=== PATIENT | female | born 1955 | race Caucasian/White ===

== ENCOUNTER → 2016-03-02 | Outpatient (CLI) | payer OTHER ==
[~2016-03-02] MED LIST: 'carisoprodol350 MG PO; ABILIFY10 MG PO; ABILIFY15 MG PO; ABILIFY20 MG PO; ABILIFY5 MG PO; ACCUNEB 0.0.63 MG/3 INH; ACULAR 3 ML3 M1 OP; ADVAIR 500/501 E1 INH; ALBUTEROL0.09 MG/A2 IH; ALPRAZOLAM0.5 M1 PO; AMOXIL500 MG PO; ANAPROX DS550 MG PO; ATIVAN0.5 MG PO; ATIVAN1 MG PO; ATROVENT 2.5 M2.5 ML IH; ATROVENT I0.5 MG/2.1 INH; ATROVENT I0.5 MG/2.5 INH; BACTRIM DS 8001 TA1 PO; BACTROBAN OINT22 GM PO; BIAXIN500 MG PO; BROVANA15 MCG/2 M IH; CEFZIL500 MG PO; CIPRODEX 0.3%-7.5 ML OT; CLARITIN10 MG PO; CLEOCIN150 MG PO; CLINDAMYCIN HC300 MG PO; CLINDAMYCIN150 MG PO; CLONIDINE0.1 MG PO; CORDROL20 MG PO; CYCLOBENZAPRINE10 MG PO; DARVOCET N 1001 TAB PO; DELTASONE20 M1 PO; DICLOFENAC POTA50 MG PO; DIFLUCAN100 MG PO; DIFLUCAN150 MG PO; DIFLUCAN200 MG PO; DOXYCYCLINE HY100 M5 PO; DOXYCYCLINE MO100 MG PO; DOXYCYCLINE100 M3 PO; DULER200 PO; DULERA 200 MCG8.8 GM PO; DUONEB 3 MG/3 ML3 M1 INH; Depakote ER500 MG PO; ELIMITE 5%60 GM T; ENSURE LIQUID237 ML PO; FLAGYL500 MG PO; FLEXERIL10 MG PO; GEODON20 MG PO; GEODON80 MG PO; HYCODAN/HYDROMET5 ML PO; IMITREX100 MG PO; IMITREX25 M1 PO; K-DUR 20MEQ20 MEQ PO; KEFLEX500 MG PO; KENALOG0.1% TP; KLONOPIN1 M1 PO; KLONOPIN1 MG PO; LEVAQUIN 750MG750 MG PO; LEVAQUIN250 MG PO; LEVAQUIN750 M1 PO; LEVOFLOXACIN500 MG PO; LOMOTIL 0.025 M1 TAB PO; MECLIZINE HCL25 M2 PO; MEDROL DOSEPAK4 MG PO; MIDODRINE HCL10 MG PO; MIDODRINE HCL2.5 MG PO; MOTRIN800 MG PO; MULTI VITAMINS1 TAB PO; NAPROSYN500 MG PO; NAPROXEN500 M1 PO; NASONEX0.05 MG/AC NAS; NASONEX0.05 MG/AC NS; NEURONTIN300 MG PO; NEURONTIN800 MG PO; NIZORAL 2%15 GM PO; OSMOLITE CAL PEG; PERCOCET 325 MG1 TA2; PERCOCET 325 MG1 TA3 PO; PERCOCET 325 MG1 TA4 PO; PERCOCET 325 MG1 TA7 PO; PERCOCET 325 MG1 TA8 PO; PERCOCET 325 MG1 TAB PO; PHENERGAN W/ DE30 ML PO; PHENERGAN W/DM120 ML PO; PREDNICOT20 MG PO; PREDNISONE10 MG PO; PREDNISONE20 M1 PO; PRENATAL PLUS1 EAC1 PO; PROMETHAZINE25 M1 PO; PROVENTIL0.09 MG/AC IH; PULMICORT RES0.25 M1 INH; REGLAN10 M1 PO; ROBAXIN-750750 MG PO; ROBAXIN500 MG PO; ROBAXIN750 MG PO; ROBITUSSIN AC 110 ML PO; ROBITUSSIN-AC480 ML PO; SEPTRA DS 800 M1 TAB PO; SINGULAIR10 M1 PO; SOMA350 MG PO; SYNTHROID,LEV112 MCG PO; SYNTHROID,LEVO25 MCG PO; Synthroid,Levo75 MCG PO; TESSALON PERLE200 MG PO; TOBREX OPHTH S2.5 ML OPH; TRAMADOL HCL50 MG PO; TRAZADONE HYDR100 MG PO; TRAZODONE HCL100 MG PO; TRAZODONE HCL300 MG PO; TRAZODONE HYDR100 MG PO; Tobrex Ophth S2.5 ML OPH; ULTRAM50 MG PO; VENTOLIN 02.5 MG/3 M INH; VENTOLIN H0.09 MG/AC INH; VIBRAMYCIN100 MG PO; VICODIN 5/500 505 MG PO; VICODIN 500 MG-1 TAB PO; VICODIN ES 7501 TAB PO; VISTARIL50 MG PO; VITAMIN D-32000 UNIT PO; VOLTAREN50 M1 PO; XANAX0.5 MG PO; ZANTAC150 MG PO; ZIPRASIDONE HCL80 M1 PO; ZYRTEC10 MG PO; [UNRECOGNIZED DRUG - OTHER] NS
[2016-03-02 09:13] LABS: BASO # 0.1 10*3/uL (0.0-0.1); BASO % 0.9 % (0.0-1.0); EOS # 0.2 10*3/uL (0.0-0.4); EOS % 2.7 % (1.0-4.0); HEMOGLOBIN 13.1 g/dl (12.0-16.0); LYMPH # 3.3 10*3/uL (1.3-4.4); LYMPH % 37.9 % (27.0-41.0); MEAN CELL VOLUME 95.7 fl (81.0-99.0); MEAN CORPUSCULAR HGB 31.3 pg (27.0-31.0); MEAN CORPUSCULAR HGB CONC 32.8 g/dl (33.0-37.0); MEAN PLATELET VOLUME 9.6 fl (9.6-12.3); MONO # 0.7 10*3/uL (0.1-1.0); MONO % 7.6 % (3.0-9.0); NEUT # 4.4 10*3/uL (2.3-7.9); NEUT % 50.7 % (47.0-73.0); PLATELET COUNT AUTOMATED 229 10*3/uL (130-400); RED BLOOD COUNT 4.18 10*6/uL (4.10-5.10); RED CELL DISTRI WIDTH 12.7 % (0-14.5); WHITE BLOOD COUNT 8.7 10*3/uL (4.8-10.8)
[2016-03-02 09:47] LABS: BUN 15 mg/dl (7-24); CARBON DIOXIDE 29 mmol/L (21-32); CHLORIDE 105 mmol/L (98-107); EST GLOM FILT AFRICAN AMERICAN > 60 ml/min; FREE T4 0.95 ng/dl (0.76-1.46); GLUCOSE 89 mg/dL (65-99); IRON 66 ug/dL (50-170); IRON SATURATION 23 %; POTASSIUM 4.1 mmol/L (3.5-5.1); SODIUM 142 mmol/L (136-145); UIBC 220 ug/dL (110-365)
[2016-03-03 06:10] LABS: THYROID PEROXIDASE (TPO) AB 10 IU/mL (0-34)
[2016-03-03 14:06] LABS: THYROGLOBULIN ANTIBODY <1.0 IU/mL (0.0-0.9)
== END | disposition home or self-care (01) ==
LOC: LAB 08:53
PROVIDERS: Internal Medicine
DX: D75.1 Secondary polycythemia (principal); D64.9 Anemia, unspecified; E55.9 Vitamin D deficiency, unspecified; R73.02 Impaired glucose tolerance (oral); E06.9 Thyroiditis, unspecified; T45.4X5A Adverse effect of iron and its compounds, initial encounter

== ENCOUNTER 2016-03-14 15:58 | Emergency (ER) | payer OTHER ==
[~2016-03-14] VITALS: Ht 167.6 cm; Wt 50.8 kg
[~2016-03-14 15:58] MED LIST changes: -ALPRAZOLAM0.5 M1 PO; -IMITREX25 M1 PO; -MIDODRINE HCL10 MG PO; -Synthroid,Levo75 MCG PO; -VITAMIN D-32000 UNIT PO
[2016-03-14 16:12] VITALS: BP 140/82
[2016-03-14] MEDS ORDERED: IMITREX25 M1 PO (16:15)
[2016-04-17] MEDS ORDERED: Synthroid,Levo75 MCG PO (02:24)
[2016-04-17] MEDS ORDERED: MIDODRINE HCL10 MG PO (02:25)
[2016-04-17] MEDS ORDERED: ALPRAZOLAM0.5 M1 PO (02:31)
[2016-04-17] MEDS ORDERED: ZYRTEC10 MG PO (03:42)
[2016-04-17] MEDS ORDERED: VITAMIN D-32000 UNIT PO (17:18)
== END 2016-03-14 20:04 | disposition home or self-care (01) ==
LOC: ED 15:58
DX: G43.111 Migraine with aura, intractable, with status migrainosus (principal); F41.9 Anxiety disorder, unspecified; M54.9 Dorsalgia, unspecified; G89.29 Other chronic pain; E03.9 Hypothyroidism, unspecified; F31.9 Bipolar disorder, unspecified; F17.200 Nicotine dependence, unspecified, uncomplicated; Z88.0 Allergy status to penicillin; Z88.1 Allergy status to other antibiotic agents; Z88.6 Allergy status to analgesic agent; Z79.899 Other long term (current) drug therapy

== ENCOUNTER 2016-05-23 20:59 | Emergency (ER) | payer OTHER ==
[~2016-05-23] VITALS: Ht 167.6 cm; Wt 48.5 kg
[~2016-05-23 20:59] MED LIST changes: +ALPRAZOLAM0.5 M1 PO; +IMITREX25 M1 PO; +MIDODRINE HCL10 MG PO; +Synthroid,Levo75 MCG PO; +VITAMIN D-32000 UNIT PO
[2016-05-23] MEDS ORDERED: MELATONIN1 MG PO (21:08)
[2016-05-23] MEDS ORDERED: VITAMIN D5000 I3 PO (21:08)
[2016-05-23 21:10] VITALS: BP 106/82
[2016-05-23 21:56] LABS: BASO # 0.1 10*3/uL (0.0-0.1); BASO % 0.8 % (0.0-1.0); EOS # 0.1 10*3/uL (0.0-0.4); EOS % 1.1 % (1.0-4.0); HEMATOCRIT 39.2 % (37.0-47.0); HEMOGLOBIN 13.4 g/dl (12.0-16.0); LYMPH # 2.8 10*3/uL (1.3-4.4); MEAN CELL VOLUME 93.3 fl (81.0-99.0); MEAN CORPUSCULAR HGB 31.9 pg (27.0-31.0); MEAN CORPUSCULAR HGB CONC 34.2 g/dl (33.0-37.0); MEAN PLATELET VOLUME 9.8 fl (9.6-12.3); MONO # 0.8 10*3/uL (0.1-1.0); MONO % 7.4 % (3.0-9.0); NEUT # 6.7 10*3/uL (2.3-7.9); NEUT % 63.4 % (47.0-73.0); PLATELET COUNT AUTOMATED 298 10*3/uL (130-400); RED CELL DISTRI WIDTH 12.9 % (0-14.5); WHITE BLOOD COUNT 10.5 10*3/uL (4.8-10.8)
[2016-05-23 22:19] LABS: ALBUMIN 3.4 gm/dl (3.1-4.5); ALKALINE PHOSPHATASE 86 U/L (45-117); BUN 11 mg/dl (7-24); CARBON DIOXIDE 26 mmol/L (21-32); CHLORIDE 109 mmol/L (98-107); EST GLOM FILT AFRICAN AMERICAN > 60 ml/min; GLUCOSE 117 mg/dL (65-99); POTASSIUM 3.6 mmol/L (3.5-5.1); SGOT/AST 13 IU/L (3-35); SGPT/ALT 18 U/L (12-78); SODIUM 145 mmol/L (136-145); TOTAL PROTEIN 6.4 gm/dL (6.4-8.2)
[2016-05-23 22:20] LABS: BILIRUBIN, TOTAL 0.1 mg/dl (0.2-1.0)
[2016-05-23] MEDS ORDERED: DOXYCYCLINE100 M3 PO (22:45)
[2016-05-23] MEDS ORDERED: PREDNISONE10 MG PO (22:45)
== END 2016-05-23 22:44 | disposition home or self-care (01) ==
LOC: ED 21:00
PROVIDERS: Registered Nurse
DX: J42 Unspecified chronic bronchitis (principal); J44.1 Chronic obstructive pulmonary disease with (acute) exacerbation; F17.200 Nicotine dependence, unspecified, uncomplicated; Z88.0 Allergy status to penicillin; Z88.1 Allergy status to other antibiotic agents; Z88.6 Allergy status to analgesic agent; Z88.8 Allergy status to other drugs, medicaments and biological substances; Z79.899 Other long term (current) drug therapy

== ENCOUNTER 2016-06-16 18:38 | Emergency (ER) | payer OTHER ==
[~2016-06-16] VITALS: Wt 47.6 kg
[~2016-06-16 18:38] MED LIST changes: +MELATONIN1 MG PO; +VITAMIN D5000 I3 PO
[2016-06-16 19:18] LABS: BASO # 0.1 10*3/uL (0.0-0.1); BASO % 0.8 % (0.0-1.0); EOS # 0.1 10*3/uL (0.0-0.4); EOS % 1.1 % (1.0-4.0); HEMATOCRIT 48.1 % (37.0-47.0); LYMPH # 2.9 10*3/uL (1.3-4.4); LYMPH % 28.7 % (27.0-41.0); MEAN CELL VOLUME 94.9 fl (81.0-99.0); MEAN CORPUSCULAR HGB 31.6 pg (27.0-31.0); MEAN CORPUSCULAR HGB CONC 33.3 g/dl (33.0-37.0); MEAN PLATELET VOLUME 9.7 fl (9.6-12.3); MONO # 0.7 10*3/uL (0.1-1.0); NEUT # 6.4 10*3/uL (2.3-7.9); NEUT % 62.1 % (47.0-73.0); PLATELET COUNT AUTOMATED 368 10*3/uL (130-400); RED BLOOD COUNT 5.07 10*6/uL (4.10-5.10); RED CELL DISTRI WIDTH 13.5 % (0-14.5); WHITE BLOOD COUNT 10.3 10*3/uL (4.8-10.8)
[2016-06-16 19:34] LABS: ALBUMIN 3.8 gm/dl (3.1-4.5); ALKALINE PHOSPHATASE 83 U/L (45-117); BILIRUBIN, TOTAL 0.4 mg/dl (0.2-1.0); BUN 16 mg/dl (7-24); CARBON DIOXIDE 25 mmol/L (21-32); CHLORIDE 106 mmol/L (98-107); CPK 58 U/L (26-192); EST GLOM FILT AFRICAN AMERICAN > 60 ml/min; GLUCOSE 133 mg/dL (65-99); LDH 193 U/L (84-246); MAGNESIUM 2.3 mg/dL (1.5-2.1); POTASSIUM 4.5 mmol/L (3.5-5.1); SGOT/AST 17 IU/L (3-35); SGPT/ALT 13 U/L (12-78); SODIUM 143 mmol/L (136-145); TOTAL PROTEIN 7.5 gm/dL (6.4-8.2)
[2016-06-16 19:43] LABS: TROPONIN I < 0.015 ng/ml (<0.045)
[2016-06-16 19:45] VITALS: BP 127/85
[2016-06-16] MEDS ORDERED: VIBRAMYCIN100 MG PO (20:33)
[2016-06-16] MEDS ORDERED: MEDROL DOSEPAK4 MG PO (20:33)
== END 2016-06-16 20:47 | disposition home or self-care (01) ==
LOC: ED 18:38
PROVIDERS: Physician Assistant
DX: J44.1 Chronic obstructive pulmonary disease with (acute) exacerbation (principal); Z88.0 Allergy status to penicillin; Z88.1 Allergy status to other antibiotic agents; Z88.6 Allergy status to analgesic agent; Z79.899 Other long term (current) drug therapy

== ENCOUNTER 2016-07-05 05:32 | Emergency (ER) | payer OTHER ==
[~2016-07-05] VITALS: Ht 167.6 cm; Wt 49.9 kg
[2016-07-05 06:17] VITALS: BP 142/88
[2016-07-05 06:32] LABS: BASO # 0.1 10*3/uL (0.0-0.1); BASO % 1.2 % (0.0-1.0); EOS # 0.3 10*3/uL (0.0-0.4); EOS % 3.3 % (1.0-4.0); HEMATOCRIT 46.2 % (37.0-47.0); HEMOGLOBIN 15.1 g/dl (12.0-16.0); IG # 0.1 10*3/uL (0.0-0.1); LYMPH # 2.8 10*3/uL (1.3-4.4); MEAN CELL VOLUME 97.1 fl (81.0-99.0); MEAN CORPUSCULAR HGB 31.7 pg (27.0-31.0); MEAN CORPUSCULAR HGB CONC 32.7 g/dl (33.0-37.0); MEAN PLATELET VOLUME 9.6 fl (9.6-12.3); MONO # 1.1 10*3/uL (0.1-1.0); MONO % 10.4 % (3.0-9.0); NEUT # 5.9 10*3/uL (2.3-7.9); NEUT % 57.6 % (47.0-73.0); PLATELET COUNT AUTOMATED 373 10*3/uL (130-400); RED BLOOD COUNT 4.76 10*6/uL (4.10-5.10); RED CELL DISTRI WIDTH 12.3 % (0-14.5); WHITE BLOOD COUNT 10.3 10*3/uL (4.8-10.8)
[2016-07-05 06:45] LABS: BUN 17 mg/dl (7-24); CARBON DIOXIDE 31 mmol/L (21-32); CHLORIDE 105 mmol/L (98-107); EST GLOM FILT AFRICAN AMERICAN > 60 ml/min; GLUCOSE 121 mg/dL (65-99); SODIUM 144 mmol/L (136-145)
[2016-07-05] MEDS ORDERED: CEFDINIR300 MG PO (07:22)
[2016-07-05] MEDS ORDERED: PREDNISONE20 M1 PO (07:22)
[2016-07-05] MEDS ORDERED: PROAIR HFA8.5 GM INH (07:22)
== END 2016-07-05 07:30 | disposition left against medical advice (07) ==
LOC: ED 05:32
PROVIDERS: Emergency Medicine Emergency Medical Services
DX: J44.1 Chronic obstructive pulmonary disease with (acute) exacerbation (principal); F41.9 Anxiety disorder, unspecified; E03.9 Hypothyroidism, unspecified; G43.909 Migraine, unspecified, not intractable, without status migrainosus; I50.9 Heart failure, unspecified; Z88.1 Allergy status to other antibiotic agents; Z88.0 Allergy status to penicillin; Z88.6 Allergy status to analgesic agent; Z79.899 Other long term (current) drug therapy

== ENCOUNTER → 2016-07-17 | Outpatient (CLI) | payer OTHER ==
[~2016-07-17] MED LIST changes: +CEFDINIR300 MG PO; +PROAIR HFA8.5 GM INH
== END | disposition home or self-care (01) ==
LOC: MRI 07-04 10:00
DX: D16.22 Benign neoplasm of long bones of left lower limb (principal); G89.29 Other chronic pain; M25.562 Pain in left knee

== ENCOUNTER 2016-07-24 05:08 | Inpatient (IN) | payer OTHER ==
[~2016-07-24] VITALS: Ht 167.6 cm; Wt 50.1 kg
--- NOTE | ~2016-07-24 | CON ---
[place], [place] REPORT OF CONSULTATION NAME: TRUONG HIRSCH [facility] #: [id number] UNIT #: [id number] ROOM: 402 DOCTOR: MORENITA JIM MD BIRTHDATE: [birth year] DOS: 07/25/2016 PULMONARY CONSULTATION EVALUATION AND MANAGEMENT CONSULTATION REQUESTED BY: Hospitalist services, Dr. Katz. REASON FOR CONSULTATION: To assess the patient for COPD exacerbation. HISTORY OF PRESENT ILLNESS: A 61-year-old white female unknown to me from the past, admitted to the hospital. The patient developing progressive increased shortness of breath ongoing for the past couple of days. Shortness of breath has been noted with significant worsening. The patient also started with symptoms of cough, which has been noted productive sometimes and nonproductive at other times. All the symptoms of the patient noted with gradual worsening. The symptoms started as the upper airway symptoms with nasal congestion and postnasal drainage. She was complaining of tightness in the chest as well. Denies symptoms of chest pain. The wheezing of the patient also occurring with that. The patient was seen in the Emergency Room for further assessment, currently being admitted and treated for acute exacerbation of COPD. REVIEW OF SYSTEMS: CONSTITUTIONAL: Fatigue and tiredness noted for this patient without any symptoms of fever or chills. EYES: Denies any burning, redness, or tenderness. EARS, NOSE, AND THROAT: No sore throat, hoarseness, otalgia, postnasal drainage. CARDIOVASCULAR: Denies anginal pain, edema or pain of the lower extremities. GASTROINTESTINAL: Denies dysphagia, nausea, vomiting, diarrhea, abdominal pain. The patient was noted with weight loss of about 35 pounds in the past several months, which is described to be unintentional. Denies symptoms of dysphagia. GENITOURINARY: Denies dysuria, suprapubic pain, hematuria. MUSCULOSKELETAL: Denies acute joint pain, redness, or tenderness. EARS, NOSE, THROAT SYMPTOMS: No sore throat, hoarseness, otalgia, postnasal drainage or epistaxis. CENTRAL NERVOUS SYSTEM: Denies any symptoms of diplopia, seizure, tingling sensation or any focal neurologic deficit. Remaining systems were reviewed with the patient, they were noted all negative. PAST MEDICAL HISTORY: Noted: 1. Centrilobular emphysema. 2. Degenerative arthritis, chronic pain. 3. History of migraine headaches. 4. Vitamin D deficiency. 5. Low BMI. 6. History of chronic back pain. 7. History of bipolar disorder. 8. General anxiety disorder. 9. Vitamin D deficiency. [place], [place] REPORT OF CONSULTATION NAME: TRUONG HIRSCH UNIT #: [id number] ROOM: 402 DOCTOR: MARGIE JIM MDM BIRTHDATE: [birth year] PAST SURGICAL HISTORY: 1. Cardiac catheterization. 2. History of PEG tube placement. 3. Appendectomy. 4. Hysterectomy. 5. Rhinoplasty. 6. Rotator cuff surgery on the right. 7. Multiple bilateral toe surgery. 8. History of tonsillectomy. SOCIAL HISTORY: The patient stated that she is and has 2 children. Smoking started at younger age, smoking up to 2 packs of cigarettes per day, for the last few days, was smoking half a pack of cigarettes per day. Denies any history of alcohol use or any illicit drugs use. FAMILY HISTORY: Father at age years old with complication of diabetes mellitus. Mother at age of 6262 years old, complication of cancer of the brain. One of the sister committed suicide. HOME MEDICATIONS: 1. Noted as use of Xanax 0.5 mg p.o. t.i.d. p.r.n. for agitation. 2. Zyrtec 10 mg p.o. daily. 3. Depakote ER 1000 mg at bedtime. 4. DuoNeb q.i.d. p.r.n. for shortness of breath. 5. Levaquin 500 mg p.o. daily. 6. Synthroid 88 mcg daily. 7. Melatonin 10 mg at bedtime. 8. Midodrine 20 mg p.o. t.i.d. 9. Percocet 10/325 q.i.d. p.r.n. for pain. 10. Prednisone 10 mg daily. 11. Geodon 80 mg at bedtime. DRUG ALLERGIES: Noted as allergy: 1. PENICILLIN. 2. Z-GREGORIA. 3. CIPROFLOXACIN. 4. VICODIN. 5. DILAUDID. 6. AVELOX. PHYSICAL EXAMINATION: GENERAL: This is a 61-year-old white female noted quite anxious. The patient sitting on the bed without any distress. Height of 5 feet 6 inches. Weight of 110 pounds, BMI 17. VITAL SIGNS: For the patient which were recorded showed the temperature noted normal, respiratory rate 18-20, heart rate of 97-88, blood pressure 146/88-162/76. The pulse oxygen saturation on 2 liters nasal cannula 95% saturation. HEENT: Head was atraumatic. Eyes nonicterus. NECK: Supple. Oral mucosa was moist. [place], [place] REPORT OF CONSULTATION NAME: TRUONG HIRSCH UNIT #: [id number] ROOM: 402 DOCTOR[facility] BIR[facility]: [birth year] CARDIOVASCULAR: S1, S2 audible. LUNGS: Mild to moderate decreased breath sounds noted in the lungs bilaterally. ABDOMEN: Flat, soft, nontender. Bowel sounds present. EXTREMITIES: Show no edema, clubbing or cyanosis. MUSCULOSKELETAL: No deformities. SKIN: No lesions or rashes. CENTRAL NERVOUS SYSTEM: Cranial nerves 2-12 intact. LABORATORY DATA: CBC of the patient on 07/24/2016, WBC count 13.8, hemoglobin 16.7, hematocrit 52.0, platelet count was normal. The lactic acid 2.7 on 07/24/2016. CMP of the patient on 07/24/2016, glucose 130, BUN and creatinine was normal. Remaining liver function tests were normal. Troponin for this patient was noted on 07/24/2016 and 07/25/2016 normal. CBC on 07/25/2016, WBC count 21.2, hemoglobin and hematocrit were normal. Platelet count was normal. BMP of the patient on 07/25/2016, glucose 131, sodium 148. Remaining BMP was normal. Blood culture from 07/24/2016 showed no bacterial growth. Final culture results were pending. The chest x-ray of the patient that was done, 1 view on 07/24/2016 shows severe hyperinflation changes, finding of COPD for this patient, emphysema was noted. There was no obvious gross pulmonary infiltration visible. Lower lobe for the patient shows nodules, most likely related to the nipple markers of the breast. Chest x-ray of the patient that was done previously of 07/05/2016 shows increased interstitial markings at that time. IMPRESSION: 1. The patient who has been currently admitted to the hospital, being treated for acute exacerbation of chronic obstructive pulmonary disease. 2. History of chronic nicotine dependence. 3. Abnormal weight loss, may be related to the emphysema. Other etiology to be considered for abnormal weight loss as well. 4. The patient with history of hypothyroidism, history of chronic degenerative arthritis, dependency on pain medications and others. PLAN OF TREATMENT: At this time, the patient seemed to be responding to treatment noted without any ongoing wheezing or crackles. She could be considered for home discharge if necessary on oral medications. No changes in the antibiotics for this patient have been necessary. Obtain the sputum for Gram stain and culture if the patient is able to expectorate sputum. She has been noted with essentially nonproductive cough, which is noted mild to moderate at this time and gradually improving. Her home medications have been continued including use of the Mucinex. Tobacco cessation has been discussed with the patient in detail. Other treatment changes done based on progression of the illness. Also, alpha-1 antitrypsin level will be obtained for the patient as an outpatient once the patient noted resolution of acute infection in the lungs. [place], [place] REPORT OF CONSULTATION NAME: TRUONG HIRSCH UNIT #: [id number] ROOM: 402 DOCTOR: MORENITA JIM MD BIRTHDATE: [birth year] MORENITA MARQUEZ MD CM:CONSTR:REPORT OF CONSULTATION 1144 07/27/16 0228 interface
[2016-07-24 05:16] VITALS: BP 117/93
[2016-07-24 05:38] LABS: BASO # 0.1 10*3/uL (0.0-0.1); EOS # 0.3 10*3/uL (0.0-0.4); EOS % 1.8 % (1.0-4.0); HEMOGLOBIN 16.7 g/dl (12.0-16.0); IG # 0.1 10*3/uL (0.0-0.1); LYMPH # 3.5 10*3/uL (1.3-4.4); LYMPH % 25.2 % (27.0-41.0); MEAN CELL VOLUME 94.9 fl (81.0-99.0); MEAN CORPUSCULAR HGB 30.5 pg (27.0-31.0); MEAN CORPUSCULAR HGB CONC 32.1 g/dl (33.0-37.0); MEAN PLATELET VOLUME 10.1 fl (9.6-12.3); MONO % 6.9 % (3.0-9.0); NEUT # 8.9 10*3/uL (2.3-7.9); NEUT % 64.7 % (47.0-73.0); PLATELET COUNT AUTOMATED 323 10*3/uL (130-400); RED BLOOD COUNT 5.48 10*6/uL (4.10-5.10); RED CELL DISTRI WIDTH 12.1 % (0-14.5); WHITE BLOOD COUNT 13.8 10*3/uL (4.8-10.8)
[2016-07-24 05:53] LABS: ALBUMIN 3.7 gm/dl (3.1-4.5); ALKALINE PHOSPHATASE 87 U/L (45-117); BILIRUBIN, TOTAL 0.5 mg/dl (0.2-1.0); BUN 14 mg/dl (7-24); C-REACTIVE PROTEIN 1.34 MG/DL (0-0.3); CARBON DIOXIDE 24 mmol/L (21-32); CHLORIDE 105 mmol/L (98-107); EST GLOM FILT AFRICAN AMERICAN > 60 ml/min; GLUCOSE 138 mg/dL (65-99); POTASSIUM 3.9 mmol/L (3.5-5.1); SGOT/AST 10 IU/L (3-35); SGPT/ALT 12 U/L (12-78); SODIUM 142 mmol/L (136-145); TOTAL PROTEIN 7.7 gm/dL (6.4-8.2)
[2016-07-24 05:55] LABS: TROPONIN I < 0.015 ng/ml (<0.045)
[2016-07-24] MEDS ORDERED: PREDNISONE10 MG PO (06:13)
[2016-07-24] MEDS ORDERED: LEVOFLOXACIN500 MG PO (06:13)
[2016-07-24 07:35] LABS: LA>2 REFLEX 2 HR DRAW NOW
[2016-07-24 19:55] VITALS: BP 130/98
[2016-07-24 20:04] VITALS: BP 130/98
[2016-07-24 21:10] VITALS: BP 130/73; BP 130/76
[2016-07-24 22:11] LABS: LA>2 REFLEX 2 HR DRAW NOW
[2016-07-24] MEDS ORDERED: MELATONIN10 M4 PO (23:06)
[2016-07-25] VITALS: BP 130/73; BP 150/80
[2016-07-25 04:59] LABS: BILIRUBIN NEGATIVE (NEGATIVE); BLOOD NEGATIVE (NEGATIVE); CLARITY SL CLOUDY (CLEAR); COLOR YELLOW (YELLOW); GLUCOSE 1+ (NEGATIVE); KETONE TRACE (NEGATIVE); LEUKO ESTERASE NEGATIVE (NEGATIVE); NITRITE NEGATIVE (NEGATIVE); PH 6.5 (5.0-9.0); PROTEIN NEGATIVE (NEGATIVE); SPECIFIC GRAVITY 1.015 (1.005-1.030)
[2016-07-25 05:11] LABS: WBC 0-2 wbc/hpf (0-5)
[2016-07-25 05:12] LABS: BACTERIA 1+; URINE REFLEX COMMENT NO (NO)
[2016-07-25 06:30] LABS: MEAN CELL VOLUME 95.3 fl (81.0-99.0); MEAN CORPUSCULAR HGB 31.7 pg (27.0-31.0); MEAN CORPUSCULAR HGB CONC 33.3 g/dl (33.0-37.0); MEAN PLATELET VOLUME 10.3 fl (9.6-12.3); PLATELET COUNT AUTOMATED 244 10*3/uL (130-400); RED BLOOD COUNT 4.26 10*6/uL (4.10-5.10); RED CELL DISTRI WIDTH 12.4 % (0-14.5); WHITE BLOOD COUNT 21.2 10*3/uL (4.8-10.8)
[2016-07-25 06:32] LABS: HEMATOCRIT 40.6 % (37.0-47.0); HEMOGLOBIN 13.5 g/dl (12.0-16.0)
[2016-07-25 06:55] LABS: LYMPHOCYTE # 1.9 10*3/uL (1.3-4.4); MONOCYTE # 0.6 10*3/uL (0.1-1.0); NEUTROPHIL # 18.7 10*3/uL (2.3-7.9); NEUTROPHILS 88 % (47-73); PLATELET SUFFICIENCY NORMAL (NORMAL); TOTAL CELLS COUNTED 100 #CELLS
[2016-07-25 07:01] LABS: BUN 18 mg/dl (7-24); CARBON DIOXIDE 28 mmol/L (21-32); CHLORIDE 112 mmol/L (98-107); EST GLOM FILT AFRICAN AMERICAN > 60 ml/min; GLUCOSE 131 mg/dL (65-99); POTASSIUM 4.4 mmol/L (3.5-5.1); SODIUM 148 mmol/L (136-145)
[2016-07-25 07:23] LABS: HEMOGLOBIN A1c 5.9 % (4.8-5.6)
[2016-07-25 08:00] VITALS: BP 128/76
[2016-07-25 12:00] VITALS: BP 171/76
[2016-07-25 16:00] VITALS: BP 170/80
[2016-07-25 20:00] VITALS: BP 157/73
[2016-07-26] VITALS: BP 169/89
[2016-07-26 00:15] VITALS: BP 146/88
[2016-07-26 08:00] VITALS: BP 162/76
[2016-07-26 12:00] VITALS: BP 172/83
[2016-07-26] MEDS ORDERED: DOXYCYCLINE100 M3 PO (13:15)
== END 2016-07-26 13:46 | disposition home or self-care (01) | DRG 871 ==
LOC: ED 05:08 → EDHOLD 19:56 → 4E 19:56
PROVIDERS: Emergency Medicine Emergency Medical Services; Internal Medicine; Student in an Organized Health Care Education/Training Program
DX: A41.9 Sepsis, unspecified organism (principal); J18.9 Pneumonia, unspecified organism; E87.2 Acidosis; I50.32 Chronic diastolic (congestive) heart failure; E87.0 Hyperosmolality and hypernatremia; E87.8 Other disorders of electrolyte and fluid balance, not elsewhere classified; J44.1 Chronic obstructive pulmonary disease with (acute) exacerbation; J44.0 Chronic obstructive pulmonary disease with (acute) lower respiratory infection; Z68.1 Body mass index [BMI] 19.9 or less, adult; R65.20 Severe sepsis without septic shock; R73.9 Hyperglycemia, unspecified; E03.9 Hypothyroidism, unspecified; F17.210 Nicotine dependence, cigarettes, uncomplicated; M54.9 Dorsalgia, unspecified; M19.90 Unspecified osteoarthritis, unspecified site; F31.9 Bipolar disorder, unspecified; R63.6 Underweight; E55.9 Vitamin D deficiency, unspecified; Z93.1 Gastrostomy status; Z90.710 Acquired absence of both cervix and uterus; Z90.49 Acquired absence of other specified parts of digestive tract; Z83.3 Family history of diabetes mellitus; Z80.8 Family history of malignant neoplasm of other organs or systems; Z88.1 Allergy status to other antibiotic agents; Z88.0 Allergy status to penicillin; Z88.6 Allergy status to analgesic agent; Z88.8 Allergy status to other drugs, medicaments and biological substances; Z79.899 Other long term (current) drug therapy; Z79.2 Long term (current) use of antibiotics; Z79.1 Long term (current) use of non-steroidal anti-inflammatories (NSAID)

== ENCOUNTER → 2016-08-23 | Emergency (ER) | payer OTHER ==
[~2016-08-23] VITALS: Ht 167.6 cm; Wt 48.5 kg
[~2016-08-23] MED LIST changes: +KETOROLAC10 MG PO; +MELATONIN10 M4 PO; +TOPIRAMATE50 M2 PO
[2016-08-23 04:10] VITALS: BP 158/92
== END ==
LOC: ED 04:07
DX: G43.909 Migraine, unspecified, not intractable, without status migrainosus (principal); J44.9 Chronic obstructive pulmonary disease, unspecified; I50.30 Unspecified diastolic (congestive) heart failure; E03.9 Hypothyroidism, unspecified; M19.90 Unspecified osteoarthritis, unspecified site; F17.200 Nicotine dependence, unspecified, uncomplicated; Z88.1 Allergy status to other antibiotic agents; Z88.0 Allergy status to penicillin; Z88.6 Allergy status to analgesic agent; Z79.899 Other long term (current) drug therapy

== ENCOUNTER 2016-09-25 04:12 | Inpatient (IN) | payer OTHER ==
[~2016-09-25] VITALS: Ht 167.6 cm; Wt 49.9 kg
--- NOTE | ~2016-09-25 | WRIGHTHP ---
[place], [place] PATIENT HISTORY AND PHYSICAL EXAM NAME: TRUONG HIRSCH UNIT #: [id number] ROOM: 403 DOCTOR: LIT ORTEGA DO BIRTHDATE: [birth year] DOS: 09/25/2016 The patient left AMA, was not seen by a member of the hospitalist staff. LIT ORTEGA DO CM:HISPHYS:PATIENT HISTORY AND PHYSICAL EXAMINATION 1213 1228 LIT ORTEGA DO 09/30/16 1228 interface
[2016-09-25 04:20] VITALS: BP 160/96
[2016-09-25 04:34] LABS: BASO # 0.1 10*3/uL (0.0-0.1); BASO % 0.7 % (0.0-1.0); EOS # 0.2 10*3/uL (0.0-0.4); EOS % 2.2 % (1.0-4.0); HEMATOCRIT 45.2 % (37.0-47.0); LYMPH # 3.1 10*3/uL (1.3-4.4); MEAN CELL VOLUME 93.8 fl (81.0-99.0); MEAN CORPUSCULAR HGB 31.1 pg (27.0-31.0); MEAN CORPUSCULAR HGB CONC 33.2 g/dl (33.0-37.0); MEAN PLATELET VOLUME 9.4 fl (9.6-12.3); MONO # 1.1 10*3/uL (0.1-1.0); MONO % 10.5 % (3.0-9.0); NEUT # 5.5 10*3/uL (2.3-7.9); NEUT % 55.4 % (47.0-73.0); PLATELET COUNT AUTOMATED 379 10*3/uL (130-400); RED BLOOD COUNT 4.82 10*6/uL (4.10-5.10); RED CELL DISTRI WIDTH 13.4 % (0-14.5)
[2016-09-25 04:47] VITALS: BP 144/76
[2016-09-25 04:51] LABS: ALBUMIN 3.3 gm/dl (3.1-4.5); ALKALINE PHOSPHATASE 90 U/L (45-117); BILIRUBIN, TOTAL 0.3 mg/dl (0.2-1.0); BUN 12 mg/dl (7-24); CARBON DIOXIDE 28 mmol/L (21-32); CHLORIDE 102 mmol/L (98-107); EST GLOM FILT AFRICAN AMERICAN > 60 ml/min; GLUCOSE 163 mg/dL (65-99); MAGNESIUM 1.8 mg/dL (1.5-2.1); POTASSIUM 3.1 mmol/L (3.5-5.1); SGOT/AST 16 IU/L (3-35); SGPT/ALT 16 U/L (12-78); SODIUM 143 mmol/L (136-145); TOTAL PROTEIN 6.8 gm/dL (6.4-8.2)
[2016-09-25 04:53] LABS: TROPONIN I < 0.015 ng/ml (<0.045)
[2016-09-25 06:10] VITALS: BP 134/82
[2016-09-25 06:30] VITALS: BP 134/82
[2016-09-25] MEDS ORDERED: LANSOPRAZOLE15 MG PO (07:45)
[2016-09-25 08:00] VITALS: BP 160/86
== END 2016-09-25 08:45 | disposition left against medical advice (07) | DRG 191 ==
LOC: ED 04:12 → EDHOLD 05:24 → 4E 05:38
PROVIDERS: Emergency Medicine Emergency Medical Services
DX: J44.1 Chronic obstructive pulmonary disease with (acute) exacerbation (principal); I50.32 Chronic diastolic (congestive) heart failure; Z99.81 Dependence on supplemental oxygen; F41.9 Anxiety disorder, unspecified; F31.9 Bipolar disorder, unspecified; E03.9 Hypothyroidism, unspecified; M19.90 Unspecified osteoarthritis, unspecified site; G43.909 Migraine, unspecified, not intractable, without status migrainosus; Z87.01 Personal history of pneumonia (recurrent); Z93.1 Gastrostomy status; Z90.49 Acquired absence of other specified parts of digestive tract; Z90.710 Acquired absence of both cervix and uterus; Z88.1 Allergy status to other antibiotic agents; Z88.0 Allergy status to penicillin; Z88.8 Allergy status to other drugs, medicaments and biological substances; Z83.3 Family history of diabetes mellitus; Z82.49 Family history of ischemic heart disease and other diseases of the circulatory system; Z80.8 Family history of malignant neoplasm of other organs or systems

== ENCOUNTER → 2016-09-26 | Outpatient (CLI) | payer OTHER ==
[~2016-09-26] MED LIST changes: +LANSOPRAZOLE15 MG PO
[2016-09-26 10:55] LABS: BUN 12 mg/dl (7-24); CARBON DIOXIDE 31 mmol/L (21-32); CHLORIDE 100 mmol/L (98-107); EST GLOM FILT AFRICAN AMERICAN > 60 ml/min; FREE T4 1.34 ng/dl (0.76-1.46); GLUCOSE 123 mg/dL (65-99); IRON 41 ug/dL (50-170); IRON SATURATION 12 %; SODIUM 139 mmol/L (136-145); UIBC 276 ug/dL (110-365)
[2016-09-26 11:00] LABS: THYROID STIM HORMONE (HS) 0.609 uIU/ml (0.358-4.75)
[2016-09-26 11:07] LABS: HEMOGLOBIN A1c 6.1 % (4.8-5.6)
[2016-09-26 11:11] LABS: POTASSIUM 4.5 mmol/L (3.5-5.1)
[2016-09-27 07:06] LABS: THYROID PEROXIDASE (TPO) AB 13 IU/mL (0-34)
== END | disposition home or self-care (01) ==
LOC: LAB 09:48
PROVIDERS: Internal Medicine
DX: E55.9 Vitamin D deficiency, unspecified (principal); R73.02 Impaired glucose tolerance (oral); R06.9 Unspecified abnormalities of breathing; R63.4 Abnormal weight loss; D75.1 Secondary polycythemia; E06.9 Thyroiditis, unspecified; R79.9 Abnormal finding of blood chemistry, unspecified

== ENCOUNTER → 2016-10-03 | Outpatient (CLI) | payer OTHER | END | disposition home or self-care (01) | LOC: RAD 11:42 | DX: M47.817 Spondylosis without myelopathy or radiculopathy, lumbosacral region (principal); M41.84 Other forms of scoliosis, thoracic region; M48.06 Spinal stenosis, lumbar region; M19.90 Unspecified osteoarthritis, unspecified site ==

== ENCOUNTER 2016-11-22 01:21 | Emergency (ER) | payer OTHER ==
[~2016-11-22] VITALS: Ht 167.6 cm; Wt 49.9 kg
[2016-11-22 02:00] LABS: BASO # 0.1 10*3/uL (0.0-0.1); BASO % 0.9 % (0.0-1.0); EOS # 0.3 10*3/uL (0.0-0.4); EOS % 2.7 % (1.0-4.0); HEMATOCRIT 43.3 % (37.0-47.0); HEMOGLOBIN 14.3 g/dl (12.0-16.0); LYMPH # 3.5 10*3/uL (1.3-4.4); MEAN CELL VOLUME 94.1 fl (81.0-99.0); MEAN CORPUSCULAR HGB 31.1 pg (27.0-31.0); MEAN PLATELET VOLUME 10.5 fl (9.6-12.3); MONO # 1.1 10*3/uL (0.1-1.0); MONO % 11.1 % (3.0-9.0); NEUT # 5.3 10*3/uL (2.3-7.9); NEUT % 51.1 % (47.0-73.0); PLATELET COUNT AUTOMATED 236 10*3/uL (130-400); RED CELL DISTRI WIDTH 12.4 % (0-14.5); WHITE BLOOD COUNT 10.3 10*3/uL (4.8-10.8)
[2016-11-22 02:18] LABS: ALBUMIN 3.2 gm/dl (3.1-4.5); ALKALINE PHOSPHATASE 89 U/L (45-117); BUN 24 mg/dl (7-24); CHLORIDE 104 mmol/L (98-107); CREATININE 0.84 mg/dL (0.55-1.02); POTASSIUM 3.3 mmol/L (3.5-5.1); SGOT/AST 11 IU/L (3-35); SGPT/ALT 16 U/L (12-78); SODIUM 143 mmol/L (136-145); TOTAL PROTEIN 6.2 gm/dL (6.4-8.2)
[2016-11-22 02:19] LABS: TROPONIN I < 0.015 ng/ml (<0.045)
[2016-11-22 03:06] VITALS: BP 101/74
== END 2016-11-22 03:55 | disposition home or self-care (01) ==
LOC: ED 01:21
PROVIDERS: Emergency Medicine Emergency Medical Services
DX: S30.0XXA Contusion of lower back and pelvis, initial encounter (principal); J44.9 Chronic obstructive pulmonary disease, unspecified; M19.90 Unspecified osteoarthritis, unspecified site; G89.29 Other chronic pain; I50.9 Heart failure, unspecified; E78.00 Pure hypercholesterolemia, unspecified; E03.9 Hypothyroidism, unspecified; G43.909 Migraine, unspecified, not intractable, without status migrainosus; F17.200 Nicotine dependence, unspecified, uncomplicated; Z98.890 Other specified postprocedural states; Z90.710 Acquired absence of both cervix and uterus; Z90.89 Acquired absence of other organs; Z79.899 Other long term (current) drug therapy; Z88.1 Allergy status to other antibiotic agents; Z88.0 Allergy status to penicillin; Z88.5 Allergy status to narcotic agent; W18.09XA Striking against other object with subsequent fall, initial encounter; Y93.89 Activity, other specified; Y92.009 Unspecified place in unspecified non-institutional (private) residence as the place of occurrence of the external cause; Y99.9 Unspecified external cause status

== ENCOUNTER → 2016-12-12 | Day surgery (SDC) | payer OTHER ==
[~2016-12-12] VITALS: Ht 167.6 cm; Wt 46.3 kg
[~2016-12-12] MED LIST changes: +ALPRAZOLAM0.5 M3 PO; +DEPAKOTE500 M1 PO; +DOXYCYCLINE MO100 M1 PO; +LOPERAMIDE HCL2 MG PO; +NTS1 EACH TD; +PAROXETINE20 MG PO; +PIOGLITAZONE HC15 MG PO; +PROVENTIL HFA6.7 GM INH; +Percocet 325 MG1 TAB PO; +VENTOLIN 02.5 MG/3 M NEB
--- NOTE | ~2016-12-12 | EKG ---
[place], [place] ELECTROCARDIOGRAM REPORT NAME: TRUONG HIRSCH UNIT #: [id number] ROOM: DOCTOR: JIMMY RYAN MD,MORENITA BIRTHDATE: [birth year] DOS: 12/15/2016 TIME: 8:40 p.m. Normal sinus rhythm noted with heart rate 67 beats per minute. Nonspecific ST-T changes was noted with a possibility of mild left atrial enlargement. Left anterior fascicular block was noted. Possibility of myocardial infarction in the anteroseptal wall could not be excluded because of the poor R-wave progression. MORENITA MARQUEZ MD CM:EKGRPT:ELECTROCARDIOGRAM REPORT 1451 1603 MORENITA RYAN MD
[2016-12-12 08:22] VITALS: BP 130/74
[2016-12-12 10:08] VITALS: BP 102/59
[2016-12-12 10:25] VITALS: BP 140/82
[2016-12-12 10:35] VITALS: BP 152/90
== END | disposition home or self-care (01) ==
LOC: SDC 12-08 14:00
DX: K51.90 Ulcerative colitis, unspecified, without complications (principal); E03.9 Hypothyroidism, unspecified; F32.9 Major depressive disorder, single episode, unspecified; J44.9 Chronic obstructive pulmonary disease, unspecified; G43.909 Migraine, unspecified, not intractable, without status migrainosus; F17.210 Nicotine dependence, cigarettes, uncomplicated; F41.9 Anxiety disorder, unspecified; Z90.49 Acquired absence of other specified parts of digestive tract; Z90.710 Acquired absence of both cervix and uterus; Z80.9 Family history of malignant neoplasm, unspecified; Z82.49 Family history of ischemic heart disease and other diseases of the circulatory system; Z87.19 Personal history of other diseases of the digestive system

== ENCOUNTER 2016-12-17 19:51 | Emergency (ER) | payer OTHER ==
[~2016-12-17] VITALS: Ht 162.5 cm; Wt 45.4 kg
[~2016-12-17 19:51] MED LIST changes: -ALPRAZOLAM0.5 M3 PO; -DEPAKOTE500 M1 PO; -DOXYCYCLINE MO100 M1 PO; -LOPERAMIDE HCL2 MG PO; -NTS1 EACH TD; -PAROXETINE20 MG PO; -PIOGLITAZONE HC15 MG PO; -PROVENTIL HFA6.7 GM INH; -Percocet 325 MG1 TAB PO; -VENTOLIN 02.5 MG/3 M NEB
[2016-12-17 19:59] VITALS: BP 111/70
[2016-12-17 20:36] LABS: BASO # 0.1 10*3/uL (0.0-0.1); BASO % 0.7 % (0.0-1.0); EOS # 0.2 10*3/uL (0.0-0.4); EOS % 2.1 % (1.0-4.0); LYMPH # 3.1 10*3/uL (1.3-4.4); LYMPH % 34.2 % (27.0-41.0); MEAN CELL VOLUME 93.4 fl (81.0-99.0); MEAN CORPUSCULAR HGB 31.1 pg (27.0-31.0); MEAN CORPUSCULAR HGB CONC 33.3 g/dl (33.0-37.0); MEAN PLATELET VOLUME 9.3 fl (9.6-12.3); MONO # 0.6 10*3/uL (0.1-1.0); MONO % 7.1 % (3.0-9.0); NEUT % 55.7 % (47.0-73.0); PLATELET COUNT AUTOMATED 315 10*3/uL (130-400); RED BLOOD COUNT 4.82 10*6/uL (4.10-5.10); RED CELL DISTRI WIDTH 12.9 % (0-14.5); WHITE BLOOD COUNT 8.9 10*3/uL (4.8-10.8)
[2016-12-17 20:53] LABS: ALBUMIN 3.5 gm/dl (3.1-4.5); ALKALINE PHOSPHATASE 82 U/L (45-117); BUN 18 mg/dl (7-24); CHLORIDE 104 mmol/L (98-107); MAGNESIUM 1.8 mg/dL (1.5-2.1); POTASSIUM 4.5 mmol/L (3.5-5.1); SGOT/AST 16 IU/L (3-35); SGPT/ALT 17 U/L (12-78); SODIUM 138 mmol/L (136-145); TOTAL PROTEIN 6.7 gm/dL (6.4-8.2)
[2016-12-17 20:54] LABS: TROPONIN I < 0.015 ng/ml (<0.045)
[2016-12-17] MEDS ORDERED: DELTASONE20 M1 PO (22:04)
[2016-12-17] MEDS ORDERED: VIBRAMYCIN100 MG PO (22:04)
[2016-12-18] MEDS ORDERED: PROVENTIL HFA6.7 GM INH (15:52)
[2016-12-18] MEDS ORDERED: VITAMIN D-32000 UNIT PO (15:53)
[2016-12-18] MEDS ORDERED: DEPAKOTE500 M1 PO (15:55)
[2016-12-18] MEDS ORDERED: VENTOLIN 02.5 MG/3 M NEB (15:56)
[2016-12-18] MEDS ORDERED: LOPERAMIDE HCL2 MG PO (15:58)
[2016-12-18] MEDS ORDERED: PAROXETINE20 MG PO (16:00)
[2016-12-18] MEDS ORDERED: PIOGLITAZONE HC15 MG PO (16:01)
[2016-12-18] MEDS ORDERED: NTS1 EACH TD (16:02)
== END 2016-12-17 22:08 | disposition home or self-care (01) ==
LOC: ED 19:51
PROVIDERS: Physician Assistant
DX: J44.1 Chronic obstructive pulmonary disease with (acute) exacerbation (principal); Z88.1 Allergy status to other antibiotic agents; Z88.0 Allergy status to penicillin; Z88.8 Allergy status to other drugs, medicaments and biological substances

== ENCOUNTER 2016-12-18 10:09 | Inpatient (IN) | payer OTHER ==
[~2016-12-18] VITALS: Ht 167.6 cm; Wt 44.5 kg
--- NOTE | ~2016-12-18 | EKG ---
[place], [place] ELECTROCARDIOGRAM REPORT [id number] UNIT #: [id number] ROOM: [facility] DOCTOR: JIMMY RYAN MD,MORENITA BIRTHDATE: [birth year] DOS: 12/18/2016 This electrocardiogram was done on 12/18/2016 at 10:33 a.m. Mild sinus arrhythmia noted with heart rate noted as 90 beats per minute. Left anterior fascicular block, remains persistent. The changes for patient has not been noted any different in the chest leads with poor R-wave progression. No acute changes noted as compared to electrocardiogram of 12/17/2016 done at 8:40 p.m. MORENITA MARQUEZ MD CM:EKGRPT:ELECTROCARDIOGRAM REPORT 1452 1604 MORENITA RYAN MD
--- NOTE | 2016-12-18 03:51 | NUR ---
PATIENT MEDICATED WITH PRN MORPHINE ORDERED FOR C/O BACK PAIN RATED AN 8
[2016-12-18 10:15] VITALS: BP 107/83
[2016-12-18 10:51] LABS: BASO % 0.2 % (0.0-1.0); HEMOGLOBIN 15.7 g/dl (12.0-16.0); LYMPH # 1.1 10*3/uL (1.3-4.4); LYMPH % 12.1 % (27.0-41.0); MEAN CORPUSCULAR HGB 31.4 pg (27.0-31.0); MEAN CORPUSCULAR HGB CONC 34.1 g/dl (33.0-37.0); MEAN PLATELET VOLUME 9.2 fl (9.6-12.3); MONO # 0.2 10*3/uL (0.1-1.0); NEUT % 85.3 % (47.0-73.0); PLATELET COUNT AUTOMATED 313 10*3/uL (130-400); RED CELL DISTRI WIDTH 12.9 % (0-14.5); WHITE BLOOD COUNT 9.4 10*3/uL (4.8-10.8)
--- NOTE | 2016-12-18 10:51 | NUR ---
UNABLE TO GET IV ACCESS AFTER ATTEMPTS BY DIFFERENT NURSES. PT REQESTING IM PAIN MEDICATION.
[2016-12-18 11:03] LABS: ACT PARTIAL THROMBO TIME 23.7 SECONDS (20.8-31.5)
[2016-12-18 11:08] LABS: ALBUMIN 3.8 gm/dl (3.1-4.5); ALKALINE PHOSPHATASE 76 U/L (45-117); BUN 21 mg/dl (7-24); CHLORIDE 108 mmol/L (98-107); CREATININE 0.85 mg/dL (0.55-1.02); LIPASE 72 U/L (73-393); MAGNESIUM 1.8 mg/dL (1.5-2.1); POTASSIUM 4.3 mmol/L (3.5-5.1); SGOT/AST 19 IU/L (3-35); SGPT/ALT 20 U/L (12-78); SODIUM 141 mmol/L (136-145); TROPONIN I < 0.015 ng/ml (<0.045); VALPROIC ACID (DEPAKENE) 4.7 ug/ml (50-100)
--- NOTE | 2016-12-18 11:08 | NUR ---
PT MEDICATED PER EMAR. CONT PULSE OX IN PLACE. READY FOR CT SCAN.
--- NOTE | 2016-12-18 12:54 | NUR ---
DR. TESFAYE CLEAR C-SPINE AND C-COLLAR REMOVED
[2016-12-18 13:46] VITALS: BP 110/60
--- NOTE | 2016-12-18 13:51 | NUR ---
NO AVALIABLE NURSE TO TAKE REPORT.
[2016-12-18 14:50] VITALS: BP 119/60; BP 120/69
[2016-12-18 15:00] VITALS: BP 120/69
--- NOTE | 2016-12-18 15:14 | NUR ---
PT REPORTS PAIN 10/05. GIVEN TYLENOL. AWAITING FURTHER ORDERS.
--- NOTE | 2016-12-18 15:23 | NUR ---
A 61 Y/O FEMALE, admitted to , under the services of EARL Vu DO with a diagnosis of SYNCOPE. Chief complaint is DIZZINESS THIS MORNING, STRUCK BACK ON BATHTUB. Patient arrived via stretcher from ER. Monitor applied. Initial assessment completed. Vital signs taken and recorded. EARL VU DO notified of admission to the unit. Orders received. See assessment for past medical history, medications and allergies. Patient and/or family oriented to unit. [facility]. Clothing/patient valuable form completed. PACO ALONSO
[2016-12-18] MEDS ORDERED: PROVENTIL HFA6.7 GM INH (15:52)
[2016-12-18] MEDS ORDERED: VITAMIN D-32000 UNIT PO (15:53)
[2016-12-18] MEDS ORDERED: DEPAKOTE500 M1 PO (15:55)
[2016-12-18] MEDS ORDERED: VENTOLIN 02.5 MG/3 M NEB (15:56)
[2016-12-18] MEDS ORDERED: LOPERAMIDE HCL2 MG PO (15:58)
[2016-12-18 16:00] VITALS: BP 113/69
[2016-12-18] MEDS ORDERED: PAROXETINE20 MG PO (16:00)
[2016-12-18] MEDS ORDERED: PIOGLITAZONE HC15 MG PO (16:01)
[2016-12-18] MEDS ORDERED: NTS1 EACH TD (16:02)
--- NOTE | 2016-12-18 16:04 | NUR ---
MED REC LIST UPDATED PER [facility], [facility] FAXED MEDS LIST.
--- NOTE | 2016-12-18 16:57 | NUR ---
MEDICATED WITH PRN IV MORPHINE FOR SEVERE BACK PAIN D/T TYLENOL GIVEN EARLIER WAS NOT AT ALL EFFECTIVE, PER PATIENT.
--- NOTE | 2016-12-18 18:53 | NUR ---
MEDICATED WITH PRN PO OXY-IR WITH PERCOCET (FOR 10/325 DOSE) WITH SCHEDULED FLEXERIL FOR SEVERE BACK PAIN. ALSO STARTING NSS BOLUS 1 OF 2 TO BE FOLLOWED BY NS @ 125ML/HR. SENDING AB FLU SWAB TO LAB.
--- NOTE | 2016-12-18 19:30 | NUR ---
ASSUMED CARE OF PT AT THIS TIME, APPROACHED BY TECHNICIAN SUPPORT ENGINEER PT REFUSES BLOOD CULTURE AND REFUSED 3RD TROPONIN DRAW, NOTIFIED
[2016-12-18 20:00] VITALS: BP 119/66
--- NOTE | 2016-12-18 20:41 | NUR ---
PT C/O BACK PAIN, REQUESTED INCREASE IN PAIN MEDICATION, CALLED AND NEW ORDER FOR TORODAL, ADMINSITERED PER ORDERS, PT ALSO C/O INCREASED ANXIETY, ADMINISTERED XANAX AT THIS TIME, WILL MONITOR EFFECTS
--- NOTE | 2016-12-18 22:17 | NUR ---
PT REFUSED ALL IV FLUIDS AT THIS TIME, NOTIFIED
--- NOTE | 2016-12-18 23:51 | NUR ---
PATIENT MEDICATED WITH PRN MORPHINE ORDERD FOR C/O BACK PAIN RATED AN 8.
[2016-12-19] VITALS: BP 93/53
--- NOTE | 2016-12-19 01:00 | NUR ---
EARLIER MEDICATION APPEARS EFFECTIVE. PATIENT SLEEPING, NO SXS OF DISTRESS. RESPIRATIONS EASY/REG. CALL LIGHT IN REACH.
--- NOTE | 2016-12-19 05:40 | NUR ---
MEDICATED WITH PRN MORPHINE ORDERED FOR C/O BACK PAIN RATED A 7.
[2016-12-19 06:24] LABS: BASO # 0.1 10*3/uL (0.0-0.1); BASO % 0.5 % (0.0-1.0); EOS # 0.1 10*3/uL (0.0-0.4); EOS % 1.2 % (1.0-4.0); LYMPH # 3.9 10*3/uL (1.3-4.4); LYMPH % 35.5 % (27.0-41.0); MEAN CORPUSCULAR HGB 31.7 pg (27.0-31.0); MEAN PLATELET VOLUME 9.7 fl (9.6-12.3); MONO # 0.7 10*3/uL (0.1-1.0); MONO % 5.9 % (3.0-9.0); NEUT # 6.3 10*3/uL (2.3-7.9); NEUT % 56.5 % (47.0-73.0); PLATELET COUNT AUTOMATED 279 10*3/uL (130-400); RED BLOOD COUNT 4.13 10*6/uL (4.10-5.10); RED CELL DISTRI WIDTH 13.3 % (0-14.5); WHITE BLOOD COUNT 11.1 10*3/uL (4.8-10.8)
[2016-12-19 06:25] LABS: HEMATOCRIT 39.7 % (37.0-47.0); HEMOGLOBIN 13.1 g/dl (12.0-16.0); MEAN CELL VOLUME 96.1 fl (81.0-99.0)
--- NOTE | 2016-12-19 06:44 | NUR ---
PATIENT SLEPT T/O SHIFT. ONLY C/O BACK PAIN. RESPIRS EASY/REG. NO SXS OF DISTRES, CALL LIGHT IN REACH.
[2016-12-19 06:51] LABS: ALBUMIN 2.9 gm/dl (3.1-4.5); ALKALINE PHOSPHATASE 63 U/L (45-117); BUN 29 mg/dl (7-24); CHLORIDE 106 mmol/L (98-107); CHOLESTEROL 140 mg/dL (<200); CREATININE 0.93 mg/dL (0.55-1.02); FREE T4 1.14 ng/dl (0.76-1.46); HDL CHOLESTEROL 48 mg/dl (40-60); LDL CHOLESTEROL 67 mg/dL (9-159); MAGNESIUM 2.2 mg/dL (1.5-2.1); PHOSPHOROUS 4.8 mg/dL (2.5-4.9); POTASSIUM 4.2 mmol/L (3.5-5.1); SGOT/AST 13 IU/L (3-35); SGPT/ALT 16 U/L (12-78); SODIUM 140 mmol/L (136-145); TOTAL PROTEIN 5.6 gm/dL (6.4-8.2); TRIGLYCERIDES 125 mg/dl (<150); VLDL CHOLESTEROL 25 mg/dL (6-40)
[2016-12-19 07:04] LABS: VITAMIN D, 25-HYDROXY 45.8 ng/mL (30-100)
[2016-12-19 07:49] LABS: BILIRUBIN NEGATIVE (NEGATIVE); BLOOD NEGATIVE (NEGATIVE); CLARITY CLEAR (CLEAR); COLOR YELLOW (YELLOW); GLUCOSE NEGATIVE (NEGATIVE); KETONE NEGATIVE (NEGATIVE); LEUKO ESTERASE NEGATIVE (NEGATIVE); NITRITE NEGATIVE (NEGATIVE); PH 5.5 (5.0-9.0); SPECIFIC GRAVITY >= 1.030 (1.005-1.030); UROBILINOGEN 0.2 E.U./dl (0.2-1.0)
[2016-12-19 08:00] VITALS: BP 95/59
[2016-12-19 08:02] LABS: BACTERIA TRACE; CALCIUM OXALATE CRYSTALS 1+; MUCOUS 2+; WBC 0-2 wbc/hpf (0-5)
--- NOTE | 2016-12-19 08:02 | NUR ---
PT GIVEN PRN PO PERCOCET FOR COMPLAINTS OF BACK PAIN, RATES PAIN 7/10. WILL MONITOR EFFECTIVENESS.
--- NOTE | 2016-12-19 09:00 | NUR ---
Wire Mesh Filter Fabricator in to talk to patient. Patient states lives at home with alone. There are no steps in the home. Physician: татьяна chun [facility]acy: [facility] Home health services: [facility] 3 days a week Patient's level of ADLs: MINIMAL ASSIST Patient has working utilities: all working DME: [employer] Follow-up physician's appointment after d/c: will be made by hospitalist nurse director upon discharge Does patient want to access PORTAL?: no Discharge plan discussed with patient, patient lives at home alone, states she has [facility] 3 days a week for 2 hours a day, she has a friend that helps after that, patient states she will be going home when able, discussed with her a short term alf stay for rehab prior to going back home and she refused, case management will follow for any needs. JAYDE JAY
[2016-12-19 12:00] VITALS: BP 93/55
[2016-12-19 16:00] VITALS: BP 115/66
--- NOTE | 2016-12-19 18:33 | NUR ---
IS. PT REFUSED TO DO
[2016-12-19 20:00] VITALS: BP 123/72
[2016-12-20] VITALS: BP 129/71
--- NOTE | 2016-12-20 06:32 | NUR ---
PATIENT MEDICATED WITH MORPHINE AT 0628 FOR COMPLAINTS OF BACK PAIN. WILL PASS ON TO DAYLIGHT TO MONITOR FOR EFFECTIVENESS. CALL LIGHT IN REACH.
--- NOTE | 2016-12-20 07:35 | NUR ---
PT STATING THE IV MORPHINE DIDN'T HELP WITH HER BACK PAIN, REQUESTING ROXICODONE, MEDICATED PER PRN ORDER. PT RATES PAIN 9/10. WILL MONITOR FOR EFFECTIVENESS.
[2016-12-20 08:00] VITALS: BP 122/64; BP 129/78
--- NOTE | 2016-12-20 08:41 | NUR ---
PHYSICAL THERAPY Patient requests no PT this date. Will attempt at a later date. Thank you for this referral. Opal spence,PT
--- NOTE | 2016-12-20 08:49 | NUR ---
Patient request no OT this date d/t severe pain. OTR will recheck at a later date. Ceci Gonzalez OTR/l
--- NOTE | 2016-12-20 09:00 | NUR ---
case management visits with patient, again discussed with her going to a short term halfway prior to going back home, patient was inagreement with this and wanted to go to [facility], will make referral to [facility], patient will need an insurance precert prior to going to SNF
--- NOTE | 2016-12-20 10:17 | NUR ---
MEDICATED WITH TORADOL AND DILAUDID PER ORDER. PT COMPLAINING OF RIGHT RIB/BACK PAIN, RATES PAIN 10/10. WILL MONITOR FOR EFFECTIVENESS. KHADAR ESTRADA APPLIED PER ORDER.
--- NOTE | 2016-12-20 10:59 | NUR ---
PT RESTING IN BED, MINIMALLY MORE COMFORTABLE. MEDICATIONS EFFECTIVE.
--- NOTE | 2016-12-20 11:22 | NUR ---
MEDICATED WITH PERCOCET PER PRN ORDER FOR COMPLAINTS OF 7/10 RIGHT RIBS/BACK PAIN. WILL MONITOR FOR EFFECTIVENESS.
--- NOTE | 2016-12-20 11:25 | NUR ---
case management made referral to [facility], will send pt and ot evaluations when available, [facility] will start precert when therapy evals become available
[2016-12-20 12:00] VITALS: BP 135/67
--- NOTE | 2016-12-20 14:18 | NUR ---
PHYSICAL THERAPY PAtient evaluated on 5, full evaluation to follow. Continue with PT as per plan of care with fall, right 10Th rib fracture and acute debility precautions, Will requrie SNF for impaired mobility. PAtient is moderate complexity via chart review, tests and evaluation: [id number]. Thank you for this referral. Opal Fang,PT
--- NOTE | 2016-12-20 14:29 | NUR ---
MEDICATED WITH DILAUDID PER PRN ORDER FOR COMPLAINTS OF 10/10 SHARP RIGHT RIB/BACK PAIN. WILL MONITOR FOR EFFECTIVENESS.
--- NOTE | 2016-12-20 15:26 | NUR ---
MEDICATED WITH ROXICODONE PER PRN ORDER FOR COMPLAINTS OF RIGHT BACK/RIBS PAIN. RATES PAIN 10/05. WILL MONITOR FOR EFFECTIVENESS.
--- NOTE | 2016-12-20 15:42 | NUR ---
Occupational Therapy evaluation completed on 5 with full eval to follow. PRecautions include fall risk, severe right rib and back pain, low complexity level 68285. Recommend OT per POC and SNF upon d/c to enable return home at [facility]. Thank you for this referral. Ceci Gonzalez OTR/l
[2016-12-20 16:00] VITALS: BP 125/74
--- NOTE | 2016-12-20 16:53 | NUR ---
NOTIFIED DR BIRCH THAT WHEN REVIEWING PT'S MED REC, SHE STATES SHE NO LONGER TAKES DEPAKOTE, THAT THEY CHANGED IT TO PAXIL. DR BIRCH STATES OK TO D/C DEPAKOTE FROM MED REC.
--- NOTE | 2016-12-20 17:39 | NUR ---
PT COMPLAINING OF CONSTANT PAIN, MEDICATED WITH DILAUDID AND PERCOCET PER PRN ORDER FOR PAIN 11/05. WILL MONITOR FOR EFFECTIVENESS. CALL LIGHT WITHIN REACH. K-PAD TO RIGHT BACK.
--- NOTE | 2016-12-20 19:25 | NUR ---
PT. AWAKE, ALERT AND ORIENTED X3. PT. IN BED AT THIS TIME WITH HEATING PACK ON BACK. PT. STATED THAT SHE HAS NOT HAD A BOWEL MOVEMENT SINCE SUNDAY. REQUESTED DULCOLAX WITH 2200 MED PASS. PT. CURRENTLY DENIES SOB, CP, N/V/D. CALL LIGHT WITHIN REACH, BED IN LOWEST POSITION, WHEELS LOCKED. SEE SHIFT ASSESSMENT.
[2016-12-20 20:00] VITALS: BP 132/73
--- NOTE | 2016-12-20 21:53 | NUR ---
PT. GIVEN DULCOLAX PER REQUEST D/T NO RECENT BM. LAST BM ON 12/17.
--- NOTE | 2016-12-20 23:27 | NUR ---
Medicated with Dilaudid IV prn and Percocet po prn for c/o constant pain rating 9/10. Will monitor effectiveness. K-pad remains to right back. Call light within reach.
[2016-12-21] VITALS: BP 151/84
--- NOTE | 2016-12-21 00:30 | NUR ---
Patient resting quietly in bed with eyes closed. Dilaudid and Percocet effective. Will continue to monitor. Call light within reach.
--- NOTE | 2016-12-21 00:56 | NUR ---
24 HR chart check completed.
--- NOTE | 2016-12-21 04:00 | NUR ---
Medicated with Dilaudid IV prn for c/o constant pain rating 8/10. Will monitor effectiveness. Call light within reach.
--- NOTE | 2016-12-21 05:00 | NUR ---
Patient resting quietly in bed with eyes closed. Dilaudid effective. Will continue to monitor. Call light within reach.
--- NOTE | 2016-12-21 06:35 | NUR ---
Medicated with Percocet and Roxicodone po prn for c/o constant pain. Will monitor effectiveness. Call light within reach.
[2016-12-21 08:00] VITALS: BP 123/74
--- NOTE | 2016-12-21 08:54 | NUR ---
Faxed all therapy evals and progress notes to start precert today. Waiting on auth
--- NOTE | 2016-12-21 09:00 | NUR ---
case management visits with patient, patient will be going to [facility] when insurance precert has been obtained
--- NOTE | 2016-12-21 09:21 | NUR ---
C/O RIGHT SIDE/RIB AREA PAIN, RATES PAIN 8 ON PAIN SCALE 0-10. MEDICATED WITH DILAUDID IV PER PRN ORDER, SEE EMAR. CALL LIGHT IN REACH.
--- NOTE | 2016-12-21 11:19 | NUR ---
PHYSICAL THERAPY Patient seen this am 1:1 for therapy voicing 07/05 R posterior rib pain secondary to recent fall. Patient was semi reclined in bed upon therapist arrival and transfers sup to sit EOB SBA x 1 and sit to stand CGA x 1. Patient ambulates CLERK GUIDE/Min, 75'x 1, slow lbaine with decreased stride, demonstrating antalgic / guarded gait pattern. Patient returned to EOB sit and remained with call light, tray table and telephone. Will continue per POC to return to PLOF as tolerated. Calos Perez, CHIEF COMMUNICATIONS OFFICER
[2016-12-21 12:00] VITALS: BP 118/65
--- NOTE | 2016-12-21 14:28 | NUR ---
PT AMBULATING HALLWAYS WITHOUT DIFFICULTIES.TOLERATING WELL. VOICES NO NEEDS. PT DID STATE"SHE HAD GAINED 18 LBS SINCE SHE CAME HERE, FROM NOT HAVING A BOWEL MOVEMENT". I ASSURED HER THAT AFTER A BOTTLE OF MAG CITRATE AND DULCOLAX SHE WOULD NO DOUBT HAVE A BOWEL MOVEMENT SOON. SHE THEN STATED SHE "WAS SO HUNGRY AND COULD NOT STOP EATINBG SO IT KEEPS BACKING UP".
--- NOTE | 2016-12-21 15:18 | NUR ---
PHYSICAL THERAPY Patient seen this pm 1:1 for therapy supine in bed and reports decreased c/o R rib pain, 2/ since taking pain meds. Patient transfers sup to sit EOB, SBA and able to perform seated B LE therex, all planes x 20 reach each to increase LE strength. Patient demonstrated good understanding and completion of all ex while reporting several bouts ofincreased R rib pressure due to decreased core strength. Patient remained seated EOB with call light, tray table and telephone. Will continue per POC as tolerated to return to PLOF. Calos Perez, PRODUCTION LINE SOLDERER
[2016-12-21 16:00] VITALS: BP 127/78
--- NOTE | 2016-12-21 18:29 | NUR ---
OXY IR 5 MG AND OXYCODONE 5 MG. GIVEN FOR C/O BACK , R FLANK PAIN 12/05.
--- NOTE | 2016-12-21 19:35 | NUR ---
Medicated with Dilaudid IV prn for rt side/rt rib pain rating 8/10. Will monitor effectiveness. Call light within reach.
[2016-12-21 20:00] VITALS: BP 139/79
--- NOTE | 2016-12-21 20:34 | NUR ---
Patient resting quietly in bed watching TV. Patient states "my pain is gone right now". Dilaudid effective. Will continue to monitor. Call light within reach.
[2016-12-22] VITALS: BP 138/70
--- NOTE | 2016-12-22 00:28 | NUR ---
Medicated with Percocet po prn and Roxicodone po prn for rt.side/rib pain rating 10/05. Will monitor effectiveness. Call light within reach.
--- NOTE | 2016-12-22 01:30 | NUR ---
Patient resting quietly in bed with eyes closed. Percocet and Roxicodone effective. Will continue to monitor. Call light within reach.
--- NOTE | 2016-12-22 01:30 | NUR ---
24 HR chart check completed.
--- NOTE | 2016-12-22 05:40 | NUR ---
Medicated with Dilaudid IV prn for rt side/rt rib pain rating 8/10. Will monitor effectiveness. Call light within reach.
--- NOTE | 2016-12-22 06:36 | NUR ---
Medicated with Percocet po prn and Roxicodone po prn for rt side/rib pain rating 6/10. Will monitor effectiveness. Call light within reach.
[2016-12-22 06:43] LABS: BASO % 0.2 % (0.0-1.0); HEMATOCRIT 41.5 % (37.0-47.0); HEMOGLOBIN 13.4 g/dl (12.0-16.0); LYMPH # 1.2 10*3/uL (1.3-4.4); LYMPH % 9.5 % (27.0-41.0); MEAN CELL VOLUME 96.3 fl (81.0-99.0); MEAN CORPUSCULAR HGB 31.1 pg (27.0-31.0); MEAN CORPUSCULAR HGB CONC 32.3 g/dl (33.0-37.0); MEAN PLATELET VOLUME 9.6 fl (9.6-12.3); MONO # 0.4 10*3/uL (0.1-1.0); MONO % 3.5 % (3.0-9.0); NEUT # 10.9 10*3/uL (2.3-7.9); NEUT % 85.6 % (47.0-73.0); PLATELET COUNT AUTOMATED 310 10*3/uL (130-400); RED BLOOD COUNT 4.31 10*6/uL (4.10-5.10); RED CELL DISTRI WIDTH 13.5 % (0-14.5); WHITE BLOOD COUNT 12.8 10*3/uL (4.8-10.8)
[2016-12-22 07:12] LABS: ALBUMIN 3.2 gm/dl (3.1-4.5); BUN 19 mg/dl (7-24); CHLORIDE 101 mmol/L (98-107); MAGNESIUM 2.2 mg/dL (1.5-2.1); POTASSIUM 4.1 mmol/L (3.5-5.1); SODIUM 141 mmol/L (136-145)
[2016-12-22 07:15] LABS: ALKALINE PHOSPHATASE 111 U/L (45-117); SGOT/AST 16 IU/L (3-35); SGPT/ALT 22 U/L (12-78); TOTAL PROTEIN 6.1 gm/dL (6.4-8.2)
[2016-12-22 08:00] VITALS: BP 125/77
--- NOTE | 2016-12-22 08:56 | NUR ---
PHYSICAL THERAPY Pt was seen this AM 1:1 for her therapy session. All transfers were independent, no LOB. Gait total 70' X 2, with one sitting rest and needing 2 standing rest with MIN SEARCH DEVELOPER X 1, no LOB and guarded gait pattern, little cueing for gait, turn safety, and just a little SOB when coming back into her room, Pt back on 2 L o2 sitting up in her bed. RAEGAN GERARDO NEWS BROADCASTER.
--- NOTE | 2016-12-22 10:21 | NUR ---
Patient resting quietly with no c/o discomfort. Respirations easy and regular. Vital signs stable. No overt distress.RESPS EASY ON RA. CALL LIGHT IN REACH. ALTA JUAREZ
--- NOTE | 2016-12-22 11:18 | NUR ---
PATIENT SEEN 1:1 OT 15 MINUTES THIS DATE. PATIENT IDENTIFIED BY NAME AND DATE OF . PATIENT C/O 6/10 PAIN R RIB AND LOWER BACK AND REPORTS PAIN IS GETTING BETTER WITH PAIN MEDS. PATIENT IN BED UPON ARRIVAL AND COMPLETED SUPINE TO SIT EOB SBA WITH GOOD BACK PRECAUTION CARRYOVER. PATIENT DEMONSTRATED GOOD RECALL BACK PRECAUTIONS AFTER EDUCATION THIS DATE. PATIENT COMPLETED BUE AROM STR ALL PLANES X 10 REP TOLERANCE THIS DATE WITHIN BACK PRECAUTIONS AND MOD VERBAL CUES PROPER TECHNIQUE AND FORM. PATIENT REPORTS FATIGUE AND VERBALIZED THAT WAS ALL SHE COULD DO TODAY. PATIENT COMPLETED SIT TO SUPINE BED SBA. JOSE GUADALUPE RAY/Alan
[2016-12-22 12:00] VITALS: BP 131/80
--- NOTE | 2016-12-22 12:42 | NUR ---
PERCOSET 5/325 MG AND OXY IR 5 MG GIVEN FOR C/O BACK PAIN,11/05.
--- NOTE | 2016-12-22 14:49 | NUR ---
Contacted Nancy, church administrator for [facility] to ask if patient has recived auth. She stated she is checking on it. Told her to please notify the nursing floor at [phone] once precert is obtained.
--- NOTE | 2016-12-22 15:21 | NUR ---
Shift chart check completed.
[2016-12-22] MEDS ORDERED: PREDNISONE10 MG PO (15:38)
[2016-12-22] MEDS ORDERED: Percocet 325 MG1 TAB PO (15:38)
[2016-12-22] MEDS ORDERED: DOXYCYCLINE MO100 M1 PO (15:41)
--- NOTE | 2016-12-22 15:56 | NUR ---
Hep Lock discontinued. Site asymptomatic. Pressure applied. Sterile dressing applied. Discharge instructions reviewed with patient/family. Patient receptive and verbalizes understanding. Follow-up care arranged. Written instructions given to patient/family. TAKEN OUT VIA WHEEL CHAIR WITH BELONGINGS. FAMILY TAKING HER VIA CAR TO [facility], [place]. PER THE PATIENT AFTER DILAUDED HER PAIN IS 5/10 BUT IS UP AMBULATING, NOT GUARDED & WANTING TO GO OUT TO [facility]
[2016-12-22 16:00] VITALS: BP 124/64
[2016-12-22] MEDS ORDERED: ALPRAZOLAM0.5 M3 PO (16:10)
--- NOTE | 2016-12-22 16:14 | NUR ---
PATIENT TAKEN OUT VIA WHEEL CHAIR WITH BELONGING.
--- NOTE | 2016-12-25 07:55 | NUR ---
PHYSICAL THERAPY CO-SIGN I approve of the Phyical Therapy notes written above. MONSE PELAYO PT
--- NOTE | 2016-12-25 08:01 | NUR ---
OCCUPATIONAL THERAPY CO-SIGN I approve of the Occupational Therapy notes written above. MARY EAST OTR/Alan
== END 2016-12-22 16:14 | disposition other institution (70) | DRG 871 ==
LOC: ED 10:09 → 5E 13:06 → EDHOLD 13:06 → 5E 13:29
PROVIDERS: Emergency Medicine; Internal Medicine; ADMIT Internal Medicine
DX: A41.9 Sepsis, unspecified organism (principal); J18.9 Pneumonia, unspecified organism; K31.84 Gastroparesis; I50.32 Chronic diastolic (congestive) heart failure; E11.65 Type 2 diabetes mellitus with hyperglycemia; E11.43 Type 2 diabetes mellitus with diabetic autonomic (poly)neuropathy; J44.0 Chronic obstructive pulmonary disease with (acute) lower respiratory infection; J44.1 Chronic obstructive pulmonary disease with (acute) exacerbation; S22.31XA Fracture of one rib, right side, initial encounter for closed fracture; E55.9 Vitamin D deficiency, unspecified; M51.34 Other intervertebral disc degeneration, thoracic region; F17.210 Nicotine dependence, cigarettes, uncomplicated; M15.9 Polyosteoarthritis, unspecified; I95.1 Orthostatic hypotension; F41.9 Anxiety disorder, unspecified; G89.29 Other chronic pain; I65.23 Occlusion and stenosis of bilateral carotid arteries; K52.9 Noninfective gastroenteritis and colitis, unspecified; F31.9 Bipolar disorder, unspecified; E03.9 Hypothyroidism, unspecified; S20.219A Contusion of unspecified front wall of thorax, initial encounter; G43.909 Migraine, unspecified, not intractable, without status migrainosus; S20.229A Contusion of unspecified back wall of thorax, initial encounter; Z87.01 Personal history of pneumonia (recurrent); Z91.81 History of falling; Z90.710 Acquired absence of both cervix and uterus; Z83.3 Family history of diabetes mellitus; Z82.49 Family history of ischemic heart disease and other diseases of the circulatory system; Z80.8 Family history of malignant neoplasm of other organs or systems; Z88.0 Allergy status to penicillin; Z88.1 Allergy status to other antibiotic agents; Z88.8 Allergy status to other drugs, medicaments and biological substances; Z88.6 Allergy status to analgesic agent; Z79.899 Other long term (current) drug therapy; W18.2XXA Fall in (into) shower or empty bathtub, initial encounter; Y93.89 Activity, other specified; Y92.091 Bathroom in other non-institutional residence as the place of occurrence of the external cause; Y99.8 Other external cause status

== ENCOUNTER → 2017-01-02 | Outpatient (CLI) | payer OTHER ==
[~2017-01-02] MED LIST changes: +ALPRAZOLAM0.5 M3 PO; +DEPAKOTE500 M1 PO; +DOXYCYCLINE MO100 M1 PO; +LOPERAMIDE HCL2 MG PO; +NTS1 EACH TD; +PAROXETINE20 MG PO; +PIOGLITAZONE HC15 MG PO; +PROVENTIL HFA6.7 GM INH; +Percocet 325 MG1 TAB PO; +VENTOLIN 02.5 MG/3 M NEB
[2017-01-02 11:05] VITALS: BP 120/69
[2017-01-02 12:31] VITALS: BP 134/71
[2017-01-03 15:05] LABS: CORTISOL #2 6.1 ug/dL (Not Estab.); CORTISOL #3 7.9 ug/dL (Not Estab.); CORTISOL BASELINE 3.3 ug/dL (.)
== END | disposition home or self-care (01) ==
LOC: INJECTION 10:00
PROVIDERS: Internal Medicine
DX: R53.83 Other fatigue (principal); F41.9 Anxiety disorder, unspecified; G43.919 Migraine, unspecified, intractable, without status migrainosus; E03.9 Hypothyroidism, unspecified; E11.9 Type 2 diabetes mellitus without complications; F31.9 Bipolar disorder, unspecified; G89.29 Other chronic pain; I25.10 Atherosclerotic heart disease of native coronary artery without angina pectoris; I50.32 Chronic diastolic (congestive) heart failure; J44.9 Chronic obstructive pulmonary disease, unspecified; M19.90 Unspecified osteoarthritis, unspecified site; Z72.0 Tobacco use; M51.34 Other intervertebral disc degeneration, thoracic region

== ENCOUNTER 2017-01-15 20:42 | Emergency (ER) | payer OTHER ==
[~2017-01-15] VITALS: Ht 167.6 cm; Wt 49.9 kg
[2017-01-15 20:52] VITALS: BP 120/80
[2017-01-15] MEDS ORDERED: VIBRAMYCIN100 MG PO (23:11)
== END 2017-01-15 22:59 | disposition home or self-care (01) ==
LOC: ED 20:42
DX: G89.29 Other chronic pain (principal); J44.1 Chronic obstructive pulmonary disease with (acute) exacerbation; R07.81 Pleurodynia; M25.562 Pain in left knee; M54.2 Cervicalgia; F17.200 Nicotine dependence, unspecified, uncomplicated; Z90.710 Acquired absence of both cervix and uterus; Z90.49 Acquired absence of other specified parts of digestive tract; Z98.890 Other specified postprocedural states; Z79.899 Other long term (current) drug therapy; Z88.1 Allergy status to other antibiotic agents; Z88.0 Allergy status to penicillin; Z88.5 Allergy status to narcotic agent

== ENCOUNTER → 2017-01-15 | Outpatient (CLI) | payer OTHER | END | disposition home or self-care (01) | LOC: LAB 15:49 | DX: R63.4 Abnormal weight loss (principal) ==

== ENCOUNTER 2017-01-18 17:32 | Emergency (ER) | payer OTHER ==
[~2017-01-18] VITALS: Ht 167.6 cm; Wt 47.2 kg
[2017-01-18 17:40] VITALS: BP 128/84
== END 2017-01-18 18:32 | disposition home or self-care (01) ==
LOC: ED 17:32
DX: J44.1 Chronic obstructive pulmonary disease with (acute) exacerbation (principal); R03.0 Elevated blood-pressure reading, without diagnosis of hypertension; R07.81 Pleurodynia; F17.200 Nicotine dependence, unspecified, uncomplicated; Z88.0 Allergy status to penicillin; Z88.1 Allergy status to other antibiotic agents; Z88.5 Allergy status to narcotic agent; Z88.8 Allergy status to other drugs, medicaments and biological substances; Z79.899 Other long term (current) drug therapy; Z90.49 Acquired absence of other specified parts of digestive tract; Z90.710 Acquired absence of both cervix and uterus

== ENCOUNTER 2017-01-20 14:20 | Emergency (ER) | payer OTHER ==
[~2017-01-20] VITALS: Wt 47.2 kg
--- NOTE | ~2017-01-20 | EKG ---
[place], [place] ELECTROCARDIOGRAM REPORT NAME: TRUONG HIRSCH UNIT #: [id number] ROOM: DOCTOR: JIMMY RYAN MD,MORENITA BIRTHDATE: [birth year] DOS: 01/20/2017 ELECTROCARDIOGRAM The electrocardiogram was done on 01/20/2017 at 3:10 p.m. Normal sinus rhythm noted with heart rate of 78 beats per minute. Left axis deviation was noted. Otherwise, the EKG was noted and unremarkable. MORENITA MARQUEZ MD CM:EKGRPT:ELECTROCARDIOGRAM REPORT [id number] MORENITA RYAN MD
[2017-01-20 15:02] LABS: HEMATOCRIT 45.5 % (37.0-47.0); HEMOGLOBIN 14.6 g/dl (12.0-16.0); MEAN CELL VOLUME 94.4 fl (81.0-99.0); MEAN CORPUSCULAR HGB 30.3 pg (27.0-31.0); MEAN CORPUSCULAR HGB CONC 32.1 g/dl (33.0-37.0); MEAN PLATELET VOLUME 8.7 fl (9.6-12.3); PLATELET COUNT AUTOMATED 439 10*3/uL (130-400); RED BLOOD COUNT 4.82 10*6/uL (4.10-5.10); RED CELL DISTRI WIDTH 13.3 % (0-14.5); WHITE BLOOD COUNT 19.1 10*3/uL (4.8-10.8)
[2017-01-20 15:12] LABS: ACT PARTIAL THROMBO TIME 23.2 SECONDS (20.8-31.5)
[2017-01-20 15:19] LABS: ALBUMIN 3.5 gm/dl (3.1-4.5); ALKALINE PHOSPHATASE 87 U/L (45-117); BUN 24 mg/dl (7-24); CHLORIDE 102 mmol/L (98-107); CREATININE 0.91 mg/dL (0.55-1.02); POTASSIUM 4.1 mmol/L (3.5-5.1); SGOT/AST 14 IU/L (3-35); SGPT/ALT 23 U/L (12-78); SODIUM 138 mmol/L (136-145)
[2017-01-20 15:22] LABS: PLATELET SUFFICIENCY HIGH (NORMAL); TOTAL CELLS COUNTED 100 #CELLS
[2017-01-20 15:23] LABS: TROPONIN I < 0.015 ng/ml (<0.045)
[2017-01-20 15:37] LABS: BILIRUBIN NEGATIVE (NEGATIVE); BLOOD NEGATIVE (NEGATIVE); CLARITY CLEAR (CLEAR); COLOR YELLOW (YELLOW); GLUCOSE NEGATIVE (NEGATIVE); KETONE NEGATIVE (NEGATIVE); LEUKO ESTERASE NEGATIVE (NEGATIVE); NITRITE NEGATIVE (NEGATIVE); PH 5.5 (5.0-9.0); UROBILINOGEN 0.2 E.U./dl (0.2-1.0)
[2017-01-20 15:45] LABS: BACTERIA 1+; MUCOUS TRACE; RBC 0-2 rbc/hpf (0-2); WBC 0-2 wbc/hpf (0-5)
[2017-01-20] MEDS ORDERED: PERCOCET 10-321 EACH PO (17:09)
[2017-01-20 23:42] VITALS: BP 168/89
== END 2017-01-21 00:09 | disposition left against medical advice (07) ==
LOC: ED 14:20
PROVIDERS: Nurse Practitioner Family
DX: M54.2 Cervicalgia (principal); R55 Syncope and collapse; M25.561 Pain in right knee; G89.29 Other chronic pain; J44.9 Chronic obstructive pulmonary disease, unspecified; M19.90 Unspecified osteoarthritis, unspecified site; E11.9 Type 2 diabetes mellitus without complications; I50.9 Heart failure, unspecified; E03.9 Hypothyroidism, unspecified; G43.909 Migraine, unspecified, not intractable, without status migrainosus; F17.200 Nicotine dependence, unspecified, uncomplicated; Z79.899 Other long term (current) drug therapy; Z88.1 Allergy status to other antibiotic agents; Z88.0 Allergy status to penicillin; Z88.5 Allergy status to narcotic agent; Z98.890 Other specified postprocedural states; Z90.710 Acquired absence of both cervix and uterus; Z90.49 Acquired absence of other specified parts of digestive tract; W19.XXXA Unspecified fall, initial encounter; Y93.89 Activity, other specified; Y92.89 Other specified places as the place of occurrence of the external cause; Y99.9 Unspecified external cause status

== ENCOUNTER 2017-01-21 07:09 | Emergency (ER) | payer OTHER ==
[~2017-01-21] VITALS: Ht 167.6 cm; Wt 47.2 kg
[~2017-01-21 07:09] MED LIST changes: +PERCOCET 10-321 EACH PO
[2017-01-21 07:16] VITALS: BP 156/88
== END 2017-01-21 08:00 | disposition home or self-care (01) ==
LOC: ED 07:09
DX: M54.2 Cervicalgia (principal); M25.562 Pain in left knee; J44.9 Chronic obstructive pulmonary disease, unspecified; M19.90 Unspecified osteoarthritis, unspecified site; E03.9 Hypothyroidism, unspecified; I50.32 Chronic diastolic (congestive) heart failure; E11.9 Type 2 diabetes mellitus without complications; G43.909 Migraine, unspecified, not intractable, without status migrainosus; Z88.0 Allergy status to penicillin; Z88.1 Allergy status to other antibiotic agents; Z88.8 Allergy status to other drugs, medicaments and biological substances; Z79.899 Other long term (current) drug therapy

== ENCOUNTER 2017-01-23 14:16 | Emergency (ER) | payer OTHER ==
[~2017-01-23] VITALS: Wt 48.5 kg
[2017-01-23 14:28] VITALS: BP 153/82
[2017-01-23] MEDS ORDERED: ROBAXIN500 M1 PO (14:38)
== END 2017-01-23 14:51 | disposition home or self-care (01) ==
LOC: ED 14:16
DX: G89.29 Other chronic pain (principal); R07.81 Pleurodynia; M54.2 Cervicalgia; Z90.710 Acquired absence of both cervix and uterus; Z90.49 Acquired absence of other specified parts of digestive tract; Z88.0 Allergy status to penicillin; Z88.1 Allergy status to other antibiotic agents; Z88.5 Allergy status to narcotic agent

== ENCOUNTER → 2017-02-05 | Outpatient (CLI) | payer OTHER ==
[~2017-02-05] MED LIST changes: +ROBAXIN500 M1 PO
== END | disposition home or self-care (01) ==
LOC: MRI 09:48
DX: M50.821 Other cervical disc disorders at C4-C5 level (principal); M50.822 Other cervical disc disorders at C5-C6 level; Z85.820 Personal history of malignant melanoma of skin

== ENCOUNTER 2017-02-06 02:52 | Emergency (ER) | payer OTHER ==
[~2017-02-06] VITALS: Ht 162.5 cm; Wt 49.9 kg
[2017-02-06 02:53] VITALS: BP 126/89
[2017-02-06 03:14] LABS: BASO # 0.1 10*3/uL (0.0-0.1); BASO % 0.3 % (0.0-1.0); EOS # 0.2 10*3/uL (0.0-0.4); EOS % 1.6 % (1.0-4.0); HEMATOCRIT 40.8 % (37.0-47.0); HEMOGLOBIN 13.1 g/dl (12.0-16.0); LYMPH # 2.3 10*3/uL (1.3-4.4); LYMPH % 15.8 % (27.0-41.0); MEAN CELL VOLUME 95.6 fl (81.0-99.0); MEAN CORPUSCULAR HGB 30.7 pg (27.0-31.0); MEAN CORPUSCULAR HGB CONC 32.1 g/dl (33.0-37.0); MEAN PLATELET VOLUME 8.4 fl (9.6-12.3); MONO # 1.1 10*3/uL (0.1-1.0); MONO % 7.8 % (3.0-9.0); NEUT # 10.8 10*3/uL (2.3-7.9); NEUT % 73.7 % (47.0-73.0); PLATELET COUNT AUTOMATED 343 10*3/uL (130-400); RED BLOOD COUNT 4.27 10*6/uL (4.10-5.10); RED CELL DISTRI WIDTH 13.5 % (0-14.5); WHITE BLOOD COUNT 14.6 10*3/uL (4.8-10.8)
[2017-02-06 03:27] LABS: BUN 9 mg/dl (7-24); CHLORIDE 99 mmol/L (98-107); CREATININE 0.93 mg/dL (0.55-1.02); POTASSIUM 3.8 mmol/L (3.5-5.1); SODIUM 135 mmol/L (136-145)
[2017-02-06 03:28] LABS: ACETAMINOPHEN (TYLENOL) < 2.0 ug/ml (10-30); ETHYL ALCOHOL < 3.0 mg/dl (<3)
[2017-02-06 04:03] VITALS: BP 114/78
[2017-02-06 05:13] LABS: BILIRUBIN NEGATIVE (NEGATIVE); BLOOD NEGATIVE (NEGATIVE); CLARITY SL CLOUDY (CLEAR); COLOR YELLOW (YELLOW); GLUCOSE NEGATIVE (NEGATIVE); KETONE NEGATIVE (NEGATIVE); LEUKO ESTERASE 1+ (NEGATIVE); NITRITE NEGATIVE (NEGATIVE); SPECIFIC GRAVITY 1.015 (1.005-1.030); UROBILINOGEN 0.2 E.U./dl (0.2-1.0)
[2017-02-06 05:19] LABS: EPITHELIAL CELLS 35-40
[2017-02-06 05:26] LABS: URINE AMPHETAMINES < 1000 (1000ng/ml); URINE BARBITURATES < 200 (200ng/ml); URINE BENZODIAZEPINES > 200 (200ng/ml); URINE COCAINE < 300 (300ng/ml); URINE OPIATES > 300 (300ng/ml)
[2017-02-06 05:32] LABS: URINE CANNABINOIDS (THC) < 50 (50ng/ml); URINE METHADONE < 300 (300ng/ml)
[2017-02-06 05:34] LABS: URINE PHENCYCLIDINE < 25 (25ng/ml)
== END 2017-02-06 08:45 | disposition home or self-care (01) ==
LOC: ED 02:52 → EDHOLD 05:40 → ICCU 06:18 → EDHOLD 06:18 → ICCU 07:23 → ED 08:45
PROVIDERS: Emergency Medicine Emergency Medical Services
DX: G93.40 Encephalopathy, unspecified (principal); G89.29 Other chronic pain; F41.9 Anxiety disorder, unspecified; J44.1 Chronic obstructive pulmonary disease with (acute) exacerbation; M19.90 Unspecified osteoarthritis, unspecified site; E11.9 Type 2 diabetes mellitus without complications; I50.32 Chronic diastolic (congestive) heart failure; F17.200 Nicotine dependence, unspecified, uncomplicated; G43.909 Migraine, unspecified, not intractable, without status migrainosus; E03.9 Hypothyroidism, unspecified; Z90.49 Acquired absence of other specified parts of digestive tract; Z90.710 Acquired absence of both cervix and uterus; Z90.89 Acquired absence of other organs; Z88.0 Allergy status to penicillin; Z88.1 Allergy status to other antibiotic agents; Z88.5 Allergy status to narcotic agent; Z88.8 Allergy status to other drugs, medicaments and biological substances; Z79.899 Other long term (current) drug therapy

== ENCOUNTER 2017-02-11 16:42 | Inpatient (IN) | payer OTHER ==
[~2017-02-11] VITALS: Ht 167.6 cm; Wt 51.9 kg
[2017-02-11 16:50] VITALS: BP 110/70
[2017-02-11 17:02] LABS: BASO % 0.3 % (0.0-1.0); EOS # 0.2 10*3/uL (0.0-0.4); EOS % 1.1 % (1.0-4.0); HEMATOCRIT 38.8 % (37.0-47.0); HEMOGLOBIN 12.7 g/dl (12.0-16.0); LYMPH # 2.7 10*3/uL (1.3-4.4); LYMPH % 17.2 % (27.0-41.0); MEAN CELL VOLUME 94.2 fl (81.0-99.0); MEAN CORPUSCULAR HGB 30.8 pg (27.0-31.0); MEAN CORPUSCULAR HGB CONC 32.7 g/dl (33.0-37.0); MEAN PLATELET VOLUME 8.2 fl (9.6-12.3); MONO # 1.1 10*3/uL (0.1-1.0); MONO % 6.9 % (3.0-9.0); NEUT # 11.6 10*3/uL (2.3-7.9); PLATELET COUNT AUTOMATED 419 10*3/uL (130-400); RED BLOOD COUNT 4.12 10*6/uL (4.10-5.10); RED CELL DISTRI WIDTH 13.4 % (0-14.5); WHITE BLOOD COUNT 15.7 10*3/uL (4.8-10.8)
[2017-02-11 17:10] LABS: ACT PARTIAL THROMBO TIME 24.6 SECONDS (20.8-31.5); INTERNATIONAL NORM RATIO 0.9 (2.0-3.5)
[2017-02-11 17:18] LABS: ALBUMIN 3.1 gm/dl (3.1-4.5); ALKALINE PHOSPHATASE 92 U/L (45-117); BUN 11 mg/dl (7-24); CHLORIDE 103 mmol/L (98-107); CREATININE 0.94 mg/dL (0.55-1.02); POTASSIUM 4.4 mmol/L (3.5-5.1); SGOT/AST 21 IU/L (3-35); SGPT/ALT 32 U/L (12-78); SODIUM 138 mmol/L (136-145); TOTAL PROTEIN 6.8 gm/dL (6.4-8.2)
[2017-02-11 17:19] LABS: TROPONIN I < 0.015 ng/ml (<0.045)
[2017-02-11 18:49] VITALS: BP 115/79
[2017-02-17] MEDS ORDERED: DOXYCYCLINE100 M3 PO ×3 (16:37→17:45)
[2017-02-17] MEDS ORDERED: DIFLUCAN150 MG PO ×2 (16:38→17:45)
[2017-02-17] MEDS ORDERED: TESSALON PERLE100 M1 PO (16:38)
[2017-02-17] MEDS ORDERED: ROBITUSSIN5 ML PO ×2 (16:40→17:45)
[2017-02-17] MEDS ORDERED: DOXYCYCLINE MO100 M1 PO (16:40)
== END 2017-02-11 19:15 | disposition left against medical advice (07) | DRG 313 ==
LOC: ED 16:42 → EDHOLD 18:04 → 4E 18:10
PROVIDERS: Emergency Medicine
DX: R07.9 Chest pain, unspecified (principal); I50.32 Chronic diastolic (congestive) heart failure; K31.84 Gastroparesis; E11.43 Type 2 diabetes mellitus with diabetic autonomic (poly)neuropathy; F31.9 Bipolar disorder, unspecified; F41.9 Anxiety disorder, unspecified; G89.4 Chronic pain syndrome; J44.9 Chronic obstructive pulmonary disease, unspecified; M19.90 Unspecified osteoarthritis, unspecified site; E03.9 Hypothyroidism, unspecified; G43.909 Migraine, unspecified, not intractable, without status migrainosus; Z53.21 Procedure and treatment not carried out due to patient leaving prior to being seen by health care provider; Z88.1 Allergy status to other antibiotic agents; Z79.899 Other long term (current) drug therapy; Z88.8 Allergy status to other drugs, medicaments and biological substances; Z91.5 Personal history of self-harm; Z90.49 Acquired absence of other specified parts of digestive tract; Z90.710 Acquired absence of both cervix and uterus; Z98.61 Coronary angioplasty status; Z83.3 Family history of diabetes mellitus; Z80.8 Family history of malignant neoplasm of other organs or systems; Z81.8 Family history of other mental and behavioral disorders; Z82.49 Family history of ischemic heart disease and other diseases of the circulatory system; Z88.0 Allergy status to penicillin

== ENCOUNTER → 2017-02-12 | Outpatient (CLI) | payer OTHER ==
[2017-02-12 09:15] LABS: ALKALINE PHOSPHATASE 93 U/L (45-117); BUN 13 mg/dl (7-24); CHLORIDE 107 mmol/L (98-107); CREATININE 0.96 mg/dL (0.55-1.02); POTASSIUM 4.5 mmol/L (3.5-5.1); SGOT/AST 18 IU/L (3-35); SGPT/ALT 24 U/L (12-78); SODIUM 141 mmol/L (136-145); TOTAL PROTEIN 6.7 gm/dL (6.4-8.2); VALPROIC ACID (DEPAKENE) 104.8 ug/ml (50-100)
[2017-02-12 09:37] LABS: BASO # 0.1 10*3/uL (0.0-0.1); BASO % 0.3 % (0.0-1.0); EOS # 0.2 10*3/uL (0.0-0.4); EOS % 1.5 % (1.0-4.0); HEMATOCRIT 39.7 % (37.0-47.0); HEMOGLOBIN 12.8 g/dl (12.0-16.0); LYMPH # 2.8 10*3/uL (1.3-4.4); LYMPH % 19.3 % (27.0-41.0); MEAN CELL VOLUME 95.7 fl (81.0-99.0); MEAN CORPUSCULAR HGB 30.8 pg (27.0-31.0); MEAN CORPUSCULAR HGB CONC 32.2 g/dl (33.0-37.0); MEAN PLATELET VOLUME 8.8 fl (9.6-12.3); MONO # 1.2 10*3/uL (0.1-1.0); MONO % 8.4 % (3.0-9.0); NEUT # 10.3 10*3/uL (2.3-7.9); PLATELET COUNT AUTOMATED 466 10*3/uL (130-400); RED BLOOD COUNT 4.15 10*6/uL (4.10-5.10); RED CELL DISTRI WIDTH 13.5 % (0-14.5); WHITE BLOOD COUNT 14.7 10*3/uL (4.8-10.8)
[2017-02-12 09:47] LABS: FREE T4 1.6 ng/dl (0.76-1.46); THYROID STIM HORMONE (HS) 0.474 uIU/ml (0.358-4.75)
== END | disposition home or self-care (01) ==
LOC: LAB 08:28
PROVIDERS: Internal Medicine; Physician Assistant
DX: Z51.81 Encounter for therapeutic drug level monitoring (principal); R73.02 Impaired glucose tolerance (oral); E06.9 Thyroiditis, unspecified; E55.9 Vitamin D deficiency, unspecified; Z79.899 Other long term (current) drug therapy

== ENCOUNTER 2017-02-18 22:40 | Emergency (ER) | payer OTHER ==
[~2017-02-18] VITALS: Ht 167.6 cm; Wt 54.4 kg
[~2017-02-18 22:40] MED LIST changes: +ROBITUSSIN5 ML PO; +TESSALON PERLE100 M1 PO
[2017-02-18 22:46] VITALS: BP 139/80
[2017-02-18] MEDS ORDERED: GUAIFENESIN600 MG PO (23:19)
== END 2017-02-18 23:47 | disposition home or self-care (01) ==
LOC: ED 22:40
DX: J06.9 Acute upper respiratory infection, unspecified (principal); J32.9 Chronic sinusitis, unspecified; F41.9 Anxiety disorder, unspecified; F31.9 Bipolar disorder, unspecified; G89.29 Other chronic pain; E11.65 Type 2 diabetes mellitus with hyperglycemia; J44.9 Chronic obstructive pulmonary disease, unspecified; I50.32 Chronic diastolic (congestive) heart failure; E03.9 Hypothyroidism, unspecified; G43.909 Migraine, unspecified, not intractable, without status migrainosus; F17.200 Nicotine dependence, unspecified, uncomplicated; Z88.0 Allergy status to penicillin; Z88.5 Allergy status to narcotic agent; Z88.1 Allergy status to other antibiotic agents; Z88.8 Allergy status to other drugs, medicaments and biological substances; Z79.899 Other long term (current) drug therapy; Z90.49 Acquired absence of other specified parts of digestive tract; Z90.710 Acquired absence of both cervix and uterus; Z90.89 Acquired absence of other organs

== ENCOUNTER 2017-02-20 14:32 | Emergency (ER) | payer OTHER ==
[~2017-02-20] VITALS: Ht 167.6 cm; Wt 54.4 kg
[~2017-02-20 14:32] MED LIST changes: +GUAIFENESIN600 MG PO
[2017-02-20 14:41] VITALS: BP 119/85
== END 2017-02-20 15:26 | disposition left against medical advice (07) ==
LOC: ED 14:32
DX: H92.01 Otalgia, right ear (principal); F17.200 Nicotine dependence, unspecified, uncomplicated; Z88.1 Allergy status to other antibiotic agents; Z88.0 Allergy status to penicillin; Z88.6 Allergy status to analgesic agent; Z88.8 Allergy status to other drugs, medicaments and biological substances; Z79.899 Other long term (current) drug therapy

== ENCOUNTER 2017-03-02 15:20 | Emergency (ER) | payer OTHER ==
[~2017-03-02] VITALS: Ht 167.6 cm; Wt 46.3 kg
[2017-03-02 16:15] VITALS: BP 133/81
== END 2017-03-02 17:09 | disposition home or self-care (01) ==
LOC: ED 15:20
DX: M25.551 Pain in right hip (principal); F17.200 Nicotine dependence, unspecified, uncomplicated; Z88.0 Allergy status to penicillin; Z88.5 Allergy status to narcotic agent; Z88.1 Allergy status to other antibiotic agents; Z79.899 Other long term (current) drug therapy; Z90.49 Acquired absence of other specified parts of digestive tract; Z90.710 Acquired absence of both cervix and uterus; Z90.89 Acquired absence of other organs

== ENCOUNTER 2017-03-08 19:13 | Inpatient (IN) | payer OTHER ==
[~2017-03-08] VITALS: Ht 167.6 cm; Wt 50.6 kg
[2017-03-08] VITALS (12 sets, daily range): BP systolic 100–177; BP diastolic 55–83
--- NOTE | ~2017-03-08 | CON ---
[place], [place] REPORT OF CONSULTATION NAME: TRUONG HIRSCH [facility] #: [id number] UNIT #: [id number] ROOM: [facility] DOCTOR: OSCAR BRONSON DO BIRTHDATE: [birth year] DOS: 03/09/2017 HISTORY OF PRESENT ILLNESS: The patient is a 61-year-old female who presented to the ER with complaint of shortness of breath and chest pain. The patient is a chronic tobacco abuser, has a history of COPD. The patient reports that the chest pain began yesterday afternoon, does not remember exactly what she was doing when the shortness of breath and cough began; however, she does report that 2 days ago she did feel fine. The patient had some associated anxiety, productive cough, shortness of breath and diaphoresis. The patient denied fever, chills, hemoptysis, abdominal pain, changes in bowel or bladder habits, dizziness, syncope, headache. The patient has oxygen at home and has been noncompliant with her oxygen supplementation. The patient reports that her shortness of breath and breathing has improved since yesterday. PAST MEDICAL HISTORY: Bipolar disorder, chronic pain, COPD, degenerative arthritis, diabetes, diastolic CHF, gastroparesis, hypothyroid, migraine, suicidal ideation, tobacco abuse and vitamin D insufficiency. PAST SURGICAL HISTORY: Left heart catheterization without intervention, history of PEG placement, history of appendectomy, history of hysterectomy, history of rhinoplasty, history of rotator cuff surgery, history of toe surgery, history of tonsillectomy. SOCIAL HISTORY: Tobacco abuse. The patient denies alcohol and drug abuse. FAMILY HISTORY: Father at age 32 secondary to diabetes. Mother at age 62 secondary to brain cancer. Sister secondary to suicide. HOME MEDICATIONS: Percocet, Proventil, Ventolin, alprazolam, vitamin D, doxycycline, Diflucan, Synthroid, loperamide, Robaxin, Percocet, paroxetine, trazodone and Geodon. REVIEW OF SYSTEMS: GENERAL: The patient denies no fatigue and malaise, difficulty with arousal. HEENT: The patient denies eye injection or discharge. Denies nasal discharge. Denies pain or itching in the ears. Denies dysphagia. NECK: The patient denies masses or pain in the neck. RESPIRATORY: The patient reports shortness of breath, productive cough with yellow sputum. CARDIOVASCULAR: The patient reports chest pain, denies palpitations. ABDOMEN: The patient denies abdominal pain, change in bowel or bladder habits, blood in the stool or blood in the urine. MUSCULOSKELETAL: The patient denies joint pain or limited range of motion. SKIN: The patient denies rashes. ALLERGIES: MOXIFLOXACIN, PENICILLIN, CIPROFLOXACIN, ERYTHROMYCIN, HYDROCODONE, HYDROMORPHONE. PHYSICAL EXAMINATION: [place], [place] REPORT OF CONSULTATION NAME: TRUONG HIRSCH UNIT #: [id number] ROOM: [facility] DOCTOR: OSCAR BRONSON DO BIRTHDATE: [birth year] VITAL SIGNS: Temperature 98.3, pulse is 90, respirations 14, blood pressure 122/40, pulse ox is 92% on 2 liters nasal cannula. GENERAL APPEARANCE: The patient is alert and oriented times 3, no acute distress. HEENT: Eyes are clear. No injection. Nares are patent. Mucous membranes are moist. NECK: Supple, nontender. CARDIAC: Regular rate and rhythm, no murmurs, gallops or rubs. PULMONARY: Mild expiratory wheezes with some mild rhonchi as well. No rales appreciated. ABDOMEN: Soft, nontender with positive bowel sounds. EXTREMITIES: No edema, no erythema. No clubbing or cyanosis. SKIN: No rashes, no lesions, no erythema. LABORATORY DATA: White count 19.5, hemoglobin 13.7, hematocrit 42.7, platelet count 295. Chemistries were normal except for mildly elevated glucose at 127, magnesium 2.2, and acute transaminitis, AST was 135. The patient had elevated troponins that trended upward on the second set to 1.1, but trended downward to 0.6 in the third set. Creatinine kinase 3900, CK-MB 26.4. ABGs: pH 7.3, pCO2 of 47.2, pO2 77.3. Chest x-ray, no acute pulmonary abnormality Blood cultures are pending. Flu was negative. ASSESSMENT: 1. Non-ST elevation myocardial infarction. 2. Ofimc-ef-vhfyscf obstructive pulmonary disease exacerbation with hypoxia and hypercarbia. 3. Severe sepsis. 4. Metabolic encephalopathy. 5. Acute renal failure. 6. Acute transaminitis. 7. Vitamin D deficiency. 8. Chronic diastolic congestive heart failure. 9. Diabetes. TREATMENT PLAN: At this time, we agree with the treatment of Atrovent, Solu-Medrol, Merrem. The patient was being arranged to be transferred to [place] for heart catheterization. Until the patient is to be transported, continue with current respiratory care. No change in management at this time. OSCAR BRONSON DO [place], [place] REPORT OF CONSULTATION NAME: TRUONG HIRSCH UNIT #: [id number] ROOM: [facility] DOCTOR: OSCAR BRONSON DO BIRTHDATE: [birth year] MORENITA MARQUEZ MD CM:CONSTR:REPORT OF CONSULTATION 1223 03/09/17 1335 interface
--- NOTE | ~2017-03-08 | CON ---
[place], [place] REPORT OF CONSULTATION [id number] UNIT #: [id number] ROOM: [facility] DOCTOR: MORENITA JIM MD BIRTHDATE: [birth year] DOS: 03/09/2017 PULMONARY CONSULTATION EVALUATION AND MANAGEMENT CONSULTATION REQUESTED BY: Hospitalist services. REASON FOR CONSULTATION: To assess the patient for COPD exacerbation, shortness of breath, and others. HISTORY OF PRESENT ILLNESS: History noted is quite limited. The patient was seen with ajcy-jx-hods encounter. History was obtained for the patient. The patient is noted as very poor historian at this time and also noted with some confusional status as well at time of the assessment. Medical record of the patient by the other physician reviewed, which was done for the ____. Physical exam is performed. All the labs were reviewed. The patient's assessment was personally made and the management changes as necessary were ordered personally as well. The note by the faculty i on call medical assistant was approved as well. This patient who had been brought to the hospital is in Emergency Room. The patient has been hospitalized on 03/02/2017. The patient has been admitted to the hospital on 03/08/2017, is under care of the hospitalist services for the symptoms described as shortness of breath with the chest pain. The patient denies any symptoms at this time as she was sitting. She denies any symptoms of coughing, chest pain, or wheezing. The patient denies symptoms of hemoptysis. REVIEW OF SYSTEMS: Cannot be accurately completed because of the patient's confusion. Limited review of systems has been done by the faculty i on call medical assistant. PAST MEDICAL HISTORY: The past medical history for the patient was reviewed, note from my past consultation, which was done on this patient in 06/2016. The patient has been known with 1. History of COPD/centrilobular emphysema. 2. Degenerative arthritis with chronic pain. 3. History of migraine headache. 4. Low BMI. 5. Lower back pain. 6. History of bipolar disorder. 7. Anxiety disorder. 8. Vitamin D deficiency. 9. Current suspected myocardial infarction, abnormal troponin for this patient during this admission of 03/08/2017. PAST SURGICAL HISTORY: 1. Chronic aspiration. 2. Past PEG tube placement. 3. Appendectomy. 4. Hysterectomy. 5. Rhinoplasty. 6. Right rotator cuff surgery. 7. Bilateral multiple surgeries in the toe. 8. Tonsillectomy. [place], [place] REPORT OF CONSULTATION NAME: [facility]IRS[id number] UNIT #: [id number] ROOM: [facility] DOCTOR: JIMMY RYAN MD,MORENITA BIRTHDATE: [birth year] SOCIAL HISTORY: The patient has been known and 2 children. Smoking started at younger age up to 2 packs of cigarettes per day, still smoking cigarettes, and the amount of cigarettes of the patient was unknown. There were no past reported history of alcohol use or any illicit drugs. FAMILY HISTORY: The patient's father at 32 years due to complication of diabetes mellitus. Mother at age 60 due to complication related to the cancer of the brain. One of the sisters committed suicide. MEDICATIONS: Current medications administered for the patient was noted as use of Ringer's lactate, meropenem, IV Solu-Medrol 40 mg q.8 hours, metoprolol tartrate, lisinopril, Lipitor, Atrovent nebulizer, and other p.r.n. medications administered. The patient was also given one dose of aspirin 325 mg yesterday. DRUG ALLERGIES: THIS PATIENT'S DRUG ALLERGY HAS BEEN REPORTED ALLERGY TO: 1. PENICILLIN. 2. VICODIN. 3. ERYTHROMYCIN. 4. CIPROFLOXACIN. 5. DILAUDID. 6. AVELOX. PHYSICAL EXAMINATION: GENERAL: This is a 61-year-old white female who has been currently sitting on the bed for this patient without any apparent distress, getting oxygen supplementation via nasal cannula. Height of 5 feet 6 inches, weight 111 pounds, recorded BMI 18 on current admission by the nursing staff. VITAL SIGNS: Reviewed for the patient was noted as normal temperature since admission, respiratory rate of 24-16, heart rate of 102-78, blood pressure of the patient was recorded as 104/58-101/64. Pulse oxygen saturation of the patient was noted on room air was 88% and on 2 liters nasal cannula was 92% saturation. Admission oxygen saturation recorded as 89% saturation at rest on room air. HEENT: Head was atraumatic. Eyes nonicterus. Loss of muscle mastication. NECK: Supple. Oral mucosa is moist. CARDIOVASCULAR: S1, S2 audible. LUNGS: Examination of the lungs for this patient was noted with generalized decreased breath sounds with diffuse reduction of the air entry for the patient with scattered expiratory wheezing, no crackles. ABDOMEN: Soft, flat, and nontender. Bowel sounds are present. EXTREMITIES: No edema, clubbing, or cyanosis. CENTRAL NERVOUS SYSTEM: The patient except confusion; apparently, no focal deficit was noted. MUSCULOSKELETAL: No visible deformity. SKIN: No lesions or rashes. LABORATORY DATA: CBC that was done yesterday, WBC count 27,000; otherwise, normal CBC. CMP of the patient of 03/08/2017 on admission, BUN 27, creatinine ____, glucose is elevated mildly at 170, and potassium was noted at 5.3. [place], [place] REPORT OF CONSULTATION NAME: TRUONG HIRSCH UNIT #: [id number] ROOM: [facility] DOCTOR: MARGIE JIM MDM BIRTHDATE: [birth year] Troponin noted 0.943. AST elevated mildly 126. Influenza A and B rapid testing is washing antigens negative. The CMP for the patient that was done for the patient on 03/09/2017, BUN 25, creatinine normal, and glucose 127. The CPK-MB for the patient on 03/08/2017, CPK 5,027 and CK-MB 32.9. The troponin of the patient's second set was 1.10. Electrocardiogram for this patient, which has been reviewed by the Radiology was suggestive of possibility of inferior myocardial infarction. CPK of the patient that was done today shows CPK of 3,913 with a CK-MB of 26.4. Urine drug screen was noted positive for opiates and benzodiazepines. Arterial blood gas of the patient that was done yesterday for the patient last evening, pH of 7.31, pCO2 of 57, and pO2 of 68.1. The review of the Radiology data for this patient, chest x-ray, 1 view, which was done in the Emergency Room was reviewed from the PACS images were noted no acute abnormalities, changes of severe COPD was noted with previous old rib fracture in the right lower rib, and hyperinflation was noted. IMPRESSION: 1. The patient who had been currently admitted to the hospital with chronic nicotine dependency with confusion related to the hypercarbia with acute hypoxic and hypercapnic respiratory failure. 2. Acute exacerbation of chronic obstructive pulmonary disease. 3. Severely abnormal creatinine phosphokinase for this patient, possibly rhabdomyolysis versus cardiac injury for the patient. 4. Mildly abnormal troponin of the patient, possibility of ST segment elevation myocardial infarction has been assessed by the Cardiology Services. 5. History of chronic nicotine dependence. 6. Physical appearance of protein-calorie malnutrition. 7. Leukocytosis of the patient related to infection and other etiologies. 8. Acute kidney injury with prerenal azotemia for this patient with intravascular volume depletion, corrected the patient with IV hydration treatment. PLAN OF MANAGEMENT: The patient has been started on Solu-Medrol that will be continued. Continue IV fluid for the patient with closed monitoring to prevent any fluid overload. Echocardiogram being performed for this patient as well. The patient has been currently assessed for possible transfer to [facility] for further assessment for current acute myocardial infarction of the patient with chronic aspiration and to assess the patient for possible acute coronary intervention. Nicotine replacement patches certainly could be used in case of nicotine withdrawal. Obtain another arterial blood gases to assess the correction of the previous hypercarbia. Additional treatment changes will be recommended based on the progression of the illness. Thanks for allowing me to participate in the care of this patient. [place], [place] REPORT OF CONSULTATION NAME: TRUONG HIRSCH [facility] #: [id number] UNIT #: [id number] ROOM: [facility] DOCTOR: MORENITA JIM MD BIRTHDATE: [birth year] MORENITA MARQUEZ MD CM:CONSTR:REPORT OF CONSULTATION 1545 03/10/17 0020 interface
[2017-03-08 19:58] LABS: HEMATOCRIT 47.6 % (37.0-47.0); HEMOGLOBIN 15.1 g/dl (12.0-16.0); MEAN CELL VOLUME 96.2 fl (81.0-99.0); MEAN CORPUSCULAR HGB 30.5 pg (27.0-31.0); MEAN CORPUSCULAR HGB CONC 31.7 g/dl (33.0-37.0); MEAN PLATELET VOLUME 9.7 fl (9.6-12.3); PLATELET COUNT AUTOMATED 343 10*3/uL (130-400); RED BLOOD COUNT 4.95 10*6/uL (4.10-5.10); RED CELL DISTRI WIDTH 13.7 % (0-14.5); WHITE BLOOD COUNT 27.1 10*3/uL (4.8-10.8)
[2017-03-08 20:16] LABS: ALBUMIN 3.5 gm/dl (3.1-4.5); CREATININE 1.23 mg/dL (0.55-1.02); POTASSIUM 5.3 mmol/L (3.5-5.1); TOTAL PROTEIN 7.6 gm/dL (6.4-8.2)
[2017-03-08 20:18] LABS: TROPONIN I 0.943 ng/ml (<0.045)
[2017-03-08 20:27] LABS: PLATELET SUFFICIENCY NORMAL (NORMAL); TOTAL CELLS COUNTED 100 #CELLS
[2017-03-08 20:29] LABS: THYROID STIM HORMONE (HS) 1.48 uIU/ml (0.358-4.75)
[2017-03-08 23:34] LABS: ABG BASE EXCESS 1.3 mmol/L (-2.0-2.0); ABG HCO3 28.3 mmol/l (22-26); ARTERIAL BLOOD GAS PCO2 57.3 mmHg (35-45); ARTERIAL BLOOD GAS PH 7.313 (7.35-7.45); ARTERIAL BLOOD GAS PO2 68.1 mmHg (80-90)
[2017-03-08 23:45] LABS: CKMB 32.9 ng/ml (0.5-3.6)
[2017-03-09] VITALS (8 sets, daily range): BP systolic 104–134; BP diastolic 40–90
[2017-03-09 05:29] LABS: ALBUMIN 2.9 gm/dl (3.1-4.5); ALKALINE PHOSPHATASE 69 U/L (45-117); BUN 25 mg/dl (7-24); CHLORIDE 105 mmol/L (98-107); CREATININE 0.76 mg/dL (0.55-1.02); PHOSPHOROUS 2.7 mg/dL (2.5-4.9); POTASSIUM 4.7 mmol/L (3.5-5.1); SGOT/AST 135 IU/L (3-35); SGPT/ALT 40 U/L (12-78); SODIUM 139 mmol/L (136-145)
[2017-03-09 05:39] LABS: URINE AMPHETAMINES < 1000 (1000ng/ml); URINE BARBITURATES < 200 (200ng/ml); URINE BENZODIAZEPINES > 200 (200ng/ml); URINE CANNABINOIDS (THC) < 50 (50ng/ml); URINE COCAINE < 300 (300ng/ml); URINE METHADONE < 300 (300ng/ml); URINE OPIATES > 300 (300ng/ml)
[2017-03-09 05:40] LABS: URINE PHENCYCLIDINE < 25 (25ng/ml)
[2017-03-09 06:12] LABS: HEMATOCRIT 42.7 % (37.0-47.0); HEMOGLOBIN 13.7 g/dl (12.0-16.0); MEAN CELL VOLUME 97.5 fl (81.0-99.0); MEAN CORPUSCULAR HGB 31.3 pg (27.0-31.0); MEAN CORPUSCULAR HGB CONC 32.1 g/dl (33.0-37.0); MEAN PLATELET VOLUME 10.7 fl (9.6-12.3); PLATELET COUNT AUTOMATED 295 10*3/uL (130-400); RED BLOOD COUNT 4.38 10*6/uL (4.10-5.10); RED CELL DISTRI WIDTH 13.5 % (0-14.5); WHITE BLOOD COUNT 19.5 10*3/uL (4.8-10.8)
[2017-03-09 06:31] LABS: ACT PARTIAL THROMBO TIME 41.5 SECONDS (20.8-31.5)
[2017-03-09 06:46] LABS: PLATELET SUFFICIENCY NORMAL (NORMAL); TOTAL CELLS COUNTED 100 #CELLS
[2017-03-09 07:17] LABS: CHOLESTEROL 146 mg/dL (<200); TRIGLYCERIDES 60 mg/dl (<150); VLDL CHOLESTEROL 12 mg/dL (6-40)
[2017-03-09 07:18] LABS: HDL CHOLESTEROL 93 mg/dl (40-60); LDL CHOLESTEROL 41 mg/dL (9-159)
[2017-03-09 09:05] LABS: CKMB 26.4 ng/ml (0.5-3.6)
[2017-03-09] MEDS ORDERED: LISINOPRIL2.5 MG PO (09:57)
[2017-03-09] MEDS ORDERED: ATORVASTATIN CA80 M1 PO (09:57)
[2017-03-09] MEDS ORDERED: LOPRESSOR25 MG PO (09:57)
[2017-03-09 10:44] LABS: ABG BASE EXCESS 2.4 mmol/L (-2.0-2.0); ABG HCO3 27.7 mmol/l (22-26); ARTERIAL BLOOD GAS PCO2 47.2 mmHg (35-45); ARTERIAL BLOOD GAS PH 7.384 (7.35-7.45); ARTERIAL BLOOD GAS PO2 77.3 mmHg (80-90)
== END 2017-03-09 14:19 | disposition short-term general hospital (02) | DRG 871 ==
LOC: ED 19:13 → EDHOLD 21:08 → 5E 21:19 → ICCU 22:37
PROVIDERS: Family Medicine; Internal Medicine; Internal Medicine Critical Care Medicine; Internal Medicine Hospice and Palliative Medicine
DX: A41.9 Sepsis, unspecified organism (principal); I21.4 Non-ST elevation (NSTEMI) myocardial infarction; J96.01 Acute respiratory failure with hypoxia; N17.0 Acute kidney failure with tubular necrosis; J96.02 Acute respiratory failure with hypercapnia; G93.41 Metabolic encephalopathy; J18.9 Pneumonia, unspecified organism; E46 Unspecified protein-calorie malnutrition; I50.32 Chronic diastolic (congestive) heart failure; J44.1 Chronic obstructive pulmonary disease with (acute) exacerbation; Z68.1 Body mass index [BMI] 19.9 or less, adult; R65.20 Severe sepsis without septic shock; E11.9 Type 2 diabetes mellitus without complications; F31.9 Bipolar disorder, unspecified; G89.29 Other chronic pain; F41.9 Anxiety disorder, unspecified; E87.5 Hyperkalemia; R74.0 Nonspecific elevation of levels of transaminase and lactic acid dehydrogenase [LDH]; E55.9 Vitamin D deficiency, unspecified; F17.210 Nicotine dependence, cigarettes, uncomplicated; M19.90 Unspecified osteoarthritis, unspecified site; E03.9 Hypothyroidism, unspecified; G43.909 Migraine, unspecified, not intractable, without status migrainosus; Z93.1 Gastrostomy status; Z90.49 Acquired absence of other specified parts of digestive tract; Z90.710 Acquired absence of both cervix and uterus; Z79.899 Other long term (current) drug therapy; Z88.0 Allergy status to penicillin; Z88.1 Allergy status to other antibiotic agents; Z88.8 Allergy status to other drugs, medicaments and biological substances; Z83.3 Family history of diabetes mellitus; Z80.8 Family history of malignant neoplasm of other organs or systems; Z82.49 Family history of ischemic heart disease and other diseases of the circulatory system

== ENCOUNTER 2017-03-13 09:46 | Emergency (ER) | payer OTHER ==
[~2017-03-13] VITALS: Ht 167.6 cm; Wt 46.3 kg
[~2017-03-13 09:46] MED LIST changes: +ATORVASTATIN CA80 M1 PO; +LISINOPRIL2.5 MG PO; +LOPRESSOR25 MG PO
[2017-03-13 09:50] VITALS: BP 136/90
== END 2017-03-13 11:18 | disposition home or self-care (01) ==
LOC: ED 09:46
DX: S16.1XXA Strain of muscle, fascia and tendon at neck level, initial encounter (principal); M54.6 Pain in thoracic spine; J44.9 Chronic obstructive pulmonary disease, unspecified; E03.9 Hypothyroidism, unspecified; G43.909 Migraine, unspecified, not intractable, without status migrainosus; M19.90 Unspecified osteoarthritis, unspecified site; I50.32 Chronic diastolic (congestive) heart failure; E11.9 Type 2 diabetes mellitus without complications; F17.210 Nicotine dependence, cigarettes, uncomplicated; Z88.0 Allergy status to penicillin; Z88.1 Allergy status to other antibiotic agents; Z88.6 Allergy status to analgesic agent; Z79.899 Other long term (current) drug therapy; V89.2XXA Person injured in unspecified motor-vehicle accident, traffic, initial encounter; Y93.89 Activity, other specified; Y92.413 State road as the place of occurrence of the external cause; Y99.8 Other external cause status

== ENCOUNTER 2017-03-16 08:20 | Emergency (ER) | payer OTHER ==
[~2017-03-16] VITALS: Ht 167.6 cm; Wt 46.3 kg
--- NOTE | ~2017-03-16 | EKG ---
[place], [place] ELECTROCARDIOGRAM REPORT NAME: TRUONG HIRSCH UNIT #: [id number] ROOM: DOCTOR: JIMMY RYAN MD,MORENITA BIRTHDATE: [birth year] DOS: 03/16/2017 The electrocardiogram was done on 03/16/2017. Heart rate 91 beats per minute. Left axis deviation was noted with left anterior fascicular block. Nonspecific ST-T changes were also noted. MORENITA MARQUEZ MD CM:EKGRPT:ELECTROCARDIOGRAM REPORT 1545 1606 MORENITA RYAN MD
--- NOTE | ~2017-03-16 | HM ---
[place], [place] HOLTER MONITOR REPORT [id number] #: [id number] ROOM: DOCTOR: KULWINDER HASSAN MD BIRTHDATE: [birth year] DOS: 03/16/2017 48-hour Holter monitor. This was ordered by Dr. Lemus in the Emergency Room. INDICATIONS: Palpitations. PROCEDURE: The patient was monitored for 48 hours utilizing a Holter device beginning 03/16/2017. FINDINGS: The basic rhythm was normal sinus. The average heart rate was 90 with heart rates varying from 43-152 in sinus rhythm. The patient had occasional premature ventricular contractions, but no couplets or ventricular tachycardia. The patient had occasional premature atrial contractions with a single 4-beat run of SVT. No prolonged pauses were seen. The patient did keep a diary and complained of dizziness on several occasions. She was in sinus rhythm or sinus tachycardia at that time. She also complained of slight chest pain on one occasion at which time she was in sinus rhythm without obvious arrhythmias. There seemed to be no correlation between her symptoms and the premature contractions. IMPRESSION: Sinus rhythm and sinus tachycardia. Complaints of dizziness appeared to be related to sinus tachycardia and often were accompanied by change in body position. No pathologic arrhythmias were seen. KULWINDER HASSAN MD CM:HOLTER:HOLTER MONITOR REPORT 1113 1152 KULWINDER HASSAN MD
[2017-03-16 09:01] LABS: BASO # 0.1 10*3/uL (0.0-0.1); BASO % 0.5 % (0.0-1.0); EOS # 0.4 10*3/uL (0.0-0.4); EOS % 3.2 % (1.0-4.0); HEMATOCRIT 39.7 % (37.0-47.0); HEMOGLOBIN 12.7 g/dl (12.0-16.0); LYMPH # 3.7 10*3/uL (1.3-4.4); LYMPH % 32.8 % (27.0-41.0); MEAN CELL VOLUME 96.6 fl (81.0-99.0); MEAN CORPUSCULAR HGB 30.9 pg (27.0-31.0); MEAN PLATELET VOLUME 9.3 fl (9.6-12.3); MONO # 0.8 10*3/uL (0.1-1.0); MONO % 7.4 % (3.0-9.0); NEUT # 6.2 10*3/uL (2.3-7.9); NEUT % 55.7 % (47.0-73.0); PLATELET COUNT AUTOMATED 361 10*3/uL (130-400); RED BLOOD COUNT 4.11 10*6/uL (4.10-5.10); RED CELL DISTRI WIDTH 13.7 % (0-14.5); WHITE BLOOD COUNT 11.2 10*3/uL (4.8-10.8)
[2017-03-16 09:15] LABS: ALBUMIN 2.9 gm/dl (3.1-4.5); ALKALINE PHOSPHATASE 64 U/L (45-117); BUN 14 mg/dl (7-24); CHLORIDE 101 mmol/L (98-107); CREATININE 0.86 mg/dL (0.55-1.02); POTASSIUM 4.6 mmol/L (3.5-5.1); SGOT/AST 22 IU/L (3-35); SGPT/ALT 30 U/L (12-78); SODIUM 138 mmol/L (136-145)
[2017-03-16 10:33] VITALS: BP 108/62
== END 2017-03-16 11:29 | disposition home or self-care (01) ==
LOC: ED 08:20
PROVIDERS: Emergency Medicine
DX: R42 Dizziness and giddiness (principal); J45.909 Unspecified asthma, uncomplicated; J44.9 Chronic obstructive pulmonary disease, unspecified; E11.9 Type 2 diabetes mellitus without complications; G89.29 Other chronic pain; I50.32 Chronic diastolic (congestive) heart failure; N17.0 Acute kidney failure with tubular necrosis; J96.01 Acute respiratory failure with hypoxia; E03.9 Hypothyroidism, unspecified; G43.909 Migraine, unspecified, not intractable, without status migrainosus; Z90.49 Acquired absence of other specified parts of digestive tract; Z90.710 Acquired absence of both cervix and uterus; Z88.0 Allergy status to penicillin; Z88.1 Allergy status to other antibiotic agents; Z88.5 Allergy status to narcotic agent; Z79.899 Other long term (current) drug therapy; Z90.89 Acquired absence of other organs

== ENCOUNTER 2017-03-18 02:24 | Emergency (ER) | payer OTHER ==
[~2017-03-18] VITALS: Wt 49.9 kg
--- NOTE | ~2017-03-18 | EKG ---
[place], [place] ELECTROCARDIOGRAM REPORT NAME: TRUONG HIRSCH UNIT #: [id number] ROOM: DOCTOR: JIMMY RYAN MD,MORENITA BIRTHDATE: [birth year] DOS: 03/18/2017 The electrocardiogram was done on 03/18/2017 at 02:34 a.m. Electrocardiogram shows sinus tachycardia with heart rate of 111 beats per minute with left anterior fascicular block. Old anteroseptal infarct was noted. MORENITA MARQUEZ MD CM:EKGRPT:ELECTROCARDIOGRAM REPORT 1752 1810 MORENITA RYAN MD
[2017-03-18 03:01] VITALS: BP 115/64
== END 2017-03-18 04:12 | disposition left against medical advice (07) ==
LOC: ED 02:24
DX: R07.89 Other chest pain (principal); M54.5 Low back pain; F17.200 Nicotine dependence, unspecified, uncomplicated; J44.9 Chronic obstructive pulmonary disease, unspecified; E11.9 Type 2 diabetes mellitus without complications; G89.4 Chronic pain syndrome; I50.9 Heart failure, unspecified; I25.2 Old myocardial infarction; G43.909 Migraine, unspecified, not intractable, without status migrainosus; E03.9 Hypothyroidism, unspecified; Z90.49 Acquired absence of other specified parts of digestive tract; Z90.710 Acquired absence of both cervix and uterus; Z98.890 Other specified postprocedural states; Z79.899 Other long term (current) drug therapy; Z88.0 Allergy status to penicillin; Z88.1 Allergy status to other antibiotic agents; Z88.5 Allergy status to narcotic agent

== ENCOUNTER 2017-05-24 13:07 | Emergency (ER) | payer OTHER ==
[~2017-05-24] VITALS: Ht 167.6 cm; Wt 46.3 kg
--- NOTE | ~2017-05-24 | EKG ---
[place], [place] ELECTROCARDIOGRAM REPORT NAME: TRUONG HIRSCH UNIT #: [id number] ROOM: DOCTOR: JIMMY RYAN MD,MORENITA BIRTHDATE: [birth year] DOS: 05/24/2017 TIME: At 1:09 p.m. Normal sinus rhythm noted with a heart rate of 79 beats per minute. Right atrial enlargement was also noted. Left anterior fascicular block was also noted. Poor R-wave progression was also noted in the left chest leads. Rule out ischemia. MORENITA MARQUEZ MD CM:EKGRPT:ELECTROCARDIOGRAM REPORT 1436 1457 MORENITA RYAN MD
[2017-05-24 13:12] VITALS: BP 87/57
[2017-05-24] MEDS ORDERED: NEURONTIN600 MG PO (13:16)
[2017-05-24 13:46] LABS: BASO # 0.1 10*3/uL (0.0-0.1); BASO % 0.8 % (0.0-1.0); EOS # 0.2 10*3/uL (0.0-0.4); EOS % 1.7 % (1.0-4.0); HEMATOCRIT 49.6 % (37.0-47.0); HEMOGLOBIN 15.6 g/dl (12.0-16.0); LYMPH # 4.2 10*3/uL (1.3-4.4); MEAN CORPUSCULAR HGB CONC 31.5 g/dl (33.0-37.0); MEAN PLATELET VOLUME 9.9 fl (9.6-12.3); MONO # 0.9 10*3/uL (0.1-1.0); MONO % 7.5 % (3.0-9.0); NEUT # 6.6 10*3/uL (2.3-7.9); NEUT % 54.7 % (47.0-73.0); PLATELET COUNT AUTOMATED 286 10*3/uL (130-400); RED BLOOD COUNT 5.57 10*6/uL (4.10-5.10); RED CELL DISTRI WIDTH 15.6 % (0-14.5); WHITE BLOOD COUNT 12.1 10*3/uL (4.8-10.8)
[2017-05-24 14:07] LABS: ALBUMIN 3.5 gm/dl (3.1-4.5); ALKALINE PHOSPHATASE 101 U/L (45-117); BUN 23 mg/dl (7-24); CHLORIDE 103 mmol/L (98-107); POTASSIUM 4.2 mmol/L (3.5-5.1); SGOT/AST 16 IU/L (3-35); SGPT/ALT 21 U/L (12-78); SODIUM 141 mmol/L (136-145); TOTAL PROTEIN 6.8 gm/dL (6.4-8.2)
[2017-05-24 14:08] LABS: TROPONIN I < 0.015 ng/ml (<0.045)
[2017-05-24] MEDS ORDERED: KETOROLAC10 MG PO (16:23)
== END 2017-05-24 16:26 | disposition home or self-care (01) ==
LOC: ED 13:07
PROVIDERS: Emergency Medicine
DX: R09.1 Pleurisy (principal); F17.200 Nicotine dependence, unspecified, uncomplicated; G89.4 Chronic pain syndrome; J44.9 Chronic obstructive pulmonary disease, unspecified; E11.9 Type 2 diabetes mellitus without complications; G43.909 Migraine, unspecified, not intractable, without status migrainosus; I25.2 Old myocardial infarction; E03.9 Hypothyroidism, unspecified; Z90.89 Acquired absence of other organs; Z98.890 Other specified postprocedural states; Z90.710 Acquired absence of both cervix and uterus; Z90.49 Acquired absence of other specified parts of digestive tract; Z79.899 Other long term (current) drug therapy; Z88.1 Allergy status to other antibiotic agents; Z88.0 Allergy status to penicillin; Z88.5 Allergy status to narcotic agent

== ENCOUNTER 2017-06-11 16:15 | Inpatient (IN) | payer OTHER ==
[~2017-06-11] VITALS: Ht 167.6 cm; Wt 46.4 kg
[2017-06-11 16:00] VITALS: BP 171/85
[~2017-06-11 16:15] MED LIST changes: +NEURONTIN600 MG PO
[2017-06-11 16:16] VITALS: BP 150/85
[2017-06-11 17:15] LABS: ACT PARTIAL THROMBO TIME 26.3 SECONDS (20.8-31.5)
[2017-06-11 17:23] LABS: ALBUMIN 3.3 gm/dl (3.1-4.5); ALKALINE PHOSPHATASE 84 U/L (45-117); BUN 21 mg/dl (7-24); CHLORIDE 99 mmol/L (98-107); CREATININE 0.84 mg/dL (0.55-1.02); LIPASE 37 U/L (73-393); POTASSIUM 3.9 mmol/L (3.5-5.1); SGOT/AST 34 IU/L (3-35); SGPT/ALT 14 U/L (12-78); SODIUM 136 mmol/L (136-145); TOTAL PROTEIN 6.9 gm/dL (6.4-8.2)
[2017-06-11 17:24] LABS: TROPONIN I < 0.015 ng/ml (<0.045)
[2017-06-11 17:58] VITALS: BP 144/80
[2017-06-11] MEDS ORDERED: ALPRAZOLAM0.5 M3 PO (19:38)
[2017-06-11] MEDS ORDERED: OMEPRAZOLE D/R20 MG PO (19:40)
[2017-06-11] MEDS ORDERED: METOPROLOL SUCC25 M2 PO (19:41)
[2017-06-11] MEDS ORDERED: ACTOS15 M1 PO (19:43)
[2017-06-11] MEDS ORDERED: CYCLOBENZAPRINE10 MG PO (19:46)
[2017-06-11] MEDS ORDERED: PERCOCET 10-321 EACH PO (19:47)
[2017-06-11] MEDS ORDERED: DOXEPIN25 MG PO (19:49)
[2017-06-11] MEDS ORDERED: DEPAKOTE DR500 MG PO (19:51)
[2017-06-11] MEDS ORDERED: ZUBSOLV 8.6-2.1 EACH SL (19:54)
[2017-06-11 20:00] VITALS: BP 100/68
[2017-06-11 22:44] LABS: HEMATOCRIT 43.9 % (37.0-47.0); HEMOGLOBIN 13.6 g/dl (12.0-16.0); MEAN CELL VOLUME 90.3 fl (81.0-99.0); MEAN PLATELET VOLUME 9.9 fl (9.6-12.3); PLATELET COUNT AUTOMATED 292 10*3/uL (130-400); RED BLOOD COUNT 4.86 10*6/uL (4.10-5.10); RED CELL DISTRI WIDTH 17.2 % (0-14.5); WHITE BLOOD COUNT 6.7 10*3/uL (4.8-10.8)
[2017-06-11 23:03] LABS: TOTAL CELLS COUNTED 100 #CELLS
[2017-06-11 23:04] LABS: BURR CELLS MODERATE; PLATELET SUFFICIENCY NORMAL (NORMAL); POLYCHROMASIA SLIGHT
[2017-06-12] VITALS: BP 130/87
[2017-06-12 03:14] LABS: BASO % 0.4 % (0.0-1.0); HEMATOCRIT 39.9 % (37.0-47.0); HEMOGLOBIN 12.5 g/dl (12.0-16.0); LYMPH # 0.5 10*3/uL (1.3-4.4); MEAN CELL VOLUME 88.5 fl (81.0-99.0); MEAN CORPUSCULAR HGB 27.7 pg (27.0-31.0); MEAN CORPUSCULAR HGB CONC 31.3 g/dl (33.0-37.0); MEAN PLATELET VOLUME 9.6 fl (9.6-12.3); MONO # 0.1 10*3/uL (0.1-1.0); NEUT # 4.2 10*3/uL (2.3-7.9); NEUT % 87.4 % (47.0-73.0); PLATELET COUNT AUTOMATED 278 10*3/uL (130-400); RED BLOOD COUNT 4.51 10*6/uL (4.10-5.10); WHITE BLOOD COUNT 4.8 10*3/uL (4.8-10.8)
[2017-06-12 03:29] LABS: BUN 16 mg/dl (7-24); CHLORIDE 109 mmol/L (98-107); POTASSIUM 4.1 mmol/L (3.5-5.1); SODIUM 144 mmol/L (136-145)
[2017-06-12 03:33] LABS: CHOLESTEROL 102 mg/dL (<200); HDL CHOLESTEROL 46 mg/dl (40-60); LDL CHOLESTEROL 46 mg/dL (9-159); PHOSPHOROUS 3.2 mg/dL (2.5-4.9); TRIGLYCERIDES 48 mg/dl (<150); VLDL CHOLESTEROL 10 mg/dL (6-40)
[2017-06-12 03:40] LABS: THYROID STIM HORMONE (HS) 0.341 uIU/ml (0.358-4.75)
[2017-06-12 07:49] LABS: VITAMIN D, 25-HYDROXY 53.8 ng/mL (30-100)
[2017-06-12 08:00] VITALS: BP 155/76
[2017-06-12 12:00] VITALS: BP 119/61
[2017-06-12 16:00] VITALS: BP 94/50
[2017-06-12 20:00] VITALS: BP 128/77
[2017-06-13 00:28] VITALS: BP 122/68
[2017-06-13 08:00] VITALS: BP 128/70
[2017-06-13] MEDS ORDERED: PREDNISONE10 MG PO (09:54)
[2017-06-13] MEDS ORDERED: DOXYCYCLINE100 M3 PO (09:54)
[2017-06-13 12:00] VITALS: BP 123/88
[2017-06-13 12:13] LABS: ABG BASE EXCESS 1.9 mmol/L (-2.0-2.0); ABG HCO3 28.1 mmol/l (22-26); ARTERIAL BLOOD GAS PCO2 52.3 mmHg (35-45); ARTERIAL BLOOD GAS PH 7.347 (7.35-7.45); ARTERIAL BLOOD GAS PO2 77.8 mmHg (80-90)
[2017-06-13 18:15] LABS: URINE AMPHETAMINES < 1000 (1000ng/ml); URINE BARBITURATES < 200 (200ng/ml); URINE BENZODIAZEPINES > 200 (200ng/ml); URINE CANNABINOIDS (THC) < 50 (50ng/ml); URINE COCAINE < 300 (300ng/ml); URINE METHADONE < 300 (300ng/ml); URINE OPIATES < 300 (300ng/ml)
[2017-06-13 18:20] LABS: URINE PHENCYCLIDINE < 25 (25ng/ml)
== END 2017-06-13 18:50 | disposition left against medical advice (07) | DRG 871 ==
LOC: ED 16:15 → 4E 17:44 → EDHOLD 17:44 → 4E 18:01
PROVIDERS: Emergency Medicine; Internal Medicine
DX: A41.9 Sepsis, unspecified organism (principal); J18.9 Pneumonia, unspecified organism; J96.01 Acute respiratory failure with hypoxia; E43 Unspecified severe protein-calorie malnutrition; I50.32 Chronic diastolic (congestive) heart failure; R45.851 Suicidal ideations; J44.1 Chronic obstructive pulmonary disease with (acute) exacerbation; J44.0 Chronic obstructive pulmonary disease with (acute) lower respiratory infection; Z68.1 Body mass index [BMI] 19.9 or less, adult; R65.20 Severe sepsis without septic shock; R00.0 Tachycardia, unspecified; F31.9 Bipolar disorder, unspecified; M19.90 Unspecified osteoarthritis, unspecified site; E03.9 Hypothyroidism, unspecified; E55.9 Vitamin D deficiency, unspecified; G89.4 Chronic pain syndrome; E78.5 Hyperlipidemia, unspecified; G43.909 Migraine, unspecified, not intractable, without status migrainosus; E04.9 Nontoxic goiter, unspecified; F17.200 Nicotine dependence, unspecified, uncomplicated; F41.0 Panic disorder [episodic paroxysmal anxiety]; F43.10 Post-traumatic stress disorder, unspecified; K21.9 Gastro-esophageal reflux disease without esophagitis; E11.65 Type 2 diabetes mellitus with hyperglycemia; Z53.21 Procedure and treatment not carried out due to patient leaving prior to being seen by health care provider; Z79.899 Other long term (current) drug therapy; Z71.6 Tobacco abuse counseling; Z88.1 Allergy status to other antibiotic agents; Z88.5 Allergy status to narcotic agent; Z88.0 Allergy status to penicillin; I25.2 Old myocardial infarction; Z90.710 Acquired absence of both cervix and uterus; Z83.3 Family history of diabetes mellitus; Z80.8 Family history of malignant neoplasm of other organs or systems; Z81.8 Family history of other mental and behavioral disorders; Z82.49 Family history of ischemic heart disease and other diseases of the circulatory system; Z99.81 Dependence on supplemental oxygen

== ENCOUNTER 2017-06-13 19:41 | Inpatient (IN) | payer OTHER ==
[~2017-06-13] VITALS: Ht 167.6 cm; Wt 53.1 kg
[~2017-06-13 19:41] MED LIST changes: +ACTOS15 M1 PO; +DEPAKOTE DR500 MG PO; +DOXEPIN25 MG PO; +METOPROLOL SUCC25 M2 PO; +OMEPRAZOLE D/R20 MG PO; +ZUBSOLV 8.6-2.1 EACH SL
[2017-06-13 19:43] VITALS: BP 113/68
[2017-06-13 21:00] VITALS: BP 120/65
[2017-06-13 22:20] VITALS: BP 118/68
[2017-06-13 22:27] VITALS: BP 144/83
[2017-06-14] VITALS: BP 134/99; BP 141/71
[2017-06-14 06:07] LABS: HEMOGLOBIN 12.2 g/dl (12.0-16.0); MEAN CELL VOLUME 90.9 fl (81.0-99.0); MEAN CORPUSCULAR HGB 27.7 pg (27.0-31.0); MEAN CORPUSCULAR HGB CONC 30.5 g/dl (33.0-37.0); MEAN PLATELET VOLUME 9.9 fl (9.6-12.3); PLATELET COUNT AUTOMATED 272 10*3/uL (130-400); RED CELL DISTRI WIDTH 17.8 % (0-14.5)
[2017-06-14 06:20] LABS: BUN 25 mg/dl (7-24); CHLORIDE 105 mmol/L (98-107); CREATININE 0.68 mg/dL (0.55-1.02); FREE T4 0.82 ng/dl (0.76-1.46); PHOSPHOROUS 3.2 mg/dL (2.5-4.9); POTASSIUM 4.7 mmol/L (3.5-5.1); SODIUM 144 mmol/L (136-145)
[2017-06-14 06:40] LABS: BURR CELLS FEW; PLATELET SUFFICIENCY NORMAL (NORMAL); TARGET CELLS FEW; TOTAL CELLS COUNTED 100 #CELLS
[2017-06-14 08:00] VITALS: BP 158/85
[2017-06-14 12:00] VITALS: BP 150/93
[2017-06-14 16:00] VITALS: BP 183/89
[2017-06-14 20:00] VITALS: BP 169/78
[2017-06-15] VITALS: BP 160/93
[2017-06-15 06:43] LABS: BASO % 0.1 % (0.0-1.0); HEMATOCRIT 41.9 % (37.0-47.0); HEMOGLOBIN 12.9 g/dl (12.0-16.0); LYMPH # 0.8 10*3/uL (1.3-4.4); MEAN CELL VOLUME 89.7 fl (81.0-99.0); MEAN CORPUSCULAR HGB 27.6 pg (27.0-31.0); MEAN CORPUSCULAR HGB CONC 30.8 g/dl (33.0-37.0); MEAN PLATELET VOLUME 9.6 fl (9.6-12.3); MONO # 0.4 10*3/uL (0.1-1.0); MONO % 3.4 % (3.0-9.0); NEUT # 9.8 10*3/uL (2.3-7.9); NEUT % 88.7 % (47.0-73.0); PLATELET COUNT AUTOMATED 278 10*3/uL (130-400); RED BLOOD COUNT 4.67 10*6/uL (4.10-5.10); RED CELL DISTRI WIDTH 17.5 % (0-14.5)
[2017-06-15 07:03] LABS: ALKALINE PHOSPHATASE 77 U/L (45-117); BUN 21 mg/dl (7-24); CHLORIDE 101 mmol/L (98-107); CREATININE 0.59 mg/dL (0.55-1.02); POTASSIUM 4.2 mmol/L (3.5-5.1); SGOT/AST 15 IU/L (3-35); SGPT/ALT 20 U/L (12-78); SODIUM 141 mmol/L (136-145); TOTAL PROTEIN 6.3 gm/dL (6.4-8.2)
[2017-06-15 08:00] VITALS: BP 128/82
[2017-06-15 12:00] VITALS: BP 164/88
[2017-06-15] MEDS ORDERED: DOXYCYCLINE100 M3 PO (13:37)
[2017-06-15] MEDS ORDERED: PREDNISONE10 MG PO (13:38)
== END 2017-06-15 14:20 | disposition home or self-care (01) | DRG 871 ==
LOC: ED 19:41 → EDHOLD 20:50 → 5E 20:50
PROVIDERS: Emergency Medicine; Internal Medicine Nephrology
DX: A41.9 Sepsis, unspecified organism (principal); J96.01 Acute respiratory failure with hypoxia; J18.9 Pneumonia, unspecified organism; I11.0 Hypertensive heart disease with heart failure; E87.8 Other disorders of electrolyte and fluid balance, not elsewhere classified; K31.84 Gastroparesis; I50.32 Chronic diastolic (congestive) heart failure; E11.43 Type 2 diabetes mellitus with diabetic autonomic (poly)neuropathy; E11.65 Type 2 diabetes mellitus with hyperglycemia; J44.1 Chronic obstructive pulmonary disease with (acute) exacerbation; J44.0 Chronic obstructive pulmonary disease with (acute) lower respiratory infection; I25.2 Old myocardial infarction; R65.20 Severe sepsis without septic shock; M19.90 Unspecified osteoarthritis, unspecified site; E03.9 Hypothyroidism, unspecified; E55.9 Vitamin D deficiency, unspecified; G89.4 Chronic pain syndrome; G43.909 Migraine, unspecified, not intractable, without status migrainosus; E78.5 Hyperlipidemia, unspecified; F41.0 Panic disorder [episodic paroxysmal anxiety]; F43.10 Post-traumatic stress disorder, unspecified; K21.9 Gastro-esophageal reflux disease without esophagitis; F32.9 Major depressive disorder, single episode, unspecified; Z93.1 Gastrostomy status; Z72.0 Tobacco use; Z90.49 Acquired absence of other specified parts of digestive tract; Z90.710 Acquired absence of both cervix and uterus; Z80.8 Family history of malignant neoplasm of other organs or systems; Z81.8 Family history of other mental and behavioral disorders; Z83.3 Family history of diabetes mellitus; Z88.1 Allergy status to other antibiotic agents; Z88.0 Allergy status to penicillin; Z88.8 Allergy status to other drugs, medicaments and biological substances; Z79.899 Other long term (current) drug therapy

== ENCOUNTER 2017-06-17 10:09 | Emergency (ER) | payer OTHER ==
[~2017-06-17] VITALS: Ht 167.6 cm; Wt 46.3 kg
[2017-06-17 10:10] VITALS: BP 162/90
== END 2017-06-17 12:05 | disposition home or self-care (01) ==
LOC: ED 10:09
DX: M54.5 Low back pain (principal); M25.552 Pain in left hip; F17.200 Nicotine dependence, unspecified, uncomplicated; Z90.710 Acquired absence of both cervix and uterus; Z90.49 Acquired absence of other specified parts of digestive tract; Z79.899 Other long term (current) drug therapy; Z88.0 Allergy status to penicillin; Z88.1 Allergy status to other antibiotic agents; Z88.5 Allergy status to narcotic agent

== ENCOUNTER 2017-07-15 16:47 | Emergency (ER) | payer OTHER ==
[~2017-07-15] VITALS: Ht 167.6 cm; Wt 48.5 kg
[2017-07-15 16:50] VITALS: BP 134/69
[2017-07-15 17:29] LABS: BASO # 0.1 10*3/uL (0.0-0.1); BASO % 0.9 % (0.0-1.0); EOS # 0.3 10*3/uL (0.0-0.4); EOS % 3.4 % (1.0-4.0); HEMATOCRIT 52.4 % (37.0-47.0); HEMOGLOBIN 16.3 g/dl (12.0-16.0); LYMPH # 1.8 10*3/uL (1.3-4.4); LYMPH % 22.8 % (27.0-41.0); MEAN CELL VOLUME 90.8 fl (81.0-99.0); MEAN CORPUSCULAR HGB 28.2 pg (27.0-31.0); MEAN CORPUSCULAR HGB CONC 31.1 g/dl (33.0-37.0); MONO % 13.2 % (3.0-9.0); NEUT # 4.7 10*3/uL (2.3-7.9); NEUT % 59.6 % (47.0-73.0); PLATELET COUNT AUTOMATED 327 10*3/uL (130-400); RED BLOOD COUNT 5.77 10*6/uL (4.10-5.10); RED CELL DISTRI WIDTH 19.5 % (0-14.5); WHITE BLOOD COUNT 7.9 10*3/uL (4.8-10.8)
[2017-07-15 17:41] LABS: ALBUMIN 3.3 gm/dl (3.1-4.5); ALKALINE PHOSPHATASE 94 U/L (45-117); BUN 11 mg/dl (7-24); CHLORIDE 99 mmol/L (98-107); CREATININE 0.66 mg/dL (0.55-1.02); POTASSIUM 4.9 mmol/L (3.5-5.1); SGOT/AST 37 IU/L (3-35); SGPT/ALT 14 U/L (12-78); SODIUM 139 mmol/L (136-145); TOTAL PROTEIN 6.6 gm/dL (6.4-8.2)
[2017-07-15] MEDS ORDERED: DOXYCYCLINE HY100 M3 PO (19:25)
[2017-07-15] MEDS ORDERED: DIFLUCAN150 MG PO (19:25)
== END 2017-07-15 19:38 | disposition home or self-care (01) ==
LOC: ED 16:47
PROVIDERS: Student in an Organized Health Care Education/Training Program
DX: J44.1 Chronic obstructive pulmonary disease with (acute) exacerbation (principal); I50.9 Heart failure, unspecified; E11.65 Type 2 diabetes mellitus with hyperglycemia; E78.00 Pure hypercholesterolemia, unspecified; E78.5 Hyperlipidemia, unspecified; K21.9 Gastro-esophageal reflux disease without esophagitis; G89.29 Other chronic pain; F31.9 Bipolar disorder, unspecified; F17.200 Nicotine dependence, unspecified, uncomplicated; Z88.0 Allergy status to penicillin; Z88.1 Allergy status to other antibiotic agents; Z88.5 Allergy status to narcotic agent; Z88.8 Allergy status to other drugs, medicaments and biological substances; Z79.899 Other long term (current) drug therapy; Z90.49 Acquired absence of other specified parts of digestive tract; Z90.710 Acquired absence of both cervix and uterus; Z90.89 Acquired absence of other organs

== ENCOUNTER 2017-09-03 17:00 | Inpatient (IN) | payer OTHER ==
[~2017-09-03] VITALS: Ht 167.6 cm; Wt 52.8 kg
[~2017-09-03 17:00] MED LIST changes: +DOXYCYCLINE HY100 M3 PO; +SUBOXONE 8 MG-1 EACH SL; -ZUBSOLV 8.6-2.1 EACH SL
[2017-09-03 17:17] VITALS: BP 149/103
[2017-09-03 17:35] LABS: BASO # 0.1 10*3/uL (0.0-0.1); BASO % 0.9 % (0.0-1.0); EOS # 0.1 10*3/uL (0.0-0.4); EOS % 0.5 % (1.0-4.0); HEMATOCRIT 57.1 % (37.0-47.0); HEMOGLOBIN 17.9 g/dl (12.0-16.0); LYMPH # 1.8 10*3/uL (1.3-4.4); LYMPH % 17.4 % (27.0-41.0); MEAN CELL VOLUME 90.2 fl (81.0-99.0); MEAN CORPUSCULAR HGB 28.3 pg (27.0-31.0); MEAN CORPUSCULAR HGB CONC 31.3 g/dl (33.0-37.0); MEAN PLATELET VOLUME 9.7 fl (9.6-12.3); MONO # 0.6 10*3/uL (0.1-1.0); MONO % 5.6 % (3.0-9.0); NEUT # 7.6 10*3/uL (2.3-7.9); NEUT % 75.2 % (47.0-73.0); PLATELET COUNT AUTOMATED 316 10*3/uL (130-400); RED BLOOD COUNT 6.33 10*6/uL (4.10-5.10); RED CELL DISTRI WIDTH 14.6 % (0-14.5); WHITE BLOOD COUNT 10.1 10*3/uL (4.8-10.8)
[2017-09-03 17:46] LABS: ACT PARTIAL THROMBO TIME 26.5 SECONDS (20.8-31.5)
[2017-09-03 17:52] LABS: ALBUMIN 3.8 gm/dl (3.1-4.5); BUN 19 mg/dl (7-24); CHLORIDE 101 mmol/L (98-107); LIPASE 54 U/L (73-393); POTASSIUM 4.2 mmol/L (3.5-5.1); SGOT/AST 23 IU/L (3-35); SGPT/ALT 16 U/L (12-78); SODIUM 140 mmol/L (136-145)
[2017-09-03 17:55] LABS: ALKALINE PHOSPHATASE 106 U/L (45-117)
[2017-09-03 18:01] LABS: TROPONIN I < 0.015 ng/ml (<0.045)
[2017-09-03 19:00] VITALS: BP 1112/68
[2017-09-03 20:30] VITALS: BP 127/77
[2017-09-03 20:30] LABS: TROPONIN I < 0.015 ng/ml (<0.045)
[2017-09-03 20:48] LABS: VALPROIC ACID (DEPAKENE) < 3.0 ug/ml (50-100)
[2017-09-03 20:50] VITALS: BP 142/96
[2017-09-03] MEDS ORDERED: LIPITOR40 MG PO (21:18)
[2017-09-03] MEDS ORDERED: NEURONTIN800 MG PO (21:25)
[2017-09-03] MEDS ORDERED: NEURONTIN100 MG PO (21:25)
[2017-09-03] MEDS ORDERED: Metformin Hydr500 MG PO (21:25)
[2017-09-03] MEDS ORDERED: Motrin,Rufen800 MG PO (21:27)
[2017-09-03] MEDS ORDERED: SYMB160 INH (21:28)
[2017-09-03] MEDS ORDERED: ARMOUR THYROID60 MG PO (21:28)
[2017-09-04] VITALS: BP 112/71
[2017-09-04 02:39] LABS: BASO # 0.1 10*3/uL (0.0-0.1); BASO % 0.8 % (0.0-1.0); EOS % 0.3 % (1.0-4.0); LYMPH # 0.9 10*3/uL (1.3-4.4); LYMPH % 13.4 % (27.0-41.0); MEAN CELL VOLUME 91.5 fl (81.0-99.0); MEAN CORPUSCULAR HGB 28.4 pg (27.0-31.0); MEAN CORPUSCULAR HGB CONC 31.1 g/dl (33.0-37.0); MEAN PLATELET VOLUME 10.5 fl (9.6-12.3); MONO # 0.1 10*3/uL (0.1-1.0); MONO % 1.4 % (3.0-9.0); NEUT # 5.4 10*3/uL (2.3-7.9); NEUT % 83.8 % (47.0-73.0); PLATELET COUNT AUTOMATED 278 10*3/uL (130-400); RED BLOOD COUNT 5.28 10*6/uL (4.10-5.10); RED CELL DISTRI WIDTH 14.3 % (0-14.5); WHITE BLOOD COUNT 6.5 10*3/uL (4.8-10.8)
[2017-09-04 02:41] LABS: HEMATOCRIT 48.3 % (37.0-47.0)
[2017-09-04 03:00] LABS: ALKALINE PHOSPHATASE 82 U/L (45-117); BUN 17 mg/dl (7-24); CHLORIDE 107 mmol/L (98-107); CREATININE 0.77 mg/dL (0.55-1.02); PHOSPHOROUS 2.7 mg/dL (2.5-4.9); POTASSIUM 4.5 mmol/L (3.5-5.1); SGOT/AST 20 IU/L (3-35); SGPT/ALT 13 U/L (12-78); SODIUM 143 mmol/L (136-145); TOTAL PROTEIN 6.4 gm/dL (6.4-8.2)
[2017-09-04 03:01] LABS: FREE T4 1.06 ng/dl (0.76-1.46)
[2017-09-04 05:36] LABS: URINE AMPHETAMINES < 1000 (1000ng/ml); URINE BARBITURATES < 200 (200ng/ml); URINE BENZODIAZEPINES < 200 (200ng/ml); URINE CANNABINOIDS (THC) < 50 (50ng/ml); URINE COCAINE < 300 (300ng/ml); URINE METHADONE < 300 (300ng/ml); URINE OPIATES < 300 (300ng/ml)
[2017-09-04 05:37] LABS: URINE PHENCYCLIDINE < 25 (25ng/ml)
[2017-09-04 05:38] LABS: BILIRUBIN NEGATIVE (NEGATIVE); BLOOD NEGATIVE (NEGATIVE); CLARITY CLEAR (CLEAR); COLOR YELLOW (YELLOW); GLUCOSE NEGATIVE (NEGATIVE); KETONE NEGATIVE (NEGATIVE); LEUKO ESTERASE NEGATIVE (NEGATIVE); NITRITE NEGATIVE (NEGATIVE); SPECIFIC GRAVITY <= 1.005 (1.005-1.030); UROBILINOGEN 0.2 E.U./dl (0.2-1.0)
[2017-09-04 05:46] LABS: EPITHELIAL CELLS 0-5; WBC 0-2 wbc/hpf (0-5)
[2017-09-04 08:00] VITALS: BP 99/62
[2017-09-04 12:00] VITALS: BP 103/67
[2017-09-04 16:00] VITALS: BP 109/66
[2017-09-04 20:00] VITALS: BP 129/68
[2017-09-05] VITALS: BP 129/71
[2017-09-05 08:00] VITALS: BP 113/67
[2017-09-05 12:00] VITALS: BP 127/71
[2017-09-05 16:00] VITALS: BP 122/66
[2017-09-05 20:00] VITALS: BP 157/86
[2017-09-06] VITALS: BP 125/58
[2017-09-06 08:00] VITALS: BP 120/68
[2017-09-06] MEDS ORDERED: DOXYCYCLINE100 M3 PO (11:08)
[2017-09-06] MEDS ORDERED: PREDNISONE10 MG PO (11:08)
[2017-10-07] MEDS ORDERED: PREDNISONE10 MG PO (09:21)
[2017-10-11] MEDS ORDERED: LEVAQUIN750 M1 PO (15:08)
[2017-10-12] MEDS ORDERED: FLUONAZOLE150 MG PO (15:01)
[2017-10-14] MEDS ORDERED: CYCLOBENZAPRINE5 M3 PO (10:57)
[2017-10-15] MEDS ORDERED: CHANTIX1 M1 PO (10:36)
[2017-10-15] MEDS ORDERED: ZITHROMAX250 MG PO (10:36)
[2017-10-15] MEDS ORDERED: VITAMIN D-32000 UNIT PO (10:36)
[2017-10-15] MEDS ORDERED: CHANTRIX0.5 MG PO (10:36)
[2017-10-15] MEDS ORDERED: PREDNISONE10 MG PO (10:36)
== END 2017-09-06 11:40 | disposition home or self-care (01) | DRG 871 ==
LOC: ED 17:00 → 4E 18:30 → EDHOLD 18:30 → 4E 19:35
PROVIDERS: Emergency Medicine; Internal Medicine; Student in an Organized Health Care Education/Training Program
DX: A41.9 Sepsis, unspecified organism (principal); J18.9 Pneumonia, unspecified organism; E44.0 Moderate protein-calorie malnutrition; I50.32 Chronic diastolic (congestive) heart failure; E11.65 Type 2 diabetes mellitus with hyperglycemia; D75.1 Secondary polycythemia; Z99.81 Dependence on supplemental oxygen; J44.1 Chronic obstructive pulmonary disease with (acute) exacerbation; Z68.1 Body mass index [BMI] 19.9 or less, adult; K31.84 Gastroparesis; G89.4 Chronic pain syndrome; K21.9 Gastro-esophageal reflux disease without esophagitis; G43.909 Migraine, unspecified, not intractable, without status migrainosus; E78.00 Pure hypercholesterolemia, unspecified; R09.1 Pleurisy; E78.5 Hyperlipidemia, unspecified; E55.9 Vitamin D deficiency, unspecified; M19.90 Unspecified osteoarthritis, unspecified site; F41.0 Panic disorder [episodic paroxysmal anxiety]; E03.9 Hypothyroidism, unspecified; F43.10 Post-traumatic stress disorder, unspecified; F31.9 Bipolar disorder, unspecified; R65.20 Severe sepsis without septic shock; Z88.0 Allergy status to penicillin; Z88.1 Allergy status to other antibiotic agents; Z88.8 Allergy status to other drugs, medicaments and biological substances; I25.2 Old myocardial infarction; Z87.01 Personal history of pneumonia (recurrent); Z90.710 Acquired absence of both cervix and uterus; Z90.49 Acquired absence of other specified parts of digestive tract; Z83.3 Family history of diabetes mellitus; Z82.49 Family history of ischemic heart disease and other diseases of the circulatory system; Z80.9 Family history of malignant neoplasm, unspecified; Z79.4 Long term (current) use of insulin; Z79.899 Other long term (current) drug therapy; Z71.6 Tobacco abuse counseling

== ENCOUNTER 2017-09-25 09:35 | Inpatient (IN) | payer OTHER ==
[~2017-09-25] VITALS: Ht 167.6 cm; Wt 44.3 kg
[2017-09-25] VITALS (7 sets, daily range): BP systolic 106–140; BP diastolic 70–79
--- NOTE | ~2017-09-25 | PR ---
[place], [place] PROGRESS NOTE NAME: TRUONG HIRSCH UNIT #: [id number] ROOM: 408 DOCTOR: MORENITA JIM MD BIRTHDATE: [birth year] DOS: 09/27/2017 SUBJECTIVE: The patient has been noted comfortable at this time with reduction of symptoms of shortness of breath and wheezing was noted. The cough has been noted improving, but not completely resolved. It was noted with only small amount of sputum expectoration. Denies symptoms of hemoptysis or any chest pain. OBJECTIVE: VITAL SIGNS: For the patient which has been recorded showed normal temperature, respiratory rate 17, heart rate 82, blood pressure 136/90. Pulse oxygen saturation on 2 liters 100% saturation. HEENT: Examination shows head was atraumatic. Eyes nonicterus. NECK: Supple. CARDIOVASCULAR: S1, S2 is audible. LUNGS: The patient was noted with moderate decreased breath sounds with zrtv-os-fvrvlyvb expiratory wheezing, decreased from previous examination. ABDOMEN: Flat, soft, nontender. Bowel sounds present. EXTREMITIES: Without any acute edema. LABORATORY DATA: CBC of the patient that was done on 09/27/2017, WBC count 15.7, hemoglobin and hematocrit normal, platelet count was normal. The blood culture showed no bacterial growths. IMPRESSION: 1. The patient was currently noted with acute exacerbation of chronic obstructive pulmonary disease, acute tracheobronchitis, responding to treatment. Leukocytosis, improving. 2. The patient with chronic nicotine dependence as well. 3. Acute small pneumonia in the right upper lobe as ground-glass opacity. 4. Low BMI, which is chronic. PLAN OF MANAGEMENT: No change of treatment at this time with continued use of the bronchodilators, oxygen supplementation and other therapies. Discharge planning could be started, expected discharge may be in the next 24 hours. [place], [place] PROGRESS NOTE NAME: TRUONG HIRSCH UNIT #: [id number] ROOM: 408 DOCTOR: MORENITA JIM MD BIRTHDATE: [birth year] MORENITA MARQUEZ MD CM:PNTRANS 1230 1607 MORENITA RYAN MD 10/08/17 0922 interface
--- NOTE | ~2017-09-25 | PR ---
[place], [place] PROGRESS NOTE [id number] #: [id number] ROOM: 408 DOCTOR: JIMMY RYAN MD,MORENITA BIRTHDATE: [birth year] DOS: 09/30/2017 SUBJECTIVE: The patient continued to cough, which remained nonproductive. Shortness of breath and wheezing were noted partially decreased in the last 48 hours. Denies symptoms of chest pain or hemoptysis. Denies symptoms of nausea. The patient does complain of pain, which were described in the mid portion of the abdomen, seemed to be better with current pain medication administered including the gabapentin. OBJECTIVE: VITAL SIGNS: For the patient which are recorded show normal temperature, respiratory rate 18, heart rate 79, blood pressure 128/65 this afternoon. Pulse ox 96% saturation on 2 liters nasal cannula. HEENT: No new change. NECK: Supple. CARDIOVASCULAR: S1, S2 is audible. LUNGS: The patient was noted without any crackle or rhonchi. Moderate decreased breath sounds, expiratory wheezing. ABDOMEN: Soft, nontender. EXTREMITIES: Without any acute edema. IMPRESSION: Ongoing acute exacerbation of chronic obstructive pulmonary disease. Mucous impaction major airways, preop for bronchoscopy tomorrow morning. Abdominal pain which could be musculoskeletal in origin. Further workup were noted in progress. PLAN OF TREATMENT: No changes in plan of care patient noted previously. Continue on supportive therapy, plan of management and care. Usual care, other supportive plan of therapy and management. MORENITA MARQUEZ MD CM:PNTRANS 1700 [id number] MORENITA RYAN MD 10/08/17 0925 interface
--- NOTE | ~2017-09-25 | EKG ---
[place], [place] ELECTROCARDIOGRAM REPORT NAME: TRUONG HIRSCH UNIT #: [id number] ROOM: 408 DOCTOR: REBEL DRAFT REPORT BIRTHDATE: [birth year] [facility] Test Date: 2017-09-25 Test Time: 15:54:57 Pat Name: TRUONG HIRSCH Department: Room: 408 Gender: F Communication Specialist: : [id number] Requested By: EUNICE OLMEDO Order Number: [id number] Reading MD: Doug Ballesteros MD Measurements Intervals [place] Rate: 68 P: 87 NE: 152 QRS: -83 QRSD: 83 T: 58 QT: 405 QTc: 431 Interpretive Statements Sinus rhythm Left anterior fascicular block Electronically Signed On 09-28-2017 9:22:59 PDT by Doug Ballesteros MD CM:EKGRPT:ELECTROCARDIOGRAM REPORT 1554 0922 EUNICE OLMEDO EPIPHANY DRAFT REPORT EUNICE OLMEDO
--- NOTE | ~2017-09-25 | PR ---
[place], [place] PROGRESS NOTE NAME: TRUONG HIRSCH UNIT #: [id number] ROOM: 408 DOCTOR: PARRIS GALDAMEZ DO BIRTHDATE: [birth year] DOS: 09/28/2017 SUBJECTIVE: The patient was seen and evaluated today. She was sleeping in bed. When woken up, she states that she is not feeling well. She continues to have wheezing, shortness of breath and cough. She states that she is bringing up less sputum. She denies any lightheadedness, headache, chest pain, nausea, vomiting, hemoptysis, hematemesis or hematochezia. OBJECTIVE: VITAL SIGNS: Temperature 97.8, heart rate 80s-90s, respirations 18, blood pressure 133/78, pulse ox 91% on 2 liters nasal cannula. HEENT: Head is atraumatic. Eyes are nonicteric. NECK: Supple. CARDIOVASCULAR: S1, S2 audible. LUNGS: Diffuse wheezing bilaterally. ABDOMEN: Flat, soft, nontender, nondistended. Bowel sounds present. EXTREMITIES: No acute edema. LABORATORY DATA: CBC from 09/27/2017, white blood cells 15.7, hemoglobin 13.5, hematocrit 44.1, platelet count 269,000. Gram stain of sputum shows moderate gram-positive cocci in pairs and few gram-positive bacilli. Culture of the sputum is growing normal adrianne. Blood cultures are negative for any bacterial growth. IMPRESSION: 1. Acute exacerbation of chronic obstructive pulmonary disease. 2. Acute tracheobronchitis. 3. Chronic nicotine dependence. 4. Acute small pneumonia in the right upper lobe. 5. Low body mass index. PLAN AND MANAGEMENT: Continue use of bronchodilators, oxygen supplementation and antibiotics. Due to the patient's persistent symptoms, bronchoscopy has been arranged for Sunday. Further changes in patient's treatment based on symptoms and disease progression. Parris Galdamez DO [place], [place] PROGRESS NOTE NAME: TRUONG HIRSCH UNIT #: [id number] ROOM: 408 DOCTOR: PARRIS GALDAMEZ DO BIRTHDATE: [birth year] MORENITA MARQUEZ MD CM:BRENDAN 1835 [id number] PARRIS GALDAMEZ DO 09/29/17 1255 interface
--- NOTE | ~2017-09-25 | CON ---
[place], [place] REPORT OF CONSULTATION NAME: TRUONG HIRSCH [facility] #: [id number] UNIT #: [id number] ROOM: 408 DOCTOR: MORENITA JIM MD BIRTHDATE: [birth year] DOS: 09/26/2017 PULMONARY CONSULTATION, EVALUATION, AND MANAGEMENT REASON FOR CONSULTATION: To assess the patient for current symptoms of shortness of breath with exacerbation of COPD. HISTORY OF PRESENT ILLNESS: This is a 62-year-old white female with a history of chronic nicotine dependence with chronic hypercapnic and hypoxic respiratory failure with COPD, presented to the hospital and hospitalized on 09/25/2017. The patient stated that she has been experiencing increased symptoms of shortness of breath, which has been recently with nonspecific chest pain lasting 40 minutes. The patient is sitting on the chair and drinking her coffee. The pain was described in the central portion of the chest, radiation to the left side and the back. She took baby aspirin. The pain was reported on a scale of 1-10 up to 9 and described to be a sharp pain. The patient was noted with symptoms of coughing without any sputum expectoration, which is also noted to be recently increased. The patient denies any symptoms of chest tightness. She does have symptoms of wheezing. The patient reported elevation of temperature at home up to 103 degrees Fahrenheit. She has been assessed in the Emergency Room for the current chest pain, also noted with acute exacerbation of chronic obstructive pulmonary disease and currently hospitalized for further assessment and management. She has been recently admitted to the hospital 09/03/2017 until 09/06/2017, managed for nausea, vomiting and abdominal pain at that time and the chest pain as well. REVIEW OF SYSTEMS: CONSTITUTIONAL: Complains of fatigue and tiredness without symptoms of fever or chills. EYES: Denies any burning, redness, or tenderness. EARS, NOSE, THROAT SYMPTOMS: Denies sore throat, hoarseness, otalgia, sinus congestion or pain. CARDIOVASCULAR: The patient reported symptoms of current pain appeared to be consistent with atypical angina pain. Denies symptoms of palpitations. Denies any edema or pain of the lower extremities. GASTROINTESTINAL: Denies dysphagia, nausea, vomiting, diarrhea, abdominal pain, hematemesis, melena, or hematochezia. GENITOURINARY: No dysuria, suprapubic pain, or hematuria. SKIN: No abnormal lesions or rashes. CENTRAL NERVOUS SYSTEM: No dizziness, headache, diplopia, or syncopal episodes. Remaining systems were reviewed. They were noted all negative. PAST MEDICAL HISTORY: 1. Severe COPD and centrilobular emphysema and acute chronic hypercarbic respiratory failure and acute chronic hypoxic respiratory failure, use of oxygen 2 liters nasal cannula continuous use. 2. History of migraine headache. 3. Low BMI and acute chronic nicotine dependence. 4. Bipolar disorder. [place], [place] REPORT OF CONSULTATION NAME: TRUONG HIRSCH UNIT #: [id number] ROOM: [facility] DOCTOR: JIMMY RYAN MD,[facility] BIRTHDATE: [birth year] 5. Intervertebral disc disease of the spine. 6. Coronary artery disease for this patient with previous myocardial infarction treated in 02/2017. PAST SURGICAL HISTORY: Noted, 1. PEG tube insertion and removal. 2. Appendectomy. 3. Hysterectomy. 4. Rhinoplasty. 5. Right rotator cuff surgery. 6. Multiple surgeries on the toe. 7. Tonsillectomy. SOCIAL HISTORY: The patient is , has 2 children, lives at home. Smoking started [age] years old, 2 packs of cigarettes per day. Stated she is currently smoking a pack of cigarettes per day for the last few months. Denies history of illicit drug use or any alcohol dependence. FAMILY HISTORY: The patient's father at the age of a 32-year-old from complication of diabetes mellitus. Mother at the age of 60 years of complication related to the cancer of the brain. One of the sister committed suicide. CURRENT MEDICATIONS: Administered Solu-Medrol 40 mg b.i.d., vitamin D, Lipitor, metoprolol succinate, Paxil, Lovenox, Protonix, Depakote, ibuprofen, DuoNeb, Rocephin and Zithromax. DRUG ALLERGIES: The patient noted allergies to: 1. PENICILLIN. 2. VICODIN. 3. DILAUDID. 4. AVELOX. PHYSICAL EXAMINATION: GENERAL: A 62-year-old female who has been currently noted to be awake and alert without acute distress. Height of 5 feet 6 inches, weight of 97 pounds, BMI only 15.7. VITAL SIGNS: Temperature normal since admission, respiratory rate 17-20, heart rate of 73-112, blood pressure 130/70-133/79. Pulse oxygen saturation on 4 liters nasal cannula 95% saturation on room air at rest and admission was 88%. HEENT: Head was atraumatic. Eyes nonicterus. NECK: Supple. Oral mucosa is moist, without lesions. CARDIOVASCULAR SYSTEM: S1, S2 is audible. LUNGS: Noted generally decreased breath sounds in the lungs, scattered wheezing without any crackles. ABDOMEN: Soft, flat, and nontender. Bowel sounds are present. CENTRAL NERVOUS SYSTEM: The patient's cranial 2-12 are intact. MUSCULOSKELETAL: Noted without any acute deformities. SKIN: Visible skin, no lesions or rashes. [place], [place] REPORT OF CONSULTATION NAME: TRUONG HIRSCH UNIT #: [id number] ROOM: [facility] DOCTOR: JIMMY RYAN MD,[facility] BIRTHDATE: [birth year] LABORATORY DATA: PT, PTT, which was done on 09/25/2017 was normal. CBC on 09/25/2017, WBC count 17,000, hemoglobin 16.3, hematocrit 51.1, platelet count 295,000. CMP on 09/25/2017, BUN normal, creatinine normal, glucose 169. CO2 of 33. Lactic acid was 1.9. The troponin, which were done 3 sets in the last 24 hours are normal. CBC this morning, WBC count 17.9, normal hemoglobin, hematocrit and platelets. CMP this morning, glucose 138, BUN and creatinine was normal. Remaining electrolytes were normal. Chest x-ray that was done on 09/25/2017 noted changes of COPD. She had a CTA of the chest done yesterday for assessment of current atypical chest pain, does not show any evidence of pulmonary embolism. The CT scan was personally reviewed. Small ground glass opacity noted in the right upper lobe superior segment. No acute area of infiltration was visible. Mediastinal window view was not noted with any abnormal lymphadenopathy. IMPRESSION: 1. The patient will be currently admitted to the hospital. The patient was reported with symptoms of atypical chest pain with past history of coronary artery disease, acute myocardial infarct cannot be ruled out and currently noted with acute exacerbation of chronic obstructive pulmonary disease. 2. Chronic hypoxic respiratory failure. The patient was dependent on oxygen. 3. Chronic nicotine dependence. 4. Current ground glass opacity in the right upper lung, atypical pneumonia would be considered and treated. 5. History of low BMI, which has been noted end-stage chronic. PLAN OF MANAGEMENT: Order the sputum for Gram stain and culture. Further chest x-ray will not be of any benefit to assess the current small ground glass opacity in the right upper lung. Symptomatic management to be continued until pain resolution. Continue current dose of Solu-Medrol as well. Nicotine replacement patches will be ordered as well to overcome the nicotine withdrawal. Other additional treatment changes will be made based on progression of the illness. Continue current dose of the Solu-Medrol 40 mg b.i.d., the dose does not need to be increased. If necessary, consider Cardiology assessment for the current atypical chest pain. MORENITA MARQUEZ MD CM:CONSTR:REPORT OF CONSULTATION 1222 10/08/17 0922 interface
--- NOTE | ~2017-09-25 | EKG ---
[place], [place] ELECTROCARDIOGRAM REPORT NAME: TRUONG HIRSCH UNIT #: [id number] ROOM: 408 DOCTOR: EPIPHANY DRAFT REPORT BIRTHDATE: [birth year] [facility] Test Date: 2017-09-25 Test Time: 09:40:53 Pat Name: TRUONG HIRSCH Department: Room: 408 Gender: F Drafter Detail: Lashawn Astudillo : 1955 Requested By: EUNICE OLMEDO Order Number: [id number] Reading MD: Doug Ballesteros MD Measurements Intervals [place] Rate: 100 P: 84 LA: 147 QRS: -76 QRSD: 77 T: 67 QT: 330 QTc: 426 Interpretive Statements Sinus tachycardia Biatrial enlargement LAD, consider left anterior fascicular block Electronically Signed On 09-28-2017 9:21:32 PDT by Doug Ballesteros MD CM:EKGRPT:ELECTROCARDIOGRAM REPORT EUNICE OLMEDO EPIPHANY DRAFT REPORT EUNICE OLMEDO
--- NOTE | ~2017-09-25 | PR ---
[place], [place] PROGRESS NOTE NAME: TRUONG HIRSCH UNIT #: [id number] ROOM: 408 DOCTOR: JIMMY RYAN MD,MORENITA BIRTHDATE: [birth year] DOS: 09/28/2017 PULMONARY PROGRESS NOTE SUBJECTIVE: The patient was independently seen and examined, [id number] encounter, history was confirmed. Physical examination performed. Labs were reviewed. Assessment and management was personally made for today's visit. Note done by the medical doctor md/medical director approved. The patient has been treated in the hospital at this time for acute exacerbation of COPD reported increased cough, chest congestion, not expectorating sputum. She does complain of tightness in the chest with wheezing as well and shortness of breath. She has been expectorating no sputum. The patient with excessive cough, sputum, headache, nausea, vomiting, diarrhea, abdominal pain. Denies symptoms of fever or chills. Denies any pain of the lower extremity. Remaining systems were reviewed, that was all noted negative. PHYSICAL EXAMINATION: VITAL SIGNS: For the patient which has been recorded, shows a normal temperature, respiratory rate 16, height 66-76, blood pressure 140/86-137/72. Pulse oxygen saturation on 2 liters nasal cannula 98% saturation. HEENT: Examination shows head was atraumatic. Eyes nonicterus. NECK: Supple. CARDIOVASCULAR: S1, S2 audible. LUNGS: Moderate decreased breath sounds with expiratory wheezing, no crackles. ABDOMEN: Soft, nontender. Bowel sounds present. EXTREMITIES: Without any acute edema. MUSCULOSKELETAL: No deformities. SKIN: No lesions or rashes. CENTRAL NERVOUS SYSTEM: Intact. LABORATORY DATA: Culture of the sputum on 09/26/2017, was noted normal. Preliminary finding culture results were pending. IMPRESSION: Ongoing acute exacerbation of chronic obstructive pulmonary disease, acute tracheobronchitis with excessive cough, chest congestion, inability to expectorate sputum. Currently treated with multiple medications. Further management was not noted with further improvement in the symptoms. PLAN OF TREATMENT: Bronchoscopy on Sunday morning, n.p.o. Sunday midnight. Continue corticosteroids and bronchodilator therapy, plan and management as previously in progress. Usual care. Other supportive plan of management and therapies. [place], [place] PROGRESS NOTE NAME: TRUONG HIRSCH UNIT #: [id number] ROOM: 408 DOCTOR: MORENITA JIM MD BIRTHDATE: [birth year] MORENITA MARQUEZ MD CM:PNTRANS [id number] MORENITA RYAN MD 10/08/17 0923 interface
--- NOTE | ~2017-09-25 | PR ---
[place], [place] PROGRESS NOTE NAME: TRUONG HIRSCH UNIT #: [id number] ROOM: 408 DOCTOR: MORENITA JIM MD BIRTHDATE: [birth year] DOS: 10/01/2017 PULMONARY PROGRESS NOTE SUBJECTIVE: The patient was seen and examined on 10/01/2017. She was still complaining of severe cough, which remains nonproductive. There were no symptoms of hemoptysis. Wheezing was also noted associated with the coughing. The patient's shortness of breath occurs with exertion, not at rest. Denies symptoms of hemoptysis. Denies symptoms of nausea, vomiting, diarrhea, or abdominal pain. Denies dysuria, suprapubic pain, edema or pain in the lower extremities. Denies dizziness or headache. Remaining systems were reviewed, they were noted all negative. OBJECTIVE: VITAL SIGNS: Showed low-grade fever of 99.2 degrees Fahrenheit, normal temperature, respiratory rate 20, heart rate of 72, blood pressure 161/90. The pulse ox saturation on 3 liters nasal cannula was noted 97% saturation. HEENT: Shows head was atraumatic, eyes nonicterus. NECK: Supple. CARDIOVASCULAR: S1, S2 audible. LUNGS: Noted moderate decreased breath sounds with expiratory wheezing without any crackles. ABDOMEN: Flat, soft, nontender. EXTREMITIES: Without any acute edema. CENTRAL NERVOUS SYSTEM: Cranial nerves 2-12 intact. MUSCULOSKELETAL: The patient was noted without any deformities. LABORATORY DATA: No labs were done today. Blood culture finding from 09/25/2017 with no bacterial growth, final results. IMPRESSION: The patient with persistent severe acute exacerbation of chronic obstructive pulmonary disease with symptoms of nonproductive cough, preop bronchoscopy. She was already noted n.p.o. past midnight. PLAN OF MANAGEMENT: Proceed with bronchoscopy. After bronchoscopy, any modification of treatment if necessary will be done, especially reduction of the steroid consideration. Other supportive therapy, plan of management, care plan, usual care and supportive plan of management and care. Continuation of bronchodilators. Continue nicotine replacement patches. [place], [place] PROGRESS NOTE NAME: TRUONG HIRSCH UNIT #: [id number] ROOM: 408 DOCTOR: MORENITA JIM MD BIRTHDATE: [birth year] MORENITA MARQUEZ MD CM:BRENDAN [id number] MORENITA RYAN MD 10/01/17 1137 interface
--- NOTE | ~2017-09-25 | EKG ---
[place], [place] ELECTROCARDIOGRAM REPORT NAME: TRUNOG HIRSCH UNIT #: [id number] ROOM: 408 DOCTOR: EPIPHANY DRAFT REPORT BIRTHDATE: [birth year] [facility] Test Date: 2017-09-25 Test Time: 12:48:16 Pat Name: TRUONG HIRSCH Department: Room: 408 Gender: F Compositor Apprentice: Lashawn Astudillo : 1955 Requested By: EUNICE OLMEDO Order Number: [id number] Reading MD: Doug Ballesteros MD Measurements Intervals [place] Rate: 71 P: 83 MA: 154 QRS: -62 QRSD: 74 T: 70 QT: 399 QTc: 434 Interpretive Statements Sinus rhythm Left anterior fascicular block Electronically Signed On 09-28-2017 9:22:26 PDT by Doug Ballesteros MD CM:EKGRPT:ELECTROCARDIOGRAM REPORT 1248 0922 EUNICE OLMEDO EPIPHANY DRAFT REPORT EUNICE OLMEDO
--- NOTE | ~2017-09-25 | PROC NOTE ---
[place], [place] PROCEDURE NOTE [id number] #: [id number] ROOM: 408 DOCTOR: JIMMY RYAN MD,MORENITA BIRTHDATE: [birth year] DOS: 10/01/2017 BRONCHOSCOPY PREOPERATIVE DIAGNOSIS: The patient with severe coughing and wheezing. POSTOPERATIVE DIAGNOSES: Removal of multiple large plugs and mucus endobronchial tree bilaterally. There were no endobronchial obstructive lesions. PROCEDURE DESCRIPTION: Informed consent was obtained from the patient. The patient brought to the OR and placed in supine position. Conscious sedation administered by the Anesthesia Department. After achieving proper sedation, airway introduced into the mouth. Bronchoscope was advanced to the airway into laryngeal area. Epiglottis and vocal cords were seen. Vocal cord moves symmetrically with movements. Bronchoscope was advanced to the vocal cord into the tracheal lumen shows moderate amount of very thick mucus secretion in the tracheal lumen, which was suctioned out to the leonarda level. All the secretions were suctioned out. Leonarda level was noted as sharp. The right upper, right middle, left upper, lingula, lower lobe bronchus, and left lobe bronchi were all examined. Moderate thick mucoid impaction noted in endobronchial tree bilaterally with multiple sites involved. All secretions suctioned out clear with normal saline, likely. No endobronchial obstruction lesion noted. Procedure well tolerated by the patient without difficulty. Postoperative findings will be discussed with the patient once the patient recovered from the effects of acute sedation. MORENITA MARQUEZ MD CM:PROCNOTE:PROCEDURE NOTE [id number] MORENITA RYAN MD
[~2017-09-25 09:35] MED LIST changes: +ARMOUR THYROID60 MG PO; +LIPITOR40 MG PO; +Metformin Hydr500 MG PO; +Motrin,Rufen800 MG PO; +NEURONTIN100 MG PO; +SYMB160 INH
[2017-09-25 10:03] LABS: HEMATOCRIT 51.1 % (37.0-47.0); HEMOGLOBIN 16.3 g/dl (12.0-16.0); MEAN CELL VOLUME 90.6 fl (81.0-99.0); MEAN CORPUSCULAR HGB 28.9 pg (27.0-31.0); MEAN CORPUSCULAR HGB CONC 31.9 g/dl (33.0-37.0); MEAN PLATELET VOLUME 10.6 fl (9.6-12.3); PLATELET COUNT AUTOMATED 295 10*3/uL (130-400); RED BLOOD COUNT 5.64 10*6/uL (4.10-5.10)
[2017-09-25 10:12] LABS: ACT PARTIAL THROMBO TIME 24.2 SECONDS (20.8-31.5)
[2017-09-25 10:19] LABS: ALBUMIN 3.3 gm/dl (3.1-4.5); ALKALINE PHOSPHATASE 97 U/L (45-117); BUN 16 mg/dl (7-24); CHLORIDE 100 mmol/L (98-107); CREATININE 0.84 mg/dL (0.55-1.02); POTASSIUM 3.8 mmol/L (3.5-5.1); SGOT/AST 20 IU/L (3-35); SGPT/ALT 19 U/L (12-78); SODIUM 139 mmol/L (136-145); TOTAL PROTEIN 6.7 gm/dL (6.4-8.2)
[2017-09-25 10:21] LABS: BASOPHILS 2 % (0-1); PLATELET SUFFICIENCY NORMAL (NORMAL); TOTAL CELLS COUNTED 100 #CELLS
[2017-09-25 10:26] LABS: TROPONIN I < 0.015 ng/ml (<0.045)
[2017-09-25 11:54] LABS: BILIRUBIN NEGATIVE (NEGATIVE); BLOOD NEGATIVE (NEGATIVE); CLARITY CLEAR (CLEAR); COLOR YELLOW (YELLOW); GLUCOSE NEGATIVE (NEGATIVE); KETONE NEGATIVE (NEGATIVE); LEUKO ESTERASE NEGATIVE (NEGATIVE); NITRITE NEGATIVE (NEGATIVE); PH 6.5 (5.0-9.0); SPECIFIC GRAVITY <= 1.005 (1.005-1.030); UROBILINOGEN 0.2 E.U./dl (0.2-1.0)
[2017-09-25] MEDS ORDERED: TOPAMAX25 M3 PO (14:15)
[2017-09-25] MEDS ORDERED: ALLERGY RELIEF10 M3 PO (14:16)
[2017-09-25] MEDS ORDERED: VITAMIN D-32000 UNI1 PO (14:31)
[2017-09-26] VITALS: BP 122/79
[2017-09-26 06:40] LABS: BASO % 0.2 % (0.0-1.0); LYMPH # 1.8 10*3/uL (1.3-4.4); LYMPH % 10.1 % (27.0-41.0); MEAN CELL VOLUME 92.8 fl (81.0-99.0); MEAN CORPUSCULAR HGB 28.7 pg (27.0-31.0); MEAN CORPUSCULAR HGB CONC 30.9 g/dl (33.0-37.0); MEAN PLATELET VOLUME 10.4 fl (9.6-12.3); MONO # 1.1 10*3/uL (0.1-1.0); MONO % 6.5 % (3.0-9.0); NEUT # 14.4 10*3/uL (2.3-7.9); NEUT % 82.5 % (47.0-73.0); PLATELET COUNT AUTOMATED 266 10*3/uL (130-400); RED BLOOD COUNT 4.85 10*6/uL (4.10-5.10); RED CELL DISTRI WIDTH 14.9 % (0-14.5); WHITE BLOOD COUNT 17.4 10*3/uL (4.8-10.8)
[2017-09-26 06:41] LABS: HEMOGLOBIN 13.9 g/dl (12.0-16.0)
[2017-09-26 07:34] LABS: ALBUMIN 2.7 gm/dl (3.1-4.5); ALKALINE PHOSPHATASE 74 U/L (45-117); BUN 15 mg/dl (7-24); CHLORIDE 106 mmol/L (98-107); CHOLESTEROL 102 mg/dL (<200); CREATININE 0.58 mg/dL (0.55-1.02); FREE T4 1.06 ng/dl (0.76-1.46); HDL CHOLESTEROL 48 mg/dl (40-60); LDL CHOLESTEROL 39 mg/dL (9-159); PHOSPHOROUS 2.7 mg/dL (2.5-4.9); POTASSIUM 4.6 mmol/L (3.5-5.1); PREALBUMIN 13 mg/dl (20-40); SGOT/AST 17 IU/L (3-35); SGPT/ALT 18 U/L (12-78); SODIUM 141 mmol/L (136-145); THYROID STIM HORMONE (HS) 0.225 uIU/ml (0.358-4.75); TOTAL PROTEIN 5.6 gm/dL (6.4-8.2); TRIGLYCERIDES 74 mg/dl (<150); VLDL CHOLESTEROL 15 mg/dL (6-40)
[2017-09-26 08:00] VITALS: BP 124/62
[2017-09-26 08:04] LABS: VITAMIN D, 25-HYDROXY 37.7 ng/mL (30-100)
[2017-09-26 12:00] VITALS: BP 100/66
[2017-09-26 16:00] VITALS: BP 126/69
[2017-09-26 20:00] VITALS: BP 174/106
[2017-09-26 20:30] VITALS: BP 142/64
[2017-09-26] MEDS ORDERED: TRAZODONE100 MG PO (22:15)
[2017-09-27] VITALS: BP 147/89
[2017-09-27 06:48] LABS: BASO % 0.2 % (0.0-1.0); HEMATOCRIT 44.1 % (37.0-47.0); HEMOGLOBIN 13.5 g/dl (12.0-16.0); LYMPH # 1.2 10*3/uL (1.3-4.4); LYMPH % 7.5 % (27.0-41.0); MEAN CELL VOLUME 92.6 fl (81.0-99.0); MEAN CORPUSCULAR HGB 28.4 pg (27.0-31.0); MEAN CORPUSCULAR HGB CONC 30.6 g/dl (33.0-37.0); MEAN PLATELET VOLUME 10.2 fl (9.6-12.3); MONO # 0.4 10*3/uL (0.1-1.0); MONO % 2.8 % (3.0-9.0); NEUT % 88.9 % (47.0-73.0); PLATELET COUNT AUTOMATED 269 10*3/uL (130-400); RED BLOOD COUNT 4.76 10*6/uL (4.10-5.10); RED CELL DISTRI WIDTH 15.1 % (0-14.5); WHITE BLOOD COUNT 15.7 10*3/uL (4.8-10.8)
[2017-09-27 08:00] VITALS: BP 136/90
[2017-09-27 12:00] VITALS: BP 146/79
[2017-09-27 16:00] VITALS: BP 138/77
[2017-09-27 20:00] VITALS: BP 157/85
[2017-09-28] VITALS: BP 140/86
[2017-09-28 08:00] VITALS: BP 137/72
[2017-09-28 12:00] VITALS: BP 133/78
[2017-09-28 16:00] VITALS: BP 133/78
[2017-09-28 20:00] VITALS: BP 149/84
[2017-09-29] VITALS: BP 141/71
[2017-09-29 07:48] LABS: CREATININE 0.68 mg/dL (0.55-1.02)
[2017-09-29 08:00] VITALS: BP 131/80
[2017-09-29 12:00] VITALS: BP 129/69
[2017-09-29 16:00] VITALS: BP 142/77
[2017-09-29 20:00] VITALS: BP 142/75
[2017-09-30] VITALS: BP 144/82
[2017-09-30 06:03] LABS: HEMATOCRIT 47.3 % (37.0-47.0); HEMOGLOBIN 14.5 g/dl (12.0-16.0); MEAN CELL VOLUME 92.4 fl (81.0-99.0); MEAN CORPUSCULAR HGB 28.3 pg (27.0-31.0); MEAN CORPUSCULAR HGB CONC 30.7 g/dl (33.0-37.0); MEAN PLATELET VOLUME 9.9 fl (9.6-12.3); PLATELET COUNT AUTOMATED 258 10*3/uL (130-400); RED BLOOD COUNT 5.12 10*6/uL (4.10-5.10); RED CELL DISTRI WIDTH 14.7 % (0-14.5); WHITE BLOOD COUNT 14.2 10*3/uL (4.8-10.8)
[2017-09-30 06:30] LABS: BUN 27 mg/dl (7-24); CHLORIDE 104 mmol/L (98-107); CREATININE 0.78 mg/dL (0.55-1.02); POTASSIUM 4.4 mmol/L (3.5-5.1); SODIUM 143 mmol/L (136-145)
[2017-09-30 06:36] LABS: PLATELET SUFFICIENCY NORMAL (NORMAL); TOTAL CELLS COUNTED 100 #CELLS
[2017-09-30 08:00] VITALS: BP 127/80
[2017-09-30 12:00] VITALS: BP 139/81
[2017-09-30 16:00] VITALS: BP 123/65
[2017-09-30 20:00] VITALS: BP 138/71
[2017-10-01] VITALS: BP 139/75
[2017-10-01 07:42] VITALS: BP 161/90
[2017-10-01 08:00] VITALS: BP 137/87
[2017-10-01 08:45] VITALS: BP 170/96
[2017-10-01 09:00] VITALS: BP 170/99
[2017-10-01 09:11] VITALS: BP 170/96
[2017-10-01] MEDS ORDERED: DOXYCYCLINE100 M3 PO (09:54)
[2017-10-01] MEDS ORDERED: PREDNISONE10 MG PO (09:54)
[2017-10-02 15:10] LABS: ACID FAST SPEC PROCESSING Concentration (.)
[2017-10-07] MEDS ORDERED: PREDNISONE10 MG PO (09:21)
[2017-10-11] MEDS ORDERED: LEVAQUIN750 M1 PO (15:08)
[2017-10-12] MEDS ORDERED: FLUONAZOLE150 MG PO (15:01)
[2017-10-14] MEDS ORDERED: CYCLOBENZAPRINE5 M3 PO (10:57)
[2017-10-15] MEDS ORDERED: CHANTRIX0.5 MG PO (10:36)
[2017-10-15] MEDS ORDERED: ZITHROMAX250 MG PO (10:36)
[2017-10-15] MEDS ORDERED: VITAMIN D-32000 UNIT PO (10:36)
[2017-10-15] MEDS ORDERED: PREDNISONE10 MG PO (10:36)
[2017-10-15] MEDS ORDERED: CHANTIX1 M1 PO (10:36)
== END 2017-10-01 11:50 | disposition home or self-care (01) | DRG 871 ==
LOC: ED 09:35 → 4E 12:51 → EDHOLD 12:51 → 4E 13:10
PROVIDERS: Emergency Medicine; Internal Medicine; Internal Medicine Critical Care Medicine; Nurse Practitioner; Registered Nurse
PROC: 0BC48ZZ Extirpation of Matter from Right Upper Lobe Bronchus, Via Natural or Artificial Opening Endoscopic (ICD-10-PCS; principal; 2017-10-01)
PROC: 0BC18ZZ Extirpation of Matter from Trachea, Via Natural or Artificial Opening Endoscopic (ICD-10-PCS; principal; 2017-10-01)
PROC: 0BCB8ZZ Extirpation of Matter from Left Lower Lobe Bronchus, Via Natural or Artificial Opening Endoscopic (ICD-10-PCS; principal; 2017-10-01)
PROC: 0BC28ZZ Extirpation of Matter from Carina, Via Natural or Artificial Opening Endoscopic (ICD-10-PCS; principal; 2017-10-01)
PROC: 0BC98ZZ Extirpation of Matter from Lingula Bronchus, Via Natural or Artificial Opening Endoscopic (ICD-10-PCS; principal; 2017-10-01)
PROC: 0BC58ZZ Extirpation of Matter from Right Middle Lobe Bronchus, Via Natural or Artificial Opening Endoscopic (ICD-10-PCS; principal; 2017-10-01)
PROC: 0BC88ZZ Extirpation of Matter from Left Upper Lobe Bronchus, Via Natural or Artificial Opening Endoscopic (ICD-10-PCS; principal; 2017-10-01)
DX: A41.9 Sepsis, unspecified organism (principal); J15.6 Pneumonia due to other Gram-negative bacteria; E43 Unspecified severe protein-calorie malnutrition; J96.11 Chronic respiratory failure with hypoxia; E44.0 Moderate protein-calorie malnutrition; I50.32 Chronic diastolic (congestive) heart failure; J44.1 Chronic obstructive pulmonary disease with (acute) exacerbation; J44.0 Chronic obstructive pulmonary disease with (acute) lower respiratory infection; Z68.1 Body mass index [BMI] 19.9 or less, adult; Z99.81 Dependence on supplemental oxygen; E78.5 Hyperlipidemia, unspecified; R07.9 Chest pain, unspecified; F31.9 Bipolar disorder, unspecified; M19.90 Unspecified osteoarthritis, unspecified site; F41.0 Panic disorder [episodic paroxysmal anxiety]; F43.10 Post-traumatic stress disorder, unspecified; E55.9 Vitamin D deficiency, unspecified; J20.9 Acute bronchitis, unspecified; F17.210 Nicotine dependence, cigarettes, uncomplicated; R73.9 Hyperglycemia, unspecified; E03.9 Hypothyroidism, unspecified; Z93.1 Gastrostomy status; Z79.84 Long term (current) use of oral hypoglycemic drugs; Z79.899 Other long term (current) drug therapy; I25.2 Old myocardial infarction; Z90.49 Acquired absence of other specified parts of digestive tract; Z90.710 Acquired absence of both cervix and uterus; Z88.0 Allergy status to penicillin; Z88.1 Allergy status to other antibiotic agents; Z88.8 Allergy status to other drugs, medicaments and biological substances; Z80.8 Family history of malignant neoplasm of other organs or systems; Z83.3 Family history of diabetes mellitus; Z82.49 Family history of ischemic heart disease and other diseases of the circulatory system

== ENCOUNTER 2017-11-07 23:03 | Emergency (ER) | payer OTHER ==
[~2017-11-07] VITALS: Ht 167.6 cm; Wt 50.8 kg
[~2017-11-07 23:03] MED LIST changes: +ALLERGY RELIEF10 M3 PO; +CHANTIX1 M1 PO; +CHANTRIX0.5 MG PO; +CYCLOBENZAPRINE5 M3 PO; +FLUONAZOLE150 MG PO; +TOPAMAX25 M3 PO; +TRAZODONE100 MG PO; +VITAMIN D-32000 UNI1 PO; +ZITHROMAX250 MG PO
[2017-11-07 23:05] VITALS: BP 147/92
[2017-12-05] MEDS ORDERED: PREDNISONE50 MG PO (10:34)
[2017-12-05] MEDS ORDERED: DOXYCYCLINE100 M3 PO (10:34)
[2017-12-17] MEDS ORDERED: PERCOCET 10-321 EACH PO (22:00)
[2017-12-19] MEDS ORDERED: PREDNISONE10 MG PO ×2 (12:56→13:16)
== END 2017-11-08 00:04 | disposition left against medical advice (07) ==
LOC: ED 23:03
DX: R73.9 Hyperglycemia, unspecified (principal); J44.9 Chronic obstructive pulmonary disease, unspecified; Z88.1 Allergy status to other antibiotic agents; Z88.0 Allergy status to penicillin; Z88.6 Allergy status to analgesic agent; Z79.899 Other long term (current) drug therapy; Z87.891 Personal history of nicotine dependence

== ENCOUNTER 2017-12-05 22:55 | Emergency (ER) | payer MEDICARE ==
[~2017-12-05] VITALS: Ht 167.6 cm; Wt 53.1 kg
[~2017-12-05 22:55] MED LIST changes: +PREDNISONE50 MG PO
[2017-12-05 23:27] VITALS: BP 140/78
[2017-12-17] MEDS ORDERED: PERCOCET 10-321 EACH PO (22:00)
[2017-12-19] MEDS ORDERED: PREDNISONE10 MG PO ×2 (12:56→13:16)
== END 2017-12-06 01:41 | disposition home or self-care (01) ==
LOC: ED 22:55
DX: E11.65 Type 2 diabetes mellitus with hyperglycemia (principal); I25.10 Atherosclerotic heart disease of native coronary artery without angina pectoris; G89.29 Other chronic pain; J44.9 Chronic obstructive pulmonary disease, unspecified; I50.32 Chronic diastolic (congestive) heart failure; K21.9 Gastro-esophageal reflux disease without esophagitis; I25.2 Old myocardial infarction; E78.5 Hyperlipidemia, unspecified; E03.9 Hypothyroidism, unspecified; G43.909 Migraine, unspecified, not intractable, without status migrainosus; F17.200 Nicotine dependence, unspecified, uncomplicated; Z90.710 Acquired absence of both cervix and uterus; Z88.1 Allergy status to other antibiotic agents; Z88.0 Allergy status to penicillin; Z88.6 Allergy status to analgesic agent; Z79.84 Long term (current) use of oral hypoglycemic drugs; Z79.2 Long term (current) use of antibiotics; Z79.899 Other long term (current) drug therapy

== ENCOUNTER 2017-12-20 17:46 | Inpatient (IN) | payer MEDICARE ==
[~2017-12-20] VITALS: Ht 167.6 cm; Wt 55.6 kg
--- NOTE | ~2017-12-20 | CON ---
[place], [place] REPORT OF CONSULTATION NAME: TRUONG HIRSCH [facility] #: [id number] UNIT #: [id number] ROOM: 530 DOCTOR: MORENITA JIM MD BIRTHDATE: [birth year] DOS: 12/21/2017 PULMONARY CONSULTATION, EVALUATION, AND MANAGEMENT REASON FOR CONSULTATION: Assess for recurrent shortness of breath with exacerbation of COPD. HISTORY OF PRESENT ILLNESS: This is a 62-year-old white female, who has been discharged home on the of this month after medical management with acute exacerbation of COPD. The patient was doing very well, free of any wheezing, acute chest pain, coughing or others. The patient discharged home on tapering dose of prednisone, antibiotics. She stated that she has done very well at least for 24 hours after discharge and then started having increased symptoms of shortness of breath that occurs with exertion with chest congestion and cough. The patient also reported symptoms of wheezing. She came into the hospital for further assessment. She has been assessed in an emergent basis in the hospital for further medical management of current exacerbation of COPD on 12/20/2017. The patient was noted with symptoms of chest congestion, which was still noted as a new finding in the last 24 hours. She denies symptoms of fever or chills with the recurrent symptoms of cough has been noted essentially nonproductive. Shortness of breath occurred with exertion, not noted at rest. The wheezing occurs at rest and sometimes with exertion. REVIEW OF SYSTEMS: CONSTITUTIONAL: Fatigue and tiredness noted without any symptoms of fever or chills. EYES: Denies burning, redness, or tenderness. EARS, NOSE, THROAT SYMPTOMS: Denies sore throat, hoarseness, otalgia, postnasal drainage or epistaxis. CARDIOVASCULAR: No angina pain, edema, pain of the lower extremity. GASTROINTESTINAL: No dysphagia, nausea, vomiting, diarrhea, abdominal pain, hematemesis, melena, or hematochezia. GENITOURINARY: No dysuria, suprapubic pain, or hematuria. MUSCULOSKELETAL: No acute joint pain, redness, or tenderness. SKIN: Denies any symptoms of rashes or lesions. CENTRAL NERVOUS SYSTEM: No dizziness, headache, diplopia, or syncopal episodes. Remaining systems were reviewed, they were noted all negative. PAST MEDICAL HISTORY: 1. End-stage COPD and centrilobular emphysema previously noted in the hospice service. Revoked by the patient recently. 2. Acute chronic hypercarbic respiratory failure and acute chronic hypoxic respiratory failure as well. 3. Nicotine dependence. 4. History of migraine headache. 5. Low BMI. 6. History of bipolar disorder. 7. Intervertebral disk disease. 8. Coronary artery disease. [place], [place] REPORT OF CONSULTATION NAME: TRUONG HIRSCH UNIT #: [id number] ROOM: [facility] DOCTOR: MARGIE JIM MDM BIRTHDATE: [birth year] PAST SURGICAL HISTORY: 1. PEG tube insertion and removal later on. 2. Appendectomy. 3. Hysterectomy. 4. Rhinoplasty. 5. Right rotator cuff surgery. 6. Surgery on the toe. 7. Tonsillectomy. 8. Cardiac catheterization. SOCIAL HISTORY: The patient is , has 2 children, lives at home. Smoking noted from the age of [age] years old, 2 packs of cigarettes a day, stated that she has been smoking few cigarettes a day and smoked 1-2 cigarettes yesterday. FAMILY HISTORY: The patient's father at the age of 32 years of age complication of diabetes mellitus. Mother 60 years old, complication of cancer of the brain. CURRENT MEDICATIONS: Administered were noted as use of Lipitor, Mucinex, vitamin D, nicotine replacement patches, Lovenox, Thyroid, omeprazole, Solu-Medrol 40 mg every 8 hours, simethicone, trazodone, gabapentin, Depakote, Geodon, DuoNeb, Topamax, Zithromax and Rocephin. DRUG ALLERGIES: NOTED ALLERGY: 1. VICODIN. 2. PENICILLINS. 3. AZITHROMYCIN. 4. DILAUDID. 5. AVELOX. PHYSICAL EXAMINATION: GENERAL: A 62-year-old female who has been noted currently sitting on the bed without any acute distress. Height of 5 feet 6 inches, weight 117 pounds, BMI 19.7. VITAL SIGNS: The patient shows a temperature normal, respiratory rate 17-16, heart rate of 72-88, blood pressure 145/82-160/91. Pulse ox saturation on 2 liters nasal cannula 97% saturation. HEENT: Head was atraumatic. Eyes nonicterus. NECK: Supple. CARDIOVASCULAR: S1, S2 is audible. LUNGS: The patient was noted without any crackles. Expiratory wheezing. ABDOMEN: Flat, soft, nontender. Bowel sounds present. EXTREMITIES: No acute edema. VISIBLE SKIN: No lesions or rashes. MUSCULOSKELETAL: Noted without any acute deformities. CENTRAL NERVOUS SYSTEM: Cranial nerves 2-12 intact. LABORATORY DATA: The patient's CBC yesterday in the emergency admission, WBC [place], [place] REPORT OF CONSULTATION NAME: TRUONG HIRSCH UNIT #: [id number] ROOM: [facility] DOCTOR: JIMMY RYAN MD,MORENITA BIRTHDATE: [birth year] count 14.2, hemoglobin normal, hematocrit normal. Lactic acid 1.4 yesterday. CMP of the patient 12/20/2017 noted normal BUN, creatinine and other electrolytes and the LFTs. CBC of the patient this morning remains normal CBC. BMP: BUN normal, creatinine normal, glucose 166. The chest CT scan of the patient, which was reviewed yesterday does not show any acute pulmonary infiltration, abnormal pulmonary nodules of the lungs. IMPRESSION: 1. The patient will be currently admitted to the hospital with recurrent exacerbation of chronic obstructive pulmonary disease, most likely secondary to nonadherent to the treatment superimposed. Viral infection or bacterial to be considered because of excessive chest congestion and increase of the cough. There was no evidence of acute pneumonia noted, which has been ruled out effectively with a negative CT scan of the chest, which is a very accurate test for this patient to assess for any pulmonary infiltration. 2. Multiple psychiatric problem including bipolar disorder and migraine headache. PLAN OF MANAGEMENT: Agree with the use of current antibiotics, bronchodilators, and oxygen supplementation. Monitor temperature profile. In case of the fever or chills, consider changing the antibiotic, otherwise current antibiotics to be continued. Bronchodilator for the patient will be changed from DuoNeb to albuterol due to COPD exacerbation, which would be more beneficial with albuterol rather than DuoNeb use. Other supportive therapy, plan of management, obtain the sputum for Gram stain and culture, use of Mucinex as previously ordered the flutter valve and other treatments. Tobacco cessation has been addressed with the patient with the counseling about tobacco cessation. MORENITA MARQUEZ MD CM:CONSTR:REPORT OF CONSULTATION 1111 12/31/17 0941 interface
--- NOTE | ~2017-12-20 | PR ---
[place], [place] PROGRESS NOTE NAME[id number] UNIT #: [id number] ROOM: 530 DOCTOR: JIMYM RYAN MD,MORENITA BIRTHDATE: [birth year] DOS: 12/23/2017 PULMONARY PROGRESS NOTE SUBJECTIVE: The patient is noted comfortable at this time, without any acute distress. Still noted with coughing. Culture of the sputum was noted with Klebsiella pneumoniae, which is noted trujillo-sensitive organism only mild growth. Denies symptoms of fever or chills. Shortness of breath and other symptoms have been slowly subsiding. She would like to be discharged home tomorrow and continued to be treated in the hospital for the next 24 hours. OBJECTIVE: VITAL SIGNS: Normal temperature, respiratory rate 20, heart rate of 95, blood pressure 134/72. Pulse oxygen saturation recorded on room air as 92% saturation. HEENT: Examination shows head was atraumatic. Eyes nonicterus. NECK: Supple. CARDIOVASCULAR: S1, S2 audible. LUNGS: Noted without any wheeze or crackles. Breath sounds are noted mildly diminished bilaterally. ABDOMEN: Soft, nontender. IMPRESSION: The patient has been currently noted with: 1. Acute tracheobronchitis, Klebsiella pneumoniae, with resolving acute exacerbation of chronic obstructive pulmonary disease. 2. History of chronic nicotine dependence. PLAN OF MANAGEMENT: Continue antibiotics, bronchodilators, oxygen, and other therapies. No changes in antibiotic need to be made based on the current culture results. MORENITA MARQUEZ MD CM:PNCARLEY 151 [id number] MORENITA RYAN MD 12/23/171927 interface
--- NOTE | ~2017-12-20 | EKG ---
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
--- NOTE | ~2017-12-20 | PR ---
[place], [place] PROGRESS NOTE [id number] #: [id number] ROOM: 530 DOCTOR: JIMMY RYAN MD,MORENITA BIRTHDATE: [birth year] DOS: 12/22/2017 SUBJECTIVE: The patient was noted comfortable at this time, resting, shortness breath and cough as well as wheezing all the symptoms have been improving gradually. There were no symptoms of chest pain. The culture of the sputum preliminary noted gram-negative bacilli isolation. Final results of the patient on that culture was pending. In general, the patient is responding to treatment and improving. OBJECTIVE: VITAL SIGNS: Normal temperature, respiratory rate 20, heart rate 92, blood pressure 145/79. Pulse ox saturation on 2 liters nasal cannula 94% saturation. HEENT: No acute change. NECK: Supple. CARDIOVASCULAR: S1, S2 audible. LUNGS: Moderate decreased breath sounds, occasional wheezing, no crackles. ABDOMEN: Soft, nontender. Bowel sounds present. EXTREMITIES: Without any acute edema. LABORATORY DATA: Culture of the sputum for this patient was noted with gram-negative bacilli for the patient on 12/21/2017 pending identification sensitivities. IMPRESSION: Urinary tract infection with tracheobronchitis of the patient, exacerbation of chronic obstructive pulmonary disease as well and history of chronic nicotine dependence. PLAN OF TREATMENT: Monitor culture results. Continuation of corticosteroids, bronchodilators, and other therapies as previously. Usual care. Additional treatment changes will be made based on the results of the sputum culture. MORENITA MARQUEZ MD CM:PNTRANS 1242 19 MORENITA RYAN MD 12/22/172119 interface
--- NOTE | ~2017-12-20 | PR ---
[place], [place] PROGRESS NOTE NAME[id number] UNIT #: [id number] ROOM: 530 DOCTOR: JIMMY RYAN MD,MORENITA BIRTHDATE: [birth year] DOS: 12/24/2017 SUBJECTIVE: The patient was complaining of some shortness of breath and cough and chest congestion. She was also complaining of symptoms of headache. Denies symptoms of nausea or vomiting. The cough has been noted productive sputum in the last 24 hours as reported by this morning of assessment. OBJECTIVE: VITAL SIGNS: Normal temperature, respiratory rate 20, heart rate 79, blood pressure 160/89, pulse ox saturation on room air 95% at rest. HEAD, EYES, EARS, NOSE, AND THROAT: Head was atraumatic. Eyes nonicterus. NECK: Supple. CARDIOVASCULAR SYSTEM: S1, S2 is audible. LUNGS: Noted without any crackles. Mild scattered expiratory wheezing. ABDOMEN: Soft, nontender. Bowel sounds present. EXTREMITIES: Without any acute edema. IMPRESSION: Stable respiratory status was noted at the present time with resolving acute exacerbation of chronic obstructive pulmonary disease and acute bronchitis, gram-negative infection. PLAN OF MANAGEMENT: No change in pulmonary standpoint. Discharge planning per primary care physician, pulmonary standpoint, the patient could be considered for home discharge today. In the meantime, continue other therapy, plan of management and care. MORENITA MARQUEZ MD CM:PNTRANS 1056 [id number] MORENITA RYAN MD 12/24/17 1433 interface
[2017-12-20 17:46] VITALS: BP 178/90
[2017-12-20 18:34] LABS: BASO # 0.1 10*3/uL (0.0-0.1); BASO % 0.4 % (0.0-1.0); EOS # 0.1 10*3/uL (0.0-0.4); EOS % 0.8 % (1.0-4.0); HEMATOCRIT 48.6 % (37.0-47.0); HEMOGLOBIN 15.5 g/dl (12.0-16.0); LYMPH # 3.9 10*3/uL (1.3-4.4); LYMPH % 27.1 % (27.0-41.0); MEAN CELL VOLUME 94.2 fl (81.0-99.0); MEAN CORPUSCULAR HGB CONC 31.9 g/dl (33.0-37.0); MEAN PLATELET VOLUME 9.8 fl (9.6-12.3); MONO # 1.2 10*3/uL (0.1-1.0); MONO % 8.1 % (3.0-9.0); PLATELET COUNT AUTOMATED 281 10*3/uL (130-400); RED BLOOD COUNT 5.16 10*6/uL (4.10-5.10); RED CELL DISTRI WIDTH 15.9 % (0-14.5); WHITE BLOOD COUNT 14.2 10*3/uL (4.8-10.8)
[2017-12-20 18:50] LABS: ALBUMIN 3.2 gm/dl (3.1-4.5); ALKALINE PHOSPHATASE 81 U/L (45-117); BUN 19 mg/dl (7-24); CHLORIDE 103 mmol/L (98-107); CREATININE 0.75 mg/dL (0.55-1.02); POTASSIUM 3.7 mmol/L (3.5-5.1); SGOT/AST 16 IU/L (3-35); SGPT/ALT 22 U/L (12-78); SODIUM 140 mmol/L (136-145); TOTAL PROTEIN 6.6 gm/dL (6.4-8.2)
[2017-12-20 18:54] LABS: TROPONIN I < 0.015 ng/ml (<0.045)
[2017-12-20 20:00] VITALS: BP 160/91
[2017-12-20 20:15] VITALS: BP 160/91
[2017-12-21] VITALS: BP 145/82; BP 160/91
[2017-12-21 06:29] LABS: BASO % 0.1 % (0.0-1.0); LYMPH # 1.1 10*3/uL (1.3-4.4); LYMPH % 10.7 % (27.0-41.0); MEAN CELL VOLUME 92.4 fl (81.0-99.0); MEAN CORPUSCULAR HGB 29.8 pg (27.0-31.0); MEAN CORPUSCULAR HGB CONC 32.3 g/dl (33.0-37.0); MEAN PLATELET VOLUME 10.6 fl (9.6-12.3); MONO # 0.1 10*3/uL (0.1-1.0); MONO % 0.7 % (3.0-9.0); NEUT % 87.8 % (47.0-73.0); PLATELET COUNT AUTOMATED 251 10*3/uL (130-400); RED BLOOD COUNT 4.49 10*6/uL (4.10-5.10); RED CELL DISTRI WIDTH 15.4 % (0-14.5); WHITE BLOOD COUNT 10.3 10*3/uL (4.8-10.8)
[2017-12-21 06:32] LABS: HEMATOCRIT 41.5 % (37.0-47.0); HEMOGLOBIN 13.4 g/dl (12.0-16.0)
[2017-12-21 06:41] LABS: BUN 20 mg/dl (7-24); CHLORIDE 104 mmol/L (98-107); CREATININE 0.75 mg/dL (0.55-1.02); PHOSPHOROUS 3.8 mg/dL (2.5-4.9); POTASSIUM 4.2 mmol/L (3.5-5.1); SODIUM 141 mmol/L (136-145)
[2017-12-21 06:58] LABS: ACT PARTIAL THROMBO TIME 22.1 SECONDS (20.8-31.5); INTERNATIONAL NORM RATIO 0.9 (2.0-3.5)
[2017-12-21 08:00] VITALS: BP 123/81
[2017-12-21 12:00] VITALS: BP 120/61
[2017-12-21 16:00] VITALS: BP 146/96
[2017-12-21 20:00] VITALS: BP 140/84
[2017-12-22] VITALS: BP 146/78
[2017-12-22 06:29] LABS: BASO % 0.1 % (0.0-1.0); HEMATOCRIT 39.7 % (37.0-47.0); HEMOGLOBIN 12.4 g/dl (12.0-16.0); LYMPH # 1.4 10*3/uL (1.3-4.4); LYMPH % 9.1 % (27.0-41.0); MEAN CELL VOLUME 94.5 fl (81.0-99.0); MEAN CORPUSCULAR HGB 29.5 pg (27.0-31.0); MEAN CORPUSCULAR HGB CONC 31.2 g/dl (33.0-37.0); MEAN PLATELET VOLUME 10.3 fl (9.6-12.3); MONO # 0.5 10*3/uL (0.1-1.0); MONO % 3.2 % (3.0-9.0); NEUT # 13.2 10*3/uL (2.3-7.9); NEUT % 86.7 % (47.0-73.0); PLATELET COUNT AUTOMATED 238 10*3/uL (130-400); RED CELL DISTRI WIDTH 15.6 % (0-14.5); WHITE BLOOD COUNT 15.2 10*3/uL (4.8-10.8)
[2017-12-22 07:04] LABS: BUN 19 mg/dl (7-24); CHLORIDE 102 mmol/L (98-107); CREATININE 0.82 mg/dL (0.55-1.02); POTASSIUM 4.1 mmol/L (3.5-5.1); SODIUM 141 mmol/L (136-145)
[2017-12-22 08:00] VITALS: BP 145/79
[2017-12-22 12:00] VITALS: BP 132/72
[2017-12-22 16:00] VITALS: BP 143/85
[2017-12-22 20:00] VITALS: BP 153/76
[2017-12-23] VITALS: BP 122/65
[2017-12-23 08:00] VITALS: BP 150/82
[2017-12-23 12:00] VITALS: BP 134/72
[2017-12-23 16:00] VITALS: BP 178/90
[2017-12-23] MEDS ORDERED: METOPROLOL SUCC25 M2 PO (16:38)
[2017-12-23 20:00] VITALS: BP 140/81
[2017-12-24] VITALS: BP 132/67
[2017-12-24 04:00] VITALS: BP 143/92
[2017-12-24 07:02] LABS: HEMATOCRIT 40.9 % (37.0-47.0); HEMOGLOBIN 13.2 g/dl (12.0-16.0); MEAN CELL VOLUME 93.6 fl (81.0-99.0); MEAN CORPUSCULAR HGB 30.2 pg (27.0-31.0); MEAN CORPUSCULAR HGB CONC 32.3 g/dl (33.0-37.0); MEAN PLATELET VOLUME 10.1 fl (9.6-12.3); PLATELET COUNT AUTOMATED 239 10*3/uL (130-400); RED BLOOD COUNT 4.37 10*6/uL (4.10-5.10); RED CELL DISTRI WIDTH 15.5 % (0-14.5); WHITE BLOOD COUNT 13.9 10*3/uL (4.8-10.8)
[2017-12-24 07:24] LABS: BUN 24 mg/dl (7-24); CHLORIDE 100 mmol/L (98-107); CREATININE 0.78 mg/dL (0.55-1.02); POTASSIUM 4.3 mmol/L (3.5-5.1); SODIUM 140 mmol/L (136-145)
[2017-12-24 07:34] LABS: PLATELET SUFFICIENCY NORMAL (NORMAL); TOTAL CELLS COUNTED 100 #CELLS
[2017-12-24 08:00] VITALS: BP 160/89
[2017-12-24 12:00] VITALS: BP 151/77
[2017-12-24] MEDS ORDERED: PERCOCET 10-321 EACH PO (12:52)
[2017-12-24] MEDS ORDERED: ZITHROMAX250 MG PO (12:52)
[2017-12-24] MEDS ORDERED: PREDNISONE10 MG PO (12:53)
[2017-12-24] MEDS ORDERED: AMINOPHYLLIN200 MG PO (12:53)
[2017-12-25 01:05] LABS: ADENOVIRUS Negative (Negative); INFLUENZA A Negative (Negative); INFLUENZA B Negative (Negative); METAPNEUMOVIRUS Negative (Negative); PARAINFLUENZA 1 Negative (Negative); PARAINFLUENZA 2 Negative (Negative); PARAINFLUENZA 3 Negative (Negative); RHINOVIRUS Positive (Negative); RSV A Negative (Negative); RSV B Negative (Negative)
== END 2017-12-24 15:10 | disposition home health service (06) | DRG 871 ==
LOC: ED 17:46 → EDHOLD 19:22 → 5E 19:22
PROVIDERS: Internal Medicine; Internal Medicine Critical Care Medicine; Internal Medicine Nephrology; Nurse Practitioner Family
DX: A41.9 Sepsis, unspecified organism (principal); J18.9 Pneumonia, unspecified organism; I50.32 Chronic diastolic (congestive) heart failure; N39.0 Urinary tract infection, site not specified; J96.12 Chronic respiratory failure with hypercapnia; J96.11 Chronic respiratory failure with hypoxia; I31.3 Pericardial effusion (noninflammatory); E03.9 Hypothyroidism, unspecified; E55.9 Vitamin D deficiency, unspecified; E11.43 Type 2 diabetes mellitus with diabetic autonomic (poly)neuropathy; J43.2 Centrilobular emphysema; G89.4 Chronic pain syndrome; E78.5 Hyperlipidemia, unspecified; F41.0 Panic disorder [episodic paroxysmal anxiety]; F43.10 Post-traumatic stress disorder, unspecified; F17.210 Nicotine dependence, cigarettes, uncomplicated; K21.9 Gastro-esophageal reflux disease without esophagitis; G43.909 Migraine, unspecified, not intractable, without status migrainosus; I25.10 Atherosclerotic heart disease of native coronary artery without angina pectoris; M79.2 Neuralgia and neuritis, unspecified; J20.9 Acute bronchitis, unspecified; Z66 Do not resuscitate; Z51.5 Encounter for palliative care; F31.9 Bipolar disorder, unspecified; M19.90 Unspecified osteoarthritis, unspecified site; B96.1 Klebsiella pneumoniae [K. pneumoniae] as the cause of diseases classified elsewhere; K31.84 Gastroparesis; E11.42 Type 2 diabetes mellitus with diabetic polyneuropathy; Z99.81 Dependence on supplemental oxygen; Z88.1 Allergy status to other antibiotic agents; Z88.6 Allergy status to analgesic agent; Z90.49 Acquired absence of other specified parts of digestive tract; Z90.710 Acquired absence of both cervix and uterus; Z83.3 Family history of diabetes mellitus; Z80.9 Family history of malignant neoplasm, unspecified; Z82.49 Family history of ischemic heart disease and other diseases of the circulatory system; I25.2 Old myocardial infarction; Z81.8 Family history of other mental and behavioral disorders; Z79.899 Other long term (current) drug therapy; Z79.52 Long term (current) use of systemic steroids; Z88.8 Allergy status to other drugs, medicaments and biological substances; Z88.0 Allergy status to penicillin; Z71.6 Tobacco abuse counseling

== ENCOUNTER 2018-01-06 13:56 | Emergency (ER) | payer MEDICARE ==
[~2018-01-06] VITALS: Ht 167.6 cm; Wt 53.1 kg
--- NOTE | ~2018-01-06 | EKG ---
[place], [place] ELECTROCARDIOGRAM REPORT NAME: TRUONG HIRSCH UNIT #: [id number] ROOM: DOCTOR: EPIPHANY DRAFT REPORT BIRTHDATE: [birth year] 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
[~2018-01-06 13:56] MED LIST changes: +AMINOPHYLLIN200 MG PO
[2018-01-06 13:59] VITALS: BP 139/85
[2018-01-06 14:49] LABS: BASO # 0.1 10*3/uL (0.0-0.1); BASO % 1.2 % (0.0-1.0); EOS # 0.1 10*3/uL (0.0-0.4); EOS % 1.8 % (1.0-4.0); HEMATOCRIT 45.4 % (37.0-47.0); HEMOGLOBIN 15.1 g/dl (12.0-16.0); LYMPH # 2.1 10*3/uL (1.3-4.4); MEAN CELL VOLUME 92.3 fl (81.0-99.0); MEAN CORPUSCULAR HGB 30.7 pg (27.0-31.0); MEAN CORPUSCULAR HGB CONC 33.3 g/dl (33.0-37.0); MEAN PLATELET VOLUME 10.3 fl (9.6-12.3); MONO # 0.7 10*3/uL (0.1-1.0); MONO % 8.4 % (3.0-9.0); NEUT # 4.7 10*3/uL (2.3-7.9); NEUT % 61.5 % (47.0-73.0); PLATELET COUNT AUTOMATED 225 10*3/uL (130-400); RED BLOOD COUNT 4.92 10*6/uL (4.10-5.10); RED CELL DISTRI WIDTH 14.1 % (0-14.5); WHITE BLOOD COUNT 7.7 10*3/uL (4.8-10.8)
[2018-01-06 14:58] LABS: ACT PARTIAL THROMBO TIME 25.6 SECONDS (20.8-31.5)
[2018-01-06 15:10] LABS: ALBUMIN 3.3 gm/dl (3.1-4.5); ALKALINE PHOSPHATASE 70 U/L (45-117); BUN 19 mg/dl (7-24); CHLORIDE 103 mmol/L (98-107); CREATININE 0.83 mg/dL (0.55-1.02); LIPASE 61 U/L (73-393); POTASSIUM 4.2 mmol/L (3.5-5.1); SGOT/AST 17 IU/L (3-35); SGPT/ALT 18 U/L (12-78); SODIUM 140 mmol/L (136-145); TOTAL PROTEIN 6.7 gm/dL (6.4-8.2)
[2018-01-06 15:13] LABS: TROPONIN I < 0.015 ng/ml (<0.045)
[2018-01-06] MEDS ORDERED: PREDNISONE50 MG PO (16:23)
[2018-01-06] MEDS ORDERED: TESSALON PERLE100 M1 PO (16:26)
== END 2018-01-06 16:21 | disposition home or self-care (01) ==
LOC: ED 13:56
PROVIDERS: Nurse Practitioner Family
DX: J44.1 Chronic obstructive pulmonary disease with (acute) exacerbation (principal); I25.10 Atherosclerotic heart disease of native coronary artery without angina pectoris; G89.29 Other chronic pain; I25.2 Old myocardial infarction; K21.9 Gastro-esophageal reflux disease without esophagitis; E78.5 Hyperlipidemia, unspecified; E03.9 Hypothyroidism, unspecified; G43.909 Migraine, unspecified, not intractable, without status migrainosus; I50.32 Chronic diastolic (congestive) heart failure; E11.9 Type 2 diabetes mellitus without complications; F17.200 Nicotine dependence, unspecified, uncomplicated; Z88.1 Allergy status to other antibiotic agents; Z88.8 Allergy status to other drugs, medicaments and biological substances; Z79.899 Other long term (current) drug therapy; Z93.1 Gastrostomy status; Z90.710 Acquired absence of both cervix and uterus; Z90.49 Acquired absence of other specified parts of digestive tract

== ENCOUNTER 2018-01-21 17:48 | Inpatient (IN) | payer MEDICARE ==
[~2018-01-21] VITALS: Ht 167.6 cm; Wt 50.9 kg
--- NOTE | ~2018-01-21 | PR ---
[place], [place] PROGRESS NOTE NAME: TRUONG HIRSCH UNIT #: [id number] ROOM: 415 DOCTOR: CHRIS ANABELL BIRTHDATE: [birth year] DOS: 01/23/2018 PULMONOLOGY PROGRESS NOTE SUBJECTIVE: The patient was seen and evaluated on a general medical floor. The patient reports that her symptoms have improved with medical therapy of steroids and antibiotics. The patient feels she is back to baseline and would like to go home today. The patient denies any shortness of breath, wheezing, cough, chest pain, nausea, vomiting, diarrhea, urinary complaints or any other symptoms at this time. OBJECTIVE: VITAL SIGNS: Temperature 97.9, pulse rate 68, respiratory rate 18, blood pressure 139/78, pulse ox 95% on room air. GENERAL: The patient is alert and oriented x 3. No signs of distress. HEENT: Head is atraumatic, normocephalic. Eyes: PERRLA, nonicteric. NECK: Supple. CARDIOVASCULAR: Regular rate and rhythm. No murmurs, rubs or gallops. LUNGS: Mildly decreased breath sounds bilaterally. ABDOMEN: Soft, nontender. Bowel sounds present. EXTREMITIES: Without acute edema, clubbing or cyanosis. NEUROLOGIC: Grossly intact. No neurological deficits. LABORATORY DATA: White blood cell count 22.7, hemoglobin 13.6, hematocrit 41.2, platelets 287. Sodium 144, potassium 3.6, chloride 109, carbon dioxide 25, BUN 18, creatinine 0.72. ASSESSMENT: Resolving acute exacerbation of chronic obstructive pulmonary disease. Ongoing tobacco abuse. The patient reports that she is going to quit at the beginning of the year. Possible viral bronchitis. PLAN OF MANAGEMENT: The patient has noted significant improvement in her symptoms with the use of IV steroids and antibiotics. The patient is also using Chantix to help overcome nicotine withdrawal. Cultures remain negative at this time and the patient is stable for discharge from a Pulmonology standpoint on oral steroid taper and oral antibiotics. Further care will be made based on the progression of the illness. Anabell Sawyeremily [place], [place] PROGRESS NOTE NAME: TRUONG HIRSCH UNIT #: [id number] ROOM: [facility] DOCTOR: ANABELL PEREZ DO BIRTHDATE: [birth year] MORENITA MARQUEZ MD CM:PNTRANS 1032 [id number] ANABELL PEREZ DO 01/23/18 1930 interface
--- NOTE | ~2018-01-21 | CON ---
[place], [place] REPORT OF CONSULTATION NAME: TRUONG HIRSCH [facility] #: [id number] UNIT #: [id number] ROOM: 415 DOCTOR: ANABELL PEREZ DO BIRTHDATE: [birth year] DOS: 01/22/2018 PULMONOLOGY CONSULTATION CONSULTING PHYSICIAN: Hospitalist service. REASON FOR CONSULTATION: COPD. HISTORY OF PRESENT ILLNESS: The patient is a 62-year-old female who presented to the ER for worsening shortness of breath and productive cough, which was not alleviated by her home medications. The patient reports when she got to the hospital that she got breathing treatments in the hospital, which did help with her symptoms. The patient notes that she has end-stage disease and oxygen dependent. She notes that her cough is productive of thick clear white sputum and does admit to continued smoking. The patient does report that she is going to quit on 02/26/2018. The patient also admits to fever, which she took Tylenol, which helped with her symptoms. The patient denies any chills, chest pain, abdominal pain, nausea, vomiting or any urinary complaints. In the ER, the patient had a chest x-ray showing hyperinflation with COPD and the patient was admitted for new onset pneumonitis. PAST MEDICAL HISTORY: Bipolar disorder, coronary artery disease, chronic pain, COPD, degenerative arthritis, diastolic congestive heart failure, type 2 diabetes, gastroparesis, GERD, history of STEMI, hyperlipidemia, hypothyroidism, iron deficiency, migraine, goiter, oxygen dependent on 2 liters, panic disorder, PTSD and vitamin D insufficiency. PAST SURGICAL HISTORY: Colonoscopy, left heart catheterization, percutaneous endoscopic gastrostomy with PEG tube placement, appendectomy, hysterectomy, rhinoplasty, rotator cuff surgery, toe surgery and tonsillectomy. SOCIAL HISTORY: Current smoker, has smoked 1 pack a day for previous years up to 2 packs a day as well. Does not drink and quit drinking in 2008. The patient lists drug use. The patient reports a history of Percocet abuse. The patient also admits to the use of marijuana, cocaine and crystal meth in the past. FAMILY HISTORY: Father at age 32 due to diabetes. Mother at age 62 due to brain cancer. Sister at age 52 due to suicide. ALLERGIES: MOXIFLOXACIN, ERYTHROMYCIN, HYDROCODONE and HYDROMORPHONE. REPORTED HOME MEDICATIONS: Alprazolam 0.5 mg 3 times daily as needed for anxiety, Lipitor 40 mg daily, benzonatate 100 mg twice a day as needed for cough, vitamin D 2000 units daily, cyclobenzaprine 10 mg q. 8 hours as needed for muscle spasms, Depakote 1000 mg at bedtime, gabapentin 800 mg 3 times a day, levothyroxine 100 mcg daily, metformin 500 mg twice a day, metoprolol 25 mg daily, omeprazole 20 mg daily, Percocet 10/325 four times a day as needed for pain, Vista Thyroid 60 mg daily, Topamax 25 mg p.r.n. headaches, trazodone 200 mg at bedtime, ____ 1 mg b.i.d., Geodon 80 mg at bedtime. [place], [place] REPORT OF CONSULTATION NAME: TRUONG HIRSCH UNIT #: [id number] ROOM: [facility] DOCTOR: ANABELL PEREZ DO BIRTHDATE: [birth year] REVIEW OF SYSTEMS: GENERAL: The patient reports fevers. Denies chills, denies weight loss, denies weight gain. HEENT: Denies any vision changes, ear pain, blurred vision, nose congestion, throat pain, throat swelling or dysphagia. CARDIOVASCULAR: Denies chest pain, palpitations, lower extremity edema or diaphoresis. RESPIRATORY: Reports shortness of breath, cough, wheezing, dyspnea on exertion, sputum production, but denies any hemoptysis. ABDOMINAL: Denies abdominal pain, nausea, vomiting, diarrhea, constipation or any blood in the stool. GENITOURINARY: Denies any dysuria, urgency, hematuria or frequency changes. NEUROLOGIC: Denies any lightheadedness, dizziness, confusion. PSYCHIATRIC: Denies depression, anxiety. ENDOCRINE: Denies any heat or cold intolerance. SKIN: Denies any new rashes, changes in skin or ulcers. PHYSICAL EXAMINATION: VITAL SIGNS: Temperature 97.7, pulse 83, respiratory rate 18, blood pressure 122/80, pulse ox 93% on room air. GENERAL: Alert and oriented. No signs of distress. HEAD: Normocephalic and atraumatic. EYES: PERRLA. SKIN: No lesions. No masses. NECK: Supple, without lesions, without masses. HEART: Regular rate and rhythm. No murmurs, rubs or gallops. LUNGS: Mildly diminished breath sounds bilaterally with cough, minimal wheezing. ABDOMEN: Soft, bowel sounds present, nontender, nondistended. EXTREMITIES: Without clubbing, cyanosis, erythema or edema. NEUROLOGIC: Grossly intact without focal neurological deficits. PSYCHIATRIC: Good historian. Normal mood, normal affect. LABORATORY DATA: Labs this morning showed white blood cell count 7.9, hemoglobin 15.2, hematocrit 46.3, platelet count 285. Sodium 142, potassium 4.5, chloride 110, carbon dioxide 24, BUN 27, creatinine 0.73. IMAGING: Chest x-ray showed stable COPD. IMPRESSION: 1. Chronic obstructive pulmonary disease exacerbation. 2. Sepsis due to underlying pneumonitis. 3. Lactic acidosis. 4. Chronic hypoxic respiratory failure. 5. Coronary artery disease. 6. Gastroesophageal reflux disease. PLAN: The patient was admitted and started on IV vancomycin and Zosyn and received fluid boluses for suspected sepsis at that time. The patient was also [place], [place] REPORT OF CONSULTATION NAME: TRUONG HIRSCH UNIT #: [id number] ROOM: [facility] DOCTOR: ANABELL PEREZ DO BIRTHDATE: [birth year] given 125 mg of Solu-Medrol for the COPD exacerbation and started on 40 mg b.i.d. with DuoNeb as needed for shortness of breath. The patient was also started on Mucinex. We will continue these medications until cultures are available. Sputum culture will be ordered as well and the patient will be monitored for clinical progression and changes will be made based on his clinical progression. Anabell Perez DO MORENITA MARQUEZ MD CM:CONSTR:REPORT OF CONSULTATION 1148 01/22/18 3142 interface
--- NOTE | ~2018-01-21 | CON ---
[place], [place] RE[facility] CON[facility]ULTATION [id number] #: [id number] ROOM: 415 DOCTOR: MORENITA JIM MD BIRTHDATE: [birth year] DOS: 01/22/2018 PULMONARY CONSULTATION, EVALUATION AND MANAGEMENT REASON FOR CONSULTATION: To assess the patient for acute exacerbation of COPD. HISTORY OF PRESENT ILLNESS: This is a 62-year-old white female who has been frequently hospitalized for exacerbation of COPD, noted with nonadherence with the treatment and continued tobacco use. She has been assessed today with [id number] encounter. History was confirmed. Physical examination performed. Labs were reviewed. The assessment and management of this note was personally completed. Note done by the medical billing service was approved. She presented to the Emergency Room on 01/21/2018 and the patient reported symptoms of shortness of breath occurred 24 hours prior to admission to the hospital. She has been treating with her nebulized bronchodilator at home, stating that it has not helped her. The patient stated that she came into the Emergency, started on oxygen and bronchodilators. She has been doing better. The patient denies symptoms of chest pain. She has been noted with cough with clear sputum expectoration in small quantity. Denies symptoms of fever or chills. Denies symptoms of hemoptysis. Denies symptoms of trauma to the chest. REVIEW OF SYSTEMS: As completed by the medical billing service for the patient was seen and approved. PAST MEDICAL HISTORY, SURGICAL HISTORY, SOCIAL AND FAMILY HISTORY: For the patient were all reviewed since my consultation of 12/21/2017 and remains unchanged after review. Please refer to the document for any details as necessary, which is available in the [employer]. HOME MEDICATIONS: For the patient were listed on admission; use of Xanax, Lipitor, Tessalon Perles, vitamin D, Flexeril, Depakote, gabapentin, levothyroxine, metformin, metoprolol succinate, omeprazole, Percocet, thyroid, Topamax, trazodone, Chantix and Geodon. DRUG ALLERGY HISTORY: NOTED ALLERGY: 1. AVELOX. 2. VICODIN. 3. DILAUDID. PHYSICAL EXAMINATION: GENERAL: This is a 62-year-old female patient who has been currently noted to be awake and alert without any acute distress this morning of assessment. Height of the patient recorded 5 feet 6 inches, weight 112 pounds, BMI of 18. VITAL SIGNS: Normal temperature 99.4 degree Fahrenheit upon admission, respiratory rate 18-16, heart rate of 104-81, blood pressure 110/74-122/80. Pulse ox saturation on room air 93% saturation at rest on room air. HEENT: Head was atraumatic. Eyes nonicterus. NECK: Supple. CARDIOVASCULAR: S1, S2 is audible. LUNGS: Noted with moderate decreased breath sounds in the lungs bilaterally [place], [place] REPORT OF CONSULTATION NAME: TRUONG HIRSCH UNIT #: [id number] ROOM: [facility] DOCTOR: MORENITA JIM MD BIRTHDATE: [birth year] with expiratory wheezing. There were no crackles. ABDOMEN: Soft, nontender and flat. EXTREMITIES: Without any acute edema, clubbing, cyanosis. MUSCULOSKELETAL: Without any acute deformities. CENTRAL NERVOUS SYSTEM: Cranial nerves 2-12 intact. LABORATORY DATA: The influenza A, B, nasal washing antigen on admission yesterday were negative. CBC yesterday; hemoglobin 16.2, hematocrit 49.1, WBC count normal, platelet count normal. Lactic acid 2.7, followup 2.0. PT/INR normal yesterday. CMP of the patient yesterday; BUN 35, creatinine 1.85, glucose 149. Troponin normal. CBC this morning remains normal. CMP that was done this morning; normal creatinine, BUN 27. Chest x-ray that was done 2 view in the Emergency Room was reviewed and shows changes of COPD without any acute pulmonary infiltration from the PACS images reviewed. IMPRESSION: The patient will be admitted to the hospital with: 1. Current acute exacerbation of chronic obstructive pulmonary disease, still smoking cigarettes quarter or half a pack of cigarettes per day. History of recurrent hospitalization for chronic obstructive pulmonary disease exacerbation. 2. Possibility of viral bronchitis will be considered with current acute exacerbation of chronic obstructive pulmonary disease. PLAN OF MANAGEMENT: The patient has been currently receiving the Solu-Medrol as 40 mg b.i.d. that will be continued. Continue DVT prophylaxis. Bronchodilator and albuterol sulfate for the patient will be continued. Nicotine replacement patches and/or continue use of the Chantix to help overcome the nicotine withdrawal. Tobacco cessation held. Obtain sputum for Gram stain and culture. Usual care, other supportive therapy and plan of management. Additional change in treatment recommended based on the progression of the illness. Thank you for allowing me to participate in care of this patient. MORENITA MARQUEZ MD CM:CONSTR:REPORT OF CONSULTATION 1255 01/23/18 0040 interface
--- NOTE | ~2018-01-21 | PR ---
[place], [place] PROGRESS NOTE NAME: [facility] [id number] UNIT #: [id number] ROOM: 415 DOCTOR: JIMMY RYAN MD,MORENITA BIRTHDATE: [birth year] DOS: 01/23/2018 SUBJECTIVE: The patient has been seen and examined in [id number] encounter, history was confirmed. Physical examination was performed. Labs were reviewed. The note done by the emergency medicine medical director was approved as well. The patient has been noted with continued resolution and improvement in respiratory symptoms of coughing, shortness of breath and wheezing in the last 24 hours, continued on the steroids also receiving bronchodilators and other treatments. OBJECTIVE: VITAL SIGNS: Normal temperature, respiratory rate 18, heart rate of 68, blood pressure and 139/72. Pulse ox saturation on room air was 95% saturation. HEENT: Head was atraumatic. Eyes nonicterus. NECK: Supple. CARDIOVASCULAR: S1, S2 audible. LUNGS: The patient was noted without any wheeze or crackles. ABDOMEN: Soft, nontender. Bowel sounds present. EXTREMITIES: Without any acute edema. IMPRESSION: 1. Stable respiratory status was noted at the present time with resolving acute exacerbation of chronic obstructive pulmonary disease and questionable tracheobronchitis. 2. Nicotine dependence as well. PLAN OF TREATMENT: Discharge planning could be done for home discharge today. Abstinence from tobacco. The patient was discussed in counseling about tobacco cessation was made. Continue supportive therapy, plan of management, care plan and treatment and usual therapies. MORENITA MARQUEZ MD CM:PNTRANS 1112 2255 MORENITA RYAN MD 01/23/18 2255 interface
--- NOTE | ~2018-01-21 | EKG ---
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1955 Requested By: GRAY ZHANG PA-C Order Number: [id number] Reading MD: Measurements Intervals [place] Rate: 73 P: 73 [place]: 133 QRS: -53 QRSD: 80 T: 70 QT: 383 QTc: 422 Interpretive Statements Sinus rhythm Atrial premature complex Left anterior fascicular block RSR' in V1 or V2, right VCD or RVH ST elevation suggests acute pericarditis Compared to ECG 01/06/2018 14:43:35 Atrial premature complex(es) now present Right ventricular hypertrophy now present RSR' in V1 or V2 now present ST (T wave) deviation still present CM:EKGRPT:ELECTROCARDIOGRAM REPORT 51 54 GRAY LUQUE DRAFT REPORT GRAY ZHANG PA-C
[2018-01-21 17:49] VITALS: BP 110/74
[2018-01-21 20:59] LABS: BASO # 0.1 10*3/uL (0.0-0.1); BASO % 0.6 % (0.0-1.0); EOS # 0.2 10*3/uL (0.0-0.4); EOS % 1.5 % (1.0-4.0); HEMATOCRIT 49.1 % (37.0-47.0); HEMOGLOBIN 16.2 g/dl (12.0-16.0); LYMPH # 1.6 10*3/uL (1.3-4.4); MEAN CELL VOLUME 93.5 fl (81.0-99.0); MEAN CORPUSCULAR HGB 30.9 pg (27.0-31.0); MEAN PLATELET VOLUME 10.2 fl (9.6-12.3); MONO # 0.3 10*3/uL (0.1-1.0); MONO % 3.1 % (3.0-9.0); NEUT # 7.6 10*3/uL (2.3-7.9); NEUT % 78.3 % (47.0-73.0); PLATELET COUNT AUTOMATED 328 10*3/uL (130-400); RED BLOOD COUNT 5.25 10*6/uL (4.10-5.10); RED CELL DISTRI WIDTH 13.9 % (0-14.5); WHITE BLOOD COUNT 9.7 10*3/uL (4.8-10.8)
[2018-01-21 21:06] LABS: INTERNATIONAL NORM RATIO 0.9 (2.0-3.5)
[2018-01-21 21:19] LABS: ALBUMIN 3.2 gm/dl (3.1-4.5); ALKALINE PHOSPHATASE 72 U/L (45-117); BUN 35 mg/dl (7-24); CHLORIDE 107 mmol/L (98-107); CREATININE 1.05 mg/dL (0.55-1.02); POTASSIUM 4.6 mmol/L (3.5-5.1); SGOT/AST 17 IU/L (3-35); SGPT/ALT 15 U/L (12-78); SODIUM 141 mmol/L (136-145); TOTAL PROTEIN 6.7 gm/dL (6.4-8.2)
[2018-01-21 21:23] LABS: TROPONIN I < 0.015 ng/ml (<0.045)
[2018-01-21 22:00] VITALS: BP 116/84
[2018-01-21] MEDS ORDERED: BENZONATATE100 M1 PO (22:19)
[2018-01-21] MEDS ORDERED: LEVOTHYROXINE100 MC1 PO (22:19)
[2018-01-21] MEDS ORDERED: CHANTIX1 M1 PO (22:20)
[2018-01-22] VITALS: BP 117/71
[2018-01-22 05:51] LABS: ALBUMIN 3.1 gm/dl (3.1-4.5); ALKALINE PHOSPHATASE 71 U/L (45-117); BUN 27 mg/dl (7-24); CHLORIDE 110 mmol/L (98-107); CREATININE 0.73 mg/dL (0.55-1.02); PHOSPHOROUS 2.4 mg/dL (2.5-4.9); POTASSIUM 4.5 mmol/L (3.5-5.1); SGOT/AST 11 IU/L (3-35); SGPT/ALT 14 U/L (12-78); SODIUM 142 mmol/L (136-145); TOTAL PROTEIN 6.1 gm/dL (6.4-8.2)
[2018-01-22 05:54] LABS: BASO % 0.4 % (0.0-1.0); HEMATOCRIT 46.3 % (37.0-47.0); HEMOGLOBIN 15.2 g/dl (12.0-16.0); LYMPH # 1.4 10*3/uL (1.3-4.4); LYMPH % 17.3 % (27.0-41.0); MEAN CORPUSCULAR HGB 30.5 pg (27.0-31.0); MEAN CORPUSCULAR HGB CONC 32.8 g/dl (33.0-37.0); MEAN PLATELET VOLUME 10.6 fl (9.6-12.3); MONO # 0.1 10*3/uL (0.1-1.0); MONO % 1.1 % (3.0-9.0); NEUT # 6.4 10*3/uL (2.3-7.9); NEUT % 80.6 % (47.0-73.0); PLATELET COUNT AUTOMATED 285 10*3/uL (130-400); RED BLOOD COUNT 4.98 10*6/uL (4.10-5.10); RED CELL DISTRI WIDTH 13.7 % (0-14.5); WHITE BLOOD COUNT 7.9 10*3/uL (4.8-10.8)
[2018-01-22 05:58] LABS: FREE T4 1.14 ng/dl (0.76-1.46); THYROID STIM HORMONE (HS) 0.171 uIU/ml (0.358-4.75)
[2018-01-22 07:37] LABS: BILIRUBIN NEGATIVE (NEGATIVE); BLOOD NEGATIVE (NEGATIVE); CLARITY SL CLOUDY (CLEAR); COLOR YELLOW (YELLOW); GLUCOSE 1+ (NEGATIVE); KETONE NEGATIVE (NEGATIVE); LEUKO ESTERASE NEGATIVE (NEGATIVE); NITRITE NEGATIVE (NEGATIVE); UROBILINOGEN 0.2 E.U./dl (0.2-1.0)
[2018-01-22 08:00] VITALS: BP 122/80
[2018-01-22 09:04] LABS: BACTERIA TRACE; MUCOUS 2+
[2018-01-22 12:00] VITALS: BP 124/62
[2018-01-22 16:00] VITALS: BP 130/83
[2018-01-22 21:13] VITALS: BP 136/73
[2018-01-23] VITALS: BP 124/63
[2018-01-23 06:33] LABS: HEMATOCRIT 41.2 % (37.0-47.0); HEMOGLOBIN 13.6 g/dl (12.0-16.0); MEAN CELL VOLUME 94.3 fl (81.0-99.0); MEAN CORPUSCULAR HGB 31.1 pg (27.0-31.0); MEAN PLATELET VOLUME 10.5 fl (9.6-12.3); PLATELET COUNT AUTOMATED 287 10*3/uL (130-400); RED BLOOD COUNT 4.37 10*6/uL (4.10-5.10); RED CELL DISTRI WIDTH 13.8 % (0-14.5); WHITE BLOOD COUNT 22.7 10*3/uL (4.8-10.8)
[2018-01-23 06:53] LABS: CHLORIDE 109 mmol/L (98-107); CREATININE 0.72 mg/dL (0.55-1.02); POTASSIUM 3.6 mmol/L (3.5-5.1); SODIUM 144 mmol/L (136-145)
[2018-01-23 07:04] LABS: PLATELET SUFFICIENCY NORMAL (NORMAL); TOTAL CELLS COUNTED 100 #CELLS
[2018-01-23 07:16] LABS: BUN 18 mg/dl (7-24)
[2018-01-23 08:00] VITALS: BP 139/78
[2018-01-23] MEDS ORDERED: DOXYCYCLINE100 MG PO (09:55)
[2018-01-23] MEDS ORDERED: PREDNISONE10 MG PO (09:55)
[2018-01-23] MEDS ORDERED: PERCOCET 10-321 EACH PO (10:50)
[2018-01-25 02:05] LABS: ADENOVIRUS Negative (Negative); INFLUENZA A Negative (Negative); INFLUENZA B Negative (Negative); METAPNEUMOVIRUS Negative (Negative); PARAINFLUENZA 1 Negative (Negative); PARAINFLUENZA 2 Negative (Negative); PARAINFLUENZA 3 Negative (Negative); RHINOVIRUS Negative (Negative); RSV A Negative (Negative); RSV B Negative (Negative)
== END 2018-01-23 13:05 | disposition hospice, home (50) | DRG 871 ==
LOC: ED 17:48 → 4E 20:41 → EDHOLD 20:41 → 4E 21:26
PROVIDERS: Family Medicine; Internal Medicine; Internal Medicine Critical Care Medicine; Physician Assistant; Student in an Organized Health Care Education/Training Program
DX: A41.9 Sepsis, unspecified organism (principal); J18.9 Pneumonia, unspecified organism; N17.0 Acute kidney failure with tubular necrosis; E44.1 Mild protein-calorie malnutrition; I50.32 Chronic diastolic (congestive) heart failure; J44.0 Chronic obstructive pulmonary disease with (acute) lower respiratory infection; J96.11 Chronic respiratory failure with hypoxia; Z68.1 Body mass index [BMI] 19.9 or less, adult; Z66 Do not resuscitate; Z51.5 Encounter for palliative care; M19.90 Unspecified osteoarthritis, unspecified site; E03.9 Hypothyroidism, unspecified; E11.43 Type 2 diabetes mellitus with diabetic autonomic (poly)neuropathy; K31.84 Gastroparesis; E78.5 Hyperlipidemia, unspecified; G43.909 Migraine, unspecified, not intractable, without status migrainosus; I11.0 Hypertensive heart disease with heart failure; F41.9 Anxiety disorder, unspecified; G89.4 Chronic pain syndrome; K21.9 Gastro-esophageal reflux disease without esophagitis; F43.10 Post-traumatic stress disorder, unspecified; M79.2 Neuralgia and neuritis, unspecified; I25.10 Atherosclerotic heart disease of native coronary artery without angina pectoris; F31.9 Bipolar disorder, unspecified; F17.210 Nicotine dependence, cigarettes, uncomplicated; R65.20 Severe sepsis without septic shock; E86.0 Dehydration; Z88.1 Allergy status to other antibiotic agents; Z99.81 Dependence on supplemental oxygen; Z88.8 Allergy status to other drugs, medicaments and biological substances; Z79.899 Other long term (current) drug therapy; Z90.710 Acquired absence of both cervix and uterus; I25.2 Old myocardial infarction; Z90.49 Acquired absence of other specified parts of digestive tract; Z83.3 Family history of diabetes mellitus; Z82.49 Family history of ischemic heart disease and other diseases of the circulatory system; Z80.8 Family history of malignant neoplasm of other organs or systems

== ENCOUNTER 2018-06-24 08:07 | Emergency (ER) | payer MEDICARE ==
[~2018-06-24] VITALS: Ht 167.6 cm; Wt 45.4 kg
[2018-06-24 08:07] VITALS: BP 149/97
[~2018-06-24 08:07] MED LIST changes: +BENZONATATE100 M1 PO; +DOXYCYCLINE100 MG PO; +LEVOTHYROXINE100 MC1 PO
[2018-06-24] MEDS ORDERED: DELTASONE20 M1 PO (09:20)
[2018-06-24] MEDS ORDERED: VIBRAMYCIN100 MG PO (09:20)
[2018-08-10] MEDS ORDERED: TRAZODONE100 MG PO (18:05)
[2018-09-09] MEDS ORDERED: METFORMIN ER500 MG PO (19:50)
[2018-09-09] MEDS ORDERED: PERCOCET 5-3251 EACH PO (19:54)
[2018-09-09] MEDS ORDERED: GABAPENTIN400 MG PO (19:55)
[2018-09-09] MEDS ORDERED: MIRALAX119 GM PO (19:56)
[2018-09-17] MEDS ORDERED: NATURE'S BLEND F1 MG PO (14:38)
[2018-09-17] MEDS ORDERED: FLAGYL500 MG PO (14:38)
[2018-09-17] MEDS ORDERED: SULFASALAZINE500 M1 PO (14:38)
== END 2018-06-24 09:24 | disposition home or self-care (01) ==
LOC: ED 08:07
DX: J44.1 Chronic obstructive pulmonary disease with (acute) exacerbation (principal); R11.10 Vomiting, unspecified; H92.02 Otalgia, left ear; I25.10 Atherosclerotic heart disease of native coronary artery without angina pectoris; G89.29 Other chronic pain; K21.9 Gastro-esophageal reflux disease without esophagitis; E78.5 Hyperlipidemia, unspecified; I25.2 Old myocardial infarction; E03.9 Hypothyroidism, unspecified; G43.909 Migraine, unspecified, not intractable, without status migrainosus; I50.32 Chronic diastolic (congestive) heart failure; E11.9 Type 2 diabetes mellitus without complications; Z88.1 Allergy status to other antibiotic agents; Z88.6 Allergy status to analgesic agent; Z79.899 Other long term (current) drug therapy; Z79.2 Long term (current) use of antibiotics; Z79.84 Long term (current) use of oral hypoglycemic drugs; Z90.710 Acquired absence of both cervix and uterus; Z90.49 Acquired absence of other specified parts of digestive tract; Z87.891 Personal history of nicotine dependence

== ENCOUNTER 2018-07-13 19:22 | Inpatient (IN) | payer MEDICARE ==
[~2018-07-13] VITALS: Ht 175.2 cm; Wt 58.5 kg
--- NOTE | ~2018-07-13 | CON ---
[place], [place] REPORT OF CONSULTATION NAME: TRUONG HIRSCH UNIT #: [id number] ROOM: 408 DOCTOR: NOLAN MOORE CNP BIRTHDATE: [birth year] DOS: 07/14/2018 Psychiatric consultation CHIEF COMPLAINT: "I guess I took too much of my medication." HISTORY OF PRESENT ILLNESS: This is a 63-year-old woman with a history of COPD, bipolar disorder, who presented for a suicide attempt and overdose on her medication. History was obtained from the EMS. Per the Emergency Department documentation, the patient's boyfriend came home and found the patient on the floor. EMS administered Narcan upon arrival, noted that the patient had taken six 500 mg Depakote, six 80 mg Geodon, five trazodone as well as Percocet. In the Emergency Department, the patient's tox screen was positive for opiates and benzodiazepines. Her ammonia level was elevated at 86. Poison Control was contacted from the Emergency Department with instructions to trend Depakote level, repeat EKG and administer carnitine if available. The patient was admitted to medical floor for further evaluation. Due to the patient's history, we were consulted to assess the patient. The patient reports that she took too much of her medication. She denies wanting to kill herself; however, she does admit that she did attempt suicide 25 years ago by taking pills. She reports that she feels very depressed. She reports that she currently takes trazodone, which is supposed to help her sleep as well as help her mood. She reports that she sees a nurse practitioner at Dr. Mock's office. The patient reports that she takes pain pills due to arthritis. She reports that she was on Suboxone 1-1/2 years ago to try to wean off of the pain pills; however, she reports this made her worse. She denies ever abusing her pain medication or taking more than prescribed. The patient reports that she does not want to , but she is very depressed. MENTAL STATUS: The patient is alert and oriented to person, place and time. The patient is cooperative. There is no overt mouna or hypomania noted. No delusions or paranoia noted. No psychotic symptoms noted. No auditory or visual hallucinations noted. The patient's mood is depressed. Her affect is tearful. Her judgment and insight are poor. The patient's short-term and long-term memory seems to be intact. DIAGNOSES: Major depressive disorder, severe, recurrent, bipolar disorder. PLAN: After meeting with the patient, we will start Cymbalta 30 mg at bedtime. It appears as if the trazodone has already been discontinued. We will plan to transfer the patient to the Behavioral Health Unit here at [facility] once we receive medical clearance as well as insurance approval. Hope to be able to psychiatrically stabilize the patient on medication while she is on the Behavioral Health Unit. We will consult Dr. Butcher to further evaluate the patient and provide counseling services. Thank you for the referral, please feel free to contact us for any further intervention. [place], [place] REPORT OF CONSULTATION NAME: TRUONG HIRSCH UNIT #: [id number] ROOM: [facility] DOCTOR: NOLAN MOORE CNP BIRTHDATE: [birth year] Nolan Moore CNP CM:CONSTR:REPORT OF CONSULTATION 1629 08/07/18 0833 interface
--- NOTE | ~2018-07-13 | EKG ---
[place], [place] ELECTROCARDIOGRAM REPORT NAME: TRUONG HIRSCH UNIT #: [id number] ROOM: 408 DOCTOR: REBEL DRAFT REPORT BIRTHDATE: [birth year] [facility] Test Date: 2018-07-14 Test Time: 01:27:26 Pat Name: TRUONG HIRSCH Department: Room: 408 Gender: F Retail Delivery Driver: : 1955 Requested By: WILDER OROPEZA Order Number: [id number] Reading MD: Louann Gonzalez MD Measurements Intervals [place] Rate: 63 P: 76 ID: 171 QRS: -39 QRSD: 109 T: 63 QT: 385 QTc: 395 Interpretive Statements Sinus rhythm Left axis deviation Low voltage, precordial leads Compared to ECG 01/21/2018 20:52:35 Left-axis deviation now present Low QRS voltage now present Atrial premature complex(es) no longer present Left anterior fascicular block no longer present Electronically Signed On 07-19-2018 9:26:56 PDT by Louann Gonzalez MD CM:EKGRPT:ELECTROCARDIOGRAM REPORT [id number] WILDER WREN DRAFT REPORT WILDER OROPEZA DO
--- NOTE | ~2018-07-13 | CON ---
[place], [place] REPORT OF CONSULTATION [id number] UNIT #: [id number] ROOM: 408 DOCTOR: PHD SIVAKUMAR DRE BIRTHDATE: [birth year] DOS: 07/15/2018 HISTORY OF PRESENT ILLNESS: The patient is a 63-year-old female referred by the hospitalist with concerns for suicidality. At the present time, the patient is on the 4th floor at [facility]. She is and lives with a friend. She has 3 kids. 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 She denied alcohol use. She states that she quit smoking cigarettes on the due to her granddaughters requesting her to quit. She endorsed rare marijuana use. PAST MEDICAL HISTORY: Bipolar disorder, coronary artery disease, chronic pain disorder, chronic kidney disease, COPD, degenerative arthritis, diastolic congestive heart failure, type 2 diabetes, gastroparesis, GERD, benign bone neoplasm, history of non-ST elevation myocardial infarction, hyperlipidemia, hypothyroidism, iron deficiency, migraines, mild protein-calorie malnutrition, neuropathic pain, nodular goiter, oxygen dependent, panic disorder, PTSD, underweight, vitamin D insufficiency. MEDICATIONS: Toprol-XL, Synthroid, Tylenol, Cymbalta, Lovenox, Humalog, Ventolin. MENTAL STATUS EXAMINATION: The patient was lying in bed in no apparent distress. She is awake, alert and oriented to person, place and generally to time. Mood was depressed and affect was restricted in range. She firmly and convincingly denied suicidal ideation, plan, and intent. She also denied homicidal ideation. She states that she did not try to kill herself by overdosing; simply that she wanted to "get high." She does have a suicide attempt over 20 years ago by overdosing. Speech and language were within normal limits conversationally. Thought process was linear and goal directed. There is no evidence of hallucinations or delusions. Insight and judgment appear fair. She states that she follows up with Kathy at [facility] and that she has her next appointment in a few weeks. She has been following up there for 6 years. She stated that she is looking forward to getting a cortisone injection and that she only recently learned that she would be eligible for this. She is hoping that this will provide significant pain relief. She was able to contract for safety. She states that she is not interested in any kind of inpatient treatment at this time due to her desire to follow up with Pain Management. She denied sleep problems, anhedonia, hopelessness and helplessness. She states that her appetite has been poor lately and that her mood has been depressed due to "people trying to run my life." Discussed appropriate boundary setting with the patient. DIAGNOSIS: Bipolar disorder. PLAN: The patient declined the recommendation to pursue inpatient psychiatric treatment at this time. She did, however, firmly and convincingly deny suicidal ideation, plan, and intent. She was able to contract for safety. She demonstrated future orientation and cited her family as protective factor. She agreed to continue following up with her outpatient counseling. [place], [place] REPORT OF CONSULTATION NAME: TRUONG HIRSCH UNIT #: [id number] ROOM: [facility] DOCTOR: SIVAKUMAR, PHD DRE BIRTHDATE: [birth year] Thank you very much for this consult. Lynn Butcher, PhD CM:CONSTR:REPORT OF CONSULTATION 1652 07/16/18 0111 interface
--- NOTE | ~2018-07-13 | EKG ---
[place], [place] ELECTROCARDIOGRAM REPORT NAME: TRUONG HIRSCH UNIT #: [id number] ROOM: 408 DOCTOR: REBEL DRAFT REPORT BIRTHDATE: [birth year] [facility] Test Date: 2018-07-13 Test Time: 20:37:36 Pat Name: TRUONG HIRSCH Department: ER Room: 408 Gender: F Inductor Tester: : 1955 Requested By: WILDER OROPEZA Order Number: [id number] Reading MD: Louann Gonzalez MD Measurements Intervals [place] Rate: 62 P: 80 [place]: 165 QRS: -55 QRSD: 82 T: 66 QT: 414 QTc: 421 Interpretive Statements Sinus rhythm Probable left atrial enlargement Left anterior fascicular block Abnormal R-wave progression, late transition Compared to ECG 01/21/2018 20:52:35 Atrial premature complex(es) no longer present Electronically Signed On 07-19-2018 9:26:03 PDT by Louann Gonzalez MD CM:EKGRPT:ELECTROCARDIOGRAM REPORT 36 5 WILDER WREN DRAFT REPORT WILDER OROPEZA DO
--- NOTE | 2018-07-13 19:31 | NUR ---
THE PATIENT ADMITTED SHE TRIED TO OVERDOSE IN ATTEMPT TO KILL HERSELF. SHE TOOK (6) 500MG DEPAKOTE, (6) 80MG GEODONE, AND (8) TRAZADONE. POISON CONTROL NOTIFIED OF THE SITUATION ADVISED A AMMONIA LEVELM, TYLENAL, ASA, ALCOHOL, EKG IN 6 HRS, BND, AND LFT'S.
[2018-07-13 19:34] VITALS: BP 155/66
[2018-07-13 19:54] LABS: BASO # 0.1 10*3/uL (0.0-0.1); BASO % 0.6 % (0.0-1.0); EOS # 0.4 10*3/uL (0.0-0.4); HEMOGLOBIN 15.2 g/dl (12.0-16.0); LYMPH % 30.3 % (27.0-41.0); MEAN CELL VOLUME 96.8 fl (81.0-99.0); MEAN CORPUSCULAR HGB 30.6 pg (27.0-31.0); MEAN CORPUSCULAR HGB CONC 31.7 g/dl (33.0-37.0); MEAN PLATELET VOLUME 10.4 fl (9.6-12.3); MONO # 0.6 10*3/uL (0.1-1.0); MONO % 6.5 % (3.0-9.0); NEUT # 5.7 10*3/uL (2.3-7.9); NEUT % 58.2 % (47.0-73.0); PLATELET COUNT AUTOMATED 240 10*3/uL (130-400); RED BLOOD COUNT 4.96 10*6/uL (4.10-5.10); WHITE BLOOD COUNT 9.7 10*3/uL (4.8-10.8)
[2018-07-13 20:09] LABS: ALBUMIN 3.3 gm/dl (3.1-4.5); ALKALINE PHOSPHATASE 75 U/L (45-117); BUN 16 mg/dl (7-24); CHLORIDE 100 mmol/L (98-107); CREATININE 1.35 mg/dL (0.55-1.02); POTASSIUM 4.5 mmol/L (3.5-5.1); SGOT/AST 18 IU/L (3-35); SGPT/ALT 14 U/L (12-78); SODIUM 139 mmol/L (136-145); TOTAL PROTEIN 6.1 gm/dL (6.4-8.2)
[2018-07-13 20:12] LABS: TROPONIN I < 0.015 ng/ml (<0.045)
[2018-07-13 20:29] LABS: ACETAMINOPHEN (TYLENOL) < 5.0 ug/ml (10-30); ETHYL ALCOHOL < 3.0 mg/dl (<3)
[2018-07-13 21:49] LABS: VALPROIC ACID (DEPAKENE) 92.4 ug/ml (50-100)
[2018-07-13 22:30] VITALS: BP 132/80
[2018-07-14] VITALS (12 sets, daily range): BP systolic 62–115; BP diastolic 44–68
--- NOTE | 2018-07-14 00:21 | NUR ---
FAMILY AND PATIENT DENIES ANY WOUND PHOTOS. STATED SHE IS A DNR-CC THAT HAS BEEN ON HOSPICE.
--- NOTE | 2018-07-14 01:23 | NUR ---
DR. SIMMONS AND JOHNNA BOTH NOTIFIED OF HIS PRESSURE BEING LOW. STATDED SHE IS A DNR AND NOT TO TREAT AT THIS TIME.
--- NOTE | 2018-07-14 01:30 | NUR ---
SURPERVISOR STATING THE PATIENT IS STAYING IN THE ER UNTIL 7AM
[2018-07-14 01:35] LABS: BILIRUBIN NEGATIVE (NEGATIVE); BLOOD NEGATIVE (NEGATIVE); CLARITY CLEAR (CLEAR); COLOR YELLOW (YELLOW); GLUCOSE NEGATIVE (NEGATIVE); KETONE NEGATIVE (NEGATIVE); LEUKO ESTERASE NEGATIVE (NEGATIVE); NITRITE NEGATIVE (NEGATIVE); UROBILINOGEN 0.2 E.U./dl (0.2-1.0)
[2018-07-14 01:46] LABS: URINE AMPHETAMINES < 1000 (1000ng/ml); URINE BARBITURATES < 200 (200ng/ml); URINE BENZODIAZEPINES > 200 (200ng/ml); URINE CANNABINOIDS (THC) < 50 (50ng/ml); URINE COCAINE < 300 (300ng/ml); URINE METHADONE < 300 (300ng/ml); URINE OPIATES > 300 (300ng/ml)
[2018-07-14 01:48] LABS: BACTERIA TRACE; URINE PHENCYCLIDINE < 25 (25ng/ml)
--- NOTE | 2018-07-14 08:00 | NUR ---
A 63, admitted to , under the services of LIT Lopez DO with a diagnosis of SUICIDE ATTEMPT. Chief complaint is BROUGHT IN TO TO INGESTION OF MULTIPLE PILLS AT HOME AND SUICIDE ATTEMPT. Patient arrived via bed from ER. Monitor applied. Initial assessment completed. Vital signs taken and recorded. LIT LOPEZ DO notified of admission to the unit. Orders received. See assessment for past medical history, medications and allergies. Patient and/or family oriented to unit. [facility]. Clothing/patient valuable form completed. TEJINDER LOPEZ
[2018-07-14] MEDS ORDERED: OXYCODONE HCL10 M1 PO (10:50)
--- NOTE | 2018-07-14 16:15 | NUR ---
PATIENT MEDICATED WITH TYLENOL AT THIS TIME UPON REQUEST FOR C/O HEADACHE AND BACK PAIN. WILL MONITOR.
--- NOTE | 2018-07-14 17:30 | NUR ---
PATIENT STATES THAT TYLENOL HAS BEEN EFFECTIVE. NO FURTHER COMPLAINTS.
--- NOTE | 2018-07-14 21:30 | NUR ---
PATIENT REQUESTING VALENTINO CATHETER TO BE REMOVED. DR. PEREZ NOTIFIED AND SAID TO D/C VALENTINO.
--- NOTE | 2018-07-14 22:00 | NUR ---
VALENTINO CATHETER D/C'D AT THIS TIME WITHOUT DIFFICULTY. PATIENT TOLERATED WELL.
--- NOTE | 2018-07-14 23:53 | NUR ---
IO REMOVED FROM LEFT PORRAS AREA PER PATIENT REQUEST AND OK FROM DR. PEREZ. PATIENT TOLERATED WELL. WILL CONTINUE TO MONITOR. CALL LIGHT IN REACH.
[2018-07-15] VITALS: BP 161/82
--- NOTE | 2018-07-15 03:33 | NUR ---
PATIENT MEDICATED WITH TYLENOL FOR COMPLAINTS OF A HEADACHE. WILL CONTINUE TO MONITOR. CALL LIGHT IN REACH.
[2018-07-15 06:18] LABS: ALBUMIN 2.7 gm/dl (3.1-4.5); ALKALINE PHOSPHATASE 58 U/L (45-117); BUN 12 mg/dl (7-24); CHLORIDE 109 mmol/L (98-107); CREATININE 0.69 mg/dL (0.55-1.02); PHOSPHOROUS 1.8 mg/dL (2.5-4.9); SGOT/AST 37 IU/L (3-35); SGPT/ALT 15 U/L (12-78); SODIUM 143 mmol/L (136-145)
[2018-07-15 06:27] LABS: BASO # 0.1 10*3/uL (0.0-0.1); BASO % 0.5 % (0.0-1.0); EOS # 0.3 10*3/uL (0.0-0.4); EOS % 2.8 % (1.0-4.0); HEMOGLOBIN 13.3 g/dl (12.0-16.0); LYMPH # 2.1 10*3/uL (1.3-4.4); LYMPH % 21.7 % (27.0-41.0); MEAN CELL VOLUME 95.6 fl (81.0-99.0); MEAN CORPUSCULAR HGB 30.6 pg (27.0-31.0); MEAN PLATELET VOLUME 10.7 fl (9.6-12.3); MONO # 0.8 10*3/uL (0.1-1.0); MONO % 8.1 % (3.0-9.0); NEUT # 6.3 10*3/uL (2.3-7.9); NEUT % 66.5 % (47.0-73.0); PLATELET COUNT AUTOMATED 238 10*3/uL (130-400); RED BLOOD COUNT 4.35 10*6/uL (4.10-5.10); VALPROIC ACID (DEPAKENE) 20.2 ug/ml (50-100); WHITE BLOOD COUNT 9.4 10*3/uL (4.8-10.8)
[2018-07-15 06:49] LABS: HEMATOCRIT 41.6 % (37.0-47.0)
--- NOTE | 2018-07-15 07:57 | NUR ---
Shift chart check completed.
--- NOTE | 2018-07-15 08:05 | NUR ---
Shift chart check completed.
[2018-07-15 09:00] VITALS: BP 163/86
--- NOTE | 2018-07-15 09:00 | NUR ---
Property Administrator in to talk to patient. Patient states lives at home with boyfriend. There are few steps in the home. Physician: raquel claudio Pharmacy: Home health services: had hospice services but recently discontinued her service Patient's level of ADLs: MINIMAL ASSIST Patient has working utilities: all working DME: Follow-up physician's appointment after d/c: will be made by hospitalist nurse director upon discharge Does patient want to access PORTAL?: no Discharge plan discussed with patient, patient lives at home with boyfriend, she is gets around fine, patient will be evaluated by psych and discharge plan is undetermined at this time, case mangement will follow. JAYDE JAY
--- NOTE | 2018-07-15 10:58 | NUR ---
CALLED MALLORY SHAVER TO DISCUSS WITH HER THAT PATIENT NEEDS TO BE CLEAR BY PSYCH BEFORE SHE IS ABLE TO BE DISCHARGE. I SPOKE WITH AND SHE WAS WITH A PATIENT AT THE TIME AND SHE SAID SHE WOULD LET HER KNOW AND GIVE ME A CALL BACK. PATIENT IS REFUSING TO GO TO [facility]. STILL AWAITING CALLBACK FROM MALLORY.
[2018-07-15 12:00] VITALS: BP 156/86
--- NOTE | 2018-07-15 14:13 | NUR ---
MALLORY SHAVER IN TO SEE PATIENT, PER DR. SHAVER PT IS NOT A HARM TO SELF, CAN CONTRACT FOR SAFETY. OKAY TO D/C 1:1 AT THIS TIME
[2018-07-15] MEDS ORDERED: DULOXETINE HCL30 MG PO (14:50)
[2018-07-15 16:00] VITALS: BP 162/97
--- NOTE | 2018-07-15 18:00 | NUR ---
Discharge instructions reviewed with patient. Patient receptive and verbalizes understanding. Follow-up care arranged. Written instructions given to patiet. pt understands to stop taking oxycodone and trazodone, understands new medication to metal pickling equipment operator from pharmacy. iv removed. pt understands follow up appointments. pt states understanding of discharge instructions. pt taken to front via wheelchair for discharge. MADELIN CHAMBERLAIN
--- NOTE | 2018-07-16 07:41 | NUR ---
PHYSICAL THERAPY Nursing screen received. PAtient discharged. Thank you. Opal Fang,PT
[2018-08-10] MEDS ORDERED: TRAZODONE100 MG PO (18:05)
[2018-09-09] MEDS ORDERED: METFORMIN ER500 MG PO (19:50)
[2018-09-09] MEDS ORDERED: PERCOCET 5-3251 EACH PO (19:54)
[2018-09-09] MEDS ORDERED: GABAPENTIN400 MG PO (19:55)
[2018-09-09] MEDS ORDERED: MIRALAX119 GM PO (19:56)
[2018-09-17] MEDS ORDERED: SULFASALAZINE500 M1 PO (14:38)
[2018-09-17] MEDS ORDERED: NATURE'S BLEND F1 MG PO (14:38)
[2018-09-17] MEDS ORDERED: FLAGYL500 MG PO (14:38)
[2018-10-14] MEDS ORDERED: PREDNISONE10 MG PO (19:48)
[2018-10-14] MEDS ORDERED: DOXYCYCLINE100 M3 PO (20:58)
== END 2018-07-15 18:00 | disposition home or self-care (01) | DRG 917 ==
LOC: ED 19:22 → 4E 07-14 00:15 → EDHOLD 07-14 00:15 → 4E 07-14 07:25
PROVIDERS: Internal Medicine; Student in an Organized Health Care Education/Training Program; ADMIT Internal Medicine
DX: T43.592A Poisoning by other antipsychotics and neuroleptics, intentional self-harm, initial encounter (principal); N17.0 Acute kidney failure with tubular necrosis; G93.41 Metabolic encephalopathy; E72.20 Disorder of urea cycle metabolism, unspecified; I50.32 Chronic diastolic (congestive) heart failure; E44.0 Moderate protein-calorie malnutrition; F31.30 Bipolar disorder, current episode depressed, mild or moderate severity, unspecified; J96.10 Chronic respiratory failure, unspecified whether with hypoxia or hypercapnia; I13.0 Hypertensive heart and chronic kidney disease with heart failure and stage 1 through stage 4 chronic kidney disease, or unspecified chronic kidney disease; Z68.1 Body mass index [BMI] 19.9 or less, adult; I95.2 Hypotension due to drugs; T50.995A Adverse effect of other drugs, medicaments and biological substances, initial encounter; I25.10 Atherosclerotic heart disease of native coronary artery without angina pectoris; M79.2 Neuralgia and neuritis, unspecified; E03.9 Hypothyroidism, unspecified; F41.9 Anxiety disorder, unspecified; E61.1 Iron deficiency; T43.212A Poisoning by selective serotonin and norepinephrine reuptake inhibitors, intentional self-harm, initial encounter; T40.2X2A Poisoning by other opioids, intentional self-harm, initial encounter; N18.3 Chronic kidney disease, stage 3 (moderate); E11.22 Type 2 diabetes mellitus with diabetic chronic kidney disease; F13.10 Sedative, hypnotic or anxiolytic abuse, uncomplicated; F11.10 Opioid abuse, uncomplicated; F43.10 Post-traumatic stress disorder, unspecified; Z66 Do not resuscitate; Z51.5 Encounter for palliative care; F17.210 Nicotine dependence, cigarettes, uncomplicated; M19.90 Unspecified osteoarthritis, unspecified site; J43.9 Emphysema, unspecified; E55.9 Vitamin D deficiency, unspecified; G89.4 Chronic pain syndrome; E78.5 Hyperlipidemia, unspecified; K21.9 Gastro-esophageal reflux disease without esophagitis; G43.919 Migraine, unspecified, intractable, without status migrainosus; Z99.81 Dependence on supplemental oxygen; Y92.098 Other place in other non-institutional residence as the place of occurrence of the external cause; Z88.1 Allergy status to other antibiotic agents; Z88.6 Allergy status to analgesic agent; I25.2 Old myocardial infarction; Z87.01 Personal history of pneumonia (recurrent); Z90.49 Acquired absence of other specified parts of digestive tract; Z90.710 Acquired absence of both cervix and uterus; Z83.3 Family history of diabetes mellitus; Z80.8 Family history of malignant neoplasm of other organs or systems; Z81.8 Family history of other mental and behavioral disorders; Z82.49 Family history of ischemic heart disease and other diseases of the circulatory system; Z79.899 Other long term (current) drug therapy; Z91.5 Personal history of self-harm

== ENCOUNTER 2018-07-18 20:37 | Emergency (ER) | payer MEDICARE ==
[~2018-07-18] VITALS: Ht 167.6 cm; Wt 53.1 kg
--- NOTE | ~2018-07-18 | EKG ---
[place], [place] ELECTROCARDIOGRAM REPORT NAME: TRUONG HIRSCH UNIT #: [id number] ROOM: DOCTOR: EPIPHANY DRAFT REPORT BIRTHDATE: [birth year] [facility] Test Date: 2018-07-18 Test Time: 21:28:39 Pat Name: TRUONG HIRSCH Department: ER Room: 20 Gender: F Polisher Balance Screwhead: Deisy Wagner : 1955 Requested By: GRAY ZHANG PA-C Order Number: [id number] Reading MD: Louann Gonzalez MD Measurements Intervals [place] Rate: 70 P: 85 OR: 149 QRS: -70 QRSD: 86 T: 69 QT: 537 QTc: 580 Interpretive Statements Sinus rhythm Biatrial enlargement Left anterior fascicular block Abnormal R-wave progression, late transition Borderline T abnormalities, lateral leads Prolonged QT interval Compared to ECG 01/21/2018 20:52:35 Atrial abnormality now present T-wave abnormality now present Prolonged QT interval now present Atrial premature complex(es) no longer present Electronically Signed On 07-19-2018 9:46:56 PDT by Louann Gonzalez MD CM:EKGRPT:ELECTROCARDIOGRAM REPORT 27 5 GRAY ZHANG PA-C EPIPHANY DRAFT REPORT GRAY ZHANG PA-C
[2018-07-18 20:37] VITALS: BP 126/82
[~2018-07-18 20:37] MED LIST changes: +DULOXETINE HCL30 MG PO; +OXYCODONE HCL10 M1 PO
[2018-07-18 21:32] LABS: BASO # 0.1 10*3/uL (0.0-0.1); BASO % 0.7 % (0.0-1.0); EOS # 0.5 10*3/uL (0.0-0.4); HEMATOCRIT 42.9 % (37.0-47.0); HEMOGLOBIN 14.3 g/dl (12.0-16.0); LYMPH # 3.5 10*3/uL (1.3-4.4); LYMPH % 30.2 % (27.0-41.0); MEAN CELL VOLUME 92.1 fl (81.0-99.0); MEAN CORPUSCULAR HGB 30.7 pg (27.0-31.0); MEAN CORPUSCULAR HGB CONC 33.3 g/dl (33.0-37.0); MEAN PLATELET VOLUME 9.6 fl (9.6-12.3); MONO # 1.2 10*3/uL (0.1-1.0); MONO % 10.7 % (3.0-9.0); NEUT # 6.3 10*3/uL (2.3-7.9); PLATELET COUNT AUTOMATED 275 10*3/uL (130-400); RED BLOOD COUNT 4.66 10*6/uL (4.10-5.10); RED CELL DISTRI WIDTH 13.2 % (0-14.5); WHITE BLOOD COUNT 11.6 10*3/uL (4.8-10.8)
[2018-07-18 21:48] LABS: ALBUMIN 3.3 gm/dl (3.1-4.5); ALKALINE PHOSPHATASE 64 U/L (45-117); BUN 17 mg/dl (7-24); CHLORIDE 102 mmol/L (98-107); CREATININE 1.05 mg/dL (0.55-1.02); ETHYL ALCOHOL < 3.0 mg/dl (<3); POTASSIUM 3.7 mmol/L (3.5-5.1); SGOT/AST 26 IU/L (3-35); SGPT/ALT 17 U/L (12-78); SODIUM 139 mmol/L (136-145); TOTAL PROTEIN 6.3 gm/dL (6.4-8.2)
[2018-07-18 22:11] LABS: BILIRUBIN NEGATIVE (NEGATIVE); BLOOD NEGATIVE (NEGATIVE); CLARITY SL CLOUDY (CLEAR); COLOR YELLOW (YELLOW); GLUCOSE NEGATIVE (NEGATIVE); KETONE NEGATIVE (NEGATIVE); LEUKO ESTERASE 3+ (NEGATIVE); NITRITE POSITIVE (NEGATIVE); UROBILINOGEN 0.2 E.U./dl (0.2-1.0)
[2018-07-18 22:19] LABS: URINE AMPHETAMINES < 1000 (1000ng/ml); URINE BARBITURATES < 200 (200ng/ml); URINE BENZODIAZEPINES < 200 (200ng/ml); URINE CANNABINOIDS (THC) < 50 (50ng/ml); URINE COCAINE < 300 (300ng/ml); URINE METHADONE < 300 (300ng/ml); URINE OPIATES < 300 (300ng/ml)
[2018-07-18 22:21] LABS: BACTERIA 4+; MUCOUS TRACE; WBC TNTC wbc/hpf (0-5)
[2018-07-18 22:24] LABS: URINE PHENCYCLIDINE < 25 (25ng/ml)
[2018-07-19] MEDS ORDERED: 'XANAX0.5 MG PO (00:20)
[2018-08-10] MEDS ORDERED: TRAZODONE100 MG PO (18:05)
[2018-09-09] MEDS ORDERED: METFORMIN ER500 MG PO (19:50)
[2018-09-09] MEDS ORDERED: PERCOCET 5-3251 EACH PO (19:54)
[2018-09-09] MEDS ORDERED: GABAPENTIN400 MG PO (19:55)
[2018-09-09] MEDS ORDERED: MIRALAX119 GM PO (19:56)
[2018-09-17] MEDS ORDERED: NATURE'S BLEND F1 MG PO (14:38)
[2018-09-17] MEDS ORDERED: SULFASALAZINE500 M1 PO (14:38)
[2018-09-17] MEDS ORDERED: FLAGYL500 MG PO (14:38)
[2018-10-14] MEDS ORDERED: PREDNISONE10 MG PO (19:48)
[2018-10-14] MEDS ORDERED: DOXYCYCLINE100 M3 PO (20:58)
== END 2018-07-19 00:34 | disposition left against medical advice (07) ==
LOC: ED 20:37
PROVIDERS: Physician Assistant
DX: R56.9 Unspecified convulsions (principal); R42 Dizziness and giddiness; R55 Syncope and collapse; R22.0 Localized swelling, mass and lump, head; F17.200 Nicotine dependence, unspecified, uncomplicated; Z88.1 Allergy status to other antibiotic agents; Z88.6 Allergy status to analgesic agent; Z79.899 Other long term (current) drug therapy

== ENCOUNTER 2018-08-03 17:10 | Emergency (ER) | payer MEDICARE ==
[~2018-08-03] VITALS: Ht 167.6 cm; Wt 48.5 kg
[~2018-08-03 17:10] MED LIST changes: +'XANAX0.5 MG PO
[2018-08-03 17:12] VITALS: BP 142/87
[2018-08-03 17:35] LABS: BILIRUBIN NEGATIVE (NEGATIVE); BLOOD 3+ (NEGATIVE); CLARITY SL CLOUDY (CLEAR); COLOR YELLOW (YELLOW); GLUCOSE NEGATIVE (NEGATIVE); KETONE NEGATIVE (NEGATIVE); LEUKO ESTERASE 3+ (NEGATIVE); NITRITE NEGATIVE (NEGATIVE); SPECIFIC GRAVITY <= 1.005 (1.005-1.030); UROBILINOGEN 0.2 E.U./dl (0.2-1.0)
[2018-08-03 17:42] LABS: BACTERIA 2+; WBC TNTC wbc/hpf (0-5)
[2018-08-03] MEDS ORDERED: KEFLEX500 M1 PO (17:45)
[2018-08-10] MEDS ORDERED: TRAZODONE100 MG PO (18:05)
[2018-09-09] MEDS ORDERED: METFORMIN ER500 MG PO (19:50)
[2018-09-09] MEDS ORDERED: PERCOCET 5-3251 EACH PO (19:54)
[2018-09-09] MEDS ORDERED: GABAPENTIN400 MG PO (19:55)
[2018-09-09] MEDS ORDERED: MIRALAX119 GM PO (19:56)
[2018-09-17] MEDS ORDERED: NATURE'S BLEND F1 MG PO (14:38)
[2018-09-17] MEDS ORDERED: FLAGYL500 MG PO (14:38)
[2018-09-17] MEDS ORDERED: SULFASALAZINE500 M1 PO (14:38)
[2018-10-14] MEDS ORDERED: PREDNISONE10 MG PO (19:48)
[2018-10-14] MEDS ORDERED: DOXYCYCLINE100 M3 PO (20:58)
== END 2018-08-03 17:48 | disposition home or self-care (01) ==
LOC: ED 17:10
PROVIDERS: Physician Assistant
DX: N39.0 Urinary tract infection, site not specified (principal); F17.200 Nicotine dependence, unspecified, uncomplicated; Z88.1 Allergy status to other antibiotic agents; Z88.6 Allergy status to analgesic agent; Z79.899 Other long term (current) drug therapy; Z79.84 Long term (current) use of oral hypoglycemic drugs; Z90.710 Acquired absence of both cervix and uterus; Z90.49 Acquired absence of other specified parts of digestive tract

== ENCOUNTER 2018-08-14 10:32 | Emergency (ER) | payer MEDICARE ==
[~2018-08-14] VITALS: Wt 51.7 kg
--- NOTE | ~2018-08-14 | EKG ---
[place], [place] ELECTROCARDIOGRAM REPORT NAME: TRUONG HIRSCH UNIT #: [id number] ROOM: DOCTOR: EPIPHANY DRAFT REPORT BIRTHDATE: [birth year] [facility] Test Date: 2018-08-14 Test Time: 10:39:53 Pat Name: TRUONG HIRSCH Department: Room: Gender: F Palliative Nurse: : 1955 Requested By: DAVID CERON Order Number: [id number] Reading MD: Doug Ballesteros MD Measurements Intervals [place] Rate: 85 P: 85 [place]: 126 QRS: -25 QRSD: 82 T: 79 QT: 379 QTc: 451 Interpretive Statements Sinus rhythm Biatrial enlargement Borderline left axis deviation Compared to ECG 08/10/2018 21:05:34 No significant changes Electronically Signed On 08-16-2018 10:44:19 PDT by Doug Ballesteros MD CM:EKGRPT:ELECTROCARDIOGRAM REPORT [id number] 1044 DAVID LUQUE DRAFT REPORT DAVID CERON MD
[~2018-08-14 10:32] MED LIST changes: +KEFLEX500 M1 PO
[2018-08-14 10:37] VITALS: BP 155/93
[2018-08-14 11:18] LABS: HEMATOCRIT 47.3 % (37.0-47.0); HEMOGLOBIN 15.1 g/dl (12.0-16.0); MEAN CELL VOLUME 93.3 fl (81.0-99.0); MEAN CORPUSCULAR HGB 29.8 pg (27.0-31.0); MEAN CORPUSCULAR HGB CONC 31.9 g/dl (33.0-37.0); MEAN PLATELET VOLUME 9.4 fl (9.6-12.3); NUCLEATED RED BLOOD CELL 0.2 % (0.0-0.0); PLATELET COUNT AUTOMATED 456 10*3/uL (130-400); RED BLOOD COUNT 5.07 10*6/uL (4.10-5.10); RED CELL DISTRI WIDTH 14.8 % (0-14.5); WHITE BLOOD COUNT 16.4 10*3/uL (4.8-10.8)
[2018-08-14 11:29] LABS: ACT PARTIAL THROMBO TIME 25.4 SECONDS (20.0-32.1); INTERNATIONAL NORM RATIO 0.9 (2.0-3.5)
[2018-08-14 11:47] LABS: PLATELET SUFFICIENCY HIGH (NORMAL); TOTAL CELLS COUNTED 100 #CELLS
[2018-08-14 12:10] LABS: ALBUMIN 3.5 gm/dl (3.1-4.5); ALKALINE PHOSPHATASE 111 U/L (45-117); BUN 18 mg/dl (7-24); CHLORIDE 99 mmol/L (98-107); POTASSIUM 4.3 mmol/L (3.5-5.1); SGOT/AST 23 IU/L (3-35); SGPT/ALT 44 U/L (12-78); SODIUM 138 mmol/L (136-145); TOTAL PROTEIN 7.3 gm/dL (6.4-8.2)
[2018-08-14 12:14] LABS: TROPONIN I < 0.015 ng/ml (<0.045)
[2018-08-14] MEDS ORDERED: CYCLOBENZAPRINE5 M3 PO (18:19)
[2018-08-14] MEDS ORDERED: VENTOLIN 02.5 MG/3 M INH (18:22)
[2018-08-14] MEDS ORDERED: PROAIR HFA8.5 GM INH (18:22)
[2018-08-14] MEDS ORDERED: IBUPROFEN400 MG PO (18:23)
[2018-08-14] MEDS ORDERED: PERCOCET 10-321 EACH PO (18:37)
[2018-09-09] MEDS ORDERED: METFORMIN ER500 MG PO (19:50)
[2018-09-09] MEDS ORDERED: PERCOCET 5-3251 EACH PO (19:54)
[2018-09-09] MEDS ORDERED: GABAPENTIN400 MG PO (19:55)
[2018-09-09] MEDS ORDERED: MIRALAX119 GM PO (19:56)
[2018-09-17] MEDS ORDERED: FLAGYL500 MG PO (14:38)
[2018-09-17] MEDS ORDERED: SULFASALAZINE500 M1 PO (14:38)
[2018-09-17] MEDS ORDERED: NATURE'S BLEND F1 MG PO (14:38)
[2018-10-14] MEDS ORDERED: PREDNISONE10 MG PO (19:48)
[2018-10-14] MEDS ORDERED: DOXYCYCLINE100 M3 PO (20:58)
== END 2018-08-14 12:05 | disposition left against medical advice (07) ==
LOC: ED 10:32
PROVIDERS: Emergency Medicine
DX: R07.89 Other chest pain (principal); R06.02 Shortness of breath; E11.9 Type 2 diabetes mellitus without complications; E78.00 Pure hypercholesterolemia, unspecified; I10 Essential (primary) hypertension; F17.200 Nicotine dependence, unspecified, uncomplicated; Z88.1 Allergy status to other antibiotic agents; Z88.0 Allergy status to penicillin; Z88.6 Allergy status to analgesic agent; Z79.2 Long term (current) use of antibiotics; Z79.899 Other long term (current) drug therapy; Z79.84 Long term (current) use of oral hypoglycemic drugs; Z98.61 Coronary angioplasty status; Z90.710 Acquired absence of both cervix and uterus; Z90.49 Acquired absence of other specified parts of digestive tract

== ENCOUNTER 2018-08-14 15:43 | Inpatient (IN) | payer MEDICARE ==
[~2018-08-14] VITALS: Ht 167.6 cm; Wt 49.5 kg
--- NOTE | ~2018-08-14 | PR ---
[place], [place] PROGRESS NOTE NAME: TRUONG HIRSCH UNIT #: [id number] ROOM: 404 DOCTOR: MORENITA JIM MD BIRTHDATE: [birth year] DOS: 08/16/2018 PULMONARY PROGRESS NOTE SUBJECTIVE: The patient is independently seen and examined in upox-ck-lskg encounter, history was confirmed. Physical examination performed. Labs were reviewed. The assessment and management for today's visit was personally completed. Note done by the medical claims assistant was approved. The patient noted comfortable at this time, resting on the bed this morning of assessment. She has been noted with continued improvement and resolution of the acute respiratory symptoms or plan for possible home discharge today. There is no symptoms of chest pain, fever, or chills reported. The patient has been noted with mild cough. OBJECTIVE: VITAL SIGNS: For the patient, which has been recorded this morning, the patient has a normal temperature, respiratory rate of 19, heart rate 81, blood pressure 133/68. The pulse oxygen saturation recorded as 93% saturation on room air. HEENT: Examination shows head was atraumatic. Eyes nonicterus. NECK: Supple. CARDIOVASCULAR: S1, S2 audible. LUNGS: Clear to auscultation bilaterally. ABDOMEN: Soft, nontender. Bowel sounds present. EXTREMITIES: No acute change. LABORATORY DATA: Blood culture, which was done on 08/14/2018 showed no bacterial growth. IMPRESSION: Stable respiratory status was noted at the present time with presumed possibility of pneumonia versus nodule in the right mid lung, a localized area of atelectasis with acute exacerbation of chronic obstructive pulmonary disease. PLAN OF TREATMENT: Discharge the patient home with short term followup. CT scan to exclude any malignant process in the right lung. Abstinent of tobacco use was recommended. [place], [place] PROGRESS NOTE NAME: TRUONG HIRSCH UNIT #: [id number] ROOM: 404 DOCTOR: MORENITA JIM MD BIRTHDATE: [birth year] MORENITA MARQUEZ MD CM:PNTRANS [id number] MORENITA RYAN MD 08/27/18 1015 interface
--- NOTE | ~2018-08-14 | CON ---
[place], [place] REPORT OF CONSULTATION [id number] #: [id number] ROOM: 404 DOCTOR: MORENITA JIM MD BIRTHDATE: [birth year] DOS: 08/15/2018 PULMONARY CONSULTATION The patient independently seen and examined, [id number] encounter, history was confirmed. Labs were reviewed. Assessment and management for today's visit was completed. HISTORY OF PRESENT ILLNESS: This is a 63-year-old white female patient who was recently admitted to the hospital for the medical and acute exacerbation of chronic obstructive pulmonary disease and acute bronchitis. The patient was treated in this hospital and did sign against medical advice. The patient left the hospital as she would like to get some steroid injection given to sacroiliac joint. The patient received the shots and presented back to the hospital yesterday again in the morning to the Emergency Room for further assessment. The patient reported having ongoing symptoms of shortness of breath that has been noted worsened. REVIEW OF SYSTEMS: The one which is already completed by the medical dir was approved. PAST MEDICAL HISTORY, SURGICAL HISTORY, SOCIAL HISTORY, FAMILY HISTORY: Reviewed since my consultation, which was completed on her recent admission on 08/11/2018 again and remains completely unchanged. Refer to the document for any information needed, which is available in the [facility] document. CURRENT MEDICATIONS: Administered for this hospitalization were noted as IV Solu-Medrol 40 mg b.i.d., Lovenox for DVT prophylaxis, omeprazole, levothyroxine, Cymbalta, Geodon, Flexeril, trazodone, Depakote, Mucinex, hydroxyzine, Requip, nicotine replacement patches, IV Rocephin, and Zithromax. DRUG ALLERGY HISTORY: The patient noted as allergy: 1. PENICILLIN. 2. VICODIN. 3. ERYTHROMYCIN. 4. DILAUDID. 5. AVELOX. PHYSICAL EXAMINATION: GENERAL: This is a 63-year-old female patient currently comfortably resting in the bed this morning of assessment with height were recorded as 5 feet 6 inches, weight 109 pounds, BMI 17.6. VITAL SIGNS: Normal temperature since hospitalization last 24 hours, respiratory rate 17-20. Heart rate recorded at 82-72. The blood pressure 128/78-162/90. Pulse oxygen saturation recorded on 4 liters nasal cannula 99% saturation. HEENT: Examination shows head was atraumatic. Eyes nonicterus. NECK: Supple. CARDIOVASCULAR: S1, S2 audible. LUNGS: The patient noted eszu-db-[id number] decreased breath sounds. There is no [place], [place] REPORT OF CONSULTATION NAME: TRUONG HIRSCH UNIT #: [id number] ROOM: 404 DOCTOR: MORENITA JIM MD BIRTHDATE: [birth year] wheezing or crackles heard at the present time. ABDOMEN: Flat, soft, nontender. Bowel sounds present. EXTREMITIES: Loss of muscle mass, which is a chronic finding. VISIBLE SKIN: No lesions or rashes. CENTRAL NERVOUS SYSTEM: Cranial nerves 2-12 intact. LABORATORY DATA: Reviewed for this consultation. The chest x-ray shows hyperinflated lung changes of COPD yesterday. CT scan chest that was personally reviewed from the PACS images shows pleural based atelectasis noticed small nodule formation at the junction of the right upper and the right middle lobe minor fissure area. In addition to small subpleural infiltration noted in the lateral subsegment of the right lower lobe as well. Changes of COPD and emphysema were present. CBC that was done yesterday, WBC count 15.9, hemoglobin 15.9, platelet count 482,000. Lactic acid 3.4-1.9. The CMP that was done on 07/14/2018, normal BUN and creatinine. CO2 of 34. CMP of this morning, glucose 151, BUN and creatinine was normal. CBC this morning, WBC count 16.3, normal hemoglobin, hematocrit and platelets. PT and PTT that was done yesterday, was noted as negative study. IMPRESSION: 1. The patient who has been currently admitted to the hospital with ongoing acute exacerbation of chronic obstructive pulmonary disease, incomplete treatment, left the hospital previously. 2. History of chronic hypoxic respiratory failure and continued chronic nicotine dependence. 3. Metabolic alkalosis secondary to that. 4. Rule out two pulmonary nodule in the right lung has seen possibility of localized infection with small atelectasis will remain in the differential diagnosis. PLAN OF MANAGEMENT: Continue the patient's current antibiotic, community-acquired infection. Use of bronchodilators, corticosteroids and other treatment. Nicotine replacement patches. Outpatient assessment with short-term, followup CT scan in the next 2-3 months. The patient document the resolution of pulmonary abnormality as a cancer need to be excluded. Other therapy, plan and management, additional treatment changes will be ordered based on the progression of the illness. [place], [place] REPORT OF CONSULTATION NAME: TRUONG HIRSCH UNIT #: [id number] ROOM: [facility] DOCTOR: JIMMY RYAN MD,MORENITA BIRTHDATE: [birth year] MORENITA MARQUEZ MD CM:CONSTR:REPORT OF CONSULTATION 1303 08/27/18 1012 interface
--- NOTE | ~2018-08-14 | CON ---
[place], [place] REPORT OF CONSULTATION NAME: TRUONG HIRSCH [facility] #: [id number] UNIT #: [id number] ROOM: 404 DOCTOR: MANNY WRAY DO BIRTHDATE: [birth year] DOS: 08/15/2018 PULMONARY CONSULTATION NOTE REASON FOR CONSULTATION: Consultation was requested by hospitalist service for assessment of COPD. HISTORY OF PRESENT ILLNESS: This is a 63-year-old female who presented to the hospital with increased shortness of breath for about past 5 days. The patient was admitted 08/11/2018; however, she decided to leave the hospital against medical advice. The patient states that her breathing is now better and continues to be short of breath with a productive cough of yellowish sputum. The patient states that she is also wheezing as well. The patient decided to come back to the hospital for evaluation. The patient denies hemoptysis. REVIEW OF SYSTEMS: CONSTITUTIONAL: The patient reports she is fatigued and tired, but denied any fevers or chills. EYES: Denies burning, redness, or tenderness. EARS, NOSE, AND THROAT: The patient denies sore throat, hoarseness, ear pain, changes in vision, hearing, smell or taste. The patient denied any nosebleed. CARDIOVASCULAR: The patient denies chest pain, lower extremity edema, or palpitations. GASTROINTESTINAL: The patient denies any dysphagia, nausea, vomiting, diarrhea, abdominal pain, constipation, hematemesis, melena, hematochezia, or dysphagia. GENITOURINARY: The patient denies dysuria, hematuria or frequency. SKIN: The patient denies any lesions or rashes. CENTRAL NERVOUS SYSTEM: The patient denies dizziness, headaches, double vision, or syncopal episodes. Remaining review of systems were all noted to be negative. PAST MEDICAL HISTORY: 1. COPD. 2. Recurrent tracheobronchitis. 3. End-stage COPD. 4. Chronic hypoxic respiratory failure. 5. Chronic hypercapnic respiratory failure. 6. Migraines. 7. Cachexia. 8. Bipolar disorder. 9. Intervertebral disk disease. 10. CAD. PAST SURGICAL HISTORY: 1. PEG tube placement as well as removal. 2. Hysterectomy. 3. Appendectomy. 4. Rhinoplasty. 5. Right rotator cuff repair. 6. Foot surgery. [place], [place] REPORT OF CONSULTATION NAME: TRUONG HIRSCH [facility] #: [id number] UNIT #: [id number] ROOM: 404 DOCTOR: MANNY WRAY DO BIRTHDATE: [birth year] 7. Tonsillectomy. 8. Heart catheterization. 9. Fiberoptic bronchoscopy in 2018. SOCIAL HISTORY: The patient is , with two children. History of tobacco use, the patient smoked up to 2 packs a day. The patient occasionally still currently smokes. FAMILY HISTORY: The patient's father at the age of 32 from complications related to diabetes. The patient's mother at the age of 62 from brain cancer versus brain mets, documentation is not clear. MEDICATIONS: The patient takes metoprolol, trazodone, levothyroxine, omeprazole, Geodon, Cymbalta, Depakote, Mucinex, and Xanax. Following the patient, the patient is on additionally Solu-Medrol 40 mg b.i.d., sliding scale insulin, azithromycin, ceftriaxone, and Lovenox for DVT prophylaxis. DRUG ALLERGIES: THE PATIENT IS ALLERGIC TO VICODIN, DILAUDID, PENICILLIN, ERYTHROMYCIN. PHYSICAL EXAMINATION: GENERAL: The patient is a 63-year-old female. The patient is cachectic appearing. VITAL SIGNS: The patient's temperature is 97.6, pulse is 82, respiratory rate 20, blood pressure is 128/78, pulse ox is 98% on 4 liters by nasal cannula. HEENT: Normocephalic, atraumatic. Eyes nonicteric. NECK: Supple, nontender, trachea midline. CARDIOVASCULAR: S1, S2 audible. LUNGS: Diminished breath sounds bilaterally. No wheezes or crackles. ABDOMEN: Soft, nontender and flat. EXTREMITIES: No acute edema, clubbing or cyanosis. MUSCULOSKELETAL: No acute deformities. CENTRAL NERVOUS SYSTEM: 2-12 grossly intact. No focal deficits. LABORATORY DATA: White count of 16.3, hemoglobin is 13.9, hematocrit 44.3, platelets are 393. Chemistry: Sodium 140, potassium 4.3, chloride 107, carbon dioxide 24, BUN 22, creatinine 0.76 with a glucose of 151. IMPRESSION: 1. Chest CT, mild chronic obstructive pulmonary disease, mild consolidations of the peripheral right lung, possible scarring; however, the imaging is concerning for signs of infection as well. 2. Coronary artery disease. 3. Exacerbation of chronic obstructive pulmonary disease. 4. Pneumonia. 5. Possible viral bronchitis. PLAN: The patient should remain on steroids as well as antibiotics. Continue DVT prophylaxis. Continue bronchodilators, albuterol. Nicotine replacement should be used. Obtain sputum. No changes based on progression of illness. [place], [place] REPORT OF CONSULTATION NAME: TRUONG HIRSCH UNIT #: [id number] ROOM: [facility] DOCTOR: MANNY WRAY DO BIRTHDATE: [birth year] Rehan Wray DO MORENITA MARQUEZ MD CM:CONSTR:REPORT OF CONSULTATION 1331 08/16/18 0613 interface
--- NOTE | ~2018-08-14 | EKG ---
[place], [place] ELECTROCARDIOGRAM REPORT NAME: TRUONG HIRSCH UNIT #: [id number] ROOM: 404 DOCTOR: REBEL DRAFT REPORT BIRTHDATE: [birth year] [facility] Test Date: 2018-08-14 Test Time: 15:52:17 Pat Name: TRUONG HIRSCH Department: Room: 404 Gender: F Supervisor Cigar Making Hand: : 1955 Requested By: DAVID CERON Order Number: [id number] Reading MD: Berenice Ann Measurements Intervals [place] Rate: 96 P: 82 NM: 123 QRS: -65 QRSD: 76 T: 80 QT: 414 QTc: 524 Interpretive Statements Sinus rhythm Biatrial enlargement Left anterior fascicular block Nonspecific T abnrm, anterolateral leads Prolonged QT interval Baseline wander in lead(s) II,III,aVF,V2,V3 Compared to ECG 08/10/2018 21:05:34 Left anterior fascicular block now present Prolonged QT interval now present Left-axis deviation no longer present Electronically Signed On 08-15-2018 4:34:58 PDT by Berenice Ann CM:EKGRPT:ELECTROCARDIOGRAM REPORT [id number] DAVID LUQUE DRAFT REPORT DAVID CERON MD
--- NOTE | 2018-08-14 15:53 | NUR ---
PATIENT REFUSES TO BE PUT ON WAXER OPERATOR BECAUSE OF HER DNR STATUS
[2018-08-14 15:54] VITALS: BP 183/109
[2018-08-14 15:58] VITALS: BP 154/100
[2018-08-14 16:24] LABS: HEMATOCRIT 49.4 % (37.0-47.0); HEMOGLOBIN 15.8 g/dl (12.0-16.0); MEAN CELL VOLUME 94.1 fl (81.0-99.0); MEAN CORPUSCULAR HGB 30.1 pg (27.0-31.0); MEAN PLATELET VOLUME 9.6 fl (9.6-12.3); PLATELET COUNT AUTOMATED 482 10*3/uL (130-400); RED BLOOD COUNT 5.25 10*6/uL (4.10-5.10); RED CELL DISTRI WIDTH 14.6 % (0-14.5); WHITE BLOOD COUNT 15.9 10*3/uL (4.8-10.8)
[2018-08-14 16:37] LABS: ACT PARTIAL THROMBO TIME 26.3 SECONDS (20.0-32.1); INTERNATIONAL NORM RATIO 0.9 (2.0-3.5)
[2018-08-14 16:46] LABS: ALBUMIN 3.6 gm/dl (3.1-4.5); BUN 19 mg/dl (7-24); CHLORIDE 97 mmol/L (98-107); CREATININE 0.85 mg/dL (0.55-1.02); SGOT/AST 24 IU/L (3-35); SGPT/ALT 45 U/L (12-78); SODIUM 137 mmol/L (136-145); TOTAL PROTEIN 8.3 gm/dL (6.4-8.2)
[2018-08-14 16:49] LABS: ALKALINE PHOSPHATASE 127 U/L (45-117)
[2018-08-14 16:50] LABS: TROPONIN I < 0.015 ng/ml (<0.045)
--- NOTE | 2018-08-14 17:00 | NUR ---
KETAMINE DRIP DECREASED RATE PER DR CERON REQUEST TO 100ML/HR
[2018-08-14 17:12] LABS: TOTAL CELLS COUNTED 100 #CELLS
[2018-08-14 17:13] LABS: PLATELET SUFFICIENCY HIGH (NORMAL); POLYCHROMASIA SLIGHT
[2018-08-14 17:27] VITALS: BP 179/96
[2018-08-14 18:08] VITALS: BP 177/94
[2018-08-14] MEDS ORDERED: CYCLOBENZAPRINE5 M3 PO (18:19)
[2018-08-14] MEDS ORDERED: PROAIR HFA8.5 GM INH (18:22)
[2018-08-14] MEDS ORDERED: VENTOLIN 02.5 MG/3 M INH (18:22)
[2018-08-14] MEDS ORDERED: IBUPROFEN400 MG PO (18:23)
[2018-08-14 18:30] VITALS: BP 151/103
--- NOTE | 2018-08-14 18:30 | NUR ---
Time: 1829 A 63 year old FEMALE admitted to under services of DR. BERTHA ALBA,CORRY. Pt. arrived via stretcher from ER. Chief complaint: SHORTNESS OF BREATH/NEBULIZER AT HOME IS BROKEN, AND SEVERE BACK PAIN. GILBERTO VERA
[2018-08-14] MEDS ORDERED: PERCOCET 10-321 EACH PO (18:37)
--- NOTE | 2018-08-14 18:49 | NUR ---
PER MARITZA VELA PHARMACIST, PATIENT IS NOT PRESCRIBED PERCOCET AT HOME, AND TOPROL XL IS PRESCRIBED ONCE DAILY, NOT TWICE, AND XANAX IS PRESCRIBED TWICE/DAY NOT 3X DAY REPORTED BY PATIENT. UPDATING MED REC ACCORDINGLY.
--- NOTE | 2018-08-14 19:02 | NUR ---
Pt refused second and third EKG.
--- NOTE | 2018-08-14 19:46 | NUR ---
MEDICATED WITH PRN IV MORPHINE FOR BACK PAIN.
[2018-08-14 20:00] VITALS: BP 162/90; BP 188/95
--- NOTE | 2018-08-14 20:07 | NUR ---
DR MARQUEZ NOTIFIED OF CONSULT.
--- NOTE | 2018-08-14 20:12 | NUR ---
NOTIFIED DR LA OF PATIENTS MANUAL BP 162/90. STATED TO WATCH IT FOR NOW. NO NEW ORDERS.
--- NOTE | 2018-08-14 20:19 | NUR ---
ATTEMPTED TO CALL RESIDENTS TO REPORT MANUAL BP 162/90. NO ANSWER AT THIS TIME
[2018-08-15] VITALS: BP 143/85
--- NOTE | 2018-08-15 03:41 | NUR ---
PATIENT MEDICATED WITH 1X DOSE TORADOL ORDERED IN RIGHT DETLOID FOR C/O TAILBONE AND LUNG PAIN RATED 6/10. WILL FOLLOW UP.
--- NOTE | 2018-08-15 05:08 | NUR ---
PATIENT MEDICATED WITH PRN MORPHINE ORDERED FOR C/O BACK/TAILBONE PAIN RATED 7/10
[2018-08-15 06:08] LABS: ALBUMIN 2.6 gm/dl (3.1-4.5); ALKALINE PHOSPHATASE 98 U/L (45-117); BUN 22 mg/dl (7-24); CHLORIDE 107 mmol/L (98-107); CREATININE 0.76 mg/dL (0.55-1.02); PHOSPHOROUS 4.5 mg/dL (2.5-4.9); SGOT/AST 17 IU/L (3-35); SGPT/ALT 30 U/L (12-78); SODIUM 140 mmol/L (136-145); TOTAL PROTEIN 6.2 gm/dL (6.4-8.2)
[2018-08-15 06:14] LABS: THYROID STIM HORMONE (HS) 0.086 uIU/ml (0.358-4.75)
[2018-08-15 06:17] LABS: HEMATOCRIT 44.3 % (37.0-47.0); HEMOGLOBIN 13.9 g/dl (12.0-16.0); MEAN CELL VOLUME 94.5 fl (81.0-99.0); MEAN CORPUSCULAR HGB 29.6 pg (27.0-31.0); MEAN CORPUSCULAR HGB CONC 31.4 g/dl (33.0-37.0); MEAN PLATELET VOLUME 9.6 fl (9.6-12.3); PLATELET COUNT AUTOMATED 393 10*3/uL (130-400); RED BLOOD COUNT 4.69 10*6/uL (4.10-5.10); RED CELL DISTRI WIDTH 14.6 % (0-14.5); WHITE BLOOD COUNT 16.3 10*3/uL (4.8-10.8)
[2018-08-15 06:47] LABS: POTASSIUM 4.3 mmol/L (3.5-5.1)
[2018-08-15 07:11] LABS: POLYCHROMASIA SLIGHT; TOTAL CELLS COUNTED 100 #CELLS
[2018-08-15 07:14] LABS: PLATELET SUFFICIENCY NORMAL (NORMAL)
[2018-08-15 08:00] VITALS: BP 128/78
--- NOTE | 2018-08-15 09:00 | NUR ---
Tool Machine Set Up Operator in to talk to patient. Patient states lives at home with boyfriend. There are few steps in the home. Physician: raquel claudio [facility]acy: [facility] Home health services: none Patient's level of ADLs: BEDFAST Patient has working utilities: all working DME: home oxygen, mebulizer Follow-up physician's appointment after d/c: will be made by hospitalist nurse director upon discharge Does patient want to access PORTAL?: no Discharge plan discussed with patient, patient lives at home with friend, she states she is independent in adls and ambulation, has home oxygen and a nebulizer. patient states she has a child care center administrator sunday thru Sunday and receives 14 frozen meals from her insurance company every 2 weeks, discussed with patient home services, she stated she has hospice in the past and would like to have their services in her home again, she stated she would like community hospice service planner will notify [facility] that patient would like to have their services at home. JAYDE JAY
--- NOTE | 2018-08-15 10:28 | NUR ---
PT WAS INSTRUCTED ON FLUTTER. PT TOLERATED WELL. PT CAN DO ON HER OWN
[2018-08-15 12:00] VITALS: BP 127/70
--- NOTE | 2018-08-15 12:08 | NUR ---
PT RESTING AT THIS TIME. SHE ACCIDENTALLY PULLED OUT HER IV THIS AM. REPLACE WITH A 22 IN RIGHT FOREARM. NO ISSUES. C'S/O OF PAIN RELIEVED WITH IV MORPHINE PERSCRIBED. (SEE EMAR). PLEASANT AND COOPERATIVE.
--- NOTE | 2018-08-15 13:28 | NUR ---
Patient is requesting a referral for [facility] to follow at home. Received order and faxed referral.
--- NOTE | 2018-08-15 14:20 | NUR ---
Nursing screen received and chart review completed. Patient has requested community hospice at home upon discharge. She was independent at home with her boyfriend. At this time no OT is indicated. Thank you. Ceci Gonzalez OTR/L
--- NOTE | 2018-08-15 14:37 | NUR ---
case management received a call from Neptali at [facility], Per Neptali, their company is unable to accept patient at this time
--- NOTE | 2018-08-15 14:44 | NUR ---
case management visits with patient, informed her that [facility] hospice is unable to accept her at this time, discussed with her another hospice company, patient would like case management to consult [facility].
--- NOTE | 2018-08-15 14:50 | NUR ---
[facility] unable to accept this patient, patient is now asking referral be faxed to [facility]. contacted facility and faxed referral.
[2018-08-15 16:00] VITALS: BP 111/64
--- NOTE | 2018-08-15 16:33 | NUR ---
PT GIVEN MORPHINE FOR C/O GENERALIZED PAIN. WILL MONITOR FOR EFFECTIVENESS. CALL LIGHT IN REACH.
--- NOTE | 2018-08-15 17:33 | NUR ---
MORPHINE EFFECTIVE PER PT.
--- NOTE | 2018-08-15 18:53 | NUR ---
PT ASKS NURSE TO CALL DR TO INQUIRE ABOUT CHANGING HER MORPHINE MEDICATION TO PERCOCET. PHYSICIAN DECLINED TO CHANGE MEDICATION. PT AWARE.
[2018-08-15 20:00] VITALS: BP 140/83
--- NOTE | 2018-08-15 22:22 | NUR ---
PATIENT MEDICATED WITH PRN MORPHINE ORDERED FOR C/O TAILBONE/LUNG PAIN RATED 7/10
[2018-08-16] VITALS: BP 122/74
--- NOTE | 2018-08-16 02:00 | NUR ---
PATIENT SLEEPING. NO S/S OF DISTRESS NOTED. CALL LIGHT IN REACH
[2018-08-16 06:19] LABS: HEMATOCRIT 38.9 % (37.0-47.0); HEMOGLOBIN 12.2 g/dl (12.0-16.0); MEAN CELL VOLUME 94.6 fl (81.0-99.0); MEAN CORPUSCULAR HGB 29.7 pg (27.0-31.0); MEAN CORPUSCULAR HGB CONC 31.4 g/dl (33.0-37.0); MEAN PLATELET VOLUME 9.6 fl (9.6-12.3); PLATELET COUNT AUTOMATED 486 10*3/uL (130-400); RED BLOOD COUNT 4.11 10*6/uL (4.10-5.10); RED CELL DISTRI WIDTH 14.7 % (0-14.5); WHITE BLOOD COUNT 15.9 10*3/uL (4.8-10.8)
[2018-08-16 06:38] LABS: BUN 23 mg/dl (7-24); CHLORIDE 108 mmol/L (98-107); CREATININE 0.74 mg/dL (0.55-1.02); POTASSIUM 4.3 mmol/L (3.5-5.1); SODIUM 141 mmol/L (136-145)
[2018-08-16 07:24] LABS: PLATELET SUFFICIENCY HIGH (NORMAL); TOTAL CELLS COUNTED 100 #CELLS
[2018-08-16 07:25] LABS: POLYCHROMASIA SLIGHT
--- NOTE | 2018-08-16 09:00 | NUR ---
case management visits with patient, patient will be going home when able. [facility] hospice will see patient, no other needs at this time
[2018-08-16 09:47] VITALS: BP 86/74
[2018-08-16 11:34] VITALS: BP 133/68
--- NOTE | 2018-08-16 12:14 | NUR ---
PHYSICAL THERAPY Nursing screen received. Chart review complete. Recommend normal daily mobility with nursing prn. If difficulties with mobilty arise, please order PT when medically appropriate. Thank you. Opal Fang,PT
--- NOTE | 2018-08-16 12:32 | NUR ---
Patient signed out AMA. Patient encouraged to stay and advised of possible consequences of premature discharge. Physician DR ELMORE and district plant supervisor MAYRA notified. Patient instructed what to do regarding care post-departure from the hospital; emergency phone numbers provided. Patent was accompanied by NO ONE. GRAY THOMPSON
--- NOTE | 2018-08-16 12:32 | NUR ---
PATIENT SIGNED OUT AMA. NOTIFIED DR ELMORE
[2018-09-09] MEDS ORDERED: METFORMIN ER500 MG PO (19:50)
[2018-09-09] MEDS ORDERED: PERCOCET 5-3251 EACH PO (19:54)
[2018-09-09] MEDS ORDERED: GABAPENTIN400 MG PO (19:55)
[2018-09-09] MEDS ORDERED: MIRALAX119 GM PO (19:56)
[2018-09-17] MEDS ORDERED: SULFASALAZINE500 M1 PO (14:38)
[2018-09-17] MEDS ORDERED: NATURE'S BLEND F1 MG PO (14:38)
[2018-09-17] MEDS ORDERED: FLAGYL500 MG PO (14:38)
[2018-10-14] MEDS ORDERED: PREDNISONE10 MG PO (19:48)
[2018-10-14] MEDS ORDERED: DOXYCYCLINE100 M3 PO (20:58)
== END 2018-08-16 12:32 | disposition left against medical advice (07) | DRG 951 ==
LOC: ED 15:43 → 4E 17:24 → EDHOLD 17:24 → 4E 17:40
PROVIDERS: Emergency Medicine; Student in an Organized Health Care Education/Training Program; ADMIT Internal Medicine
DX: Z71.6 Tobacco abuse counseling (principal); J15.6 Pneumonia due to other Gram-negative bacteria; J44.0 Chronic obstructive pulmonary disease with (acute) lower respiratory infection; E44.0 Moderate protein-calorie malnutrition; E87.2 Acidosis; I50.32 Chronic diastolic (congestive) heart failure; J98.11 Atelectasis; J96.10 Chronic respiratory failure, unspecified whether with hypoxia or hypercapnia; E87.3 Alkalosis; J44.1 Chronic obstructive pulmonary disease with (acute) exacerbation; I25.10 Atherosclerotic heart disease of native coronary artery without angina pectoris; E87.8 Other disorders of electrolyte and fluid balance, not elsewhere classified; D47.3 Essential (hemorrhagic) thrombocythemia; E03.9 Hypothyroidism, unspecified; N18.3 Chronic kidney disease, stage 3 (moderate); D72.810 Lymphocytopenia; F31.9 Bipolar disorder, unspecified; M19.90 Unspecified osteoarthritis, unspecified site; Z66 Do not resuscitate; Z51.5 Encounter for palliative care; E55.9 Vitamin D deficiency, unspecified; E11.22 Type 2 diabetes mellitus with diabetic chronic kidney disease; R91.8 Other nonspecific abnormal finding of lung field; Z53.21 Procedure and treatment not carried out due to patient leaving prior to being seen by health care provider; G89.4 Chronic pain syndrome; E11.65 Type 2 diabetes mellitus with hyperglycemia; E78.5 Hyperlipidemia, unspecified; G43.909 Migraine, unspecified, not intractable, without status migrainosus; F43.10 Post-traumatic stress disorder, unspecified; F17.210 Nicotine dependence, cigarettes, uncomplicated; F41.0 Panic disorder [episodic paroxysmal anxiety]; K21.9 Gastro-esophageal reflux disease without esophagitis; Z99.81 Dependence on supplemental oxygen; Z88.1 Allergy status to other antibiotic agents; Z88.0 Allergy status to penicillin; Z88.6 Allergy status to analgesic agent; I25.2 Old myocardial infarction; Z87.01 Personal history of pneumonia (recurrent); Z91.5 Personal history of self-harm; Z90.49 Acquired absence of other specified parts of digestive tract; Z90.710 Acquired absence of both cervix and uterus; Z80.8 Family history of malignant neoplasm of other organs or systems; Z83.3 Family history of diabetes mellitus; Z81.8 Family history of other mental and behavioral disorders; Z82.49 Family history of ischemic heart disease and other diseases of the circulatory system; Z79.899 Other long term (current) drug therapy; Z79.890 Hormone replacement therapy

== ENCOUNTER 2018-09-03 02:01 | Emergency (ER) | payer MEDICARE ==
[~2018-09-03] VITALS: Ht 167.6 cm; Wt 54.4 kg
--- NOTE | ~2018-09-03 | EKG ---
[place], [place] ELECTROCARDIOGRAM REPORT NAME: TRUONG HIRSCH UNIT #: [id number] ROOM: DOCTOR: EPIPHANY DRAFT REPORT BIRTHDATE: [birth year] [facility] Test Date: 2018-09-03 Test Time: 02:32:42 Pat Name: TRUONG HIRSCH Department: ED Room: Gender: F Sofa Inspector: Blanco Fields : 1955 Requested By: WILDER OROPEZA Order Number: [id number] Reading MD: Chandler Hess MD Measurements Intervals [place] Rate: 98 P: 93 NH: 137 QRS: -69 QRSD: 81 T: 79 QT: 369 QTc: 472 Interpretive Statements Sinus rhythm Right atrial enlargement Left anterior fascicular block Abnormal R-wave progression, late transition Compared to ECG 08/14/2018 15:52:17 Prolonged QT interval no longer present Electronically Signed On 09-03-2018 4:29:18 PDT by Chandler Hess MD CM:EKGRPT:ELECTROCARDIOGRAM REPORT [id number] WILDER WREN DRAFT REPORT WILDER OROPEZA DO
[~2018-09-03 02:01] MED LIST changes: +IBUPROFEN400 MG PO
[2018-09-03 02:35] LABS: HEMATOCRIT 44.2 % (37.0-47.0); HEMOGLOBIN 14.1 g/dl (12.0-16.0); MEAN CELL VOLUME 95.5 fl (81.0-99.0); MEAN CORPUSCULAR HGB 30.5 pg (27.0-31.0); MEAN CORPUSCULAR HGB CONC 31.9 g/dl (33.0-37.0); MEAN PLATELET VOLUME 9.5 fl (9.6-12.3); PLATELET COUNT AUTOMATED 420 10*3/uL (130-400); RED BLOOD COUNT 4.63 10*6/uL (4.10-5.10); RED CELL DISTRI WIDTH 14.6 % (0-14.5); WHITE BLOOD COUNT 19.9 10*3/uL (4.8-10.8)
[2018-09-03 02:48] LABS: BILIRUBIN NEGATIVE (NEGATIVE); BLOOD NEGATIVE (NEGATIVE); CLARITY SL CLOUDY (CLEAR); COLOR YELLOW (YELLOW); GLUCOSE NEGATIVE (NEGATIVE); KETONE TRACE (NEGATIVE); LEUKO ESTERASE NEGATIVE (NEGATIVE); NITRITE NEGATIVE (NEGATIVE); PH 5.5 (5.0-9.0); SPECIFIC GRAVITY 1.025 (1.005-1.030); UROBILINOGEN 0.2 E.U./dl (0.2-1.0)
[2018-09-03 02:51] LABS: ACETAMINOPHEN (TYLENOL) 5.5 ug/ml (10-30); ALBUMIN 3.1 gm/dl (3.1-4.5); ALKALINE PHOSPHATASE 99 U/L (45-117); BUN 22 mg/dl (7-24); CHLORIDE 101 mmol/L (98-107); CREATININE 0.93 mg/dL (0.55-1.02); POTASSIUM 3.9 mmol/L (3.5-5.1); SGOT/AST 16 IU/L (3-35); SGPT/ALT 17 U/L (12-78); SODIUM 138 mmol/L (136-145)
[2018-09-03 02:52] LABS: BASOPHILS 1 % (0-1); PLATELET SUFFICIENCY NORMAL (NORMAL); TOTAL CELLS COUNTED 100 #CELLS
[2018-09-03 02:53] LABS: ETHYL ALCOHOL < 3.0 mg/dl (<3); TROPONIN I < 0.015 ng/ml (<0.045)
[2018-09-03 02:58] LABS: URINE AMPHETAMINES < 1000 (1000ng/ml); URINE BARBITURATES < 200 (200ng/ml); URINE BENZODIAZEPINES < 200 (200ng/ml); URINE CANNABINOIDS (THC) < 50 (50ng/ml); URINE COCAINE < 300 (300ng/ml); URINE METHADONE < 300 (300ng/ml); URINE OPIATES > 300 (300ng/ml)
[2018-09-03 03:01] VITALS: BP 101/70
[2018-09-03 03:06] LABS: WBC 0-2 wbc/hpf (0-5)
[2018-09-03 03:08] LABS: URINE PHENCYCLIDINE < 25 (25ng/ml)
[2018-09-09] MEDS ORDERED: METFORMIN ER500 MG PO (19:50)
[2018-09-09] MEDS ORDERED: PERCOCET 5-3251 EACH PO (19:54)
[2018-09-09] MEDS ORDERED: GABAPENTIN400 MG PO (19:55)
[2018-09-09] MEDS ORDERED: MIRALAX119 GM PO (19:56)
[2018-09-17] MEDS ORDERED: NATURE'S BLEND F1 MG PO (14:38)
[2018-09-17] MEDS ORDERED: SULFASALAZINE500 M1 PO (14:38)
[2018-09-17] MEDS ORDERED: FLAGYL500 MG PO (14:38)
[2018-10-14] MEDS ORDERED: PREDNISONE10 MG PO (19:48)
[2018-10-14] MEDS ORDERED: DOXYCYCLINE100 M3 PO (20:58)
== END 2018-09-03 04:05 | disposition home or self-care (01) ==
LOC: ED 02:01
PROVIDERS: Student in an Organized Health Care Education/Training Program
DX: S00.03XA Contusion of scalp, initial encounter (principal); R56.9 Unspecified convulsions; I25.10 Atherosclerotic heart disease of native coronary artery without angina pectoris; K21.9 Gastro-esophageal reflux disease without esophagitis; E78.5 Hyperlipidemia, unspecified; E03.9 Hypothyroidism, unspecified; G43.909 Migraine, unspecified, not intractable, without status migrainosus; E11.22 Type 2 diabetes mellitus with diabetic chronic kidney disease; N18.3 Chronic kidney disease, stage 3 (moderate); J44.9 Chronic obstructive pulmonary disease, unspecified; I50.32 Chronic diastolic (congestive) heart failure; M19.90 Unspecified osteoarthritis, unspecified site; E11.40 Type 2 diabetes mellitus with diabetic neuropathy, unspecified; I25.2 Old myocardial infarction; F17.200 Nicotine dependence, unspecified, uncomplicated; Z79.899 Other long term (current) drug therapy; Z88.0 Allergy status to penicillin; Z88.1 Allergy status to other antibiotic agents; Z88.6 Allergy status to analgesic agent; W18.2XXA Fall in (into) shower or empty bathtub, initial encounter; Y93.89 Activity, other specified; Y92.89 Other specified places as the place of occurrence of the external cause; Y99.8 Other external cause status

== ENCOUNTER 2018-10-21 23:07 | Inpatient (IN) | payer MEDICARE ==
[~2018-10-21] VITALS: Ht 167.6 cm; Wt 53.2 kg
[~2018-10-21 23:07] MED LIST changes: +GABAPENTIN400 MG PO; +METFORMIN ER500 MG PO; +MIRALAX119 GM PO; +NATURE'S BLEND F1 MG PO; +PERCOCET 5-3251 EACH PO; +SULFASALAZINE500 M1 PO
[2018-10-21 23:10] VITALS: BP 143/84
--- NOTE | 2018-10-22 00:15 | NUR ---
CALL PLACED TO BELEN TO NOTIFY OF ETA. PATIENT COMPLETING NEBULIZER TRETAMENTS.
[2018-10-22 00:25] VITALS: BP 142/77
--- NOTE | 2018-10-22 00:25 | NUR ---
Time: 24 A 63 year old FEMALE admitted to 4E under services of LIT RDZ DO. Pt. arrived via stretcher from ER. Chief complaint: BACK PAIN. BELEN LUTHER
[2018-10-22] MEDS ORDERED: FUROSEMIDE20 M1 PO (00:53)
[2018-10-22] MEDS ORDERED: K-TAB20 MEQ PO (00:54)
[2018-10-22] MEDS ORDERED: OXYGEN NAS (00:55)
[2018-10-22] MEDS ORDERED: MAGNESIUM ELEME30 MG PO (00:55)
[2018-10-22 01:04] LABS: HEMATOCRIT 42.6 % (37.0-47.0); HEMOGLOBIN 13.3 g/dl (12.0-16.0); MEAN CELL VOLUME 97.5 fl (81.0-99.0); MEAN CORPUSCULAR HGB 30.4 pg (27.0-31.0); MEAN CORPUSCULAR HGB CONC 31.2 g/dl (33.0-37.0); PLATELET COUNT AUTOMATED 350 10*3/uL (130-400); RED BLOOD COUNT 4.37 10*6/uL (4.10-5.10); RED CELL DISTRI WIDTH 14.2 % (0-14.5)
--- NOTE | 2018-10-22 01:07 | NUR ---
MED REC UP TO DATE PER PT RECALL. PT REQUESTING NIGHT TIME MEDICATIONS (TRAZODONE, CYMBALTA, DEPAKOTE, GEODON, METFORMIN, SULFASALAZINE, FLAGYL, AND XANAX). DR TO BE NOTIFIED.
[2018-10-22 01:20] LABS: ALBUMIN 3.7 gm/dl (3.1-4.5); ALKALINE PHOSPHATASE 114 U/L (45-117); BUN 19 mg/dl (7-24); CHLORIDE 101 mmol/L (98-107); CREATININE 0.95 mg/dL (0.55-1.02); SGOT/AST 12 IU/L (3-35); SGPT/ALT 10 U/L (12-78); SODIUM 142 mmol/L (136-145); TOTAL PROTEIN 6.8 gm/dL (6.4-8.2)
[2018-10-22 01:39] LABS: TOTAL CELLS COUNTED 100 #CELLS
[2018-10-22 01:40] LABS: PLATELET SUFFICIENCY NORMAL (NORMAL)
--- NOTE | 2018-10-22 01:51 | NUR ---
SPOKE TO REGARDING PATIENT'S REQUEST FOR PM MEDICATIONS. INSTRUCTED TO ORDER THEM
[2018-10-22 04:20] VITALS: BP 131/76
--- NOTE | 2018-10-22 04:26 | NUR ---
PT MEDICATED WITH PO PERCOCET PER PRN ORDER FOR C/O CHRONIC BACK PAIN RATED 7/10. XANAX SCHEDULED FOR 0600 ADMINISTERED AT THIS TIME ALSO. PATIENT STATES SHE FEELS VERY ANXIOUS DUE TO PAIN. TEARFUL AT TIMES & WORRIED ABOUT GOING TO A JAIL. STATES SHE FEELS THIS WOULD BENEFIT HER, SHE IS GETTING "WEAKER & WEAKER." WILL NOTIFY INTERLINE CLERK OF PATIENT'S CONCERNS.
--- NOTE | 2018-10-22 06:48 | NUR ---
EARLIER MEDICATIONS EFFECTIVE PER PT.
--- NOTE | 2018-10-22 07:30 | NUR ---
PT STATES THAT SHE THINKS SHE HAS LICE. PT HEAD CK'D AND LICE IS SEEN. DR MYRICK NOTIFIED AND NEW ORDERS RECIEVED
[2018-10-22 08:00] VITALS: BP 120/68
--- NOTE | 2018-10-22 09:00 | NUR ---
case management attempted to visit with patient, nursing staff was working with patient, will see at a later time
--- NOTE | 2018-10-22 09:01 | NUR ---
Nursing screen and Occupational Therapy referral received. Thank you. Ceci Gonzalez OTR/L
--- NOTE | 2018-10-22 09:05 | NUR ---
PHYSICAL THERAPY Nursing screen received and chart reviewed. Physical therapy referral received. Thank you. Debi Crawford,PT,DPT.
[2018-10-22 12:00] VITALS: BP 124/70
--- NOTE | 2018-10-22 13:50 | NUR ---
PHYSICAL THERAPY Physical therapy evaluation completed, 4E. Full details and evaluation to follow. Low complexity skilled physical therapy evaluation performed ([id number]). PT to include balance, transfers, safety, and gait per POC. Recommend patient returns home with assistance at discharge. Thank you Amy Serna, SPT. Debi Crawford,PT,DPT.
--- NOTE | 2018-10-22 13:50 | NUR ---
Occupational Therapy evaluation completed on 4 with full eval to follow. Precautions include fall risk,h/o falls, head lice upon admission,h/o severe back pain,o2 dependency,PEG tube,moderate complexity level 21475 via chart review, testing and evaluation. Recommend OT per POC and SNF to enable max safety for return home with friend,however patient now insists upon d/c home wth hospice after her pain in managed better. Patient c/o 10/05 since admission to hospital. Thank you. Ceci Gonzalez OTR/L
--- NOTE | 2018-10-22 14:22 | NUR ---
Discussing patient with occupational therapist who is stating patient is independent with her ADLs with the exception of pain. Patient is adamately refusing snf placement at this time. Stating she is going home, she has numerous services in place at home and her boyfriend is there also. She is refusing snf at this time.
[2018-10-22 16:00] VITALS: BP 142/73
--- NOTE | 2018-10-22 16:50 | NUR ---
PT REQUESTED AND GIVEN PERCOCET FOR C/O BACK PAIN. PT RATES PAIN 5/10 WILL MONITOR
[2018-10-22 20:00] VITALS: BP 153/86
--- NOTE | 2018-10-22 21:35 | NUR ---
PM MEDICATIONS ADMINISTERED AT THIS TIME. PT C/O SOME PAIN IN BACK. EDUCATED ABOUT PRN MEDICATIONS/WHEN THEY ARE DUE. WILL MONITOR. CALL LIGHT IN REACH.
--- NOTE | 2018-10-22 23:29 | NUR ---
PO PERCOCET ADMINISTERED FOR C/O PAIN IN BACK/NECK RATED 8/10. WILL MONITOR EFFECTIVENESS. CALL LIGHT IN REACH.
[2018-10-23] VITALS: BP 118/75
--- NOTE | 2018-10-23 00:14 | NUR ---
EARLIER MEDICATIONS EFFECTIVE PER PT. WILL MONITOR. CALL LIGHT IN REACH
[2018-10-23 07:06] LABS: PHOSPHOROUS 3.2 mg/dL (2.5-4.9)
[2018-10-23 07:12] LABS: THYROID STIM HORMONE (HS) 0.177 uIU/ml (0.358-4.75)
--- NOTE | 2018-10-23 07:15 | NUR ---
ARRIVED ON SHIFT, INTRODUCED TO PATIENT, BEDSIDE REPORT RECEIVED, PATIENT REMAINS ON ISOLATION FOR LICE, WHITEBOARD UPDATED. NO NEEDS VOICED AT THIS TIME.
[2018-10-23 07:40] LABS: ACT PARTIAL THROMBO TIME 23.7 SECONDS (20.0-32.1); INTERNATIONAL NORM RATIO 0.9 (2.0-3.5)
[2018-10-23 08:00] VITALS: BP 125/77
--- NOTE | 2018-10-23 08:25 | NUR ---
OT NOTE Attempted to see pt this A.M. for OT session and upon arrival pt was eating her breakfast. Will check back at a later time/date and continue with POC as able. CORY Covarrubias/Alan
--- NOTE | 2018-10-23 08:35 | NUR ---
Shift chart check completed.
--- NOTE | 2018-10-23 09:40 | NUR ---
OT NOTE Pt was seen this A.M. 1:1 for 17 minute OT session. Upon arrival pt was supine in bed. Pt identified by name and and had complaints of "7/10 low back and LLE pain." Pt transferred supine to sit EOB with SBA. While sitting EOB pt donned B socks with SBA. Sit to stand completed from bed level with CGA and use of w/w for UE support. Functional mobility was completed into the bathroom with CGA and use of w/w. There she transferred on/off standard commode with SBA and use of grab bar. While in the bathroom therapist noted that pt was not turning safe with the walker and was picking all four points off the ground throughout. Pt was educated on walker management and safety concerns, pt had fair carry over throughout. She then stood sink side while wasing her hands with SBA for safety. Pt returned to the EOB where she transferred sit to supine with SBA. There she was left with call light in hand, tray table in place, and bed alarm on for safety. Continue with rec D/C plan to SNF. CORY Covarrubias/Alan
--- NOTE | 2018-10-23 10:09 | NUR ---
PHYSICAL THERAPY Patient seen this am 1:1 for therapy visit and was sitting up on EOB upon therapist arrival with her nurse present. Patient voices 7/10 L posterior LE pain and states < 24 hour post Lice head treatment. Patient was very pleasant, instructed on then performed seated B LE therex, all planes x 10 reps each, followed by several sit to stand transfers at bedside SBA. Patient ambulates with use of wh walker, 40'x 2, SBA, demonstrating slow, steady blaine and no LOB. Patient was very cautious during 180 degree turns and returned to supine in bed with call light, tray table, cell phone, body alarm. Will continue per POC as tolerated, total treatment time 23 minutes. Calos Perez, HCC CODERS
[2018-10-23] MEDS ORDERED: PERCOCET 7.5 MG-325 PO (10:21)
[2018-10-23] MEDS ORDERED: DOXYCYCLINE100 M3 PO (10:21)
--- NOTE | 2018-10-23 11:00 | NUR ---
Discharge instructions reviewed with patient/family. Patient receptive and verbalizes understanding. Follow-up care arranged. Written instructions given to patient/family.IV REMOVED, PATIENT WAS NON MONITORED, LEFT VIA W/C. HUGO ACEVES
--- NOTE | 2018-10-24 08:24 | NUR ---
PHYSICAL THERAPY CO-SIGN I approve of the Physical Therapy notes written above. KAREN CONNELL PT,DPT
--- NOTE | 2018-10-24 15:07 | NUR ---
OCCUPATIONAL THERAPY CO-SIGN I approve of the Occupational Therapy notes written above. MARY EAST OTR/Alan
== END 2018-10-23 11:00 | disposition home or self-care (01) | DRG 871 ==
LOC: ED 23:07 → 4E 23:36 → EDHOLD 23:36 → 4E 23:58
PROVIDERS: Student in an Organized Health Care Education/Training Program; ADMIT Internal Medicine
DX: A41.9 Sepsis, unspecified organism (principal); E43 Unspecified severe protein-calorie malnutrition; J18.9 Pneumonia, unspecified organism; I50.32 Chronic diastolic (congestive) heart failure; E87.3 Alkalosis; J96.11 Chronic respiratory failure with hypoxia; Z68.1 Body mass index [BMI] 19.9 or less, adult; R26.2 Difficulty in walking, not elsewhere classified; F31.9 Bipolar disorder, unspecified; E55.9 Vitamin D deficiency, unspecified; J43.9 Emphysema, unspecified; E78.2 Mixed hyperlipidemia; F43.10 Post-traumatic stress disorder, unspecified; M54.6 Pain in thoracic spine; M54.32 Sciatica, left side; M19.91 Primary osteoarthritis, unspecified site; G43.909 Migraine, unspecified, not intractable, without status migrainosus; G89.4 Chronic pain syndrome; F41.0 Panic disorder [episodic paroxysmal anxiety]; Z66 Do not resuscitate; Z51.5 Encounter for palliative care; F17.210 Nicotine dependence, cigarettes, uncomplicated; K21.9 Gastro-esophageal reflux disease without esophagitis; E03.9 Hypothyroidism, unspecified; E61.1 Iron deficiency; N18.3 Chronic kidney disease, stage 3 (moderate); E11.22 Type 2 diabetes mellitus with diabetic chronic kidney disease; I25.10 Atherosclerotic heart disease of native coronary artery without angina pectoris; Z99.81 Dependence on supplemental oxygen; Z88.1 Allergy status to other antibiotic agents; Z88.0 Allergy status to penicillin; Z88.6 Allergy status to analgesic agent; Z90.49 Acquired absence of other specified parts of digestive tract; Z90.710 Acquired absence of both cervix and uterus; Z83.3 Family history of diabetes mellitus; Z80.8 Family history of malignant neoplasm of other organs or systems; Z82.49 Family history of ischemic heart disease and other diseases of the circulatory system; Z81.8 Family history of other mental and behavioral disorders; I25.2 Old myocardial infarction; Z91.5 Personal history of self-harm; Z79.899 Other long term (current) drug therapy; Z79.890 Hormone replacement therapy

== ENCOUNTER 2018-10-25 19:25 | Emergency (ER) | payer MEDICARE ==
[~2018-10-25] VITALS: Ht 167.6 cm; Wt 49.4 kg
[~2018-10-25 19:25] MED LIST changes: +FUROSEMIDE20 M1 PO; +K-TAB20 MEQ PO; +MAGNESIUM ELEME30 MG PO; +OXYGEN NAS; +PERCOCET 7.5 MG-325 PO
[2018-10-25 19:26] VITALS: BP 110/80
== END 2018-10-25 21:08 | disposition home or self-care (01) ==
LOC: ED 19:25
DX: R07.81 Pleurodynia (principal); M54.5 Low back pain; G43.909 Migraine, unspecified, not intractable, without status migrainosus; J44.9 Chronic obstructive pulmonary disease, unspecified; F17.200 Nicotine dependence, unspecified, uncomplicated; Z88.1 Allergy status to other antibiotic agents; Z88.0 Allergy status to penicillin; Z88.6 Allergy status to analgesic agent; Z79.899 Other long term (current) drug therapy; Z79.2 Long term (current) use of antibiotics; W18.39XA Other fall on same level, initial encounter; Y93.E5 Activity, floor mopping and cleaning; Y92.098 Other place in other non-institutional residence as the place of occurrence of the external cause; Y99.8 Other external cause status

== ENCOUNTER 2018-10-31 12:52 | Emergency (ER) | payer MEDICARE ==
[~2018-10-31] VITALS: Wt 49.4 kg
[2018-10-31 12:55] VITALS: BP 155/117
[2018-10-31 15:03] LABS: BASO # 0.1 10*3/uL (0.0-0.1); BASO % 0.8 % (0.0-1.0); EOS # 0.1 10*3/uL (0.0-0.4); EOS % 0.9 % (1.0-4.0); HEMATOCRIT 49.3 % (37.0-47.0); HEMOGLOBIN 15.8 g/dl (12.0-16.0); LYMPH # 2.4 10*3/uL (1.3-4.4); LYMPH % 23.6 % (27.0-41.0); MEAN CELL VOLUME 93.9 fl (81.0-99.0); MEAN CORPUSCULAR HGB 30.1 pg (27.0-31.0); MEAN PLATELET VOLUME 9.7 fl (9.6-12.3); MONO # 0.9 10*3/uL (0.1-1.0); MONO % 8.4 % (3.0-9.0); NEUT # 6.7 10*3/uL (2.3-7.9); NEUT % 65.9 % (47.0-73.0); PLATELET COUNT AUTOMATED 356 10*3/uL (130-400); RED BLOOD COUNT 5.25 10*6/uL (4.10-5.10); WHITE BLOOD COUNT 10.1 10*3/uL (4.8-10.8)
[2018-10-31 15:17] LABS: ALBUMIN 3.8 gm/dl (3.1-4.5); ALKALINE PHOSPHATASE 75 U/L (45-117); BUN 20 mg/dl (7-24); CHLORIDE 107 mmol/L (98-107); CREATININE 0.55 mg/dL (0.55-1.02); POTASSIUM 4.4 mmol/L (3.5-5.1); SGOT/AST 15 IU/L (3-35); SGPT/ALT 14 U/L (12-78); SODIUM 140 mmol/L (136-145); TOTAL PROTEIN 7.1 gm/dL (6.4-8.2)
[2018-10-31 15:22] LABS: ACETAMINOPHEN (TYLENOL) < 5.0 ug/ml (10-30); ETHYL ALCOHOL < 3.0 mg/dl (<3)
[2018-10-31 15:45] LABS: BILIRUBIN 1+ (NEGATIVE); BLOOD NEGATIVE (NEGATIVE); CLARITY SL CLOUDY (CLEAR); COLOR YELLOW (YELLOW); GLUCOSE NEGATIVE (NEGATIVE); KETONE 2+ (NEGATIVE); LEUKO ESTERASE NEGATIVE (NEGATIVE); NITRITE NEGATIVE (NEGATIVE); PH 6.5 (5.0-9.0); SPECIFIC GRAVITY 1.025 (1.005-1.030); UROBILINOGEN 0.2 E.U./dl (0.2-1.0)
[2018-10-31 16:10] LABS: EPITHELIAL CELLS 0-2; MUCOUS 1+; YEAST TRACE
[2018-10-31 16:13] LABS: URINE AMPHETAMINES < 1000 (1000ng/ml); URINE BARBITURATES < 200 (200ng/ml); URINE BENZODIAZEPINES < 200 (200ng/ml); URINE CANNABINOIDS (THC) < 50 (50ng/ml); URINE COCAINE < 300 (300ng/ml); URINE METHADONE < 300 (300ng/ml); URINE OPIATES < 300 (300ng/ml)
[2018-10-31 16:14] LABS: URINE PHENCYCLIDINE < 25 (25ng/ml)
== END 2018-10-31 17:14 | disposition home or self-care (01) ==
LOC: ED 12:52
PROVIDERS: Nurse Practitioner Family
DX: G89.29 Other chronic pain (principal); R45.851 Suicidal ideations; M54.9 Dorsalgia, unspecified; R06.02 Shortness of breath; R05 Cough; F17.200 Nicotine dependence, unspecified, uncomplicated; Z88.1 Allergy status to other antibiotic agents; Z88.6 Allergy status to analgesic agent; Z88.0 Allergy status to penicillin; Z79.899 Other long term (current) drug therapy

== ENCOUNTER 2018-11-07 18:41 | Emergency (ER) | payer MEDICARE ==
[~2018-11-07] VITALS: Ht 167.6 cm; Wt 49.4 kg
[2018-11-07 18:49] VITALS: BP 133/90
[2018-11-07 19:39] LABS: BASO # 0.1 10*3/uL (0.0-0.1); BASO % 0.7 % (0.0-1.0); EOS # 0.2 10*3/uL (0.0-0.4); EOS % 2.4 % (1.0-4.0); HEMATOCRIT 43.8 % (37.0-47.0); HEMOGLOBIN 13.7 g/dl (12.0-16.0); LYMPH # 2.4 10*3/uL (1.3-4.4); LYMPH % 32.2 % (27.0-41.0); MEAN CELL VOLUME 96.7 fl (81.0-99.0); MEAN CORPUSCULAR HGB 30.2 pg (27.0-31.0); MEAN CORPUSCULAR HGB CONC 31.3 g/dl (33.0-37.0); MEAN PLATELET VOLUME 10.1 fl (9.6-12.3); MONO # 0.8 10*3/uL (0.1-1.0); MONO % 10.6 % (3.0-9.0); NEUT % 53.8 % (47.0-73.0); PLATELET COUNT AUTOMATED 252 10*3/uL (130-400); RED BLOOD COUNT 4.53 10*6/uL (4.10-5.10); RED CELL DISTRI WIDTH 14.1 % (0-14.5); WHITE BLOOD COUNT 7.4 10*3/uL (4.8-10.8)
[2018-11-07 19:49] LABS: ACT PARTIAL THROMBO TIME 25.7 SECONDS (20.0-32.1); INTERNATIONAL NORM RATIO 0.9 (2.0-3.5)
[2018-11-07 19:55] LABS: ALBUMIN 3.5 gm/dl (3.1-4.5); ALKALINE PHOSPHATASE 71 U/L (45-117); BUN 11 mg/dl (7-24); CHLORIDE 101 mmol/L (98-107); CREATININE 0.67 mg/dL (0.55-1.02); SGOT/AST 13 IU/L (3-35); SGPT/ALT 14 U/L (12-78); SODIUM 140 mmol/L (136-145); TOTAL PROTEIN 6.9 gm/dL (6.4-8.2)
[2018-11-07 19:56] LABS: TROPONIN I < 0.015 ng/ml (<0.045)
[2018-11-07] MEDS ORDERED: PREDNISONE10 M1 PO (21:08)
== END 2018-11-07 21:45 | disposition home or self-care (01) ==
LOC: ED 18:41
PROVIDERS: Internal Medicine
DX: J44.1 Chronic obstructive pulmonary disease with (acute) exacerbation (principal); I25.10 Atherosclerotic heart disease of native coronary artery without angina pectoris; G89.29 Other chronic pain; G43.909 Migraine, unspecified, not intractable, without status migrainosus; E03.9 Hypothyroidism, unspecified; I25.2 Old myocardial infarction; E11.40 Type 2 diabetes mellitus with diabetic neuropathy, unspecified; E11.22 Type 2 diabetes mellitus with diabetic chronic kidney disease; N18.3 Chronic kidney disease, stage 3 (moderate); I50.30 Unspecified diastolic (congestive) heart failure; K21.9 Gastro-esophageal reflux disease without esophagitis; E78.5 Hyperlipidemia, unspecified; F17.200 Nicotine dependence, unspecified, uncomplicated; Z90.710 Acquired absence of both cervix and uterus; Z90.49 Acquired absence of other specified parts of digestive tract; Z88.1 Allergy status to other antibiotic agents; Z88.0 Allergy status to penicillin; Z88.6 Allergy status to analgesic agent; Z79.2 Long term (current) use of antibiotics; Z79.899 Other long term (current) drug therapy

== ENCOUNTER → 2018-11-12 | Outpatient (CLI) | payer MEDICARE ==
[~2018-11-12] MED LIST changes: +PREDNISONE10 M1 PO
== END | disposition home or self-care (01) ==
LOC: CT 10:31
DX: J43.9 Emphysema, unspecified (principal); R91.1 Solitary pulmonary nodule; F17.200 Nicotine dependence, unspecified, uncomplicated

== ENCOUNTER → 2019-01-03 | Outpatient (CLI) | payer MEDICARE ==
[2019-01-03 12:55] LABS: HEMATOCRIT 44.1 % (37.0-47.0); HEMOGLOBIN 13.6 g/dl (12.0-16.0); MEAN CELL VOLUME 95.9 fl (81.0-99.0); MEAN CORPUSCULAR HGB 29.6 pg (27.0-31.0); MEAN CORPUSCULAR HGB CONC 30.8 g/dl (33.0-37.0); MEAN PLATELET VOLUME 10.2 fl (9.6-12.3); PLATELET COUNT AUTOMATED 331 10*3/uL (130-400); RED CELL DISTRI WIDTH 13.8 % (0-14.5); WHITE BLOOD COUNT 18.8 10*3/uL (4.8-10.8)
[2019-01-03 13:16] LABS: ALBUMIN 4.1 gm/dl (3.1-4.5); ALKALINE PHOSPHATASE 109 U/L (45-117); BUN 16 mg/dl (7-24); CHLORIDE 99 mmol/L (98-107); CHOLESTEROL 188 mg/dL (<200); CREATININE 0.87 mg/dL (0.55-1.02); FREE T4 1.03 ng/dl (0.76-1.46); HDL CHOLESTEROL 71 mg/dl (40-60); LDL CHOLESTEROL 89 mg/dL (9-159); POTASSIUM 4.6 mmol/L (3.5-5.1); SGOT/AST 21 IU/L (3-35); SGPT/ALT 21 U/L (12-78); SODIUM 137 mmol/L (136-145); TOTAL PROTEIN 7.8 gm/dL (6.4-8.2); TRIGLYCERIDES 142 mg/dl (<150); VALPROIC ACID (DEPAKENE) 18.4 ug/ml (50-100); VLDL CHOLESTEROL 28 mg/dL (6-40)
[2019-01-03 13:21] LABS: THYROID STIM HORMONE (HS) 0.878 uIU/ml (0.358-4.75)
[2019-01-03 13:26] LABS: ATYPICAL LYMPHS 1 % (0-0); PLATELET SUFFICIENCY NORMAL (NORMAL); TOTAL CELLS COUNTED 100 #CELLS
[2019-01-03 13:40] LABS: VITAMIN D, 25-HYDROXY 17.5 ng/mL (30-100)
== END | disposition home or self-care (01) ==
LOC: LAB 11:34
PROVIDERS: Internal Medicine
DX: Z13.21 Encounter for screening for nutritional disorder (principal); Z13.220 Encounter for screening for lipoid disorders; M79.89 Other specified soft tissue disorders; E03.9 Hypothyroidism, unspecified; E11.9 Type 2 diabetes mellitus without complications; G40.909 Epilepsy, unspecified, not intractable, without status epilepticus; E55.9 Vitamin D deficiency, unspecified

== ENCOUNTER 2019-03-04 10:39 | Emergency (ER) | payer MEDICARE ==
[~2019-03-04] VITALS: Ht 167.6 cm; Wt 53.1 kg
[2019-03-04 10:45] VITALS: BP 147/77
[2019-03-04 12:03] LABS: BASO # 0.1 10*3/uL (0.0-0.1); BASO % 0.5 % (0.0-1.0); EOS # 0.2 10*3/uL (0.0-0.4); EOS % 1.8 % (1.0-4.0); HEMATOCRIT 43.7 % (37.0-47.0); HEMOGLOBIN 13.7 g/dl (12.0-16.0); LYMPH # 2.4 10*3/uL (1.3-4.4); LYMPH % 21.5 % (27.0-41.0); MEAN CELL VOLUME 99.3 fl (81.0-99.0); MEAN CORPUSCULAR HGB 31.1 pg (27.0-31.0); MEAN CORPUSCULAR HGB CONC 31.4 g/dl (33.0-37.0); MONO # 1.3 10*3/uL (0.1-1.0); MONO % 11.6 % (3.0-9.0); NEUT # 7.2 10*3/uL (2.3-7.9); NEUT % 64.2 % (47.0-73.0); PLATELET COUNT AUTOMATED 303 10*3/uL (130-400); WHITE BLOOD COUNT 11.3 10*3/uL (4.8-10.8)
[2019-03-04 12:19] LABS: ALBUMIN 3.1 gm/dl (3.1-4.5); ALKALINE PHOSPHATASE 73 U/L (45-117); BUN 14 mg/dl (7-24); CHLORIDE 107 mmol/L (98-107); CREATININE 0.78 mg/dL (0.55-1.02); POTASSIUM 3.2 mmol/L (3.5-5.1); SGOT/AST 57 IU/L (3-35); SGPT/ALT 22 U/L (12-78); SODIUM 142 mmol/L (136-145); TOTAL PROTEIN 6.3 gm/dL (6.4-8.2)
== END 2019-03-04 15:54 | disposition home or self-care (01) ==
LOC: ED 10:39
PROVIDERS: Physician Assistant
DX: G43.909 Migraine, unspecified, not intractable, without status migrainosus (principal); M43.6 Torticollis; J44.9 Chronic obstructive pulmonary disease, unspecified; I25.10 Atherosclerotic heart disease of native coronary artery without angina pectoris; E03.9 Hypothyroidism, unspecified; N18.9 Chronic kidney disease, unspecified; I50.9 Heart failure, unspecified; F17.200 Nicotine dependence, unspecified, uncomplicated; Z88.1 Allergy status to other antibiotic agents; Z88.0 Allergy status to penicillin; Z79.899 Other long term (current) drug therapy; Z79.2 Long term (current) use of antibiotics; Z90.710 Acquired absence of both cervix and uterus; Z90.49 Acquired absence of other specified parts of digestive tract

== ENCOUNTER 2019-03-16 12:14 | Emergency (ER) | payer MEDICARE ==
[~2019-03-16] VITALS: Wt 49.9 kg
[2019-03-16 12:34] VITALS: BP 134/81
[2019-03-16 12:45] LABS: BASO # 0.1 10*3/uL (0.0-0.1); BASO % 1.2 % (0.0-1.0); EOS # 0.1 10*3/uL (0.0-0.4); EOS % 1.6 % (1.0-4.0); HEMATOCRIT 46.1 % (37.0-47.0); HEMOGLOBIN 14.7 g/dl (12.0-16.0); LYMPH # 2.1 10*3/uL (1.3-4.4); LYMPH % 27.4 % (27.0-41.0); MEAN CELL VOLUME 97.9 fl (81.0-99.0); MEAN CORPUSCULAR HGB 31.2 pg (27.0-31.0); MEAN CORPUSCULAR HGB CONC 31.9 g/dl (33.0-37.0); MEAN PLATELET VOLUME 9.2 fl (9.6-12.3); MONO # 0.5 10*3/uL (0.1-1.0); MONO % 6.6 % (3.0-9.0); NEUT # 4.8 10*3/uL (2.3-7.9); NEUT % 62.9 % (47.0-73.0); PLATELET COUNT AUTOMATED 429 10*3/uL (130-400); RED BLOOD COUNT 4.71 10*6/uL (4.10-5.10); RED CELL DISTRI WIDTH 12.9 % (0-14.5); WHITE BLOOD COUNT 7.7 10*3/uL (4.8-10.8)
[2019-03-16 12:52] LABS: ACT PARTIAL THROMBO TIME 25.6 SECONDS (20.0-32.1); INTERNATIONAL NORM RATIO 0.9 (2.0-3.5)
[2019-03-16 12:59] LABS: ALBUMIN 3.2 gm/dl (3.1-4.5); ALKALINE PHOSPHATASE 93 U/L (45-117); BUN 20 mg/dl (7-24); CHLORIDE 105 mmol/L (98-107); CREATININE 0.81 mg/dL (0.55-1.02); POTASSIUM 4.7 mmol/L (3.5-5.1); SGOT/AST 18 IU/L (3-35); SGPT/ALT 22 U/L (12-78); SODIUM 139 mmol/L (136-145); TOTAL PROTEIN 6.9 gm/dL (6.4-8.2)
[2019-03-16 13:09] LABS: VALPROIC ACID (DEPAKENE) 33.1 ug/ml (50-100)
[2019-03-17] MEDS ORDERED: CYCLOBENZAPRINE10 MG PO (02:58)
== END 2019-03-16 14:25 | disposition home or self-care (01) ==
LOC: ED 12:14
PROVIDERS: Emergency Medicine
DX: S39.92XA Unspecified injury of lower back, initial encounter (principal); S79.912A Unspecified injury of left hip, initial encounter; R10.9 Unspecified abdominal pain; J44.9 Chronic obstructive pulmonary disease, unspecified; I25.10 Atherosclerotic heart disease of native coronary artery without angina pectoris; G89.29 Other chronic pain; E11.22 Type 2 diabetes mellitus with diabetic chronic kidney disease; I13.0 Hypertensive heart and chronic kidney disease with heart failure and stage 1 through stage 4 chronic kidney disease, or unspecified chronic kidney disease; N18.3 Chronic kidney disease, stage 3 (moderate); I50.32 Chronic diastolic (congestive) heart failure; K21.9 Gastro-esophageal reflux disease without esophagitis; I25.2 Old myocardial infarction; E78.5 Hyperlipidemia, unspecified; E03.9 Hypothyroidism, unspecified; G43.909 Migraine, unspecified, not intractable, without status migrainosus; M81.0 Age-related osteoporosis without current pathological fracture; Z88.1 Allergy status to other antibiotic agents; Z88.0 Allergy status to penicillin; Z88.6 Allergy status to analgesic agent; Z79.2 Long term (current) use of antibiotics; Z79.899 Other long term (current) drug therapy; W19.XXXA Unspecified fall, initial encounter; Y93.89 Activity, other specified; Y92.89 Other specified places as the place of occurrence of the external cause; Y99.8 Other external cause status

== ENCOUNTER 2019-03-16 22:06 | Emergency (ER) | payer MEDICARE ==
[2019-03-16 22:32] VITALS: BP 130/83
[2019-03-17] MEDS ORDERED: CYCLOBENZAPRINE10 MG PO (02:58)
== END 2019-03-17 03:59 | disposition home or self-care (01) ==
LOC: ED 22:06
DX: M54.42 Lumbago with sciatica, left side (principal); I25.10 Atherosclerotic heart disease of native coronary artery without angina pectoris; J44.9 Chronic obstructive pulmonary disease, unspecified; I50.32 Chronic diastolic (congestive) heart failure; E11.22 Type 2 diabetes mellitus with diabetic chronic kidney disease; N18.3 Chronic kidney disease, stage 3 (moderate); M19.90 Unspecified osteoarthritis, unspecified site; M81.0 Age-related osteoporosis without current pathological fracture; K21.9 Gastro-esophageal reflux disease without esophagitis; E78.5 Hyperlipidemia, unspecified; G43.909 Migraine, unspecified, not intractable, without status migrainosus; E03.9 Hypothyroidism, unspecified; Z88.1 Allergy status to other antibiotic agents; Z88.0 Allergy status to penicillin; Z88.8 Allergy status to other drugs, medicaments and biological substances; Z79.899 Other long term (current) drug therapy; Z79.84 Long term (current) use of oral hypoglycemic drugs; Z90.49 Acquired absence of other specified parts of digestive tract; Z90.710 Acquired absence of both cervix and uterus; Z87.891 Personal history of nicotine dependence

== ENCOUNTER 2019-03-19 15:46 | Emergency (ER) | payer MEDICARE ==
[~2019-03-19] VITALS: Ht 167.6 cm; Wt 56.7 kg
[2019-03-19 15:49] VITALS: BP 150/83
[2019-03-19 16:51] LABS: BILIRUBIN NEGATIVE (NEGATIVE); BLOOD NEGATIVE (NEGATIVE); CLARITY CLEAR (CLEAR); COLOR YELLOW (YELLOW); GLUCOSE NEGATIVE (NEGATIVE); KETONE NEGATIVE (NEGATIVE); LEUKO ESTERASE TRACE (NEGATIVE); UROBILINOGEN 0.2 E.U./dl (0.2-1.0)
[2019-03-19 16:52] LABS: BACTERIA TRACE; EPITHELIAL CELLS 0-2; NITRITE NEGATIVE (NEGATIVE)
[2019-03-19 17:13] LABS: URINE AMPHETAMINES < 1000 (1000ng/ml); URINE BARBITURATES < 200 (200ng/ml); URINE BENZODIAZEPINES < 200 (200ng/ml); URINE CANNABINOIDS (THC) < 50 (50ng/ml); URINE COCAINE < 300 (300ng/ml); URINE METHADONE < 300 (300ng/ml); URINE OPIATES < 300 (300ng/ml)
[2019-03-19 17:16] LABS: URINE PHENCYCLIDINE < 25 (25ng/ml)
== END 2019-03-19 17:57 | disposition home or self-care (01) ==
LOC: ED 15:46
PROVIDERS: Nurse Practitioner Family
DX: G89.29 Other chronic pain (principal); M25.552 Pain in left hip; M54.5 Low back pain; J44.9 Chronic obstructive pulmonary disease, unspecified; G43.909 Migraine, unspecified, not intractable, without status migrainosus; E03.9 Hypothyroidism, unspecified; F17.200 Nicotine dependence, unspecified, uncomplicated; Z79.899 Other long term (current) drug therapy; Z88.0 Allergy status to penicillin; Z88.1 Allergy status to other antibiotic agents; Z88.6 Allergy status to analgesic agent; W18.39XA Other fall on same level, initial encounter; Y93.89 Activity, other specified; Y92.89 Other specified places as the place of occurrence of the external cause; Y99.8 Other external cause status

== ENCOUNTER 2019-03-22 20:22 | Emergency (ER) | payer MEDICARE ==
[~2019-03-22] VITALS: Ht 167.6 cm; Wt 56.7 kg
[2019-03-22 20:45] LABS: BASO % 0.5 % (0.0-1.0); EOS # 0.4 10*3/uL (0.0-0.4); EOS % 5.1 % (1.0-4.0); HEMATOCRIT 45.9 % (37.0-47.0); HEMOGLOBIN 14.7 g/dl (12.0-16.0); LYMPH # 2.6 10*3/uL (1.3-4.4); LYMPH % 31.4 % (27.0-41.0); MEAN CELL VOLUME 98.5 fl (81.0-99.0); MEAN CORPUSCULAR HGB 31.5 pg (27.0-31.0); MONO # 0.9 10*3/uL (0.1-1.0); MONO % 10.7 % (3.0-9.0); NEUT # 4.3 10*3/uL (2.3-7.9); NEUT % 52.1 % (47.0-73.0); PLATELET COUNT AUTOMATED 367 10*3/uL (130-400); RED BLOOD COUNT 4.66 10*6/uL (4.10-5.10); RED CELL DISTRI WIDTH 12.8 % (0-14.5); WHITE BLOOD COUNT 8.3 10*3/uL (4.8-10.8)
[2019-03-22 21:02] LABS: ACT PARTIAL THROMBO TIME 25.6 SECONDS (20.0-32.1); ALBUMIN 3.6 gm/dl (3.1-4.5); ALKALINE PHOSPHATASE 108 U/L (45-117); BUN 18 mg/dl (7-24); CHLORIDE 105 mmol/L (98-107); CREATININE 0.83 mg/dL (0.55-1.02); INTERNATIONAL NORM RATIO 0.9 (2.0-3.5); SGOT/AST 10 IU/L (3-35); SGPT/ALT 20 U/L (12-78); SODIUM 140 mmol/L (136-145); TOTAL PROTEIN 7.3 gm/dL (6.4-8.2)
[2019-03-22 21:07] LABS: TROPONIN I < 0.015 ng/ml (<0.045)
[2019-03-23 00:24] VITALS: BP 122/78
== END 2019-03-23 07:15 | disposition home or self-care (01) ==
LOC: ED 20:22
PROVIDERS: Emergency Medicine Emergency Medical Services
DX: F41.1 Generalized anxiety disorder (principal); F43.0 Acute stress reaction; R07.9 Chest pain, unspecified; M54.40 Lumbago with sciatica, unspecified side; I50.32 Chronic diastolic (congestive) heart failure; E11.22 Type 2 diabetes mellitus with diabetic chronic kidney disease; N18.3 Chronic kidney disease, stage 3 (moderate); I25.10 Atherosclerotic heart disease of native coronary artery without angina pectoris; J44.9 Chronic obstructive pulmonary disease, unspecified; E78.5 Hyperlipidemia, unspecified; K21.9 Gastro-esophageal reflux disease without esophagitis; E03.9 Hypothyroidism, unspecified; G43.909 Migraine, unspecified, not intractable, without status migrainosus; F17.200 Nicotine dependence, unspecified, uncomplicated; Z88.0 Allergy status to penicillin; Z88.8 Allergy status to other drugs, medicaments and biological substances; Z88.1 Allergy status to other antibiotic agents; Z79.899 Other long term (current) drug therapy; Z79.84 Long term (current) use of oral hypoglycemic drugs; Z90.49 Acquired absence of other specified parts of digestive tract; Z90.710 Acquired absence of both cervix and uterus

== ENCOUNTER 2019-03-23 14:23 | Emergency (ER) | payer MEDICARE ==
[~2019-03-23] VITALS: Ht 167.6 cm; Wt 56.7 kg
[2019-03-23 14:32] VITALS: BP 134/78
[2019-03-23 14:50] LABS: BILIRUBIN NEGATIVE (NEGATIVE); CLARITY CLEAR (CLEAR); COLOR YELLOW (YELLOW); GLUCOSE NEGATIVE (NEGATIVE)
[2019-03-23 14:51] LABS: BLOOD NEGATIVE (NEGATIVE); KETONE NEGATIVE (NEGATIVE); LEUKO ESTERASE NEGATIVE (NEGATIVE); NITRITE NEGATIVE (NEGATIVE); PH 7.5 (5.0-9.0); SPECIFIC GRAVITY 1.015 (1.005-1.030); UROBILINOGEN 0.2 E.U./dl (0.2-1.0)
[2019-03-23 14:57] LABS: URINE AMPHETAMINES < 1000 (1000ng/ml); URINE BARBITURATES < 200 (200ng/ml); URINE BENZODIAZEPINES < 200 (200ng/ml); URINE CANNABINOIDS (THC) < 50 (50ng/ml); URINE COCAINE < 300 (300ng/ml); URINE METHADONE < 300 (300ng/ml); URINE OPIATES > 300 (300ng/ml)
[2019-03-23 14:58] LABS: URINE PHENCYCLIDINE < 25 (25ng/ml)
[2019-03-23 15:10] LABS: BASO # 0.1 10*3/uL (0.0-0.1); BASO % 0.8 % (0.0-1.0); EOS # 0.3 10*3/uL (0.0-0.4); EOS % 3.4 % (1.0-4.0); HEMATOCRIT 44.1 % (37.0-47.0); HEMOGLOBIN 13.9 g/dl (12.0-16.0); LYMPH # 2.9 10*3/uL (1.3-4.4); LYMPH % 29.5 % (27.0-41.0); MEAN CELL VOLUME 97.8 fl (81.0-99.0); MEAN CORPUSCULAR HGB 30.8 pg (27.0-31.0); MEAN CORPUSCULAR HGB CONC 31.5 g/dl (33.0-37.0); MEAN PLATELET VOLUME 9.9 fl (9.6-12.3); MONO # 0.8 10*3/uL (0.1-1.0); MONO % 8.4 % (3.0-9.0); NEUT # 5.7 10*3/uL (2.3-7.9); NEUT % 57.4 % (47.0-73.0); PLATELET COUNT AUTOMATED 381 10*3/uL (130-400); RED BLOOD COUNT 4.51 10*6/uL (4.10-5.10); RED CELL DISTRI WIDTH 12.7 % (0-14.5)
[2019-03-23 15:26] LABS: ALBUMIN 3.4 gm/dl (3.1-4.5); ALKALINE PHOSPHATASE 107 U/L (45-117); BUN 25 mg/dl (7-24); CHLORIDE 105 mmol/L (98-107); CREATININE 0.75 mg/dL (0.55-1.02); POTASSIUM 4.6 mmol/L (3.5-5.1); SGOT/AST 11 IU/L (3-35); SGPT/ALT 18 U/L (12-78); SODIUM 140 mmol/L (136-145); TOTAL PROTEIN 6.8 gm/dL (6.4-8.2)
[2019-03-23 15:28] LABS: ETHYL ALCOHOL < 3.0 mg/dl (<3)
== END 2019-03-23 17:13 | disposition home or self-care (01) ==
LOC: ED 14:23
PROVIDERS: Emergency Medicine
DX: F43.21 Adjustment disorder with depressed mood (principal); F31.9 Bipolar disorder, unspecified; F41.9 Anxiety disorder, unspecified; M19.90 Unspecified osteoarthritis, unspecified site; I25.10 Atherosclerotic heart disease of native coronary artery without angina pectoris; G89.29 Other chronic pain; J44.9 Chronic obstructive pulmonary disease, unspecified; K21.9 Gastro-esophageal reflux disease without esophagitis; I25.2 Old myocardial infarction; E78.5 Hyperlipidemia, unspecified; G43.909 Migraine, unspecified, not intractable, without status migrainosus; E11.22 Type 2 diabetes mellitus with diabetic chronic kidney disease; N18.3 Chronic kidney disease, stage 3 (moderate); I50.32 Chronic diastolic (congestive) heart failure; F14.90 Cocaine use, unspecified, uncomplicated; F15.90 Other stimulant use, unspecified, uncomplicated; F17.200 Nicotine dependence, unspecified, uncomplicated; Z88.1 Allergy status to other antibiotic agents; Z88.0 Allergy status to penicillin; Z88.6 Allergy status to analgesic agent; Z79.899 Other long term (current) drug therapy; Z79.2 Long term (current) use of antibiotics; Z98.61 Coronary angioplasty status

== ENCOUNTER 2019-03-30 19:51 | Inpatient (IN) | payer MEDICARE ==
[~2019-03-30] VITALS: Ht 167.6 cm; Wt 60.8 kg
[2019-03-30 19:52] VITALS: BP 162/106
[2019-03-30 20:15] LABS: BASO # 0.1 10*3/uL (0.0-0.1); BASO % 0.3 % (0.0-1.0); EOS # 0.1 10*3/uL (0.0-0.4); EOS % 0.7 % (1.0-4.0); HEMATOCRIT 40.2 % (37.0-47.0); HEMOGLOBIN 12.8 g/dl (12.0-16.0); LYMPH # 1.2 10*3/uL (1.3-4.4); LYMPH % 6.9 % (27.0-41.0); MEAN CELL VOLUME 97.3 fl (81.0-99.0); MEAN CORPUSCULAR HGB CONC 31.8 g/dl (33.0-37.0); MEAN PLATELET VOLUME 9.8 fl (9.6-12.3); MONO # 1.2 10*3/uL (0.1-1.0); MONO % 7.3 % (3.0-9.0); NEUT # 14.1 10*3/uL (2.3-7.9); NEUT % 84.4 % (47.0-73.0); PLATELET COUNT AUTOMATED 333 10*3/uL (130-400); RED BLOOD COUNT 4.13 10*6/uL (4.10-5.10); RED CELL DISTRI WIDTH 13.2 % (0-14.5); WHITE BLOOD COUNT 16.7 10*3/uL (4.8-10.8)
[2019-03-30 20:28] VITALS: BP 116/78
[2019-03-30 20:29] LABS: ACT PARTIAL THROMBO TIME 27.9 SECONDS (20.0-32.1); INTERNATIONAL NORM RATIO 0.9 (2.0-3.5)
[2019-03-30 20:32] LABS: ALBUMIN 3.2 gm/dl (3.1-4.5); ALKALINE PHOSPHATASE 91 U/L (45-117); BUN 8 mg/dl (7-24); CHLORIDE 99 mmol/L (98-107); CREATININE 0.87 mg/dL (0.55-1.02); POTASSIUM 4.2 mmol/L (3.5-5.1); SGOT/AST 25 IU/L (3-35); SGPT/ALT 19 U/L (12-78); SODIUM 137 mmol/L (136-145)
[2019-03-30 20:37] LABS: TROPONIN I < 0.015 ng/ml (<0.045)
[2019-03-30 22:00] VITALS: BP 125/77
--- NOTE | 2019-03-30 22:00 | NUR ---
A 63, admitted to 5E, under the services of LIZETTE Bernabe MD with a diagnosis of DYSPNEA, SEPSIS, COPD EXACERBATION. Chief complaint is SOB. Patient arrived via STRETCHER from ER. Initial assessment completed. Vital signs taken and recorded. LIZETTE BERNABE MD notified of admission to the unit. Orders received. See assessment for past medical history, medications and allergies. Patient and/or family oriented to unit. [address] visitation policy reviewed. Clothing/patient valuable form completed. EDY TARIQ
[2019-03-30] MEDS ORDERED: Motrin,Rufen800 MG PO (22:09)
[2019-03-30] MEDS ORDERED: OXYCODONE HCL10 M1 PO (22:11)
[2019-03-30] MEDS ORDERED: PERCOCET 10-321 EACH PO (22:12)
[2019-03-30] MEDS ORDERED: CYCLOBENZAPRINE10 MG PO (22:18)
[2019-03-30] MEDS ORDERED: ROBITUSSIN DM 101 OZ PO (22:20)
--- NOTE | 2019-03-30 22:26 | NUR ---
MED REC COMPLETED WITH LIST FROM HOME
--- NOTE | 2019-03-30 22:33 | NUR ---
NOTIFIED DR ROSS OF ADMISSION TO FLOOR. ORDERS RECIEVED FOR SOLU MEDROL, DUONEBS, TITRATE OXYGEN, MUCINEX 600 MG BID, AZITHROMYCIN 500 MG IV DAILY, ENSURE WITH ALL MEALS AND AT BEDTIME, NORMAL DIET, AND TO CONTINUE ALL HOME MEDS. WILL PUT IN ORDERS.
[2019-03-31] VITALS: BP 128/78
[2019-03-31 08:00] VITALS: BP 128/67
--- NOTE | 2019-03-31 09:00 | NUR ---
Nerve Specialist in to talk to patient. Patient states lives at home alone with her roommate and her granddaughter staying with her on the weekends. There are 4 steps in the home. Physician: Dr. Adonis Gotti [facility]acy: [facility] Home health services: none Patient's level of ADLs: MINIMAL ASSIST Patient has working utilities: yes DME: O2 @ 2L nc, portable O2 tanks, nebulizer, O2 supplier [place] Follow-up physician's appointment after d/c: she prefers to make her own follow up appt after discharge Does patient want to access PORTAL?: no Discharge plan discussed with patient. She lives at home alone with her roommate and granddaughter staying with her on the weekends. She needs minimal assistance with her ADLs and ambulation. Discussed home health care services and she denies any home needs at this time. She states she had [facility] hospice in the past but not currently. She would like a hospital bed, rollator, and smaller O2 tanks at home. Dr. Gotti notified. Explained the smaller home O2 tanks that you carry over your shoulder you have to qualify for and she verbalized an understanding. Discussed if she would like to go with another hospice company and she stated not at this time. When medically stable she will be discharged to home. She states her boyfriend, Luis, will provide transportation on discharge. KAREN BRUNNER
[2019-03-31 11:17] VITALS: BP 108/58
[2019-03-31 16:00] VITALS: BP 114/66
[2019-03-31 20:00] VITALS: BP 114/52
--- NOTE | 2019-03-31 20:20 | NUR ---
MOTRIN GIVEN PER PATIENT REQUEST FOR COMPLAINTS OF BACK PAIN RATED 7/10. WILL ASSESS EFFECTIVENESS.
--- NOTE | 2019-03-31 21:20 | NUR ---
MOTRIN EFFECTIVE PER PATIENT.
[2019-04-01] VITALS: BP 125/88
[2019-04-01 06:31] LABS: HEMATOCRIT 38.8 % (37.0-47.0); HEMOGLOBIN 12.2 g/dl (12.0-16.0); MEAN CELL VOLUME 98.7 fl (81.0-99.0); MEAN CORPUSCULAR HGB CONC 31.4 g/dl (33.0-37.0); MEAN PLATELET VOLUME 10.3 fl (9.6-12.3); PLATELET COUNT AUTOMATED 345 10*3/uL (130-400); RED BLOOD COUNT 3.93 10*6/uL (4.10-5.10); RED CELL DISTRI WIDTH 13.2 % (0-14.5); WHITE BLOOD COUNT 22.2 10*3/uL (4.8-10.8)
[2019-04-01 06:54] LABS: CHLORIDE 106 mmol/L (98-107); CREATININE 0.77 mg/dL (0.55-1.02); POTASSIUM 4.5 mmol/L (3.5-5.1); SODIUM 141 mmol/L (136-145)
[2019-04-01 07:11] LABS: BUN 24 mg/dl (7-24)
[2019-04-01 08:00] VITALS: BP 150/74
[2019-04-01 08:13] LABS: PLATELET SUFFICIENCY NORMAL (NORMAL); TOTAL CELLS COUNTED 100 #CELLS
--- NOTE | 2019-04-01 09:03 | NUR ---
Nutritional Support Services Note: f/u done with pt on a regular diet. Supplements were ordered QID and pt states that she is drinking them. She drinks them at home as well to maintain weight. Continue to encourage adequate nutrition. No further nutrition intervention needed. Tita Vang, Jack software development intern
--- NOTE | 2019-04-01 10:30 | NUR ---
Fashion Model in to see patient. No new needs or request at this time. When medically stable she will be discharged to home. Notified Dr. Sarkar of patient's request for hospital bed and rollator.
[2019-04-01 12:00] VITALS: BP 128/70
--- NOTE | 2019-04-01 14:30 | NUR ---
1400 MEDICATIONS ADMINISTERED AND VERIFIED WITH [facility]. [employer] SAYS IM STILL LOCKED INTO ANOTHER COMPUTER AND DOES NOT ALLOW ME YO SCAN THESE MEDS AGAIN.
[2019-04-01 16:00] VITALS: BP 132/76
--- NOTE | 2019-04-01 17:08 | NUR ---
UNABLE TO SCAN 1800 MEDS SINCE 1400 DOSE IS STILL UNABLE TO BE GIVEN. 1800 MEDS GIVEN WELL PRN ZOFRAN FOR NAUSEA. MEDS VERIFIED BY [facility].
--- NOTE | 2019-04-01 19:08 | NUR ---
Pt stated she will not take another breathing tx until the duoneb is changed to Albuterol.
[2019-04-01 20:00] VITALS: BP 129/68
--- NOTE | 2019-04-01 21:20 | NUR ---
CALLED DR. ROSS AND ORDER RECEIVED. PATIENT DID NOT WANT DUONEB TREATMENT ONLY WANTED ALBUTEROL. SAID LAIMONEB MAKES HER SHAKE.
--- NOTE | 2019-04-01 22:43 | NUR ---
24 HR chart check completed.
[2019-04-02] VITALS: BP 150/97
--- NOTE | 2019-04-02 02:50 | NUR ---
MOTRIN GIVEN PER ORDER FOR BACK PAIN PER PT. RATED "6". SEE MAR.
--- NOTE | 2019-04-02 03:47 | NUR ---
ARCELIA HELPING WITH BACK PAIN PER PT.
[2019-04-02 07:05] LABS: HEMATOCRIT 43.5 % (37.0-47.0); HEMOGLOBIN 13.4 g/dl (12.0-16.0); MEAN CORPUSCULAR HGB 30.8 pg (27.0-31.0); MEAN CORPUSCULAR HGB CONC 30.8 g/dl (33.0-37.0); MEAN PLATELET VOLUME 9.7 fl (9.6-12.3); PLATELET COUNT AUTOMATED 383 10*3/uL (130-400); RED BLOOD COUNT 4.35 10*6/uL (4.10-5.10); WHITE BLOOD COUNT 19.4 10*3/uL (4.8-10.8)
[2019-04-02 07:18] LABS: BUN 25 mg/dl (7-24); CHLORIDE 100 mmol/L (98-107); CREATININE 0.84 mg/dL (0.55-1.02); POTASSIUM 4.7 mmol/L (3.5-5.1); SODIUM 138 mmol/L (136-145)
[2019-04-02 08:00] VITALS: BP 150/83
--- NOTE | 2019-04-02 08:07 | NUR ---
PT RESTING IN BED. NO DISTRESS NOTED. WILL MONITOR
[2019-04-02 08:12] LABS: PLATELET SUFFICIENCY NORMAL (NORMAL); TOTAL CELLS COUNTED 100 #CELLS
[2019-04-02] MEDS ORDERED: PREDNISONE5 MG PO (08:54)
[2019-04-02] MEDS ORDERED: CEFUROXIME AXE250 MG PO (08:54)
--- NOTE | 2019-04-02 13:02 | NUR ---
Discharge instructions reviewed with patient/family. Patient receptive and verbalizes understanding. Follow-up care arranged. Written instructions given to patient/family. VENECIA SEVILLA
== END 2019-04-02 13:20 | disposition home or self-care (01) | DRG 202 ==
LOC: ED 19:51 → EDHOLD 21:14 → 5E 21:14
PROVIDERS: Emergency Medicine; ADMIT Internal Medicine
DX: J20.9 Acute bronchitis, unspecified (principal); J44.0 Chronic obstructive pulmonary disease with (acute) lower respiratory infection; J96.10 Chronic respiratory failure, unspecified whether with hypoxia or hypercapnia; R65.10 Systemic inflammatory response syndrome (SIRS) of non-infectious origin without acute organ dysfunction; J44.1 Chronic obstructive pulmonary disease with (acute) exacerbation; E03.9 Hypothyroidism, unspecified; G89.29 Other chronic pain; F17.210 Nicotine dependence, cigarettes, uncomplicated; M54.5 Low back pain; F31.9 Bipolar disorder, unspecified; F41.1 Generalized anxiety disorder; G40.909 Epilepsy, unspecified, not intractable, without status epilepticus; D72.829 Elevated white blood cell count, unspecified; E11.9 Type 2 diabetes mellitus without complications; T38.0X5A Adverse effect of glucocorticoids and synthetic analogues, initial encounter; Y92.89 Other specified places as the place of occurrence of the external cause; Z88.1 Allergy status to other antibiotic agents; Z88.5 Allergy status to narcotic agent; Z88.0 Allergy status to penicillin; Z79.899 Other long term (current) drug therapy; Z90.710 Acquired absence of both cervix and uterus; Z83.3 Family history of diabetes mellitus; Z80.8 Family history of malignant neoplasm of other organs or systems

== ENCOUNTER 2019-04-03 23:00 | Emergency (ER) | payer MEDICARE ==
[~2019-04-03] VITALS: Ht 167.6 cm; Wt 60.0 kg
[~2019-04-03 23:00] MED LIST changes: +CEFUROXIME AXE250 MG PO; +PREDNISONE5 MG PO; +ROBITUSSIN DM 101 OZ PO
[2019-04-03 23:57] LABS: HEMATOCRIT 42.1 % (37.0-47.0); HEMOGLOBIN 13.4 g/dl (12.0-16.0); MEAN CELL VOLUME 94.4 fl (81.0-99.0); MEAN CORPUSCULAR HGB CONC 31.8 g/dl (33.0-37.0); MEAN PLATELET VOLUME 9.4 fl (9.6-12.3); PLATELET COUNT AUTOMATED 400 10*3/uL (130-400); RED BLOOD COUNT 4.46 10*6/uL (4.10-5.10); RED CELL DISTRI WIDTH 13.1 % (0-14.5); WHITE BLOOD COUNT 13.9 10*3/uL (4.8-10.8)
[2019-04-04 00:02] LABS: ACT PARTIAL THROMBO TIME 25.1 SECONDS (20.0-32.1); INTERNATIONAL NORM RATIO 0.9 (2.0-3.5)
[2019-04-04 00:09] LABS: ALBUMIN 3.3 gm/dl (3.1-4.5); ALKALINE PHOSPHATASE 91 U/L (45-117); BUN 22 mg/dl (7-24); CHLORIDE 91 mmol/L (98-107); CREATININE 1.29 mg/dL (0.55-1.02); SGOT/AST 22 IU/L (3-35); SGPT/ALT 29 U/L (12-78); SODIUM 131 mmol/L (136-145); TOTAL PROTEIN 6.7 gm/dL (6.4-8.2)
[2019-04-04 00:12] LABS: PLATELET SUFFICIENCY NORMAL (NORMAL); TOTAL CELLS COUNTED 100 #CELLS
[2019-04-04 00:15] LABS: POTASSIUM 3.5 mmol/L (3.5-5.1); TROPONIN I < 0.015 ng/ml (<0.045)
[2019-04-04 02:04] VITALS: BP 112/71
== END 2019-04-04 05:08 | disposition home or self-care (01) ==
LOC: ED 23:00
PROVIDERS: Emergency Medicine
DX: R07.89 Other chest pain (principal); N23 Unspecified renal colic; I25.10 Atherosclerotic heart disease of native coronary artery without angina pectoris; G89.29 Other chronic pain; J44.9 Chronic obstructive pulmonary disease, unspecified; G43.909 Migraine, unspecified, not intractable, without status migrainosus; E03.9 Hypothyroidism, unspecified; I25.2 Old myocardial infarction; K21.9 Gastro-esophageal reflux disease without esophagitis; I50.30 Unspecified diastolic (congestive) heart failure; E11.22 Type 2 diabetes mellitus with diabetic chronic kidney disease; N18.3 Chronic kidney disease, stage 3 (moderate); E11.40 Type 2 diabetes mellitus with diabetic neuropathy, unspecified; F17.200 Nicotine dependence, unspecified, uncomplicated; Z88.1 Allergy status to other antibiotic agents; Z88.0 Allergy status to penicillin; Z88.6 Allergy status to analgesic agent; Z79.2 Long term (current) use of antibiotics; Z79.899 Other long term (current) drug therapy; Z98.61 Coronary angioplasty status; Z90.710 Acquired absence of both cervix and uterus; Z90.49 Acquired absence of other specified parts of digestive tract

== ENCOUNTER 2019-04-07 01:58 | Emergency (ER) | payer MEDICARE ==
[~2019-04-07] VITALS: Ht 5303 cm; Wt 792.5 kg
[2019-04-07 02:06] VITALS: BP 111/89
[2019-04-07 02:51] LABS: BASO # 0.1 10*3/uL (0.0-0.1); BASO % 0.4 % (0.0-1.0); EOS # 0.1 10*3/uL (0.0-0.4); EOS % 0.8 % (1.0-4.0); HEMATOCRIT 45.6 % (37.0-47.0); HEMOGLOBIN 14.4 g/dl (12.0-16.0); LYMPH # 2.8 10*3/uL (1.3-4.4); LYMPH % 19.1 % (27.0-41.0); MEAN CELL VOLUME 96.2 fl (81.0-99.0); MEAN CORPUSCULAR HGB 30.4 pg (27.0-31.0); MEAN CORPUSCULAR HGB CONC 31.6 g/dl (33.0-37.0); MEAN PLATELET VOLUME 9.1 fl (9.6-12.3); MONO # 0.9 10*3/uL (0.1-1.0); MONO % 6.5 % (3.0-9.0); NEUT # 10.5 10*3/uL (2.3-7.9); PLATELET COUNT AUTOMATED 403 10*3/uL (130-400); RED BLOOD COUNT 4.74 10*6/uL (4.10-5.10); RED CELL DISTRI WIDTH 13.1 % (0-14.5); WHITE BLOOD COUNT 14.6 10*3/uL (4.8-10.8)
[2019-04-07 03:11] LABS: ALBUMIN 3.2 gm/dl (3.1-4.5); ALKALINE PHOSPHATASE 82 U/L (45-117); BUN 13 mg/dl (7-24); CHLORIDE 105 mmol/L (98-107); CREATININE 0.76 mg/dL (0.55-1.02); POTASSIUM 3.8 mmol/L (3.5-5.1); SGOT/AST 12 IU/L (3-35); SGPT/ALT 20 U/L (12-78); SODIUM 139 mmol/L (136-145)
[2019-04-07 03:17] LABS: TROPONIN I < 0.015 ng/ml (<0.045)
== END 2019-04-07 04:33 | disposition left against medical advice (07) ==
LOC: ED 01:58
PROVIDERS: Emergency Medicine
DX: J44.9 Chronic obstructive pulmonary disease, unspecified (principal); I25.10 Atherosclerotic heart disease of native coronary artery without angina pectoris; G89.29 Other chronic pain; G43.909 Migraine, unspecified, not intractable, without status migrainosus; E03.9 Hypothyroidism, unspecified; E11.22 Type 2 diabetes mellitus with diabetic chronic kidney disease; N18.3 Chronic kidney disease, stage 3 (moderate); I50.32 Chronic diastolic (congestive) heart failure; E11.40 Type 2 diabetes mellitus with diabetic neuropathy, unspecified; K21.9 Gastro-esophageal reflux disease without esophagitis; I25.2 Old myocardial infarction; F17.200 Nicotine dependence, unspecified, uncomplicated; Z88.1 Allergy status to other antibiotic agents; Z88.0 Allergy status to penicillin; Z88.6 Allergy status to analgesic agent; Z79.2 Long term (current) use of antibiotics; Z79.899 Other long term (current) drug therapy; Z98.61 Coronary angioplasty status; Z90.49 Acquired absence of other specified parts of digestive tract; Z90.710 Acquired absence of both cervix and uterus

== ENCOUNTER 2019-04-13 03:32 | Emergency (ER) | payer MEDICARE ==
[~2019-04-13] VITALS: Ht 167.6 cm; Wt 56.7 kg
[2019-04-13 04:10] LABS: BASO # 0.1 10*3/uL (0.0-0.1); BASO % 0.4 % (0.0-1.0); EOS # 0.2 10*3/uL (0.0-0.4); EOS % 1.3 % (1.0-4.0); HEMOGLOBIN 12.6 g/dl (12.0-16.0); LYMPH # 3.5 10*3/uL (1.3-4.4); LYMPH % 26.6 % (27.0-41.0); MEAN CELL VOLUME 96.3 fl (81.0-99.0); MEAN CORPUSCULAR HGB 31.1 pg (27.0-31.0); MEAN CORPUSCULAR HGB CONC 32.3 g/dl (33.0-37.0); MEAN PLATELET VOLUME 9.5 fl (9.6-12.3); MONO # 1.2 10*3/uL (0.1-1.0); MONO % 8.8 % (3.0-9.0); NEUT # 8.2 10*3/uL (2.3-7.9); NEUT % 62.3 % (47.0-73.0); PLATELET COUNT AUTOMATED 339 10*3/uL (130-400); RED BLOOD COUNT 4.05 10*6/uL (4.10-5.10); RED CELL DISTRI WIDTH 13.3 % (0-14.5); WHITE BLOOD COUNT 13.1 10*3/uL (4.8-10.8)
[2019-04-13 04:24] LABS: ALBUMIN 3.3 gm/dl (3.1-4.5); ALKALINE PHOSPHATASE 120 U/L (45-117); BUN 7 mg/dl (7-24); CHLORIDE 103 mmol/L (98-107); CREATININE 0.76 mg/dL (0.55-1.02); SGOT/AST 17 IU/L (3-35); SGPT/ALT 22 U/L (12-78); SODIUM 138 mmol/L (136-145); TOTAL PROTEIN 6.3 gm/dL (6.4-8.2)
[2019-04-13 04:27] LABS: ACETAMINOPHEN (TYLENOL) < 5.0 ug/ml (10-30); ETHYL ALCOHOL < 3.0 mg/dl (<3)
[2019-04-13 04:34] LABS: THYROID STIM HORMONE (HS) 0.965 uIU/ml (0.358-4.75); VALPROIC ACID (DEPAKENE) 92.3 ug/ml (50-100)
[2019-04-13 04:53] LABS: BILIRUBIN NEGATIVE (NEGATIVE); BLOOD NEGATIVE (NEGATIVE); CLARITY CLEAR (CLEAR); COLOR YELLOW (YELLOW); GLUCOSE NEGATIVE (NEGATIVE); KETONE NEGATIVE (NEGATIVE); NITRITE NEGATIVE (NEGATIVE); PH 6.5 (5.0-9.0); UROBILINOGEN 0.2 E.U./dl (0.2-1.0)
[2019-04-13 04:54] LABS: LEUKO ESTERASE NEGATIVE (NEGATIVE)
[2019-04-13 05:00] LABS: RBC 0-2 rbc/hpf (0-2); WBC 0-2 wbc/hpf (0-5)
[2019-04-13 05:01] LABS: URINE AMPHETAMINES < 1000 (1000ng/ml); URINE BARBITURATES < 200 (200ng/ml); URINE BENZODIAZEPINES < 200 (200ng/ml); URINE CANNABINOIDS (THC) < 50 (50ng/ml); URINE COCAINE < 300 (300ng/ml); URINE METHADONE < 300 (300ng/ml); URINE OPIATES < 300 (300ng/ml)
[2019-04-13 05:04] LABS: URINE PHENCYCLIDINE < 25 (25ng/ml)
[2019-04-13 06:24] VITALS: BP 131/78
== END 2019-04-13 09:40 | disposition home or self-care (01) ==
LOC: ED 03:32
PROVIDERS: Emergency Medicine Emergency Medical Services
DX: F31.9 Bipolar disorder, unspecified (principal); F41.9 Anxiety disorder, unspecified; J44.9 Chronic obstructive pulmonary disease, unspecified; G89.29 Other chronic pain; I25.10 Atherosclerotic heart disease of native coronary artery without angina pectoris; M19.90 Unspecified osteoarthritis, unspecified site; G43.909 Migraine, unspecified, not intractable, without status migrainosus; E03.9 Hypothyroidism, unspecified; E11.22 Type 2 diabetes mellitus with diabetic chronic kidney disease; N18.3 Chronic kidney disease, stage 3 (moderate); I50.32 Chronic diastolic (congestive) heart failure; K21.9 Gastro-esophageal reflux disease without esophagitis; I25.2 Old myocardial infarction; E78.5 Hyperlipidemia, unspecified; F14.10 Cocaine abuse, uncomplicated; F15.10 Other stimulant abuse, uncomplicated; F11.10 Opioid abuse, uncomplicated; F17.200 Nicotine dependence, unspecified, uncomplicated; Z88.1 Allergy status to other antibiotic agents; Z88.0 Allergy status to penicillin; Z88.6 Allergy status to analgesic agent; Z79.2 Long term (current) use of antibiotics; Z79.899 Other long term (current) drug therapy; Z98.61 Coronary angioplasty status; Z90.49 Acquired absence of other specified parts of digestive tract; Z90.710 Acquired absence of both cervix and uterus

== ENCOUNTER 2019-04-16 19:12 | Emergency (ER) | payer MEDICARE ==
[~2019-04-16] VITALS: Ht 170.1 cm; Wt 68.0 kg
[2019-04-16 19:27] VITALS: BP 156/84
== END 2019-04-16 20:33 | disposition left against medical advice (07) ==
LOC: ED 19:12
DX: R06.02 Shortness of breath (principal); R07.9 Chest pain, unspecified; R42 Dizziness and giddiness; J44.9 Chronic obstructive pulmonary disease, unspecified; G43.909 Migraine, unspecified, not intractable, without status migrainosus; I25.10 Atherosclerotic heart disease of native coronary artery without angina pectoris; E03.9 Hypothyroidism, unspecified; N18.9 Chronic kidney disease, unspecified; I50.9 Heart failure, unspecified; F17.200 Nicotine dependence, unspecified, uncomplicated; Z79.899 Other long term (current) drug therapy; Z88.0 Allergy status to penicillin; Z88.1 Allergy status to other antibiotic agents; Z88.6 Allergy status to analgesic agent

== ENCOUNTER → 2019-05-07 | Day surgery (SDC) | payer MEDICARE ==
[2019-05-01 12:57] VITALS: BP 106/82
[~2019-05-07] VITALS: Ht 167.6 cm; Wt 56.7 kg
[~2019-05-07] MED LIST changes: +XARELTO10 MG PO
[2019-05-07 06:51] VITALS: BP 152/95
[2019-05-07 09:42] VITALS: BP 210/112
[2019-05-07 09:57] VITALS: BP 214/103
[2019-05-07 10:13] VITALS: BP 173/83
[2019-05-07 10:28] VITALS: BP 153/100
[2019-05-07 10:42] VITALS: BP 157/97
== END | disposition home or self-care (01) ==
LOC: SDC 05-01 12:45
DX: M19.071 Primary osteoarthritis, right ankle and foot (principal); M20.11 Hallux valgus (acquired), right foot; I25.10 Atherosclerotic heart disease of native coronary artery without angina pectoris; I50.9 Heart failure, unspecified; N18.9 Chronic kidney disease, unspecified; F41.9 Anxiety disorder, unspecified; F32.9 Major depressive disorder, single episode, unspecified; J44.9 Chronic obstructive pulmonary disease, unspecified; Z83.3 Family history of diabetes mellitus; Z82.49 Family history of ischemic heart disease and other diseases of the circulatory system

== ENCOUNTER 2019-05-08 20:10 | Emergency (ER) | payer MEDICARE ==
[~2019-05-08] VITALS: Ht 167.6 cm; Wt 56.7 kg
[2019-05-08 21:05] VITALS: BP 122/77
== END 2019-05-09 00:15 | disposition home or self-care (01) ==
LOC: ED 20:10
DX: G89.18 Other acute postprocedural pain (principal); M79.671 Pain in right foot; I25.10 Atherosclerotic heart disease of native coronary artery without angina pectoris; G89.29 Other chronic pain; J44.9 Chronic obstructive pulmonary disease, unspecified; K21.9 Gastro-esophageal reflux disease without esophagitis; E78.5 Hyperlipidemia, unspecified; I25.2 Old myocardial infarction; E03.9 Hypothyroidism, unspecified; G43.909 Migraine, unspecified, not intractable, without status migrainosus; E11.22 Type 2 diabetes mellitus with diabetic chronic kidney disease; N18.3 Chronic kidney disease, stage 3 (moderate); I50.30 Unspecified diastolic (congestive) heart failure; Z88.1 Allergy status to other antibiotic agents; Z88.6 Allergy status to analgesic agent; Z79.899 Other long term (current) drug therapy; Z79.2 Long term (current) use of antibiotics; Z98.61 Coronary angioplasty status; Z90.710 Acquired absence of both cervix and uterus; Z90.49 Acquired absence of other specified parts of digestive tract

== ENCOUNTER 2019-05-11 17:42 | Emergency (ER) | payer MEDICARE ==
[~2019-05-11] VITALS: Ht 167.6 cm; Wt 56.7 kg
[2019-05-11 18:56] LABS: BASO # 0.1 10*3/uL (0.0-0.1); BASO % 0.8 % (0.0-1.0); EOS # 0.1 10*3/uL (0.0-0.4); EOS % 1.3 % (1.0-4.0); HEMATOCRIT 45.6 % (37.0-47.0); HEMOGLOBIN 14.3 g/dl (12.0-16.0); LYMPH # 2.5 10*3/uL (1.3-4.4); LYMPH % 23.5 % (27.0-41.0); MEAN CELL VOLUME 95.6 fl (81.0-99.0); MEAN CORPUSCULAR HGB CONC 31.4 g/dl (33.0-37.0); MEAN PLATELET VOLUME 10.1 fl (9.6-12.3); MONO # 0.9 10*3/uL (0.1-1.0); MONO % 8.2 % (3.0-9.0); NEUT # 6.9 10*3/uL (2.3-7.9); NEUT % 65.9 % (47.0-73.0); PLATELET COUNT AUTOMATED 424 10*3/uL (130-400); RED BLOOD COUNT 4.77 10*6/uL (4.10-5.10); RED CELL DISTRI WIDTH 13.5 % (0-14.5); WHITE BLOOD COUNT 10.5 10*3/uL (4.8-10.8)
[2019-05-11 19:17] LABS: ALBUMIN 3.3 gm/dl (3.1-4.5); ALKALINE PHOSPHATASE 77 U/L (45-117); BUN 24 mg/dl (7-24); CHLORIDE 108 mmol/L (98-107); CREATININE 0.84 mg/dL (0.55-1.02); POTASSIUM 4.9 mmol/L (3.5-5.1); SGOT/AST 45 IU/L (3-35); SGPT/ALT 27 U/L (12-78); SODIUM 141 mmol/L (136-145); TOTAL PROTEIN 6.3 gm/dL (6.4-8.2)
[2019-05-11 22:30] VITALS: BP 135/85
== END 2019-05-12 02:42 | disposition home or self-care (01) ==
LOC: ED 17:42
PROVIDERS: Physician Assistant
DX: J44.1 Chronic obstructive pulmonary disease with (acute) exacerbation (principal); G89.18 Other acute postprocedural pain; M79.671 Pain in right foot; F17.200 Nicotine dependence, unspecified, uncomplicated; Z88.1 Allergy status to other antibiotic agents; Z88.6 Allergy status to analgesic agent; Z88.8 Allergy status to other drugs, medicaments and biological substances; Z79.899 Other long term (current) drug therapy

== ENCOUNTER 2019-06-02 08:22 | Emergency (ER) | payer MEDICARE ==
[~2019-06-02] VITALS: Ht 167.6 cm; Wt 56.7 kg
[2019-06-02 08:29] VITALS: BP 131/98
== END 2019-06-02 11:19 | disposition home or self-care (01) ==
LOC: ED 08:22
DX: S30.0XXA Contusion of lower back and pelvis, initial encounter (principal); S09.90XA Unspecified injury of head, initial encounter; J44.9 Chronic obstructive pulmonary disease, unspecified; G43.909 Migraine, unspecified, not intractable, without status migrainosus; I25.10 Atherosclerotic heart disease of native coronary artery without angina pectoris; E03.9 Hypothyroidism, unspecified; I50.9 Heart failure, unspecified; N18.9 Chronic kidney disease, unspecified; F17.200 Nicotine dependence, unspecified, uncomplicated; Z88.1 Allergy status to other antibiotic agents; Z88.6 Allergy status to analgesic agent; Z79.899 Other long term (current) drug therapy; Z79.2 Long term (current) use of antibiotics; Z98.61 Coronary angioplasty status; Z90.49 Acquired absence of other specified parts of digestive tract; Z90.710 Acquired absence of both cervix and uterus; Z98.890 Other specified postprocedural states; W01.10XA Fall on same level from slipping, tripping and stumbling with subsequent striking against unspecified object, initial encounter; Y93.89 Activity, other specified; Y92.098 Other place in other non-institutional residence as the place of occurrence of the external cause; Y99.8 Other external cause status

== ENCOUNTER 2019-06-11 20:08 | Inpatient (IN) | payer MEDICARE ==
[~2019-06-11] VITALS: Ht 167.6 cm; Wt 52.7 kg
[2019-06-11 20:26] VITALS: BP 120/79
[2019-06-11 21:12] LABS: BASO # 0.1 10*3/uL (0.0-0.1); BASO % 0.6 % (0.0-1.0); EOS # 0.3 10*3/uL (0.0-0.4); EOS % 2.5 % (1.0-4.0); HEMATOCRIT 45.4 % (37.0-47.0); LYMPH # 2.9 10*3/uL (1.3-4.4); LYMPH % 25.6 % (27.0-41.0); MEAN CELL VOLUME 94.6 fl (81.0-99.0); MEAN CORPUSCULAR HGB 30.2 pg (27.0-31.0); MEAN CORPUSCULAR HGB CONC 31.9 g/dl (33.0-37.0); MONO # 0.9 10*3/uL (0.1-1.0); MONO % 7.5 % (3.0-9.0); NEUT # 7.3 10*3/uL (2.3-7.9); NEUT % 63.5 % (47.0-73.0); PLATELET COUNT AUTOMATED 488 10*3/uL (130-400); RED CELL DISTRI WIDTH 14.5 % (0-14.5); WHITE BLOOD COUNT 11.5 10*3/uL (4.8-10.8)
[2019-06-11 21:23] LABS: ACT PARTIAL THROMBO TIME 31.6 SECONDS (20.0-32.1); INTERNATIONAL NORM RATIO 1.1 (2.0-3.5)
[2019-06-11 21:30] LABS: ALBUMIN 3.2 gm/dl (3.1-4.5); ALKALINE PHOSPHATASE 104 U/L (45-117); BUN 12 mg/dl (7-24); CHLORIDE 102 mmol/L (98-107); CREATININE 1.01 mg/dL (0.55-1.02); POTASSIUM 3.9 mmol/L (3.5-5.1); SGOT/AST 16 IU/L (3-35); SGPT/ALT 18 U/L (12-78); SODIUM 138 mmol/L (136-145)
[2019-06-11 21:31] LABS: TROPONIN I < 0.015 ng/ml (<0.045)
[2019-06-11 23:12] VITALS: BP 113/79
--- NOTE | 2019-06-11 23:53 | NUR ---
lactic 3.4
[2019-06-12 00:08] VITALS: BP 153/90
[2019-06-12 00:30] VITALS: BP 148/85
[2019-06-12] MEDS ORDERED: CLARITIN10 MG PO (00:59)
--- NOTE | 2019-06-12 01:18 | NUR ---
DR GARY NOTIFIED OF ADMISSION TO UNIT. WENT THROUGH HOME MED REC WITH HIM AND HE CONTINUED ALL HOME MEDS EXCEPT LEVOTHYROXINE HELD. CONSULTS TO BE PUT IN FOR DREW FOR ABX RECCOMENDATION AND JERRY FOR RIGHT FOOT WOUNDS. REGULAR DIET WITH STRAWBERRY ENSURE. NO FURTHER ORDERS AT THIS TIME.
--- NOTE | 2019-06-12 01:20 | NUR ---
Time: 29 A 64 year old FEMALE admitted to under services of DR. ABDIRAHMAN ALBA,FERNANDO Logan Pt. arrived via stretcher from ER. Chief complaint: POSTOPERATIVE WOUND INFECTION, CHEST PAIN. PATIENT CURRENTLY HAS NO CHEST PAIN. PAIN IN RIGHT FOOT RATED 7/10. ORIENTED TO ROOM. VITAL SIGNS TAKEN AND STABLE. RESPIRATIONS EASY, REGULAR, NO DISTRESS. CALL LIGHT WITHIN REACH. NO FURTHER COMPLAINTS AT THIS TIME. EDY TARIQ
--- NOTE | 2019-06-12 02:40 | NUR ---
PERCOCET GIVEN PER PATIENT REQUEST FOR PAIN RATED 6/10 IN RIGHT FOOT. WILL ASSESS EFFECTIVENESS.
--- NOTE | 2019-06-12 04:14 | NUR ---
CRITICAL LAB RESTULT OF LACTIC ACID 2.2 RECIEVED FROM LAB AND CALLED IN TO DR GARY. ORDERS RECEIVED TO GIVE PATIENT ANOTHER ONE TIME BAG OF 0.9 NS AT 100 ML/HR.
--- NOTE | 2019-06-12 06:10 | NUR ---
DR CARLIN'S GROUP AND DR EDWARDS'S RESIDENT NOTIFIED OF CONSULTS.
--- NOTE | 2019-06-12 06:49 | NUR ---
TRUONG HIRSCH [id number] Please refer to the physician's history and physical for past medical history, comorbid conditions, and allergies. Diagnosis: POSTOPERATIVE WOUND INFECTION,CHEST PAIN Charan Score: 17,AT RISK WOUND DESCRIPTIONS: Wound Number: 1 Location of the wound: right inner top of the foot Type of wound: surgical Thickness: Full Size: 6.4cm x 3.3cm x <0.1cm Tunneling: none Undermining: none Sinus Tract: none Presence of Exudate: none Amount: None Color: Brown, red, yellow Odor: None Periwound Skin Appearance: Normal Wound edges: approximated Pain (associated with wound): none at time of assessment How does patient state this happened? pt stated that she had surgery with Dr. Benjamin on May 06 and will follow up with him upon discharge Wound Number: 2 Location of the wound: tip of right 2nd toe Type of wound: surgical Thickness: Full Size: 0.4cm x 0.6cm x <0.1cm Tunneling: none Undermining: none Sinus Tract: none Presence of Exudate: none Amount: None Color: Brown, red Odor: None Periwound Skin Appearance: Normal Wound edges: approximated Pain (associated with wound): none at time of assessment How does patient state this happened? pt stated that she had surgery with Dr. Benjamin on May 06 and will follow up with him upon discharge Wound Number: 3 Location of the wound: right lateral aspect of heel Type of wound: surgical Thickness: Full Size: 0.6cm x 0.7cm x <0.1cm Tunneling: none Undermining: none Sinus Tract: none Presence of Exudate: none Amount: None Color: Brown Odor: None Periwound Skin Appearance: Normal Wound edges: approximated Pain (associated with wound): none at time of assessment How does patient state this happened? pt stated that she had surgery with Dr. Benjamin on May 06 and will follow up with him upon discharge Wound Number: 4 Location of the wound: right 2nd toe medial apsect Type of wound: surgical Thickness: Full Size: 3.0cm x 0.6cm x <0.1cm Tunneling: none Undermining: none Sinus Tract: none Presence of Exudate: Serosanguinous Amount: Light Color: Brown, red, yellow Odor: None Periwound Skin Appearance: Normal Wound edges: approximated Pain (associated with wound): none at time of assessment How does patient state this happened? pt stated that she had surgery with Dr. Benjamin on May 06 and will follow up with him upon discharge Wound Number: 5 Location of the wound: right top of great toe Type of wound: surgical Thickness: Full Size: 0.3cm x 0.5cm x <0.1cm Tunneling: none Undermining: none Sinus Tract: none Presence of Exudate: none Amount: None Color: Brown, red Odor: None Periwound Skin Appearance: Normal Wound edges: approximated Pain (associated with wound): none at time of assessment How does patient state this happened? pt stated that she had surgery with Dr. Benjamin on May 06 and will follow up with him upon discharge Wound Number: 6 Location of the wound: right lateral aspect of leg Type of wound: surgical Thickness: Full Size: 0.4cm x 0.4cm x <0.1cm Tunneling: none Undermining: none Sinus Tract: none Presence of Exudate: none Amount: None Color: Brown, red Odor: None Periwound Skin Appearance: Normal Wound edges: approximated Pain (associated with wound): none at time of assessment How does patient state this happened? pt stated that she had surgery with Dr. Benjamin on May 06 and will follow up with him upon discharge Wound Number: 7 Location of the wound: right medial aspect of leg Type of wound: surgical Thickness: Full Size: 0.6cm x 0.3cm x <0.1cm Tunneling: none Undermining: none Sinus Tract: none Presence of Exudate: none Amount: None Color: Brown, red Odor: None Periwound Skin Appearance: Normal Wound edges: approximated Pain (associated with wound): none at time of assessment How does patient state this happened? pt stated that she had surgery with Dr. Benjamin on May 06 and will follow up with him upon discharge Surface the patient is resting on: Proform SKIN PREVENTION RECOMMENDATION: 1. Pressure redistribution support surface as appropriate 2. Elevate heels 3. Remove boots/TEDS every shift and reapply 4. Head of bed 30 degrees as tolerated 5. Assess nutrition and hydration 6. Manage moisture 7. Avoid the use of containment devices while in bed 8. Use absorptive products on surfaces limit layers of linens on bed 9. Turn and reposition every 1-2 hours in bed and every 1 hour in chair as tolerated 10. Weight shifts every 15 minutes while up in chair 11. Offloading with pillows or device to keep heels elevated off bed 12. Monitor skin at least every shift 13. Inspect under medical devices twice a day WOUND TREATMENT RECOMMENDATIONS: Cleanse all areas to right lower extremity with nss and apply bactroban ointment bid and cover with dsd patient states that is what the podiatry wanted her to use at home Heel raiser pro boots to bilateral feet while in bed Podiatry already on consult since they performed the surgery on May 06
[2019-06-12 08:00] VITALS: BP 107/65
--- NOTE | 2019-06-12 08:42 | NUR ---
Medicated with percocet per prn order for complaints of pain to rt leg.
--- NOTE | 2019-06-12 09:00 | NUR ---
Hog Worker spoke to patient via phone. Patient states lives at home with her roommate, Luis. There are 4 steps in the home. Physician: Dr. Adonis Gotti [facility] Home health services: [facility] alternating 7 days a week and 5 days a week for 2 hours daily, meals delivered once a week Patient's level of ADLs: MINIMAL ASSIST Patient has working utilities: yes DME: O2 @ 2L [place], portable O2 tanks, nebulizer, O2 supplier [employer] Follow-up physician's appointment after d/c: she prefers to make her own follow up appt after discharge Does patient want to access PORTAL?: no Discharge plan discussed with patient. She lives at home with her roommate, Luis. She needs minimal assistance with her ADLs and ambulation. She wishes to have a walker for home use. Dr. Gotti notified. Discussed home health care services and she states she currently has [facility] alternating 7 days a week and 5 days a week for 2 hours daily. She has meals delivered once a week but she is unsure of the name of the company. When medically stable she will be discharged to home with the resumption of her [facility]. She states her boyfriend, Luis, will provide transportation on discharge. KAREN BRUNNER
--- NOTE | 2019-06-12 09:30 | NUR ---
States that medication effective for pain.
--- NOTE | 2019-06-12 11:00 | NUR ---
PHYSICAL THERAPY Physical Therapy evaluation completed on 4E with full evaluation to follow. Low complexity PT evaluation per chart review and evaluation, [id number]. Recommend physical therapy per plan of care and Home Health upon discharge. Thank you for this referral. Debi Crawford,PT,DPT
--- NOTE | 2019-06-12 11:40 | NUR ---
Taken off floor for US.
[2019-06-12 12:00] VITALS: BP 104/78
--- NOTE | 2019-06-12 13:54 | NUR ---
Received call from Nancy Dior at [facility] regarding they are not in contract with her insurance and she doesn't know of anyone in the area that is. The only place that might be would be medical services out ok [place]. Explained to patient and suggested going to [facility] to get one and she verbalized an understanding.
[2019-06-12 16:00] VITALS: BP 125/80
--- NOTE | 2019-06-12 16:04 | NUR ---
PT MEDICATED WITH PERCOCET AT THIS TIME PER ORDER FOR COMPLAINTS OF BACK PAIN 09/04. WILL MONITOR.
--- NOTE | 2019-06-12 17:30 | NUR ---
PT STATES THAT PAIN MEDICATION HAS BEEN EFFECTIVE. WILL CONTINUE TO MONITOR.
--- NOTE | 2019-06-12 21:30 | NUR ---
PATIENT MEDICATED WITH PERCOCET FOR C/O 10/10 BACK PAIN. WILL MONITOR
--- NOTE | 2019-06-13 06:24 | NUR ---
PATIENT MEDICATED WITH PERCOCET FOR C/O 11/26 PAIN TO RIGHT FOOT. MARIEL PURDY
[2019-06-13 06:42] LABS: BASO # 0.1 10*3/uL (0.0-0.1); BASO % 0.8 % (0.0-1.0); EOS # 0.3 10*3/uL (0.0-0.4); EOS % 4.3 % (1.0-4.0); HEMATOCRIT 42.6 % (37.0-47.0); LYMPH # 3.3 10*3/uL (1.3-4.4); LYMPH % 43.3 % (27.0-41.0); MEAN CELL VOLUME 97.3 fl (81.0-99.0); MEAN CORPUSCULAR HGB 30.1 pg (27.0-31.0); MEAN PLATELET VOLUME 9.4 fl (9.6-12.3); MONO # 0.6 10*3/uL (0.1-1.0); MONO % 7.9 % (3.0-9.0); NEUT # 3.3 10*3/uL (2.3-7.9); NEUT % 43.3 % (47.0-73.0); PLATELET COUNT AUTOMATED 433 10*3/uL (130-400); RED BLOOD COUNT 4.38 10*6/uL (4.10-5.10); RED CELL DISTRI WIDTH 14.4 % (0-14.5); WHITE BLOOD COUNT 7.7 10*3/uL (4.8-10.8)
[2019-06-13 08:00] VITALS: BP 158/82
--- NOTE | 2019-06-13 08:54 | NUR ---
Shift chart check completed.
--- NOTE | 2019-06-13 09:33 | NUR ---
Notified Dr. Gotti patient can be discharged from podiatry and infectious disease standpoints. ID states Keflex 500 mg po TID x 7 days at home. Also informed patient states she will need her Depakote refilled. He acknowledged the above. No definitive discharge at this time. When medically stable she will be discharged to home.
--- NOTE | 2019-06-13 09:55 | NUR ---
PHYSICAL THERAPY Patient seen this am 1;1 for therapy visit and was resting supine in bed upon therapist arrival. Patient identified by name / and presented with R foot gauze wrap, including 4/10 c/o foot pain after receiving morning pain meds. Patient SBA for all transfers and ambulated with use of wh walker, 40'x 1, CGA, demonstrating very slow, cautious, "step to" gait pattern. Patient returned to EOB sit with only mild fatigue and no LOB, then transfered back to supine in bed. Patient remained in bed with call light, tray table and telephone reporting no change in R foot pain c/o. Will continue per POC as tolerated, total treatment time 13 minutes. Calos Perez, ENVIRONMENTAL PROGRAMS MANAGER
[2019-06-13] MEDS ORDERED: DEPAKOTE DR500 MG PO (11:57)
[2019-06-13] MEDS ORDERED: KEFLEX500 M1 PO (12:07)
--- NOTE | 2019-06-13 12:39 | NUR ---
PATIENT C/O RIGHT FOOT PAIN 8/10 MEDICATED WITH OXYCODONE/APA ORDERED.
--- NOTE | 2019-06-13 12:46 | NUR ---
PHYSICAL THERAPY CO-SIGN I approve of the Physical Therapy notes written above. KAREN CONNELL PT, DPT
--- NOTE | 2019-06-13 13:25 | NUR ---
Discharge instructions reviewed with patient/family. Patient receptive and verbalizes understanding. Follow-up care arranged. Written instructions given to patient/family. IV REMOVED, PATIENT TAKEN OUT VIA W/C BY HOSPITAL STAFF. HUGO ACEVES
== END 2019-06-13 13:25 | disposition home or self-care (01) | DRG 863 ==
LOC: ED 20:08 → 4E 23:03 → EDHOLD 23:03 → 4E 23:43 → 4NE 06-12 18:48
PROVIDERS: Internal Medicine; ADMIT Internal Medicine
DX: T81.40XA Infection following a procedure, unspecified, initial encounter (principal); J44.1 Chronic obstructive pulmonary disease with (acute) exacerbation; I50.32 Chronic diastolic (congestive) heart failure; J96.11 Chronic respiratory failure with hypoxia; L03.115 Cellulitis of right lower limb; G89.18 Other acute postprocedural pain; F31.9 Bipolar disorder, unspecified; K21.0 Gastro-esophageal reflux disease with esophagitis; F51.01 Primary insomnia; F41.1 Generalized anxiety disorder; E11.43 Type 2 diabetes mellitus with diabetic autonomic (poly)neuropathy; K31.84 Gastroparesis; E78.2 Mixed hyperlipidemia; N18.3 Chronic kidney disease, stage 3 (moderate); E03.9 Hypothyroidism, unspecified; F17.210 Nicotine dependence, cigarettes, uncomplicated; J30.1 Allergic rhinitis due to pollen; E11.22 Type 2 diabetes mellitus with diabetic chronic kidney disease; G43.909 Migraine, unspecified, not intractable, without status migrainosus; F43.10 Post-traumatic stress disorder, unspecified; I25.10 Atherosclerotic heart disease of native coronary artery without angina pectoris; Y82.8 Other medical devices associated with adverse incidents; Y92.89 Other specified places as the place of occurrence of the external cause; Z71.6 Tobacco abuse counseling; Z88.1 Allergy status to other antibiotic agents; Z88.8 Allergy status to other drugs, medicaments and biological substances; Z79.899 Other long term (current) drug therapy; I25.2 Old myocardial infarction; Z85.830 Personal history of malignant neoplasm of bone; Z91.5 Personal history of self-harm; Z90.710 Acquired absence of both cervix and uterus; Z93.1 Gastrostomy status; Z83.3 Family history of diabetes mellitus; Z80.8 Family history of malignant neoplasm of other organs or systems; Z88.5 Allergy status to narcotic agent

== ENCOUNTER → 2019-06-27 | Outpatient (CLI) | payer MEDICARE | END | disposition home or self-care (01) | LOC: COVID19 15:13 | DX: Z03.818 Encounter for observation for suspected exposure to other biological agents ruled out (principal); B34.9 Viral infection, unspecified; Z78.9 Other specified health status ==

== ENCOUNTER 2019-07-21 06:27 | Inpatient (IN) | payer MEDICARE ==
[~2019-07-21] VITALS: Ht 167.6 cm; Wt 53.7 kg
[2019-07-21] VITALS (7 sets, daily range): BP systolic 119–169; BP diastolic 82–105
--- NOTE | 2019-07-21 06:35 | NUR ---
in to see pt at this time.
--- NOTE | 2019-07-21 06:50 | NUR ---
aware of pt requesting pain medication at this time.Pt aware tests need run at this time.
[2019-07-21 06:55] LABS: BASO # 0.1 10*3/uL (0.0-0.1); BASO % 0.9 % (0.0-1.0); EOS # 0.2 10*3/uL (0.0-0.4); EOS % 2.8 % (1.0-4.0); HEMATOCRIT 48.5 % (37.0-47.0); LYMPH # 3.2 10*3/uL (1.3-4.4); LYMPH % 37.1 % (27.0-41.0); MEAN CELL VOLUME 95.7 fl (81.0-99.0); MEAN CORPUSCULAR HGB 29.8 pg (27.0-31.0); MEAN CORPUSCULAR HGB CONC 31.1 g/dl (33.0-37.0); MEAN PLATELET VOLUME 9.7 fl (9.6-12.3); MONO # 0.8 10*3/uL (0.1-1.0); MONO % 8.9 % (3.0-9.0); NEUT # 4.3 10*3/uL (2.3-7.9); NEUT % 50.2 % (47.0-73.0); PLATELET COUNT AUTOMATED 355 10*3/uL (130-400); RED BLOOD COUNT 5.07 10*6/uL (4.10-5.10); RED CELL DISTRI WIDTH 14.6 % (0-14.5); WHITE BLOOD COUNT 8.6 10*3/uL (4.8-10.8)
[2019-07-21 07:07] LABS: ACT PARTIAL THROMBO TIME 25.4 SECONDS (20.0-32.1); INTERNATIONAL NORM RATIO 0.9 (2.0-3.5)
[2019-07-21 07:09] LABS: ALKALINE PHOSPHATASE 85 U/L (45-117); BUN 10 mg/dl (7-24); CHLORIDE 107 mmol/L (98-107); CREATININE 0.66 mg/dL (0.55-1.02); POTASSIUM 4.1 mmol/L (3.5-5.1); SGOT/AST 18 IU/L (3-35); SGPT/ALT 18 U/L (12-78); SODIUM 140 mmol/L (136-145); TOTAL PROTEIN 6.2 gm/dL (6.4-8.2)
[2019-07-21 07:11] LABS: TROPONIN I < 0.015 ng/ml (<0.045)
--- NOTE | 2019-07-21 07:13 | NUR ---
Transfer of care to Elaine louise.
--- NOTE | 2019-07-21 08:43 | NUR ---
PATIENT DENIES ANY WOUNDS AT THIS TIME.
--- NOTE | 2019-07-21 09:15 | NUR ---
REPORT GIVEN TO SHRUTHI STANFORD AT THIS TIME. PATIENT TAKEN UP BY THIS NURSE.
--- NOTE | 2019-07-21 09:20 | NUR ---
Time: 919 A 64 year old FEMALE admitted to 5E under services of LIZETTE BERNABE MD. Pt. arrived via ambulance from ER. Chief complaint: SHRUTHI BURGER A
--- NOTE | 2019-07-21 16:00 | NUR ---
pt resting in b ed. no distress noted. will monitor
--- NOTE | 2019-07-21 16:22 | NUR ---
PT REQUESTED AND GIVEN PERCOCET FOR C/O BACK PAIN PT RATES PAIN 5/10 WILL MONITOR
--- NOTE | 2019-07-21 17:00 | NUR ---
PT RESTING IN BED./ EYES CLOSED. PERCOCET APPEARS EFFECTIVE WILL MONITOR
--- NOTE | 2019-07-21 22:22 | NUR ---
PATIENT MEDICATED WITH PERCOCET FOR COMPLAINTS OF BACK PAIN. RATES 12/05. WILL CHECK EFFECTIVENESS.
[2019-07-22] VITALS: BP 114/60
--- NOTE | 2019-07-22 05:05 | NUR ---
AJ REQUESTING PERCOCET FOR COMPLAINTS OF BACK PAIN. RATES 12/05. WILL CONTINUE TO MONITOR.
[2019-07-22 08:00] VITALS: BP 102/79
--- NOTE | 2019-07-22 08:00 | NUR ---
Impregnator Helper in to see patient. Patient states lives at home with her roommate, Luis. There are 4 steps in the home. Physician: Dr. Adonis Gotti [facility] Home health services: [facility] alternating 7 days a week and 5 days a week for 2 hours daily, meals delivered once a week Patient's level of ADLs: minimal assistance Patient has working utilities: yes DME: O2 @ 2L [place], portable O2 tanks, nebulizer, O2 supplier [employer] Follow-up physician's appointment after d/c: she prefers to make her own follow up appt after discharge Does patient want to access PORTAL?: no Discharge plan discussed with patient. She lives at home with her roommate, Luis. She needs minimal assistance with her ADLs and ambulation. Discussed home health care services and she states she currently has [facility] alternating 7 days a week and 5 days a week for 2 hours daily. She has meals delivered once a week but she is unsure of the name of the company. When medically stable she will be discharged to home with the resumption of her [facility]. She states her boyfriend, Luis, will provide transportation on discharge. KAREN BRUNNER
[2019-07-22] MEDS ORDERED: CYCLOBENZAPRINE5 M3 PO (09:54)
--- NOTE | 2019-07-22 10:39 | NUR ---
MEDICATED WITH PRN PO FLEXERIL FOR MUSCLE SPASMS
--- NOTE | 2019-07-22 11:30 | NUR ---
PRN PO FLEXERIL EFFECTIVE, PER PATIENT.
[2019-07-22 12:00] VITALS: BP 138/82
--- NOTE | 2019-07-22 13:45 | NUR ---
MEDICATED WITH PRN PO PERCOCET FOR BACK PAIN.
--- NOTE | 2019-07-22 14:40 | NUR ---
PRN PO PERCOCET EFFECTIVE, PER PATIENT.
[2019-07-22 16:00] VITALS: BP 115/71
--- NOTE | 2019-07-22 17:12 | NUR ---
MEDICATED WITH PRN PO TYLENOL FOR MIGRAINE PAIN, RIGHT SIDED, PER PATIENT. SHE ALSO C/O NAUSEA.
--- NOTE | 2019-07-22 17:56 | NUR ---
MEDICATED WITH IV ZOFRAN FOR NAUSEA, PER PATIENT PRN PO TYLENOL IS EFFECTIVE FOR MIGRAINE HEADACHE.
--- NOTE | 2019-07-22 18:58 | NUR ---
PRN IV ZOFRAN EFFECTIVE, PER PATIENT.
--- NOTE | 2019-07-22 19:00 | NUR ---
ASSUMED CARE FOR THIS PT AT THIS TIME. PT AWAKE IN BED WATCHING TV. CALL LIGHT IN REACH.
[2019-07-22 20:00] VITALS: BP 124/68
--- NOTE | 2019-07-22 21:20 | NUR ---
PT STATES THAT PERCOCET WAS EFFECTIVE FOR PAIN RELIEF UNLESS SHE GETS UP TO GO TO THE BATHROOM. CALL LIGHT IN REACH.
--- NOTE | 2019-07-22 21:28 | NUR ---
PT STATES THAT PERCOCET WAS EFFECTIVE SOMEWHAT. STATES PAIN LEVEL IS 5/10 NOW.
[2019-07-23] VITALS: BP 134/72
--- NOTE | 2019-07-23 03:08 | NUR ---
PT MEDICATED W/2 PERCOCET FOR C/O LUMBAR PAIN 08/05. PT AWAKE IN BED WATCHING TV. CALL LIGHT IN REACH.
--- NOTE | 2019-07-23 07:46 | NUR ---
MEDICATED WITH PRN PO FLEXERIL FOR MUSCLE SPASMS.
[2019-07-23 08:00] VITALS: BP 123/78
--- NOTE | 2019-07-23 09:00 | NUR ---
Gang Worker in to see patient. No new needs or request at this time. She denies any further home needs than she currently has. When medically stable she will be discharged to home with the resumption of her [facility].
--- NOTE | 2019-07-23 09:01 | NUR ---
MEDICATED WITH PRN PO PERCOCET FOR LOWER BACK PAIN.
--- NOTE | 2019-07-23 09:44 | NUR ---
PRN PO NORCO EFFECTIVE FOR BACK PAIN, PER PATIENT.
[2019-07-23 12:00] VITALS: BP 119/72
--- NOTE | 2019-07-23 15:38 | NUR ---
MEDICATED WITH PRN PO PERCOCET 2 TABS ORDERED FOR LOW BACK PAIN.
[2019-07-23 16:00] VITALS: BP 128/69
--- NOTE | 2019-07-23 16:30 | NUR ---
PRN PO PERCOCET NOT YET EFFECTIVE, PER PATIENT THIS MED SOMETIMES TAKES OVER AN HOUR TO WORK. WILL REASSESS.
--- NOTE | 2019-07-23 16:52 | NUR ---
PRN PO PERCOCET EFFECTIVE FOR BACK PAIN, PER PATIENT. MEDICATED AT THIS TIME WITH PRN MILK OF MAGNESIA FOR CONSTIPATION.
--- NOTE | 2019-07-23 19:00 | NUR ---
ASSUMED CARE FOR THIS PT AT THIS TIME. PT RESTING QUIETLY IN BED W/EYES CLOSED. CALL LIGHT IN REACH.
[2019-07-23 20:00] VITALS: BP 146/82
--- NOTE | 2019-07-23 21:42 | NUR ---
PT MEDICATED W/PERCOCET FOR C/O LUMBAR PAIN 07/05. RESTING QUIETLY IN BED WATCHING TV.
[2019-07-24] VITALS: BP 161/89
--- NOTE | 2019-07-24 03:51 | NUR ---
24 HR chart check completed.
--- NOTE | 2019-07-24 05:26 | NUR ---
PT MEDICATED W/2 PERCOCET FOR C/O LUMBAR PAIN 08/05. PT RESTING IN BED. CALL LIGHT IN REACH.
--- NOTE | 2019-07-24 06:26 | NUR ---
PT RESTING QUIETLY IN BED. PRN PERCOCET EFFECTIVE.
[2019-07-24 08:00] VITALS: BP 115/67
[2019-07-24] MEDS ORDERED: CEFUROXIME AXE250 MG PO (08:44)
[2019-07-24] MEDS ORDERED: PREDNISONE5 MG PO (08:44)
--- NOTE | 2019-07-24 09:08 | NUR ---
Discharge instructions reviewed with patient/family. Patient receptive and verbalizes understanding. Follow-up care arranged. Written instructions given to patient/family. HEPLOCK DISCONTINUED. PATIENT AMBULATORY OFF FLOOR WITH OXYGEN TANK. TEJINDER LOPEZ
== END 2019-07-24 09:10 | disposition home or self-care (01) | DRG 202 ==
LOC: ED 06:27 → 5E 08:24 → EDHOLD 08:24 → 5E 08:33
PROVIDERS: Emergency Medicine; ADMIT Internal Medicine
DX: J20.9 Acute bronchitis, unspecified (principal); J44.0 Chronic obstructive pulmonary disease with (acute) lower respiratory infection; E44.0 Moderate protein-calorie malnutrition; Z68.1 Body mass index [BMI] 19.9 or less, adult; J96.11 Chronic respiratory failure with hypoxia; I50.32 Chronic diastolic (congestive) heart failure; J44.1 Chronic obstructive pulmonary disease with (acute) exacerbation; F17.210 Nicotine dependence, cigarettes, uncomplicated; E11.43 Type 2 diabetes mellitus with diabetic autonomic (poly)neuropathy; K31.84 Gastroparesis; F31.9 Bipolar disorder, unspecified; F51.01 Primary insomnia; M54.5 Low back pain; G89.29 Other chronic pain; E78.2 Mixed hyperlipidemia; E03.9 Hypothyroidism, unspecified; M19.90 Unspecified osteoarthritis, unspecified site; I25.10 Atherosclerotic heart disease of native coronary artery without angina pectoris; E11.22 Type 2 diabetes mellitus with diabetic chronic kidney disease; N18.3 Chronic kidney disease, stage 3 (moderate); K21.9 Gastro-esophageal reflux disease without esophagitis; F41.1 Generalized anxiety disorder; G43.909 Migraine, unspecified, not intractable, without status migrainosus; Z66 Do not resuscitate; Z51.5 Encounter for palliative care; I25.2 Old myocardial infarction; Z93.1 Gastrostomy status; Z90.710 Acquired absence of both cervix and uterus; Z83.3 Family history of diabetes mellitus; Z80.8 Family history of malignant neoplasm of other organs or systems; Z88.1 Allergy status to other antibiotic agents; Z88.5 Allergy status to narcotic agent; Z79.899 Other long term (current) drug therapy; Z79.84 Long term (current) use of oral hypoglycemic drugs; Z99.81 Dependence on supplemental oxygen

== ENCOUNTER 2019-08-09 18:36 | Emergency (ER) | payer MEDICARE ==
[~2019-08-09] VITALS: Ht 167.6 cm; Wt 49.9 kg
[2019-08-09 18:45] VITALS: BP 135/88
[2019-08-09 19:32] LABS: BASO # 0.1 10*3/uL (0.0-0.1); BASO % 0.6 % (0.0-1.0); EOS # 0.1 10*3/uL (0.0-0.4); EOS % 1.6 % (1.0-4.0); HEMATOCRIT 44.6 % (37.0-47.0); LYMPH # 2.4 10*3/uL (1.3-4.4); LYMPH % 29.9 % (27.0-41.0); MEAN CELL VOLUME 93.7 fl (81.0-99.0); MEAN CORPUSCULAR HGB CONC 32.1 g/dl (33.0-37.0); MEAN PLATELET VOLUME 9.9 fl (9.6-12.3); MONO # 0.8 10*3/uL (0.1-1.0); MONO % 9.3 % (3.0-9.0); NEUT # 4.7 10*3/uL (2.3-7.9); NEUT % 58.4 % (47.0-73.0); PLATELET COUNT AUTOMATED 334 10*3/uL (130-400); RED BLOOD COUNT 4.76 10*6/uL (4.10-5.10); RED CELL DISTRI WIDTH 14.6 % (0-14.5); WHITE BLOOD COUNT 8.1 10*3/uL (4.8-10.8)
[2019-08-09 19:47] LABS: ALBUMIN 3.2 gm/dl (3.1-4.5); ALKALINE PHOSPHATASE 87 U/L (45-117); BUN 16 mg/dl (7-24); CHLORIDE 109 mmol/L (98-107); LIPASE 59 U/L (73-393); POTASSIUM 4.7 mmol/L (3.5-5.1); SGOT/AST 11 IU/L (3-35); SGPT/ALT 14 U/L (12-78); SODIUM 140 mmol/L (136-145); TOTAL PROTEIN 6.7 gm/dL (6.4-8.2)
[2019-08-09 21:15] LABS: BILIRUBIN NEGATIVE (NEGATIVE); BLOOD NEGATIVE (NEGATIVE); CLARITY CLEAR (CLEAR); COLOR YELLOW (YELLOW); GLUCOSE NEGATIVE (NEGATIVE); KETONE NEGATIVE (NEGATIVE); UROBILINOGEN 0.2 E.U./dl (0.2-1.0)
[2019-08-09 21:16] LABS: LEUKO ESTERASE NEGATIVE (NEGATIVE); NITRITE NEGATIVE (NEGATIVE)
[2019-08-09 21:22] LABS: BACTERIA TRACE; RBC 0-2 rbc/hpf (0-2); WBC 0-2 wbc/hpf (0-5)
[2019-08-09] MEDS ORDERED: DICYCLOMINE HCL20 MG PO (22:27)
[2019-08-09] MEDS ORDERED: FLAGYL500 MG PO (22:27)
== END 2019-08-09 22:46 | disposition home or self-care (01) ==
LOC: ED 18:36
PROVIDERS: Nurse Practitioner Family
DX: K52.9 Noninfective gastroenteritis and colitis, unspecified (principal); J44.9 Chronic obstructive pulmonary disease, unspecified; G43.909 Migraine, unspecified, not intractable, without status migrainosus; I50.9 Heart failure, unspecified; I25.10 Atherosclerotic heart disease of native coronary artery without angina pectoris; E03.9 Hypothyroidism, unspecified; N18.9 Chronic kidney disease, unspecified; F31.9 Bipolar disorder, unspecified; F17.200 Nicotine dependence, unspecified, uncomplicated; Z88.8 Allergy status to other drugs, medicaments and biological substances; Z79.899 Other long term (current) drug therapy; Z90.710 Acquired absence of both cervix and uterus; Z90.49 Acquired absence of other specified parts of digestive tract

== ENCOUNTER 2019-08-10 10:13 | Emergency (ER) | payer MEDICARE ==
[~2019-08-10] VITALS: Ht 167.6 cm; Wt 49.9 kg
[~2019-08-10 10:13] MED LIST changes: +DICYCLOMINE HCL20 MG PO
[2019-08-10 10:25] VITALS: BP 115/74
[2019-08-10 11:03] LABS: BASO # 0.1 10*3/uL (0.0-0.1); EOS # 0.2 10*3/uL (0.0-0.4); EOS % 2.8 % (1.0-4.0); LYMPH # 2.2 10*3/uL (1.3-4.4); LYMPH % 31.1 % (27.0-41.0); MEAN CELL VOLUME 96.4 fl (81.0-99.0); MEAN CORPUSCULAR HGB 29.4 pg (27.0-31.0); MEAN CORPUSCULAR HGB CONC 30.5 g/dl (33.0-37.0); MONO # 0.8 10*3/uL (0.1-1.0); MONO % 10.6 % (3.0-9.0); NEUT # 3.9 10*3/uL (2.3-7.9); NEUT % 54.1 % (47.0-73.0); PLATELET COUNT AUTOMATED 328 10*3/uL (130-400); RED BLOOD COUNT 4.46 10*6/uL (4.10-5.10); RED CELL DISTRI WIDTH 14.8 % (0-14.5); WHITE BLOOD COUNT 7.2 10*3/uL (4.8-10.8)
[2019-08-10 11:17] LABS: ALBUMIN 3.1 gm/dl (3.1-4.5); ALKALINE PHOSPHATASE 87 U/L (45-117); BUN 13 mg/dl (7-24); CHLORIDE 109 mmol/L (98-107); CREATININE 0.77 mg/dL (0.55-1.02); LIPASE 94 U/L (73-393); POTASSIUM 5.1 mmol/L (3.5-5.1); SGOT/AST 11 IU/L (3-35); SGPT/ALT 14 U/L (12-78); SODIUM 142 mmol/L (136-145); TOTAL PROTEIN 6.2 gm/dL (6.4-8.2)
[2019-08-10 12:04] LABS: BILIRUBIN NEGATIVE (NEGATIVE); BLOOD NEGATIVE (NEGATIVE); CLARITY CLEAR (CLEAR); COLOR YELLOW (YELLOW); GLUCOSE NEGATIVE (NEGATIVE); KETONE NEGATIVE (NEGATIVE); LEUKO ESTERASE NEGATIVE (NEGATIVE); NITRITE NEGATIVE (NEGATIVE); SPECIFIC GRAVITY 1.005 (1.005-1.030); UROBILINOGEN 0.2 E.U./dl (0.2-1.0)
[2019-08-10 12:11] LABS: BACTERIA TRACE; RBC 0-2 rbc/hpf (0-2)
== END 2019-08-10 13:20 | disposition home or self-care (01) ==
LOC: ED 10:13
PROVIDERS: Physician Assistant
DX: R10.31 Right lower quadrant pain (principal); R19.7 Diarrhea, unspecified; I13.0 Hypertensive heart and chronic kidney disease with heart failure and stage 1 through stage 4 chronic kidney disease, or unspecified chronic kidney disease; N18.9 Chronic kidney disease, unspecified; J44.9 Chronic obstructive pulmonary disease, unspecified; I25.10 Atherosclerotic heart disease of native coronary artery without angina pectoris; E03.9 Hypothyroidism, unspecified; G43.909 Migraine, unspecified, not intractable, without status migrainosus; F17.200 Nicotine dependence, unspecified, uncomplicated; Z88.1 Allergy status to other antibiotic agents; Z88.6 Allergy status to analgesic agent; Z79.899 Other long term (current) drug therapy

== ENCOUNTER 2019-08-18 15:14 | Emergency (ER) | payer MEDICARE ==
[~2019-08-18] VITALS: Ht 167.6 cm; Wt 49.9 kg
[2019-08-18 15:31] VITALS: BP 164/99
[2019-08-18 16:29] LABS: BASO % 0.6 % (0.0-1.0); EOS # 0.1 10*3/uL (0.0-0.4); EOS % 1.2 % (1.0-4.0); HEMATOCRIT 52.1 % (37.0-47.0); LYMPH # 1.9 10*3/uL (1.3-4.4); LYMPH % 25.8 % (27.0-41.0); MEAN CELL VOLUME 94.4 fl (81.0-99.0); MEAN CORPUSCULAR HGB 29.5 pg (27.0-31.0); MEAN CORPUSCULAR HGB CONC 31.3 g/dl (33.0-37.0); MEAN PLATELET VOLUME 9.7 fl (9.6-12.3); MONO # 0.7 10*3/uL (0.1-1.0); MONO % 9.7 % (3.0-9.0); NEUT # 4.5 10*3/uL (2.3-7.9); NEUT % 62.4 % (47.0-73.0); PLATELET COUNT AUTOMATED 423 10*3/uL (130-400); RED BLOOD COUNT 5.52 10*6/uL (4.10-5.10); RED CELL DISTRI WIDTH 14.7 % (0-14.5); WHITE BLOOD COUNT 7.2 10*3/uL (4.8-10.8)
[2019-08-18 16:39] LABS: ACT PARTIAL THROMBO TIME 28.2 SECONDS (20.0-32.1)
[2019-08-18 16:46] LABS: ALBUMIN 3.6 gm/dl (3.1-4.5); ALKALINE PHOSPHATASE 109 U/L (45-117); BUN 16 mg/dl (7-24); CHLORIDE 102 mmol/L (98-107); CREATININE 0.76 mg/dL (0.55-1.02); LIPASE 58 U/L (73-393); POTASSIUM 4.6 mmol/L (3.5-5.1); SGOT/AST 15 IU/L (3-35); SGPT/ALT 18 U/L (12-78); SODIUM 136 mmol/L (136-145)
[2019-08-18 16:48] LABS: TROPONIN I < 0.015 ng/ml (<0.045)
[2019-08-18 16:53] LABS: BILIRUBIN 1+ (NEGATIVE); BLOOD NEGATIVE (NEGATIVE); CLARITY SL CLOUDY (CLEAR); COLOR YELLOW (YELLOW); GLUCOSE NEGATIVE (NEGATIVE); KETONE NEGATIVE (NEGATIVE); LEUKO ESTERASE TRACE (NEGATIVE); NITRITE NEGATIVE (NEGATIVE); PH 6.5 (5.0-9.0); UROBILINOGEN 0.2 E.U./dl (0.2-1.0)
[2019-08-18 16:54] LABS: BACTERIA TRACE; EPITHELIAL CELLS 51-100; MUCOUS 3+; WBC 0-2 wbc/hpf (0-5)
[2019-08-18] MEDS ORDERED: PREDNISONE50 MG PO (16:59)
[2019-08-18] MEDS ORDERED: MUCINEX1200 M1 PO (16:59)
== END 2019-08-18 17:13 | disposition home or self-care (01) ==
LOC: ED 15:14
PROVIDERS: Nurse Practitioner Family
DX: J44.1 Chronic obstructive pulmonary disease with (acute) exacerbation (principal); F17.200 Nicotine dependence, unspecified, uncomplicated; Z88.1 Allergy status to other antibiotic agents; Z88.6 Allergy status to analgesic agent; Z79.899 Other long term (current) drug therapy

== ENCOUNTER 2019-08-20 07:54 | Emergency (ER) | payer MEDICARE ==
[~2019-08-20 07:54] MED LIST changes: +MUCINEX1200 M1 PO
[2019-08-20 07:55] VITALS: BP 122/80
[2019-08-20 08:29] LABS: BASO # 0.1 10*3/uL (0.0-0.1); BASO % 0.4 % (0.0-1.0); EOS # 0.1 10*3/uL (0.0-0.4); EOS % 0.6 % (1.0-4.0); HEMATOCRIT 42.3 % (37.0-47.0); LYMPH # 3.7 10*3/uL (1.3-4.4); LYMPH % 26.2 % (27.0-41.0); MEAN CORPUSCULAR HGB 29.6 pg (27.0-31.0); MEAN CORPUSCULAR HGB CONC 32.2 g/dl (33.0-37.0); MEAN PLATELET VOLUME 9.6 fl (9.6-12.3); MONO # 1.2 10*3/uL (0.1-1.0); MONO % 8.3 % (3.0-9.0); NEUT # 9.1 10*3/uL (2.3-7.9); PLATELET COUNT AUTOMATED 359 10*3/uL (130-400); RED CELL DISTRI WIDTH 14.7 % (0-14.5); WHITE BLOOD COUNT 14.1 10*3/uL (4.8-10.8)
[2019-08-20 08:58] LABS: ALKALINE PHOSPHATASE 81 U/L (45-117); BUN 17 mg/dl (7-24); CHLORIDE 106 mmol/L (98-107); CREATININE 0.66 mg/dL (0.55-1.02); SGOT/AST 7 IU/L (3-35); SGPT/ALT 16 U/L (12-78); TOTAL PROTEIN 6.4 gm/dL (6.4-8.2)
[2019-08-20 09:05] LABS: POTASSIUM 3.4 mmol/L (3.5-5.1); SODIUM 139 mmol/L (136-145)
== END 2019-08-20 11:30 | disposition home or self-care (01) ==
LOC: ED 07:54
PROVIDERS: Emergency Medicine
DX: R10.11 Right upper quadrant pain (principal); R19.7 Diarrhea, unspecified; F17.200 Nicotine dependence, unspecified, uncomplicated; Z88.1 Allergy status to other antibiotic agents; Z88.6 Allergy status to analgesic agent; Z79.899 Other long term (current) drug therapy

== ENCOUNTER 2019-08-31 16:14 | Inpatient (IN) | payer MEDICARE ==
[~2019-08-31] VITALS: Ht 167.6 cm; Wt 50.1 kg
[2019-08-31 16:15] VITALS: BP 108/82
[2019-08-31 16:37] LABS: BASO # 0.1 10*3/uL (0.0-0.1); BASO % 0.6 % (0.0-1.0); EOS # 0.2 10*3/uL (0.0-0.4); EOS % 1.2 % (1.0-4.0); LYMPH # 3.8 10*3/uL (1.3-4.4); LYMPH % 29.1 % (27.0-41.0); MEAN CELL VOLUME 91.9 fl (81.0-99.0); MEAN CORPUSCULAR HGB 29.2 pg (27.0-31.0); MEAN CORPUSCULAR HGB CONC 31.8 g/dl (33.0-37.0); MEAN PLATELET VOLUME 10.4 fl (9.6-12.3); MONO % 7.8 % (3.0-9.0); NEUT % 60.8 % (47.0-73.0); PLATELET COUNT AUTOMATED 398 10*3/uL (130-400); RED BLOOD COUNT 5.55 10*6/uL (4.10-5.10); RED CELL DISTRI WIDTH 14.2 % (0-14.5); WHITE BLOOD COUNT 13.1 10*3/uL (4.8-10.8)
[2019-08-31 16:48] LABS: ACT PARTIAL THROMBO TIME 25.4 SECONDS (20.0-32.1)
[2019-08-31 16:53] LABS: ALBUMIN 3.7 gm/dl (3.1-4.5); ALKALINE PHOSPHATASE 88 U/L (45-117); BUN 23 mg/dl (7-24); CHLORIDE 102 mmol/L (98-107); CREATININE 0.96 mg/dL (0.55-1.02); POTASSIUM 3.8 mmol/L (3.5-5.1); SGOT/AST 15 IU/L (3-35); SGPT/ALT 15 U/L (12-78); SODIUM 138 mmol/L (136-145); TOTAL PROTEIN 7.4 gm/dL (6.4-8.2)
[2019-08-31 16:55] LABS: TROPONIN I < 0.015 ng/ml (<0.045)
--- NOTE | 2019-08-31 18:05 | NUR ---
REPORT GIVEN TO GRANT STANFORD.
[2019-08-31 19:30] VITALS: BP 106/70
[2019-08-31 19:40] VITALS: BP 110/72
--- NOTE | 2019-08-31 19:40 | NUR ---
Time: 1939 A 64 year old female admitted to under services of LIZETTE BERNABE MD. Pt. arrived via stretcher from ER. Chief complaint: shortness of breath. Called and spoke with Dr. Sarkar, orders taken over the phone. No open areas noted on admission assessment. Skin appears to be dry & intact. KHANH CLAYTON
--- NOTE | 2019-08-31 20:00 | NUR ---
Patient assessment negative other than c/o sob at rest/minimal exertion, productive cough of green sputum, and generalized pain. Requesting percocet at this time. States she takes this at home to control her pain. Will administer once available in pyxis. Lungs diminished/clear throughout. No aparent signs of distress. P.O. 94% on RA. Patient did not have oxygen on at this time but states she is dependent on 3L. Will continue to [facility]. Bed locked in the lowest position. Call light in reach.
--- NOTE | 2019-08-31 20:32 | NUR ---
Patient has $1200, a debit card, 2 lighters, and a box of cigarettes locked up in her wallaroo. Offered to place the money in a lock box, but patient refused. States she is "comfortable with it being in the wallaroo".
--- NOTE | 2019-08-31 20:56 | NUR ---
OXYCODONE ADMINISTERED FOR PT C/O CHRONIC PAIN IN BACK AND LEGS RATED A 6/10 ON THE PAIN SCALE. WILL CONTINUE TO MONITOR AND REASSESS. NO OTHER COMPLAINTS AT THIS TIME.
--- NOTE | 2019-08-31 21:45 | NUR ---
PT ASLEEP ON ENTRANCE TO ROOM. NO SIGNS OF DISCOMFORT OR DISTRESS NOTED.
--- NOTE | 2019-09-01 05:52 | NUR ---
OXYCODONE ADMINISTERED FOR PT C/O 08/05 CHRONIC BACK PAIN. WILL CONTINUE TO MONITOR AND REASSESS.
--- NOTE | 2019-09-01 06:33 | NUR ---
PT ASLEEP UPON ENTRANCE TO ROOM. NO SIGNS OF DISCOMFORT OR DISTRESS NOTED.
[2019-09-01 08:00] VITALS: BP 115/90
--- NOTE | 2019-09-01 09:00 | NUR ---
Electric Screw Driver Operator in to see patient. Patient states lives at home with her roommate, Luis. There are 4 steps in the home. Physician: Dr. Adonis Gotti [facility] Home health services: [facility] alternating 7 days a week and 5 days a week for 2 hours daily, meals delivered once a week Patient's level of ADLs: minimal assistance Patient has working utilities: yes DME: O2 @ 2L [place], portable O2 tanks, nebulizer, O2 supplier [employer] Follow-up physician's appointment after d/c: she prefers to make her own follow up appt after discharge Does patient want to access PORTAL?: no Discharge plan discussed with patient. She lives at home with her roommate, Luis. She needs minimal assistance with her ADLs and ambulation. Discussed home health care services and she states she currently has [facility] alternating 7 days a week and 5 days a week for 2 hours daily. She has meals delivered once a week but she is unsure of the name of the company. When medically stable she will be discharged to home with the resumption of her [facility]. She states her boyfriend, Luis, will provide transportation on discharge. KAREN BRUNNER
--- NOTE | 2019-09-01 11:51 | NUR ---
PT REQUESTING OXY IR , STATES PAIN 4/10, BACK PAIN. WILL MONITOR FOR EFFECTIVENESS
[2019-09-01 12:00] VITALS: BP 120/67
--- NOTE | 2019-09-01 12:00 | NUR ---
OXY EFFECTIVE FOR PAIN
--- NOTE | 2019-09-01 15:51 | NUR ---
PT COMPLAIN OF PAIN UPPER BACK, RIGHT SHOULDER. TORADOL GIVEN. WILL MONITOR FOR EFFECTIVENESS.
[2019-09-01 16:00] VITALS: BP 107/68
--- NOTE | 2019-09-01 16:25 | NUR ---
TORADOL EFFECTIVE FOR PAIN
--- NOTE | 2019-09-01 18:12 | NUR ---
PT STATES PAIN 8/10 BACK PAIN, OXYIR GIVEN. WILL MONITOR FOR EFFECTIVENESS
[2019-09-01 20:00] VITALS: BP 111/62
[2019-09-02] VITALS: BP 110/63
--- NOTE | 2019-09-02 00:17 | NUR ---
OXYCODONE ADMINISTERED FOR PT C/O BACK PAIN. WILL CONTINUE TO MONITOR AND REASSESS.
--- NOTE | 2019-09-02 01:00 | NUR ---
PT ASLEEP AT THIS TIME. NO SIGNS OF DISCOMFORT OR DISTRESS.
--- NOTE | 2019-09-02 06:25 | NUR ---
OXYCODONE ADMINISTERED FOR PT C/O BACK PAIN RATED A 4/10. WILL CONTINUE TO MONITOR AND REASSESS.
--- NOTE | 2019-09-02 06:51 | NUR ---
PT RESTING COMFORTABLY AT THIS TIME. NO SIGNS OF DISCOMFORT OR DISTRESS NOTED.
[2019-09-02 07:39] LABS: BASO % 0.1 % (0.0-1.0); HEMATOCRIT 37.9 % (37.0-47.0); LYMPH # 1.2 10*3/uL (1.3-4.4); LYMPH % 5.9 % (27.0-41.0); MEAN CELL VOLUME 92.9 fl (81.0-99.0); MEAN CORPUSCULAR HGB 29.4 pg (27.0-31.0); MEAN CORPUSCULAR HGB CONC 31.7 g/dl (33.0-37.0); MEAN PLATELET VOLUME 11.4 fl (9.6-12.3); MONO # 0.9 10*3/uL (0.1-1.0); MONO % 4.5 % (3.0-9.0); NEUT # 18.2 10*3/uL (2.3-7.9); NEUT % 88.8 % (47.0-73.0); PLATELET COUNT AUTOMATED 286 10*3/uL (130-400); RED BLOOD COUNT 4.08 10*6/uL (4.10-5.10); RED CELL DISTRI WIDTH 14.5 % (0-14.5); WHITE BLOOD COUNT 20.5 10*3/uL (4.8-10.8)
[2019-09-02 08:00] VITALS: BP 133/85
[2019-09-02 08:02] LABS: BUN 27 mg/dl (7-24); CHLORIDE 105 mmol/L (98-107); CREATININE 0.93 mg/dL (0.55-1.02); SODIUM 141 mmol/L (136-145)
[2019-09-02 08:13] LABS: POTASSIUM 4.8 mmol/L (3.5-5.1)
[2019-09-02] MEDS ORDERED: PREDNISONE5 MG PO (08:29)
[2019-09-02] MEDS ORDERED: CEFUROXIME AXE250 MG PO (08:29)
--- NOTE | 2019-09-02 08:30 | NUR ---
Truck Engine Technician in to see patient. She states she is being discharged today. Discussed any home needs and she would like to see about getting a smaller O2 tank as the ones she has at home are too large and cumbersome for her to carry. Instructed patient to reach out to [employer] regarding what requirements are needed to qualify for the small tanks that make its own O2 and she verbalized an understanding. She has [facility] and her meals are delivered. She states her roommate will provide transportation.
--- NOTE | 2019-09-02 10:27 | NUR ---
Discharge instructions reviewed with patient/family. Patient receptive and verbalizes understanding. Follow-up care arranged. Written instructions given to patient/family. DEBBI COLEMANIS
== END 2019-09-02 10:27 | disposition home or self-care (01) | DRG 202 ==
LOC: ED 16:14 → EDHOLD 18:22 → 5E 18:22
PROVIDERS: Emergency Medicine; ADMIT Internal Medicine
DX: J20.9 Acute bronchitis, unspecified (principal); J44.0 Chronic obstructive pulmonary disease with (acute) lower respiratory infection; E46 Unspecified protein-calorie malnutrition; Z68.1 Body mass index [BMI] 19.9 or less, adult; J44.1 Chronic obstructive pulmonary disease with (acute) exacerbation; I50.32 Chronic diastolic (congestive) heart failure; J96.11 Chronic respiratory failure with hypoxia; I13.0 Hypertensive heart and chronic kidney disease with heart failure and stage 1 through stage 4 chronic kidney disease, or unspecified chronic kidney disease; E78.2 Mixed hyperlipidemia; E03.9 Hypothyroidism, unspecified; E11.43 Type 2 diabetes mellitus with diabetic autonomic (poly)neuropathy; K31.84 Gastroparesis; F17.210 Nicotine dependence, cigarettes, uncomplicated; G89.29 Other chronic pain; M54.5 Low back pain; F31.9 Bipolar disorder, unspecified; F51.01 Primary insomnia; I25.10 Atherosclerotic heart disease of native coronary artery without angina pectoris; N18.3 Chronic kidney disease, stage 3 (moderate); E11.22 Type 2 diabetes mellitus with diabetic chronic kidney disease; F43.10 Post-traumatic stress disorder, unspecified; Z66 Do not resuscitate; Z51.5 Encounter for palliative care; Z88.1 Allergy status to other antibiotic agents; Z88.5 Allergy status to narcotic agent; I25.2 Old myocardial infarction; Z91.5 Personal history of self-harm; Z99.81 Dependence on supplemental oxygen; Z90.710 Acquired absence of both cervix and uterus; Z83.3 Family history of diabetes mellitus; Z80.8 Family history of malignant neoplasm of other organs or systems

== ENCOUNTER 2019-09-27 05:07 | Emergency (ER) | payer MEDICARE ==
[~2019-09-27] VITALS: Ht 162.5 cm; Wt 47.6 kg
[2019-09-27 05:10] VITALS: BP 149/80
[2019-09-27 05:55] LABS: BUN 10 mg/dl (7-24); CHLORIDE 108 mmol/L (98-107); CREATININE 0.84 mg/dL (0.55-1.02); POTASSIUM 4.7 mmol/L (3.5-5.1); SODIUM 140 mmol/L (136-145)
[2019-09-27 05:56] LABS: BASO # 0.1 10*3/uL (0.0-0.1); BASO % 0.5 % (0.0-1.0); EOS # 0.3 10*3/uL (0.0-0.4); EOS % 2.8 % (1.0-4.0); HEMATOCRIT 41.5 % (37.0-47.0); LYMPH # 2.8 10*3/uL (1.3-4.4); MEAN CELL VOLUME 95.2 fl (81.0-99.0); MEAN CORPUSCULAR HGB 29.6 pg (27.0-31.0); MEAN CORPUSCULAR HGB CONC 31.1 g/dl (33.0-37.0); MEAN PLATELET VOLUME 9.1 fl (9.6-12.3); MONO # 0.9 10*3/uL (0.1-1.0); NEUT # 5.6 10*3/uL (2.3-7.9); NEUT % 58.3 % (47.0-73.0); PLATELET COUNT AUTOMATED 493 10*3/uL (130-400); RED BLOOD COUNT 4.36 10*6/uL (4.10-5.10); RED CELL DISTRI WIDTH 16.1 % (0-14.5); WHITE BLOOD COUNT 9.7 10*3/uL (4.8-10.8)
== END 2019-09-27 08:28 | disposition home or self-care (01) ==
LOC: ED 05:07
PROVIDERS: Emergency Medicine Emergency Medical Services
DX: G43.909 Migraine, unspecified, not intractable, without status migrainosus (principal); F41.9 Anxiety disorder, unspecified; M19.90 Unspecified osteoarthritis, unspecified site; I25.10 Atherosclerotic heart disease of native coronary artery without angina pectoris; J44.9 Chronic obstructive pulmonary disease, unspecified; I50.9 Heart failure, unspecified; E11.22 Type 2 diabetes mellitus with diabetic chronic kidney disease; N18.3 Chronic kidney disease, stage 3 (moderate); K21.9 Gastro-esophageal reflux disease without esophagitis; F31.9 Bipolar disorder, unspecified; E78.5 Hyperlipidemia, unspecified; Z88.8 Allergy status to other drugs, medicaments and biological substances; Z79.899 Other long term (current) drug therapy

== ENCOUNTER 2019-10-06 20:39 | Inpatient (IN) | payer MEDICARE ==
[~2019-10-06] VITALS: Ht 167.6 cm; Wt 48.6 kg
[2019-10-06 20:46] VITALS: BP 143/77
--- NOTE | 2019-10-06 21:10 | NUR ---
PATIENT STATES UNABLE TO VOID AT THIS TIME
[2019-10-06 21:17] LABS: BASO # 0.1 10*3/uL (0.0-0.1); BASO % 0.7 % (0.0-1.0); EOS # 0.2 10*3/uL (0.0-0.4); HEMATOCRIT 44.3 % (37.0-47.0); LYMPH # 2.8 10*3/uL (1.3-4.4); LYMPH % 34.1 % (27.0-41.0); MEAN CELL VOLUME 93.3 fl (81.0-99.0); MEAN CORPUSCULAR HGB 28.8 pg (27.0-31.0); MEAN CORPUSCULAR HGB CONC 30.9 g/dl (33.0-37.0); MEAN PLATELET VOLUME 9.8 fl (9.6-12.3); MONO # 0.7 10*3/uL (0.1-1.0); MONO % 9.1 % (3.0-9.0); NEUT # 4.4 10*3/uL (2.3-7.9); NEUT % 53.9 % (47.0-73.0); PLATELET COUNT AUTOMATED 360 10*3/uL (130-400); RED BLOOD COUNT 4.75 10*6/uL (4.10-5.10); RED CELL DISTRI WIDTH 15.2 % (0-14.5); WHITE BLOOD COUNT 8.1 10*3/uL (4.8-10.8)
--- NOTE | 2019-10-06 21:24 | NUR ---
PATIENT REFUSING BLOOD CULTURES. MAYITO HERNANDEZ AWARE.
[2019-10-06 21:36] LABS: ALBUMIN 3.4 gm/dl (3.1-4.5); ALKALINE PHOSPHATASE 89 U/L (45-117); BUN 21 mg/dl (7-24); CHLORIDE 107 mmol/L (98-107); CREATININE 0.77 mg/dL (0.55-1.02); POTASSIUM 4.5 mmol/L (3.5-5.1); SGOT/AST 13 IU/L (3-35); SGPT/ALT 11 U/L (12-78); SODIUM 140 mmol/L (136-145); TOTAL PROTEIN 6.8 gm/dL (6.4-8.2)
[2019-10-06 21:37] LABS: TROPONIN I < 0.015 ng/ml (<0.045)
[2019-10-06 22:47] VITALS: BP 139/74
--- NOTE | 2019-10-06 22:51 | NUR ---
PATIENT CONTINUES TO DENY THE URGE TO VOID
--- NOTE | 2019-10-06 22:55 | NUR ---
THIS RN CONTACTED BY INPATIENT AND INFORMED THAT THE PATIENT HAD HEAD LICE THE LAST TIME SHE WAS ADMITTED. THIS RN CHECKED THE PATIENT AND FOUND 10-20 LIVE NITS. I DID NOT FIND ANY BUGS. INPATIENT IS NOTIFIED AND PATIENT HAS HAIR NET APPLIED PRIOR TO TRANSFER TO FLOOR.
[2019-10-06 23:25] VITALS: BP 176/89
--- NOTE | 2019-10-06 23:25 | NUR ---
Time: 2324 A 64 year old F admitted to under services of LIZETTE BERNABE MD. Pt. arrived via stretcher from ER. Chief complaint: SOB X3 DAYS. CULLEN SOTO
[2019-10-06 23:40] LABS: BILIRUBIN NEGATIVE (NEGATIVE); BLOOD NEGATIVE (NEGATIVE); CLARITY CLEAR (CLEAR); COLOR YELLOW (YELLOW); GLUCOSE NEGATIVE (NEGATIVE); KETONE NEGATIVE (NEGATIVE); NITRITE NEGATIVE (NEGATIVE); UROBILINOGEN 0.2 E.U./dl (0.2-1.0)
[2019-10-06 23:41] LABS: LEUKO ESTERASE NEGATIVE (NEGATIVE)
[2019-10-07] LABS: RBC 0-2 rbc/hpf (0-2); WBC 0-2 wbc/hpf (0-5)
--- NOTE | 2019-10-07 00:42 | NUR ---
DR. ROSS AWARE OF ADMISSION, ORDERS OBTAINED.
--- NOTE | 2019-10-07 01:35 | NUR ---
PRN PERCOCET AND FLEXERIL GIVEN FOR C/O BACK PAIN AND MIGRAINE RATING BOTH A 10/10. PATIENT ALSO REQUESTING SLEEPING PILL. CALL LIGHT IS WITHIN REACH, WILL MONITOR EFFECT.
--- NOTE | 2019-10-07 01:55 | NUR ---
HS TRAZADONE GIVEN FOR C/O INSOMNIA. CALL LIGHT IS WITHIN REACH, WILL MONITOR EFFECT.
--- NOTE | 2019-10-07 02:35 | NUR ---
PRN PERCOCET, FLEXERIL, AND TRAZADONE APPEAR EFFECTIVE. PATIENT IS SLEEPING WITH EASY AND REGULAR RESPERS. CALL LIGHT IS WITHIN REACH.
--- NOTE | 2019-10-07 05:26 | NUR ---
CHART CHECK COMPLETE.
[2019-10-07 08:00] VITALS: BP 150/84
--- NOTE | 2019-10-07 08:32 | NUR ---
PT MEDICATED WITH PRN PERCOCET FOR C/O ALL OVER BODY PAIN. PT RATES PAIN 10/05. WILL MONITOR.
--- NOTE | 2019-10-07 09:00 | NUR ---
Area Cleaner in to see patient. Patient states lives at home with her roommate/boyfriend, Luis. There are 4 steps in the home. Physician: Dr. Adonis Gotti [facility] Home health services: [facility] alternating 7 days a week and 5 days a week for 2 hours daily, meals delivered once a week by [employer] Patient's level of ADLs: minimal assistance Patient has working utilities: yes DME: O2 @ 3L [place], portable O2 tanks, nebulizer, O2 supplier [facility] Follow-up physician's appointment after d/c: she prefers to make her own follow up appt after discharge Does patient want to access PORTAL?: no Discharge plan discussed with patient. She lives at home with her roommate/boyfriend, Luis. She needs minimal assistance with her ADLs and ambulation. Discussed home health care services and she states she currently has [facility] alternating 7 days a week and 5 days a week for 2 hours daily. She has meals delivered weekly by [employer]. When medically stable she will be discharged to home with the resumption of her [facility]. She states her boyfriend, Luis, will provide transportation on discharge. CM will continue to follow for any discharge planning needs. KAREN BRUNNER
--- NOTE | 2019-10-07 09:15 | NUR ---
PRN PERCOCET EFFECTIVE PER PT.
--- NOTE | 2019-10-07 10:50 | NUR ---
PT MEDICATED WITH PRN FLEXERIL FOR C/O MUSCLE SPASMS, WILL MONITOR.
--- NOTE | 2019-10-07 13:18 | NUR ---
Patient states she spoke to her [facility] CM, Lexis, who stated patient would be able to get small portable O2 tanks from [employer] but needs a prescription. Dr. Sarkar notified.
--- NOTE | 2019-10-07 14:52 | NUR ---
PT MEDICATED WITH PRN NORCO FOR C/O GENERALIZED PAIN. PT RATES PAIN 10/05. WILL MONITOR.
--- NOTE | 2019-10-07 14:53 | NUR ---
MEDICATED WITH 2 PERCOET FOR COMPLAINTS OF ALL OVER PAIN. RATES PAIN A 7 ON A PAIN SCALE OF 1-10
--- NOTE | 2019-10-07 15:29 | NUR ---
Nutritional Support Services Note: She receives a regular diet as ordered with Ensure QID. Tolerates diet and Ensure. Drinks Ensure at home to maintain current wt. Ht.5'6 Wt.107#. IBW 120-140# Weight one month ago 110#. Continue to encourage po intake and honor food preferences. Will follow if needed. No other nutrition intervention needed at this time. Chelsey Armas Rdn Ld
[2019-10-07 16:00] VITALS: BP 148/82
[2019-10-07 20:00] VITALS: BP 150/79
[2019-10-08] VITALS: BP 145/76
[2019-10-08 08:00] VITALS: BP 126/71
--- NOTE | 2019-10-08 08:17 | NUR ---
PATIENT C/O PAIN IN BACK AND RIGHT FOOT. MEDICATED WITH FLEXERIL AND PERCOCET PER PRN ORDER.
--- NOTE | 2019-10-08 08:47 | NUR ---
PATIENT RESTING QUIETLY. PERCOCET AND FLEXERIL EFFECTIVE.
--- NOTE | 2019-10-08 09:00 | NUR ---
CM in to see patient. No new needs or request at this time. Discussed home health care services and she declines. CM will continue to follow for any discharge planning needs. When medically stable she will be discharged to home with the resumption of her [facility] and delivery of her [employer] meals.
--- NOTE | 2019-10-08 14:16 | NUR ---
PERCOCET GIVEN FOR C/O BACK PAIN. RATES 7/120 ON PAIN SCALE. WILL MONITOR.
--- NOTE | 2019-10-08 14:45 | NUR ---
PATIENT RESTING QUIETLY. PERCOCET EFFECTIVE.
[2019-10-08 16:00] VITALS: BP 113/50; BP 126/71
--- NOTE | 2019-10-08 16:27 | NUR ---
PATIENT REQUESTING FLEXERIL AT THIS TIME FOR C/O BACK PAIN.
--- NOTE | 2019-10-08 19:56 | NUR ---
PO PERCOCET GIVEN FOR BACK PAIN RATED 7/10. ALSO HAVING GENERALIZED ACHES AND PAINS ALL OVER. WILL MONITOR. CALL LIGHT IN REACH.
[2019-10-08 20:00] VITALS: BP 130/80
--- NOTE | 2019-10-08 20:45 | NUR ---
EARLIER MEDICATION EFFECTIVE PER PT. WILL MONITOR. CALL LIGHT IN REACH.
[2019-10-09] VITALS: BP 156/89
--- NOTE | 2019-10-09 04:52 | NUR ---
PATIENT C/O BACK PAIN. RATES 08/05. MEDICATED WITH PERCOCET WILL CHECK EFFECTIVENESS.
--- NOTE | 2019-10-09 05:30 | NUR ---
PER PT PERCOCET NOT EFFECTIVE.
[2019-10-09 08:00] VITALS: BP 155/88
--- NOTE | 2019-10-09 10:00 | NUR ---
PATIENT DISCHARGED TO HOME. ALL PERSONAL BELONGINGS SENT WITH PATIENT. IV DISCONTINUED. DISCHARGE INSTRUCTIONS GIVEN AND REVIEWED WITH PATIENT.
== END 2019-10-09 10:00 | disposition home or self-care (01) | DRG 189 ==
LOC: ED 20:39 → EDHOLD 22:45 → 4E 22:45
PROVIDERS: Nurse Practitioner; ADMIT Internal Medicine
DX: J96.20 Acute and chronic respiratory failure, unspecified whether with hypoxia or hypercapnia (principal); E43 Unspecified severe protein-calorie malnutrition; J44.0 Chronic obstructive pulmonary disease with (acute) lower respiratory infection; E87.2 Acidosis; Z68.1 Body mass index [BMI] 19.9 or less, adult; J44.1 Chronic obstructive pulmonary disease with (acute) exacerbation; J20.9 Acute bronchitis, unspecified; F31.9 Bipolar disorder, unspecified; K21.0 Gastro-esophageal reflux disease with esophagitis; E11.9 Type 2 diabetes mellitus without complications; F41.1 Generalized anxiety disorder; F51.01 Primary insomnia; R62.7 Adult failure to thrive; M47.896 Other spondylosis, lumbar region; G89.29 Other chronic pain; E78.2 Mixed hyperlipidemia; E03.9 Hypothyroidism, unspecified; F17.210 Nicotine dependence, cigarettes, uncomplicated; Z66 Do not resuscitate; Z51.5 Encounter for palliative care; Z99.81 Dependence on supplemental oxygen; Z88.1 Allergy status to other antibiotic agents; Z88.8 Allergy status to other drugs, medicaments and biological substances; Z88.5 Allergy status to narcotic agent; Z90.710 Acquired absence of both cervix and uterus; Z80.8 Family history of malignant neoplasm of other organs or systems; Z88.3 Allergy status to other anti-infective agents

== ENCOUNTER 2019-10-14 22:36 | Emergency (ER) | payer MEDICARE ==
[~2019-10-14] VITALS: Ht 167.6 cm; Wt 48.5 kg
[2019-10-14 22:43] VITALS: BP 116/69
== END 2019-10-15 01:25 | disposition left against medical advice (07) ==
LOC: ED 22:36
DX: R42 Dizziness and giddiness (principal); M54.9 Dorsalgia, unspecified; I25.10 Atherosclerotic heart disease of native coronary artery without angina pectoris; F31.9 Bipolar disorder, unspecified; E11.22 Type 2 diabetes mellitus with diabetic chronic kidney disease; N18.3 Chronic kidney disease, stage 3 (moderate); I50.9 Heart failure, unspecified; K21.9 Gastro-esophageal reflux disease without esophagitis; E78.5 Hyperlipidemia, unspecified; E03.9 Hypothyroidism, unspecified; G43.909 Migraine, unspecified, not intractable, without status migrainosus; Z88.8 Allergy status to other drugs, medicaments and biological substances; Z79.899 Other long term (current) drug therapy; Z90.49 Acquired absence of other specified parts of digestive tract; W19.XXXA Unspecified fall, initial encounter; Y93.89 Activity, other specified; Y92.89 Other specified places as the place of occurrence of the external cause; Y99.8 Other external cause status

== ENCOUNTER 2019-11-05 20:49 | Emergency (ER) | payer MEDICARE ==
[~2019-11-05] VITALS: Ht 167.6 cm; Wt 50.8 kg
[2019-11-05 21:22] LABS: BASO # 0.1 10*3/uL (0.0-0.1); BASO % 0.4 % (0.0-1.0); EOS # 0.2 10*3/uL (0.0-0.4); HEMATOCRIT 40.2 % (37.0-47.0); LYMPH # 2.6 10*3/uL (1.3-4.4); LYMPH % 23.1 % (27.0-41.0); MEAN CELL VOLUME 94.4 fl (81.0-99.0); MEAN CORPUSCULAR HGB 29.3 pg (27.0-31.0); MEAN CORPUSCULAR HGB CONC 31.1 g/dl (33.0-37.0); MEAN PLATELET VOLUME 9.7 fl (9.6-12.3); NEUT # 7.3 10*3/uL (2.3-7.9); NEUT % 65.1 % (47.0-73.0); PLATELET COUNT AUTOMATED 327 10*3/uL (130-400); RED BLOOD COUNT 4.26 10*6/uL (4.10-5.10); RED CELL DISTRI WIDTH 14.4 % (0-14.5); WHITE BLOOD COUNT 11.2 10*3/uL (4.8-10.8)
[2019-11-05 21:34] LABS: ACT PARTIAL THROMBO TIME 28.6 SECONDS (20.0-32.1)
[2019-11-05 21:35] VITALS: BP 147/87
[2019-11-05 21:40] LABS: ALBUMIN 3.7 gm/dl (3.1-4.5); ALKALINE PHOSPHATASE 77 U/L (45-117); BUN 9 mg/dl (7-24); CHLORIDE 103 mmol/L (98-107); CREATININE 0.89 mg/dL (0.55-1.02); POTASSIUM 3.9 mmol/L (3.5-5.1); SGOT/AST 14 IU/L (3-35); SGPT/ALT 10 U/L (12-78); SODIUM 138 mmol/L (136-145); TOTAL PROTEIN 6.6 gm/dL (6.4-8.2)
[2019-11-05 21:41] LABS: TROPONIN I < 0.015 ng/ml (<0.045)
== END 2019-11-06 00:03 | disposition left against medical advice (07) ==
LOC: ED 20:49
PROVIDERS: Emergency Medicine
DX: J44.9 Chronic obstructive pulmonary disease, unspecified (principal); I25.10 Atherosclerotic heart disease of native coronary artery without angina pectoris; E11.22 Type 2 diabetes mellitus with diabetic chronic kidney disease; N18.3 Chronic kidney disease, stage 3 (moderate); G43.909 Migraine, unspecified, not intractable, without status migrainosus; E78.5 Hyperlipidemia, unspecified; K21.9 Gastro-esophageal reflux disease without esophagitis; I50.9 Heart failure, unspecified; E11.9 Type 2 diabetes mellitus without complications; F17.200 Nicotine dependence, unspecified, uncomplicated; Z88.1 Allergy status to other antibiotic agents; Z88.6 Allergy status to analgesic agent; Z79.899 Other long term (current) drug therapy

== ENCOUNTER 2019-11-17 10:48 | Observation (INO) | payer MEDICARE ==
[~2019-11-17] VITALS: Ht 167.6 cm; Wt 50.5 kg
[2019-11-17 10:56] VITALS: BP 139/99
--- NOTE | 2019-11-17 11:55 | NUR ---
2 IV ATEMPTS INFILTRATED THE VEIN. HIEN WOODWARD IS ATTEMPTING TO START ONE
--- NOTE | 2019-11-17 12:14 | NUR ---
THE SOLU-MEDROL WAS GIVEN BY HIEN WOODWARD
[2019-11-17 12:23] LABS: BASO # 0.1 10*3/uL (0.0-0.1); BASO % 0.6 % (0.0-1.0); EOS # 0.3 10*3/uL (0.0-0.4); EOS % 3.1 % (1.0-4.0); HEMATOCRIT 41.8 % (37.0-47.0); LYMPH # 2.8 10*3/uL (1.3-4.4); LYMPH % 27.6 % (27.0-41.0); MEAN CELL VOLUME 94.8 fl (81.0-99.0); MEAN CORPUSCULAR HGB 29.5 pg (27.0-31.0); MEAN CORPUSCULAR HGB CONC 31.1 g/dl (33.0-37.0); MONO % 9.8 % (3.0-9.0); NEUT # 5.9 10*3/uL (2.3-7.9); NEUT % 58.5 % (47.0-73.0); PLATELET COUNT AUTOMATED 360 10*3/uL (130-400); RED BLOOD COUNT 4.41 10*6/uL (4.10-5.10)
[2019-11-17 12:47] LABS: ALKALINE PHOSPHATASE 108 U/L (45-117); BUN 16 mg/dl (7-24); CHLORIDE 105 mmol/L (98-107); CREATININE 0.72 mg/dL (0.55-1.02); POTASSIUM 4.3 mmol/L (3.5-5.1); SGOT/AST 12 IU/L (3-35); SGPT/ALT 14 U/L (12-78); SODIUM 137 mmol/L (136-145); TOTAL PROTEIN 6.2 gm/dL (6.4-8.2)
[2019-11-17 14:11] VITALS: BP 148/91
[2019-11-17 15:37] VITALS: BP 152/110
--- NOTE | 2019-11-17 15:37 | NUR ---
A 64, admitted to , under the services of Dr. ABDIRAHMAN ALBA,FERNANDO Lira with a diagnosis of INTRACTABLE BACK PAIN. Chief complaint is INCREASED PAIN FROM FALL ON 11/05. Patient arrived via stretcher from ER. Monitor applied. Initial assessment completed. Vital signs taken and recorded. DR. ABDIRAHMAN ALBA,FERNANDO Lira notified of admission to the unit. Orders received. See assessment for past medical history, medications and allergies. Patient and/or family oriented to unit. Clothing/patient valuable form completed. PUMA ARREGUIN
--- NOTE | 2019-11-17 16:14 | NUR ---
PATIENT C/O LOWER BACK JUAN F. MORE ON THE LEFT SIDE. RATE 8/10 ON PAIN SCALE. MEDICATED WITH TORADOL PER PRN ORDER.
--- NOTE | 2019-11-17 16:45 | NUR ---
PATIENT STATES TORADOL IS NOT EFFECTIVE AT THIS TIME. WILL CONTINUE TO MONITOR.
[2019-11-17 20:00] VITALS: BP 153/73
--- NOTE | 2019-11-17 20:00 | NUR ---
RESTING IN BED WITH EYES CLOSED AND NO ACUTE DISTRESS NOTED. RESPIRATIONS EASY. LUNGS DIMINISHED WITH SCATTERED WHEEZES. PULSE OX 92% RA. NON-PROD SMOKERS COUGH. CALL LIGHT WITHIN REACH. NO VOICED COMPLAINTS.
--- NOTE | 2019-11-17 20:07 | NUR ---
24 HR chart check completed.
--- NOTE | 2019-11-17 20:40 | NUR ---
REQUESTED AND RECEIVED PERCOCET AND FLEXERIL PER PRN ORDER FOR C/O LOWER BACK PAIN RATING AN 8. ALSO MEDICATED WITH ROUTINE XANAX, TRAZADONE, AND GEODON TO ASSIST WITH ANXIETY/SLEEP. CALL LIGHT WITHIN REACH. WILL MONITOR FOR EFFECTIVENESS
--- NOTE | 2019-11-17 21:30 | NUR ---
EARLIER MEDS APPEAR EFFECTIVE. SLEEPING. RESPIRATIONS EASY. CALL LIGHT WITHIN REACH
[2019-11-18] VITALS: BP 169/71
--- NOTE | 2019-11-18 | NUR ---
SLEEPING. NO DISTRESS NOTED. RESPIRATIONS EASY. VSS. CALL LIGHT WITHIN REACH.
--- NOTE | 2019-11-18 04:04 | NUR ---
REQUESTED AND RECEIVED PERCOCET PER PRN ORDER FOR COMPLAINTS OF LOWER BACK PAIN RATING AN 8. CALL LIGHT WITHIN REACH. WILL MONITOR
--- NOTE | 2019-11-18 05:00 | NUR ---
EARLIER MEDS APPEAR EFFECTIVE, SLEEPING. RESPIRATIONS EASY. CALL LIGHT WITHIN REACH
[2019-11-18 05:44] LABS: BUN 22 mg/dl (7-24); CHLORIDE 106 mmol/L (98-107); CREATININE 0.72 mg/dL (0.55-1.02); POTASSIUM 4.1 mmol/L (3.5-5.1); SODIUM 138 mmol/L (136-145)
--- NOTE | 2019-11-18 06:00 | NUR ---
CONTINUES TO SLEEP WITH NO DISTRESS NOTED. RESPIRATIONS EASY. CALL LIGHT WITHIN REACH.
[2019-11-18 08:00] VITALS: BP 143/80
--- NOTE | 2019-11-18 08:30 | NUR ---
Statistical Financial Analyst in to see patient. Patient states lives at home with her roommate/boyfriend, Luis. There are 4 steps in the home. Physician: Dr. Adonis Gotti [facility]: [facility] Home health services: [facility] alternating 7 days a week and 5 days a week for 2 hours daily, meals delivered once a week by [employer], would like [facility] on discharge Patient's level of ADLs: minimal assistance Patient has working utilities: yes DME: O2 @ 3L [place], portable O2 tanks, nebulizer, O2 supplier [facility] Follow-up physician's appointment after d/c: she prefers to make her own follow up appt after discharge Does patient want to access PORTAL?: no Discharge plan discussed with patient. She lives at home with her roommate/boyfriend, Luis. She needs minimal assistance with her ADLs and ambulation. Discussed short term rehab and she is agreeable. When provided with a list of facilities she chose [facility]. Within minutes she decided against going to [facility] for rehab due to her rent needing paid and her roommate will only pay the rent if she pays the rent. Discussed home health care services and she states she currently has [facility] alternating 7 days a week and 5 days a week for 2 hours daily. Discussed skilled therapy and nurses at home and she is agreeable. When provided with a list of agencies she chose [facility]. She has meals delivered weekly by [employer]. She states she only needs services at home for a couple more months as she is going to live with her 2 sons in [place]. She states she is originally from [place] but moved to [place] when her in-laws were sick. When medically stable she will be discharged to home with the resumption of her [facility] and [facility] services. Dr. Gotti notified. She states her boyfriend, Luis, will provide transportation on discharge. CM will continue to follow for any discharge planning needs. KAREN BRUNNER
--- NOTE | 2019-11-18 09:02 | NUR ---
DOCTOR OF NURSING PRACTICE RECEIVED PHONE CALL FROM PATIENT. 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 SHE WANTED TO LET HER KNOW SHE IS NOT GOING TO BE ABLE TO GO TO A SNF. PATIENT STATED THAT IF SHE WERE TO GO SHE WOULD LOSE HER APARTMENT. DOCTOR OF NURSING PRACTICE ATTEMPTED TO EXPLAIN LONG SHE WAS ABLE TO PAY HER RENT SHE WOULD NOT LOSE IT. PATIENT STATED NO, SHE WILL ONLY BE IN HER APARTMENT FOR TWO MORE MONTHS AND WILL BE MOVING TO [place]. DOCTOR OF NURSING PRACTICE WILL LET MERCURY CELL CLEANER KNOW.
--- NOTE | 2019-11-18 10:10 | NUR ---
IN TO SEE PATIENT.
--- NOTE | 2019-11-18 10:41 | NUR ---
PT MEDICATED WITH IV TORADOL PER PRN ORDER FOR C/O BACK PAIN. RATES PAIN 10/05. WILL MONITOR EFFECTIVENESS. CHRONIC BACK PAIN PER PT.
--- NOTE | 2019-11-18 10:46 | NUR ---
PT MEDICATED WITH PO PERCOCET PER PRN ORDER FOR C/O BACK PAIN. RATES PAIN 10/05. CHRONIC PAIN PER PT. WILL MONITOR EFFECTIVENESS.
--- NOTE | 2019-11-18 11:16 | NUR ---
Received order for [facility]. Faxed order and clinicals, notified of discharge either today or tomorrow.
--- NOTE | 2019-11-18 11:41 | NUR ---
TORADOL RELIEVING BACK PAIN PER PT. WILL CONTINUE TO MONITOR.
--- NOTE | 2019-11-18 11:46 | NUR ---
PERCOCET RELIEVING BACK PAIN PER PT. WILL CONTINUE TO MONITOR.
--- NOTE | 2019-11-18 14:51 | NUR ---
[facility] is unable to accept this patient for home health service. Patient stating she would like next referral to [facility]. Faxed order, clinicals and face to face sheet to [facility].
[2019-11-18 16:00] VITALS: BP 140/74
--- NOTE | 2019-11-18 16:36 | NUR ---
PT GIVEN IV TORADOL AND PERCOCET PER PRN ORDER FOR C/O BACK PAIN. RATES PAIN 10/05. WILL MONITOR EFFECTIVENESS.
--- NOTE | 2019-11-18 17:36 | NUR ---
EARLIER PAIN MEDS EFFECTIVE PER PT.
--- NOTE | 2019-11-18 18:57 | NUR ---
PATIENT REQUESTING HEAD TO BE CHECKED DUE TO RECENT FAMILY MEMBER HAVING LICE. HEAD/SCALP INSPECTED BY 2 RN'S. NOTHING VISIBLE. AWARE. NO NEW ORDERS AT THIS TIME.
--- NOTE | 2019-11-18 19:44 | NUR ---
24 HR chart check completed.
[2019-11-18 20:00] VITALS: BP 154/85
--- NOTE | 2019-11-18 20:00 | NUR ---
RESTING IN BED. RESPIRATIONS EASY. LUNGS DIMINISHED WITH SCATTERED WHEEZES. PULSE OX 99% RA. NON-PROD SMOKERS COUGH. CONTINUES TO C/O BACK PAIN STATING MEDS "HELP SOME." CALL LIGHT WITHIN REACH.
--- NOTE | 2019-11-18 20:50 | NUR ---
MEDICATED WITH ROUTINE AND PRN MEDS (FLXERIL, XANAX, GEODON AND TRAZADONE) TO ASSIST WITH BACK PAIN RATING A 7, ANXIETY AND TO ASSIST WITH SLEEP. CALL LIGHT WITHIN REACH. WILL MONITOR
--- NOTE | 2019-11-18 21:30 | NUR ---
STATES EARLIER MEDS "HELPING SOME." CALL LIGHT WITHIN REACH. NO FURTEHR VOICED COMPLAINTS AT THIS TIME
--- NOTE | 2019-11-18 22:45 | NUR ---
REQUESTED AND RECEIVED PERCOCET AND TORADOL PER PRN ORDER FOR COMPLAINTS OF LOWER BACK PAIN RATING A 7. CALL LIGHT WITHIN REACH. WILL MONITOR
--- NOTE | 2019-11-18 23:30 | NUR ---
EARLIER MEDS APPEAR EFFECTIVE. SLEEPING. RESPIRATIONS EASY. CALL LIGHT WITHIN REACH
[2019-11-19] VITALS: BP 171/84
--- NOTE | 2019-11-19 | NUR ---
SLEEPING. NO DISTRESS NOTED. RESPIRATIONS EASY. VSS. CALL LIGHT WITHIN REACH.
--- NOTE | 2019-11-19 05:41 | NUR ---
PATIENT INSISTING ON TAKING ALL PAIN MEDS TOGETHER DESPITE EDUCATION. REQUESTED AND RECEIVED TORADOL, PERCOCET, AND FLEXERIL PER PRN ORDER FOR COMPLAINTS OF BACK PAIN RATING AN 8. CALL LIGHT WITHIN REACH. WILL MONITOR
--- NOTE | 2019-11-19 06:30 | NUR ---
STATES EARLIER MEDS "HELPING SOME." CALL LIGHT WITHIN REACH. NO FURTHER VOICED COMPLAINTS
[2019-11-19 06:36] LABS: BUN 20 mg/dl (7-24); CHLORIDE 108 mmol/L (98-107); CREATININE 0.73 mg/dL (0.55-1.02); POTASSIUM 4.2 mmol/L (3.5-5.1); SODIUM 144 mmol/L (136-145)
[2019-11-19 08:00] VITALS: BP 132/90
--- NOTE | 2019-11-19 08:21 | NUR ---
PATIENT SITTING UP IN BED, EATING BREAKFAST. NO DISTRESS NOTED. RESPIRATIONS EASY, REGULAR ON RA. WILL CONTINUE TO MONITOR. VSS. NO VOICED COMPLAINTS AT THIS TIME. CALL LIGHT WITHIN REACH.
--- NOTE | 2019-11-19 09:00 | NUR ---
CM in to see patient. No new needs or request at this time. When medically stable she will be discharged to home with [facility] services. She states Luis, boyfriend, will provide transportation on discharge. CM will continue to follow for any other discharge planning needs.
--- NOTE | 2019-11-19 10:54 | NUR ---
Discharge instructions reviewed with patient/family. Patient receptive and verbalizes understanding. Follow-up care arranged. Written instructions given to patient/family. YVROSE GUSTAFSON.
--- NOTE | 2019-11-19 12:31 | NUR ---
Discharge instructions faxed to [facility]
== END 2019-11-19 10:54 | disposition home or self-care (01) ==
LOC: ED 10:48 → 4E 11:38 → EDHOLD 11:38 → 4E 11:38
PROVIDERS: Emergency Medicine; ADMIT Internal Medicine; ATTEND Internal Medicine
DX: R42 Dizziness and giddiness (principal); F41.1 Generalized anxiety disorder; M47.816 Spondylosis without myelopathy or radiculopathy, lumbar region; F41.9 Anxiety disorder, unspecified; K21.9 Gastro-esophageal reflux disease without esophagitis; G47.00 Insomnia, unspecified; R44.0 Auditory hallucinations; E44.1 Mild protein-calorie malnutrition

== ENCOUNTER 2019-11-21 00:19 | Emergency (ER) | payer MEDICARE ==
[~2019-11-21] VITALS: Ht 167.6 cm; Wt 57.7 kg
[2019-11-21 00:22] VITALS: BP 114/73
== END 2019-11-21 03:18 | disposition home or self-care (01) ==
LOC: ED 00:19
DX: M54.5 Low back pain (principal); G89.29 Other chronic pain; Z88.8 Allergy status to other drugs, medicaments and biological substances; Z79.899 Other long term (current) drug therapy; Z90.710 Acquired absence of both cervix and uterus

== ENCOUNTER 2019-11-28 14:33 | Emergency (ER) | payer MEDICARE ==
[~2019-11-28] VITALS: Ht 167.6 cm; Wt 50.8 kg
[2019-11-28 14:44] VITALS: BP 140/76
[2019-11-28] MEDS ORDERED: ROBAXIN-750750 MG PO (16:57)
[2019-11-28] MEDS ORDERED: PREDNISONE20 M1 PO (16:57)
== END 2019-11-28 16:59 | disposition home or self-care (01) ==
LOC: ED 14:33
DX: M54.5 Low back pain (principal); G89.29 Other chronic pain; J44.9 Chronic obstructive pulmonary disease, unspecified; F32.9 Major depressive disorder, single episode, unspecified; G43.909 Migraine, unspecified, not intractable, without status migrainosus; I50.9 Heart failure, unspecified; I25.10 Atherosclerotic heart disease of native coronary artery without angina pectoris; N18.9 Chronic kidney disease, unspecified; E03.9 Hypothyroidism, unspecified; Z79.899 Other long term (current) drug therapy; Z88.8 Allergy status to other drugs, medicaments and biological substances

== ENCOUNTER 2019-12-12 20:33 | Emergency (ER) | payer MEDICARE ==
[~2019-12-12] VITALS: Ht 167.6 cm; Wt 49.6 kg
[2019-12-12 21:02] LABS: BASO # 0.1 10*3/uL (0.0-0.1); EOS # 0.3 10*3/uL (0.0-0.4); EOS % 3.7 % (1.0-4.0); LYMPH # 3.1 10*3/uL (1.3-4.4); LYMPH % 42.4 % (27.0-41.0); MEAN CELL VOLUME 93.4 fl (81.0-99.0); MEAN CORPUSCULAR HGB CONC 31.1 g/dl (33.0-37.0); MEAN PLATELET VOLUME 9.4 fl (9.6-12.3); MONO # 0.6 10*3/uL (0.1-1.0); MONO % 8.3 % (3.0-9.0); NEUT # 3.2 10*3/uL (2.3-7.9); NEUT % 44.2 % (47.0-73.0); PLATELET COUNT AUTOMATED 359 10*3/uL (130-400); RED BLOOD COUNT 4.82 10*6/uL (4.10-5.10); RED CELL DISTRI WIDTH 13.9 % (0-14.5); WHITE BLOOD COUNT 7.3 10*3/uL (4.8-10.8)
[2019-12-12 21:13] LABS: ACT PARTIAL THROMBO TIME 25.7 SECONDS (20.0-32.1)
[2019-12-12 21:31] LABS: ALBUMIN 3.6 gm/dl (3.1-4.5); ALKALINE PHOSPHATASE 84 U/L (45-117); BUN 20 mg/dl (7-24); CHLORIDE 106 mmol/L (98-107); CREATININE 1.11 mg/dL (0.55-1.02); POTASSIUM 3.9 mmol/L (3.5-5.1); SGOT/AST 17 IU/L (3-35); SGPT/ALT 16 U/L (12-78); SODIUM 140 mmol/L (136-145); TOTAL PROTEIN 6.7 gm/dL (6.4-8.2)
[2019-12-12 21:33] LABS: TROPONIN I < 0.015 ng/ml (<0.045)
[2019-12-12 21:57] LABS: BILIRUBIN Negative (Negative); BLOOD Negative (Negative); CLARITY Clear (Clear); COLOR Yellow (Yellow); GLUCOSE Negative (Negative); KETONE Negative (Negative); LEUKO ESTERASE 2+ (Negative); NITRITE Negative (Negative); PH 6.5 (4.5-8.0); SPECIFIC GRAVITY <= 1.005 (1.001-1.030); UROBILINOGEN 0.2 E.U./dl (0.0-1.0)
[2019-12-12 22:06] LABS: URINE AMPHETAMINES < 1000 (1000ng/ml); URINE BARBITURATES < 200 (200ng/ml); URINE BENZODIAZEPINES > 200 (200ng/ml); URINE CANNABINOIDS (THC) > 50 (50ng/ml); URINE COCAINE < 300 (300ng/ml); URINE METHADONE < 300 (300ng/ml); URINE OPIATES < 300 (300ng/ml)
[2019-12-12 22:08] LABS: URINE PHENCYCLIDINE < 25 (25ng/ml)
== END 2019-12-13 00:33 | disposition home or self-care (01) ==
LOC: ED 20:33
PROVIDERS: Emergency Medicine Emergency Medical Services
DX: M54.5 Low back pain (principal); J44.9 Chronic obstructive pulmonary disease, unspecified; I25.10 Atherosclerotic heart disease of native coronary artery without angina pectoris; F31.9 Bipolar disorder, unspecified; F41.9 Anxiety disorder, unspecified; I12.9 Hypertensive chronic kidney disease with stage 1 through stage 4 chronic kidney disease, or unspecified chronic kidney disease; N18.30 Chronic kidney disease, stage 3 unspecified; E78.5 Hyperlipidemia, unspecified; Z88.8 Allergy status to other drugs, medicaments and biological substances; Z79.899 Other long term (current) drug therapy

== ENCOUNTER 2020-01-26 15:02 | Emergency (ER) | payer MEDICARE ==
[2020-01-26 15:06] VITALS: BP 134/67
[2020-01-26] MEDS ORDERED: PROVENTIL HFA6.7 GM INH (15:52)
[2020-01-26] MEDS ORDERED: PREDNISONE20 M1 PO (15:52)
[2020-01-27] MEDS ORDERED: NAPROSYN500 MG PO (13:51)
== END 2020-01-26 17:27 | disposition home or self-care (01) ==
LOC: ED 15:02
DX: S60.862A Insect bite (nonvenomous) of left wrist, initial encounter (principal); Z20.828 Contact with and (suspected) exposure to other viral communicable diseases; S60.861A Insect bite (nonvenomous) of right wrist, initial encounter; S90.562A Insect bite (nonvenomous), left ankle, initial encounter; S90.561A Insect bite (nonvenomous), right ankle, initial encounter; S90.862A Insect bite (nonvenomous), left foot, initial encounter; S90.861A Insect bite (nonvenomous), right foot, initial encounter; J44.9 Chronic obstructive pulmonary disease, unspecified; F17.200 Nicotine dependence, unspecified, uncomplicated; Z79.899 Other long term (current) drug therapy; Z88.1 Allergy status to other antibiotic agents; Z88.8 Allergy status to other drugs, medicaments and biological substances; W57.XXXA Bitten or stung by nonvenomous insect and other nonvenomous arthropods, initial encounter; Y93.89 Activity, other specified; Y92.89 Other specified places as the place of occurrence of the external cause; Y99.8 Other external cause status

== ENCOUNTER 2020-01-27 12:40 | Emergency (ER) | payer MEDICARE ==
[~2020-01-27] VITALS: Wt 49.4 kg
[2020-01-27 12:45] VITALS: BP 150/88
[2020-01-27] MEDS ORDERED: NAPROSYN500 MG PO (13:51)
== END 2020-01-27 13:56 | disposition home or self-care (01) ==
LOC: ED 12:40
DX: M54.5 Low back pain (principal); G89.29 Other chronic pain; Z88.8 Allergy status to other drugs, medicaments and biological substances; Z79.899 Other long term (current) drug therapy; Z79.2 Long term (current) use of antibiotics; Z90.710 Acquired absence of both cervix and uterus

== ENCOUNTER 2020-01-31 00:07 | Emergency (ER) | payer MEDICARE ==
[2020-01-31 00:09] VITALS: BP 125/56
[2020-01-31 01:07] LABS: BASO # 0.1 10*3/uL (0.0-0.1); BASO % 0.7 % (0.0-1.0); EOS # 0.3 10*3/uL (0.0-0.4); EOS % 2.2 % (1.0-4.0); HEMATOCRIT 45.6 % (37.0-47.0); LYMPH % 21.6 % (27.0-41.0); MEAN CELL VOLUME 92.1 fl (81.0-99.0); MEAN CORPUSCULAR HGB 29.5 pg (27.0-31.0); MEAN PLATELET VOLUME 9.9 fl (9.6-12.3); MONO # 1.3 10*3/uL (0.1-1.0); MONO % 9.3 % (3.0-9.0); NEUT # 9.1 10*3/uL (2.3-7.9); NEUT % 65.7 % (47.0-73.0); PLATELET COUNT AUTOMATED 376 10*3/uL (130-400); RED BLOOD COUNT 4.95 10*6/uL (4.10-5.10); RED CELL DISTRI WIDTH 13.3 % (0-14.5); WHITE BLOOD COUNT 13.8 10*3/uL (4.8-10.8)
[2020-01-31 01:24] LABS: ALBUMIN 3.7 gm/dl (3.1-4.5); CREATININE 1.41 mg/dL (0.55-1.02); POTASSIUM 4.2 mmol/L (3.5-5.1); TOTAL PROTEIN 6.7 gm/dL (6.4-8.2); VALPROIC ACID (DEPAKENE) 4.9 ug/ml (50-100)
== END 2020-01-31 02:50 | disposition home or self-care (01) ==
LOC: ED 00:07
PROVIDERS: Emergency Medicine
DX: R56.9 Unspecified convulsions (principal); M19.90 Unspecified osteoarthritis, unspecified site; F31.9 Bipolar disorder, unspecified; I25.10 Atherosclerotic heart disease of native coronary artery without angina pectoris; J44.9 Chronic obstructive pulmonary disease, unspecified; E11.22 Type 2 diabetes mellitus with diabetic chronic kidney disease; N18.30 Chronic kidney disease, stage 3 unspecified; I25.2 Old myocardial infarction; K21.9 Gastro-esophageal reflux disease without esophagitis; E78.5 Hyperlipidemia, unspecified; I50.32 Chronic diastolic (congestive) heart failure; E03.9 Hypothyroidism, unspecified; G43.909 Migraine, unspecified, not intractable, without status migrainosus; F41.9 Anxiety disorder, unspecified; F17.200 Nicotine dependence, unspecified, uncomplicated; Z88.1 Allergy status to other antibiotic agents; Z88.6 Allergy status to analgesic agent; Z79.899 Other long term (current) drug therapy; Z98.61 Coronary angioplasty status; Z90.49 Acquired absence of other specified parts of digestive tract; Z90.711 Acquired absence of uterus with remaining cervical stump; Z90.89 Acquired absence of other organs

== ENCOUNTER 2020-02-06 05:30 | Emergency (ER) | payer MEDICARE ==
[~2020-02-06] VITALS: Ht 167.6 cm; Wt 57.6 kg
[2020-02-06 05:34] VITALS: BP 164/94
[2020-02-06 05:53] LABS: BASO # 0.1 10*3/uL (0.0-0.1); BASO % 0.6 % (0.0-1.0); EOS # 0.3 10*3/uL (0.0-0.4); EOS % 2.4 % (1.0-4.0); HEMATOCRIT 44.4 % (37.0-47.0); LYMPH # 3.9 10*3/uL (1.3-4.4); LYMPH % 32.7 % (27.0-41.0); MEAN CELL VOLUME 94.7 fl (81.0-99.0); MEAN CORPUSCULAR HGB CONC 30.6 g/dl (33.0-37.0); MEAN PLATELET VOLUME 9.5 fl (9.6-12.3); MONO # 1.1 10*3/uL (0.1-1.0); MONO % 9.2 % (3.0-9.0); NEUT # 6.4 10*3/uL (2.3-7.9); NEUT % 53.8 % (47.0-73.0); PLATELET COUNT AUTOMATED 424 10*3/uL (130-400); RED BLOOD COUNT 4.69 10*6/uL (4.10-5.10); RED CELL DISTRI WIDTH 13.6 % (0-14.5); WHITE BLOOD COUNT 11.9 10*3/uL (4.8-10.8)
[2020-02-06 06:04] LABS: ALBUMIN 3.3 gm/dl (3.1-4.5); ALKALINE PHOSPHATASE 84 U/L (45-117); BUN 19 mg/dl (7-24); CHLORIDE 107 mmol/L (98-107); CREATININE 0.77 mg/dL (0.55-1.02); POTASSIUM 4.8 mmol/L (3.5-5.1); SGOT/AST 15 IU/L (3-35); SGPT/ALT 13 U/L (12-78); SODIUM 141 mmol/L (136-145); TOTAL PROTEIN 6.5 gm/dL (6.4-8.2)
== END 2020-02-06 06:29 | disposition home or self-care (01) ==
LOC: ED 05:30
PROVIDERS: Internal Medicine
DX: U07.1 COVID-19 (principal); M54.5 Low back pain; G89.29 Other chronic pain; Z88.8 Allergy status to other drugs, medicaments and biological substances; Z79.899 Other long term (current) drug therapy; Z79.84 Long term (current) use of oral hypoglycemic drugs; Z79.2 Long term (current) use of antibiotics

== ENCOUNTER 2020-02-06 22:33 | Emergency (ER) | payer MEDICARE ==
[~2020-02-06] VITALS: Ht 167.6 cm; Wt 62.1 kg
[2020-02-06 22:36] VITALS: BP 138/84
[2020-02-06 23:13] LABS: BASO # 0.1 10*3/uL (0.0-0.1); BASO % 0.6 % (0.0-1.0); EOS # 0.3 10*3/uL (0.0-0.4); EOS % 2.4 % (1.0-4.0); HEMATOCRIT 44.2 % (37.0-47.0); LYMPH # 3.7 10*3/uL (1.3-4.4); LYMPH % 26.9 % (27.0-41.0); MEAN CELL VOLUME 93.2 fl (81.0-99.0); MEAN CORPUSCULAR HGB 29.3 pg (27.0-31.0); MEAN CORPUSCULAR HGB CONC 31.4 g/dl (33.0-37.0); MEAN PLATELET VOLUME 9.1 fl (9.6-12.3); MONO # 1.2 10*3/uL (0.1-1.0); MONO % 8.5 % (3.0-9.0); NEUT # 8.5 10*3/uL (2.3-7.9); NEUT % 61.3 % (47.0-73.0); PLATELET COUNT AUTOMATED 432 10*3/uL (130-400); RED BLOOD COUNT 4.74 10*6/uL (4.10-5.10); RED CELL DISTRI WIDTH 13.5 % (0-14.5); WHITE BLOOD COUNT 13.9 10*3/uL (4.8-10.8)
[2020-02-06 23:33] LABS: ALBUMIN 3.9 gm/dl (3.1-4.5); ALKALINE PHOSPHATASE 89 U/L (45-117); BUN 14 mg/dl (7-24); CHLORIDE 106 mmol/L (98-107); CREATININE 0.73 mg/dL (0.55-1.02); SGOT/AST 22 IU/L (3-35); SGPT/ALT 18 U/L (12-78)
[2020-02-06 23:39] LABS: SODIUM 141 mmol/L (136-145)
[2020-02-06 23:42] LABS: ACETAMINOPHEN (TYLENOL) < 5.0 ug/ml (10-30); ETHYL ALCOHOL < 3.0 mg/dl (<3); POTASSIUM 3.6 mmol/L (3.5-5.1)
[2020-02-07 00:50] LABS: URINE AMPHETAMINES < 1000 (1000ng/ml); URINE BARBITURATES < 200 (200ng/ml); URINE BENZODIAZEPINES < 200 (200ng/ml); URINE CANNABINOIDS (THC) < 50 (50ng/ml); URINE COCAINE < 300 (300ng/ml); URINE METHADONE < 300 (300ng/ml); URINE OPIATES < 300 (300ng/ml)
[2020-02-07 00:55] LABS: URINE PHENCYCLIDINE < 25 (25ng/ml)
[2020-02-07 01:18] LABS: BILIRUBIN Negative (Negative); BLOOD Negative (Negative); CLARITY Clear (Clear); COLOR Yellow (Yellow); GLUCOSE Negative (Negative); KETONE Negative (Negative); LEUKO ESTERASE 2+ (Negative); NITRITE Negative (Negative); UROBILINOGEN 0.2 E.U./dl (0.0-1.0)
[2020-02-07 01:55] LABS: BACTERIA TRACE; RBC 0-2 rbc/hpf (0-2)
== END 2020-02-07 12:30 | disposition home or self-care (01) ==
LOC: ED 22:33
PROVIDERS: Nurse Practitioner Family
DX: F43.21 Adjustment disorder with depressed mood (principal); Z88.8 Allergy status to other drugs, medicaments and biological substances; Z79.899 Other long term (current) drug therapy; Z79.84 Long term (current) use of oral hypoglycemic drugs; Z79.2 Long term (current) use of antibiotics

== ENCOUNTER → 2020-02-06 | Outpatient (CLI) | payer MEDICARE | END | disposition home or self-care (01) | LOC: COVID19 15:43 | PROVIDERS: ATTEND Internal Medicine | DX: R05 Cough (principal); Z20.828 Contact with and (suspected) exposure to other viral communicable diseases ==

== ENCOUNTER → 2020-03-04 | Outpatient (CLI) | payer OTHER ==
[2020-03-04 08:21] LABS: URINE AMPHETAMINES < 1000 (1000ng/ml); URINE BARBITURATES < 200 (200ng/ml); URINE BENZODIAZEPINES > 200 (200ng/ml); URINE CANNABINOIDS (THC) < 50 (50ng/ml); URINE COCAINE < 300 (300ng/ml); URINE METHADONE < 300 (300ng/ml); URINE OPIATES < 300 (300ng/ml)
[2020-03-04 08:55] LABS: URINE PHENCYCLIDINE < 25 (25ng/ml)
== END | disposition home or self-care (01) ==
LOC: LAB 07:57
PROVIDERS: ATTEND Psychiatry & Neurology Psychiatry
DX: R82.5 Elevated urine levels of drugs, medicaments and biological substances (principal); G89.29 Other chronic pain